=== PATIENT | female | born 1965 | race Caucasian/White ===

== ENCOUNTER → 2017-01-26 | Outpatient (CLI) | payer OTHER, BC ==
[2017-01-26 08:52] LABS: HEMATOCRIT 47.6 % (36.0-47.0); HEMOGLOBIN 15.8 g/dL (12.0-15.5); RED CELL DISTRIBUTION WIDTH 12.9 % (11.5-14.5)
[2017-01-26 09:16] LABS: ALBUMIN 3.6 g/dL (3.4-5.0); CALCIUM 9.4 mg/dL (8.5-10.1); CREATININE 0.9 mg/dL (0.6-1.0); GFR 65.5; TOTAL BILIRUBIN 0.6 mg/dL (0.2-1.0); TOTAL PROTEIN 7.2 g/dL (6.4-8.2)
[2017-01-26 09:19] LABS: CHOLESTEROL/HDL RATIO 4.8
[2017-01-26 09:24] LABS: FREE T4 1.26 ng/dL (0.76-1.46)
== END | disposition home or self-care (01) ==
LOC: LAB 08:30
PROVIDERS: ATTEND Family Medicine
DX: Z13.220 Encounter for screening for lipoid disorders (principal); R53.83 Other fatigue; E03.9 Hypothyroidism, unspecified
CPT/HCPCS: 36415; 80053; 80061; 84439; 84443; 85027

== ENCOUNTER → 2017-02-05 | Outpatient (CLI) | payer OTHER, BC ==
--- NOTE | 2017-02-09 11:55 | RAD ---
DATE: 02/05/2017 EXAM: DIGITAL DIAGNOSTIC BILATERAL, BREAST LEFT HISTORY: Left breast pain for 5 months COMPARISON: None available This study was interpreted with the benefit of Computerized Aided Detection (CAD ). FINDINGS: The breast parenchyma demonstrates heterogeneously dense breast tissue which could obscure small masses, category C. In the region of the BB marker in the left upper outer breast no definite evidence of mass or lesion identified. There is nodular appearance of the right breast tissue identified in the upper breast on the MLO view. Breast biopsy clip marker identified in the right breast. On the targeted ultrasound the left breast at the site of the marker placement no definite evidence of mass or lesion identified. IMPRESSION: Benign findings. Please note that there is some nodular appearance to the right upper breast seen on the MLO view which is not well visualized on the cc view this may be nodular appearing breast tissue. Comparison to prior exam is recommended. At this time prior comparisons are not available. Patient is getting the comparisons later today after office hours. An addendum to this report will be reported after the comparisons are available. BI-RADS CATEGORY: 2 BENIGN FINDING RECOMMENDED FOLLOW-UP: Recommend routine screening mammogram PQRS compliance statement: Patient information was entered into a reminder system with a target due date 02/05/2018 for the next mammogram. Mammography is a sensitive method for finding small breast cancers, but it does not detect them all and is not a substitute for careful clinical examination. A negative mammogram does not negate a clinically suspicious finding and should not result in delay in biopsying a clinically suspicious abnormality. "Our facility is accredited by the [employer] Mammography Program." BETH
== END | disposition home or self-care (01) ==
LOC: MAMMO 09:35
PROVIDERS: ATTEND Family Medicine
DX: N64.4 Mastodynia (principal)
CPT/HCPCS: 76641; G0204; 77066

== ENCOUNTER → 2017-05-11 | Outpatient (CLI) | payer OTHER, BC ==
--- NOTE | 2017-05-11 13:16 | RAD ---
Indication chronic pain. No history of injury. AP and frog leg views of the right hip were obtained. No acute bony finding is seen. Significant degenerative changes are not apparent on plain film
== END | disposition home or self-care (01) ==
LOC: RAD 11:10
PROVIDERS: ATTEND Family Medicine
DX: M25.551 Pain in right hip (principal); G89.29 Other chronic pain
CPT/HCPCS: 73502

== ENCOUNTER → 2017-06-25 | Outpatient (CLI) | payer OTHER, BC ==
--- NOTE | 2017-06-25 09:07 | KCIC ---
Limited right upper quadrant ultrasound dated 06/25/2017 8:00 AM. Comparison: None Clinical Indication: Right upper quadrant pain evaluate gallbladder Findings: Liver is of diffuse increased echogenicity, compatible with fatty infiltration. No apparent hepatic mass. Biliary tree normal in caliber. The common bile duct measures 4 mm.. The gallbladder is normal in size and echogenicity without gallbladder wall thickening or pericholecystic fluid. No gallstones are seen. Both kidneys are normal in echogenicity. The right kidney measures 10.2 cm in length. The left kidney measures 10.8 cm in length. No hydronephrosis. Pancreas aorta and IVC are not well evaluated due to overlying bowel gas. No significant ascites. IMPRESSION: 1. No acute sonographic abnormality. 2. Hepatic steatosis. Electronically signed by: Jt Quinones MD (06/25/2017 9:04 AM) [facility]
== END | disposition home or self-care (01) ==
LOC: KCIC US 07:52
PROVIDERS: ATTEND Family Medicine
DX: K76.0 Fatty (change of) liver, not elsewhere classified (principal)
CPT/HCPCS: 76705

== ENCOUNTER 2017-07-14 10:31 | Inpatient (IN) | payer OTHER, BC ==
[~2017-07-14] VITALS: Ht 170.2 cm; Wt 86.9 kg
--- NOTE | 2017-07-14 11:15 | PHYS DOC ---
Past Medical History Past Medical History: Hypothyroid Past Surgical History: Appendectomy, Other Additional Past Surgical Histo: NECK SX Additional Information: SMOKES 1 PK/DAY Alcohol Use: Occasionally Drug Use: None Adult General Chief Complaint Chief Complaint: NEURO SYMPTOMS/DEFICITS [facility] HPI Patient is a 51 year old female presents to the emergency department with a history of neck pain for the last week. Patient states she had chest discomfort. "like my heart was beating funny." Patient states she has a history of neck fracture in the past. She denies injury or trauma. Patient states she has been taking Naproxen for the pain. She denies any change in strength or gait. Patient denies loss of bowel or bladder. Patient is alert and oriented. Review of Systems Review of Systems Constitutional: Denies fever or chills [] Eyes: Denies change in visual acuity, redness, or eye pain [] HENT: Denies nasal congestion or sore throat [] Respiratory: Denies cough or shortness of breath [] Cardiovascular: No additional information not addressed in HPI [] GI: Denies abdominal pain, nausea, vomiting, bloody stools or diarrhea [] : Denies dysuria or hematuria [] Musculoskeletal: Denies back pain or joint pain. C/o neck pain. Integument: Denies rash or skin lesions [] Neurologic: Denies headache, focal weakness or sensory changes [] Endocrine: Denies polyuria or polydipsia [] Current Medications Current Medications Current Medications Medications (Trade) Dose Ordered Sig/Annelise Start Time Stop Time Status Last Admin Dose Admin Aspirin (Children'S Aspirin) 324 mg 1X ONCE 07/14/17 12:30 07/14/17 12:31 DC 07/14/17 12:26 324 MG Morphine Sulfate 4 mg 1X ONCE 07/14/17 13:00 07/14/17 13:01 UNV Nitroglycerin (Nitrostat) 0.4 mg PRN Q5MIN PRN 07/14/17 12:30 07/14/17 12:28 0.4 MG Allergies Allergies Allergies Coded Allergies Type Severity Reaction Last Updated Verified codeine Adverse Reaction Unknown Nausea and Vomiting 07/14/17 Yes Physical Exam Physical Exam Constitutional: Well developed, well nourished, no acute distress, non-toxic appearance. [] HENT: Normocephalic, atraumatic, bilateral external ears normal, oropharynx moist, no oral exudates, nose normal. Bilateral tympanic membranes appear to be normal. Throat with no erythematous no drainage no exudate. Eyes: PERRLA, EOMI, conjunctiva normal, no discharge. [] Neck: Normal range of motion, no tenderness, supple, no stridor. [] Cardiovascular:Heart rate regular rhythm, no murmur [] Lungs & Thorax: Bilateral breath sounds clear to auscultation [] Abdomen: Bowel sounds hypoactive, soft, no tenderness, no masses, no pulsatile masses. [] Skin: Warm, dry, no erythema, no rash. [] Back: No tenderness Extremities: No tenderness, no cyanosis, no clubbing, ROM intact, no edema. [] Neurologic: Alert and oriented X 3, normal motor function, normal sensory function, no focal deficits noted. [] Psychologic: Affect normal, judgement normal, mood normal. [] Stroke scale was 0. No deficits noted. Current Patient Data Vital Signs Vital Signs Date Time Temp Pulse Resp B/P (MAP) Pulse Ox O2 Delivery O2 Flow Rate FiO2 07/14/17 12:28 85 163/94 07/14/17 10:33 97.8 16 98 Room Air 97.8 Lab Values Laboratory Tests Test 07/14/17 11:10 07/14/17 11:35 White Blood Count 8.4 x10^3/uL (4.0-11.0) Red Blood Count 4.56 x10^6/uL (3.50-5.40) Hemoglobin 14.8 g/dL (12.0-15.5) Hematocrit 43.1 % (36.0-47.0) Mean Corpuscular Volume 95 fL (79-100) Mean Corpuscular Hemoglobin 33 pg (25-35) Mean Corpuscular Hemoglobin Concent 34 g/dL (31-37) Red Cell Distribution Width 12.7 % (11.5-14.5) Platelet Count 237 x10^3/uL (140-400) Neutrophils (%) (Auto) 59 % (31-73) Lymphocytes (%) (Auto) 31 % (24-48) Monocytes (%) (Auto) 7 % (0-9) Eosinophils (%) (Auto) 2 % (0-3) Basophils (%) (Auto) 1 % (0-3) Neutrophils # (Auto) 5.0 x10^3uL (1.8-7.7) Lymphocytes # (Auto) 2.6 x10^3/uL (1.0-4.8) Monocytes # (Auto) 0.6 x10^3/uL (0.0-1.1) Eosinophils # (Auto) 0.1 x10^3/uL (0.0-0.7) Basophils # (Auto) 0.0 x10^3/uL (0.0-0.2) Sodium Level 141 mmol/L (136-145) Potassium Level 4.3 mmol/L (3.5-5.1) Chloride Level 103 mmol/L (98-107) Carbon Dioxide Level 32 mmol/L (21-32) Anion Gap 6 (6-14) Blood Urea Nitrogen 13 mg/dL (7-20) Creatinine 1.0 mg/dL (0.6-1.0) Estimated GFR (Cockcroft-Gault) 58.0 BUN/Creatinine Ratio 13 (6-20) Glucose Level 128 mg/dL (70-99) H Calcium Level 9.1 mg/dL (8.5-10.1) Total Bilirubin 0.3 mg/dL (0.2-1.0) Aspartate Amino Transferase (AST) 18 U/L (15-37) Alanine Aminotransferase (ALT) 31 U/L (14-59) Alkaline Phosphatase 56 U/L (46-116) Troponin I Quantitative 0.197 ng/mL (0.000-0.055) Total Protein 6.7 g/dL (6.4-8.2) Albumin 3.7 g/dL (3.4-5.0) Albumin/Globulin Ratio 1.2 (1.0-1.7) Urine Collection Type Unknown Urine Color Yellow Urine Clarity Clear Urine pH 6.0 Urine Specific [place] 1.015 Urine Protein Negative mg/dL (NEG-TRACE) Urine Glucose (UA) Negative mg/dL (NEG) Urine Ketones (Stick) Negative mg/dL (NEG) Urine Blood Negative (NEG) Urine Nitrite Negative (NEG) Urine Bilirubin Negative (NEG) Urine Urobilinogen Dipstick 0.2 mg/dL (0.2 mg/dL) Urine Leukocyte Esterase Small (NEG) Urine RBC Occ /HPF (0-2) Urine WBC 1-4 /HPF (0-4) Urine Squamous Epithelial Cells Mod /LPF Urine Bacteria Moderate /HPF (0-FEW) Urine Mucus Slight /LPF Laboratory Tests 07/14/17 11:10 Laboratory Tests 07/14/17 11:10 EKG EKG EKG G completed with a heart rate of 88 sinus rhythm noted no ectopy noted, no STEMI per Dr. Tobias[] Radiology/Procedures Radiology/Procedures [] Course & Med Decision Making Course & Med Decision Making Pertinent Labs and Imaging studies reviewed. (See chart for details) Patient's CT scan and x-rays were all negative. Patient's troponin was elevated. CBC and chemistries were normal. Urine was positive for urinary tract infection. Called and spoke with Dr. Mckinney who no longer admits for his patients. Hospitalist was notified patient will be admitted into the hospital she'll play placed on a telemetry unit she is provided with aspirin here in the emergency department. Orders have been placed in the computer. Patient is aware of admission and agrees at this time. [] Dragon Disclaimer Dragon Disclaimer This electronic medical record was generated, in whole or in part, using a voice recognition dictation system. Departure Departure Impression: Primary Impression: Elevated troponin Additional Impressions: UTI (urinary tract infection) Left sided numbness Disposition: ADMITTED INPATIENT Admitting Physician: Kyleigh Meneses Condition: STABLE Referrals: JIGNESH MCKINNEY MD (PCP) Problem Qualifiers Additional Impressions: UTI (urinary tract infection) Urinary tract infection type: site unspecified Hematuria presence: without hematuria Qualified Codes: N39.0 - Urinary tract infection, site not specified IRENA STOVALL APRN Jul 14, 2017 11:15
[2017-07-14 11:19] LABS: BASO % 1 % (0-3); EOS % 2 % (0-3); HEMATOCRIT 43.1 % (36.0-47.0); HEMOGLOBIN 14.8 g/dL (12.0-15.5); LYMPH # 2.6 x10^3/uL (1.0-4.8); LYMPH % 31 % (24-48); MEAN CORPUSCULAR HEMOGLOBIN 33 pg (25-35); MEAN CORPUSCULAR HGB CONC 34 g/dL (31-37); MEAN CORPUSCULAR VOLUME 95 fL (79-100); MONO % 7 % (0-9); NEUT % 59 % (31-73); PLATELET COUNT 237 x10^3/uL (140-400); RED BLOOD COUNT 4.56 x10^6/uL (3.50-5.40); RED CELL DISTRIBUTION WIDTH 12.7 % (11.5-14.5); WHITE BLOOD COUNT 8.4 x10^3/uL (4.0-11.0)
[2017-07-14 11:32] LABS: CALCIUM 9.1 mg/dL (8.5-10.1); POTASSIUM 4.3 mmol/L (3.5-5.1)
[2017-07-14 11:38] LABS: ALBUMIN 3.7 g/dL (3.4-5.0); ALBUMIN/GLOBULIN RATIO 1.2 (1.0-1.7); TOTAL BILIRUBIN 0.3 mg/dL (0.2-1.0); TOTAL PROTEIN 6.7 g/dL (6.4-8.2)
[2017-07-14 11:53] LABS: BILIRUBIN,URINE NEGATIVE (NEG); GLUCOSE,URINE NEGATIVE (NEG); NITRITE,URINE NEGATIVE (NEG); PROTEIN,URINE NEGATIVE (NEG-TRACE); UROBILINOGEN,URINE 0.2 mg/dL (0.2 mg/dL)
--- NOTE | 2017-07-14 11:53 | RAD ---
Chest x-ray Indication: Mid back pain for one week. No known injury. Technique: AP view of the chest Comparison: Previous study from 04/12/2009 Findings: Heart is normal in size. Lungs are clear. No pneumothorax or pleural effusion. Mild bilateral AC joint osteoarthritis. Impression: No acute cardiopulmonary process.
--- NOTE | 2017-07-14 12:02 | RAD ---
Thoracic spine x-rays Indication: Mid back pain for one week. No known injury Technique: AP and lateral views of the thoracic spine Comparison: None Findings: Anterior wedge compression deformity of the lower thoracic vertebral body with approximately less than 50% loss of anterior body height. Congenital fusion of C4-C5 vertebral bodies. Multilevel degenerative disc disease and spine. Heart is normal in size. Lungs are clear. Impression: 1. Compression deformity of the lower thoracic vertebral body as described above, age indeterminate. 2. Multilevel degenerative disc disease.
--- NOTE | 2017-07-14 12:02 | RAD ---
CT of the head without contrast, 07/14/2017: History: Fall, numbness and tingling on left The ventricles are within normal limits in size. There is no shift of the midline structures. There is no evidence of acute intracranial hemorrhage or mass effect. IMPRESSION: No acute intracranial abnormality is detected. CT of the cervical spine without contrast, 07/14/2017: Noncontrast scans were obtained with multiplanar reconstructions produced. There is fusion of the C4 and C5 vertebrae. There is moderate disc space narrowing and marginal spurring at C5-6 and C6-7. There are moderate degenerative changes involving scattered facet joints bilaterally. The posterior disc margins are not clearly defined in the lower cervical region due to artifacts. The combination of findings is causing mild to moderate central spinal stenosis at C5-6 and C6-7 as well as foraminal narrowing bilaterally at those levels. No acute fracture or dislocation is identified. IMPRESSION: 1. Moderate multilevel degenerative change as described above. 2. No acute bony abnormality is detected. PQRS Compliance Statement: One or more of the following individualized dose reduction techniques were utilized for this examination: 1. Automated exposure control 2. Adjustment of the mA and/or kV according to patient size 3. Use of iterative reconstruction technique
[2017-07-14 12:11] LABS: BACTERIA,URINE MODERATE /HPF (0-FEW); RBC,URINE OCC /HPF (0-2); SQUAMOUS EPITHELIAL CELL,UR MOD /LPF
[2017-07-14] MEDS ORDERED: ASPIRIN CHEWABLE 81 MG TABLET. PO ONE (12:30)
[2017-07-14] MEDS ORDERED: NITROGLYCERIN SUBLINGUAL 0.4 MG BOTTLE OF 25. SL PRN ×2 (12:30→13:00)
--- NOTE | 2017-07-14 12:42 | EKG ---
[facility] [address] [place] [address] Test Date: 2017-07-14 Test Time: 10:36:41 Pat Name: JOHNIE BARRIGA Department: Room: Gender: F [employer] Certified Supervisor: : [id number] Requested By: IRENA STOVALL Order Number: [id number] Reading MD: Bobo Padilla Measurements Intervals [place] Rate: 88 P: 63 FL: 170 QRS: 31 QRSD: 72 T: 38 QT: 382 QTc: 466 Interpretive Statements SINUS RHYTHM Electronically Signed On 07-19-2017 14:26:50 CDT by Bobo Padilla
[2017-07-14] MEDS ORDERED: MORPHINE SULFATE 2 MG/ML DISP.SYRIN. IV PRN ×2 (13:00→16:15)
[2017-07-14] MEDS ORDERED: ONDANSETRON PF 4 MG/2 ML VIAL. IV PRN (13:00)
[2017-07-14] MEDS ORDERED: NITROFURANTOIN MONOHYD/M-CRYST 100 MG CAPSULE. PO SCH (13:15)
[2017-07-14] MEDS ORDERED: MORPHINE SULFATE 4 MG/ML DISP.SYRIN. IM ONE (13:15)
--- NOTE | 2017-07-14 14:46 | ACF ---
Admit Criteria Forms Admit Criteria Forms Admit Criteria Forms CARDIOLOGY GRG Clinical Indications for Admission to Inpatient Care ( [place]/check or initial the applicable condition/criteria) Hospital admission is needed for appropriate care of the patient because of ANY ONE of the following: [ ] I. Hemodynamic instability as indicated by ALL of the following (1)(2)(3) (4)(5)(6)(7)(8)(9)(10) [ ]a) Vital sign abnormality not readily corrected by appropriate treatment with 12-24 hours for ANY ONE: [ ]i) Hypotension that persists despite appropriate treatment (eg, volume repletion) [ ]ii) Tachycardiathat persists despite appropriate tx ( e.g., analgesia, fluids, sedation as indicated [ ]iii) Orthostatic vital sign changes that persists despite appropriate treatment (eg, volume repletion) [ ]b) Vital sign abnormailty that is severe indicated by ANY ONE of the following: [ ]i) Inadequate perfusion indicated by ANY ONE of the following: [ ] 1) Lactic acidosis (> 2 mmol/L) [ ] 2) New abnormal capillary refill (> 3 seconds) [ ] 3) Reduced urine output [ ] 4) New altered mental status [ ] 5) Myocardial Ischemia [ ] 6) Other metabolic acidosis (arterial pH <7.35 ) not otherwise explained. [ ]ii) Mean arterial pressure[A] less than 60 mm Hg [ ]iii) Mean arterial pressure[A] less than 70 mm Hg after 30 minutes of appropriate treatment (eg, fluid resuscitation) [ ]iv) Sustained heart rate greater than 120 beats per minute in adult or child 6 years or older[B] [ ]v) IV inotropic or vasopressor medication required to maintain adequate blood pressure or perfusion [ ] II. Severe heart failure as indicated by ANY ONE of the following(17)(18) [ ]a) Respiratory distress [ ]b) Hypotension [ ]c) Debilitating anasarca refractory to therapy (eg, tissue breakdown with infection)[C](19) [ ]d) Cardiac arrhythmias of immediate concern [ ]e) Myocardial ischemia [ ] III. Cardiac arrhythmias or findings of immediate concern indicated by ANY ONE of the following (21)(22): [ ] a) Heart rhythms that are inherently dangerous or unstable indicated by ANY ONE of the following (23)(24)(25): [ ] i) Resuscitated ventricular fibrillation or cardiac arrest [ ] ii) Ventricular escape rhythm [ ] iii) Sustained ventricular tachycardia (30 seconds or more of ventricular rhythm at greater than 100 beats per minute) [ ] iv) Nonsustained ventricular tachycardia and ANY ONE of the following: [ ] 1) Suspected cardiac ischemia as cause or consequence of ventricular tachycardia [ ] 2) Acute myocarditis [ ] b) Unstable cardiac conduction defects indicated by ANY ONE of the following(25)(26)(27) [ ] i) Type II second-degree atrioventricular block [ ]ii) Third-degree atrioventricular block [ ]iii) New-onset left bundle branch block with suspected myocardial ischemia [ ]c) Any heart rhythm and ANY ONE of the following (23)(24)(28)(29) (30) [ ] i) Continuous long-term ECG monitoring needed (e.g., initiation of drug requiring monitoring for more than 24 hours) [ ] ii) Patient has automatic implanted cardioverter defibrillator that is repeatedly firing, malfunctioning, or in need of immediate adjustment of settings beyond the scope of ambulatory or observation care [ ]d) Heart rhythms of concern due to ANY ONE of the following: [ ] i) Hypotension [ ] ii) Respiratory distress [ ] iii) Association with other significant symptoms (e.g., bradycardia with syncope or ongoing dizziness, supraventricular tachycardia with chest pain (28)(29)(31) [ ] IV. Monitoring for cardiac contusion beyond the scope of observation care needed [A](32)(33)(34) [ ] V. Surgical or device complication (e.g., valve replacement complication , ICD disfunction or pacemaker dysfunction) (49)(50)(51)(52)(53)(54) [ ] . Inpatient palliative care needed. [F](51)(52) Also use Inpatient Palliative Care Criteria [ ] VII. Nonbacterial thrombotic (marantic) endocarditis(43)(44)(55)(56)(57) [X ] VIII. Cardiology condition, symptom, or finding for which emergency and observation care has failed or are not considered appropriate. [ ] IX. Acute valvular disease requiring inpatient as indicated by ANY ONE of the following (40)(41) [ ]a) Acute valvular regurgitation (42) [ ]b) Noninfectious valvulitis (43)(44) [ ]c) Obstructive valve thrombosis (45)(46) [ ]d) Paravalvular leak(47)(48) [ ]e) Other significant valvular disorder remaining after emergency or observation level of care (as appropriate) [ ]X. Pericardial disease requiring inpatient treatment as indicated by ANY ONE of the following (35)(36)(37)(38) [ ]a) Suspected tamponade [ ]b) Hemopericardium [ ]c) Other significant pericardial disorder remaining after emergency or observation level of care (as appropriate)(39) [ ] XI. Cardiac ischemia beyond scope of emergency and observation care. [ ] XII. Cyanotic heart disease requiring inpatient care as indicated by 1 or more of the following(58)(59)(60): [ ]a) Acute onset of hypoxemia [ ]b) Exacerbation [ ] XIII. Hypertension requiring inpatient treatment as indicated by ANYONE of the following(11)(12)(13)(14): [ ]a) Severe hypertension (SBP greater than 180 mm Hg or DBP greater than 110 mm Hg, or greater than the 95th percentile for age, gender, and height in pediatric patients) that cannot be controlled (eg, to SBP less than 160 mm Hg and DBP less than 100 mm Hg) by emergency department or observation care treatment(15) [ ]b) Acute end organ damage secondary to hypertension (SBP greater than 140 mm Hg or DBP greater than 90 mm Hg) as indicated by ANYONE of the following: [ ] i) Hypertensive encephalopathy (eg, Altered mental status)(16) [ ] ii) Cerebral infarction [ ] iii) Intracranial hemorrhage [ ] iv) Myocardial ischemia or infarction [ ] v) Heart failure (eg, pulmonary edema) [ ] vi) Aortic dissection [ ] vii) Increased creatinine (new) with reduction of more than 50% in estimated glomerular filtration rate from baseline [ ] viii) Papilledema [ ] ix) Retinal hemorrhage [ ] x) Microangiopathic hemolytic anemia [ ] xi) Seizure [ ] xii) Other significant finding secondary to hypertension [ ] XIV. Complications of transplanted heart indicated by ANY ONE of the following(61): [ ]a) Acute graft rejection requiring inpatient management (eg, intravenous imunosuppression)(62)(63) [ ]b) Acute graft heart failure indicated by ANY ONE of the following(64): [ ] i) Hemodynamic instability [ ] ii) Cardiac arrhythmias of immediate concern [ ] iii) Pulmonary edema that is very severe (eg, mechanical ventilation needed, imminent or likely, need for 100% oxygen to keep oxygen saturation above 90%) [ ] iv) Pulmonary edema that is persistent as indicated by ALL of the following: [ ] 1) New need for oxygen therapy to keep oxygen saturation above 90 % (or increased FiO2 need from baseline) [ ] 2) Has not improved sufficiently with emergency department or observation care IV diuretics or other heart failure treatments[E]. [ ] iv) Altered mental status that is severe or persistent [ ] iv) Increased creatinine (new on laboratory test) with reduction of more than 50% in estimated glomerular filtration rate from baseline [ ] iv) Progressively (ongoing) rising creatinine (known from past laboratory test) with reduction of more than 25% in estimated glomerular filtration rate from baseline [ ] iv) Acute renal failure [ ] iv) Acute peripheral ischemia (eg, examination shows pulseless, cool, mottled, or cyanotic extremity) [ ] iv) Pulmonary artery catheter monitoring needed [ ] iv) Other sign or symptom of heart failure requiring inpatient treatment (ie, too severe or not responsive to outpatient and observation care treatment) [ ]c) Infection requiring inpatient management (eg, Hemodynamic instability, need for intravenous antimicrobial treatment)(66)(67)(68)(69)(70) [ ]d) Cardiac allograft vasculopathy requiring inpatient management (eg evidence of cardiacischemia)(71) [ ]e) Other complication of transplanted heart (eg, stroke, severe pulmonary hypertension, severe valvular dysfunction) requiring inpatient management(72) The original [employer] content created by [employer] has been revised. The portions of the content which have been revised are identified through the use of italic text, and [email or web address] has neither reviewed nor approved the modified material. All other unmodified content is copyright [employer]. Please see references footnoted in the original [employer] edition 2014 JUNIOR IBRAHIM Jul 14, 2017 14:46
--- NOTE | 2017-07-14 15:12 | PDOC2 ---
CARDIAC CONSULT DATE OF CONSULT Date of Consult DATE: 07/14/17 TIME: 14:50 REASON FOR CONSULT Reason for Consult: Elevated troponin REFERRING PHYSICIAN Referring Physician: Jose Manuel SOURCE Source: Chart review, Patient HISTORY OF PRESENT ILLNESS HISTORY OF PRESENT ILLNESS This is a 51 yo male admitted for complains chest discomfort. Last week she was in ED for neck pain. She has been taking aleve for the pain but PRN not daily. US was done and showed no gallbladder disease. She remains to have intermittent nausea. Denies any chest pain, but in the last week she has been positive for left shoulder blade pain, numbness and tingling and discomfort to her left arm. Also discomfort to her left shoulder and numbness/tingling to her left jaw and tongue. Denies any slurred speech, unilateral weakness, facial droop or OCAMPO. Yesterday she also has been having palpitations. Also notable for some SOA with exertion. She is significant for cervical radiculopathy with prior cervical fusion. Upon admission her BP has been moderately elevated but no prior HTN by hx. No HLP but positive for tobaccoism, hypothyrodism. No recent falls or injury. No prior CAD, VTE. significant family hx of CAD. She denies any heartburn. No known COPD but notable for leg cramps and positive for snoring and no prior VIVIAN workup. PAST MEDICAL HISTORY Cardiovascular: HTN, Other (leg varicosities) Pulmonary: No pertinent hx CENTRAL NERVOUS SYSTEM: Other (cervical radiculopathy) GI: Hemorrhoids Heme/Onc: No pertinent hx Hepatobiliary: No pertinent hx, Other (ARIAS) Psych: Depression (controlled no meds) Musculoskeletal: Osteoarthritis, Other (degenerative disc disease; right trochanteric bursitis) Rheumatologic: No pertinent hx Infectious disease: No pertinent hx ENT: No pertinent hx Renal/: No pertinent hx Endocrine: Hypothyroidism, Other (goiter) Dermatology: No pertinent hx Grav: 3 Para: 3 PAST SURGICAL HISTORY Past Surgical History: Appendectomy, Other (cervical fusion; breast biopsy) FAMILY HISTORY Family History: Coronary Artery Disease (mother and brother), Heart Disease ( mother), Hypertension (father) SOCIAL HISTORY Smoke: 1 pack per day ALCOHOL: other (2 beer daily) Drugs: None Lives: with Family CURRENT MEDICATIONS CURRENT MEDICATIONS Current Medications Medications (Trade) Dose Ordered Sig/Annelise Route PRN Reason Start Time Stop Time Status Last Admin Dose Admin Aspirin (Children'S Aspirin) 324 mg 1X ONCE PO 07/14/17 12:30 07/14/17 12:31 DC 07/14/17 12:26 Nitroglycerin (Nitrostat) 0.4 mg PRN Q5MIN PRN SL CHEST PAIN 07/14/17 12:30 07/14/17 12:28 Morphine Sulfate 4 mg 1X ONCE IM 07/14/17 13:15 07/14/17 13:16 DC 07/14/17 13:08 Nitrofurantoin Macrocrystals (Macrobid) 100 mg BID PO 07/14/17 13:15 07/14/17 13:07 ALLERGIES ALLERGIES: Coded Allergies: codeine (Verified Adverse Reaction, Unknown, Nausea and Vomiting, 07/14/17) ROS Review of System 14 point ROS evaluated with pertinent positives noted per HPI PHYSICAL EXAM General: Alert, Oriented X3, Cooperative, No acute distress HEENT: Atraumatic, Mucous membr. moist/pink Lungs: Clear to auscultation, Normal air movement Heart: Regular rate (SR), Normal S1, Normal S2, Other (2/6 systolic murmur to MAYELA border) Abdomen: Soft, No tenderness, Other (no bruit) Neuro: Normal speech, Sensation intact Psych/Mental Status: Mental status NL, Mood NL MUSCULOSKELETAL: Osteoarthritic changes both hands VITALS VITALS Vital Signs Date Time Temp Pulse Resp B/P (MAP) Pulse Ox O2 Delivery O2 Flow Rate FiO2 07/14/17 13:30 84 162/88 (112) 98 Room Air 07/14/17 13:08 16 07/14/17 10:33 97.8 97.8 LABS Lab: Laboratory Tests Test 07/14/17 11:10 07/14/17 11:35 White Blood Count 8.4 x10^3/uL (4.0-11.0) Red Blood Count 4.56 x10^6/uL (3.50-5.40) Hemoglobin 14.8 g/dL (12.0-15.5) Hematocrit 43.1 % (36.0-47.0) Mean Corpuscular Volume 95 fL (79-100) Mean Corpuscular Hemoglobin 33 pg (25-35) Mean Corpuscular Hemoglobin Concent 34 g/dL (31-37) Red Cell Distribution Width 12.7 % (11.5-14.5) Platelet Count 237 x10^3/uL (140-400) Neutrophils (%) (Auto) 59 % (31-73) Lymphocytes (%) (Auto) 31 % (24-48) Monocytes (%) (Auto) 7 % (0-9) Eosinophils (%) (Auto) 2 % (0-3) Basophils (%) (Auto) 1 % (0-3) Neutrophils # (Auto) 5.0 x10^3uL (1.8-7.7) Lymphocytes # (Auto) 2.6 x10^3/uL (1.0-4.8) Monocytes # (Auto) 0.6 x10^3/uL (0.0-1.1) Eosinophils # (Auto) 0.1 x10^3/uL (0.0-0.7) Basophils # (Auto) 0.0 x10^3/uL (0.0-0.2) Sodium Level 141 mmol/L (136-145) Potassium Level 4.3 mmol/L (3.5-5.1) Chloride Level 103 mmol/L (98-107) Carbon Dioxide Level 32 mmol/L (21-32) Anion Gap 6 (6-14) Blood Urea Nitrogen 13 mg/dL (7-20) Creatinine 1.0 mg/dL (0.6-1.0) Estimated GFR (Cockcroft-Gault) 58.0 BUN/Creatinine Ratio 13 (6-20) Glucose Level 128 mg/dL (70-99) Calcium Level 9.1 mg/dL (8.5-10.1) Total Bilirubin 0.3 mg/dL (0.2-1.0) Aspartate Amino Transf (AST/SGOT) 18 U/L (15-37) Alanine Aminotransferase (ALT/SGPT) 31 U/L (14-59) Alkaline Phosphatase 56 U/L (46-116) Troponin I Quantitative 0.197 ng/mL (0.000-0.055) Total Protein 6.7 g/dL (6.4-8.2) Albumin 3.7 g/dL (3.4-5.0) Albumin/Globulin Ratio 1.2 (1.0-1.7) Urine Collection Type Unknown Urine Color Yellow Urine Clarity Clear Urine pH 6.0 Urine Specific [place] 1.015 Urine Protein Negative mg/dL (NEG-TRACE) Urine Glucose (UA) Negative mg/dL (NEG) Urine Ketones (Stick) Negative mg/dL (NEG) Urine Blood Negative (NEG) Urine Nitrite Negative (NEG) Urine Bilirubin Negative (NEG) Urine Urobilinogen Dipstick 0.2 mg/dL (0.2 mg/dL) Urine Leukocyte Esterase Small (NEG) Urine RBC Occ /HPF (0-2) Urine WBC 1-4 /HPF (0-4) Urine Squamous Epithelial Cells Mod /LPF Urine Bacteria Moderate /HPF (0-FEW) Urine Mucus Slight /LPF ASSESSMENT/PLAN ASSESSMENT/PLAN 1. Unstable angina: Troponin 0.197. EKG with subtle ST-T changes to inferolateral leads. 2. HTN: moderately elevated. Newly diagnosed 3. Hypothyroidism 4. Possible UTI 5. DDD with cervical radiculopathy: cervical fusion in the past. 6. Tobaccoism 7. Suspecting VIVIAN 8. ARIAS/metabolic syndrome Recommendations 1. Discussed LHC, risks and benefits and agreeable to proceed 2. TTE, EKG in AM. 3. TSH, A1C, Mg, lipid panel and trend troponin 4. Will need outpt VIVIAN workup. 5. ASA, heparin drip, start statin and will uptitrate pending lipids panel in am. 6. Norvasc x1. Will reeval for BB/ACEi tomorrow. Labetalol IV PRN. Problems: LIBBY CAMARENA DISPATCHER RADIO Jul 14, 2017 15:12
[2017-07-14 16:10] VITALS: BP 167/99
[2017-07-14] MEDS ORDERED: ACETAMINOPHEN 325 MG TABLET. PO PRN (16:15)
[2017-07-14] MEDS ORDERED: hydrALAZINE 20 MG/ML VIAL. IVP PRN (16:15)
--- NOTE | 2017-07-14 16:25 | PDOC1 ---
History and Physical Date of Admission Date of Admission 07/14/17 Identification/Chief Complaint Chief Complaint neck pain, left side numbness Problems: Source Source: Chart review, Patient History of Present Illness History of Present Illness HPI HPI Patient is a 51 year old female presents to the emergency department with a history of neck pain for the last week. Pt had h/o neck sx in 1998, no pain till a few days ago. 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 The neck pain shooting down to left shoulder, also has left hands and left leg numbness and weakness sometimes. She has no chest pain, but had one time palpitation. in ER, was found high troponin at 0.197 smoker, no fever, chills, no sob, has some nausea. Past Medical History Cardiovascular: Other (leg varicosities) Pulmonary: No pertinent hx CENTRAL NERVOUS SYSTEM: Other (cervical radiculopathy) GI: Hemorrhoids Heme/Onc: No pertinent hx Hepatobiliary: No pertinent hx, Other (ARIAS) Psych: Depression (controlled no meds) Rheumatologic: No pertinent hx Infectious disease: No pertinent hx ENT: No pertinent hx Renal/: No pertinent hx Endocrine: Hypothyroidism, Other (goiter) Dermatology: No pertinent hx Grav: 3 Para: 3 Past Surgical History Past Surgical History: Appendectomy, Other (cervical fusion; breast biopsy) Family History Family History: Coronary Artery Disease (mother and brother), Heart Disease ( mother), Hypertension (father) Social History Smoke: 1 pack per day ALCOHOL: other (2 beer daily) Drugs: None Current Problem List Problem List Problems Medical Problems: (1) Elevated troponin Status: Acute (2) Left sided numbness Status: Acute (3) UTI (urinary tract infection) Status: Acute Current Medications Current Medications Current Medications Medications (Trade) Dose Ordered Sig/Annelise Start Time Stop Time Status Last Admin Dose Admin Amlodipine Besylate (Norvasc) 5 mg 1X ONCE 07/14/17 16:30 07/14/17 16:31 Aspirin (Children'S Aspirin) 324 mg 1X ONCE 07/14/17 12:30 07/14/17 12:31 DC 07/14/17 12:26 324 MG Aspirin (Ecotrin) 81 mg [id number] 07/15/17 08:00 Atorvastatin Calcium (Lipitor) 20 mg QHS 07/14/17 21:00 Heparin Sodium (Porcine) (Heparin Sodium) 2,000 unit PRN Q6HRS PRN 07/14/17 15:45 Heparin Sodium/ Dextrose 500 ml @ 0 mls/hr CONT PRN 07/14/17 15:45 Info (Anti-Coagulation Monitoring By Pharmacy) 1 each PRN DAILY PRN 07/14/17 16:00 Morphine Sulfate 2 mg PRN Q2HR PRN 07/14/17 15:30 Nitrofurantoin Macrocrystals (Macrobid) 100 mg BID 07/14/17 13:15 07/14/17 13:07 100 MG Nitroglycerin (Nitrostat) 0.4 mg PRN Q5MIN PRN 07/14/17 13:00 07/15/17 12:59 Ondansetron HCl (Zofran) 4 mg PRN Q8HRS PRN 07/14/17 13:00 07/15/17 12:59 Allergies Allergies Allergies Coded Allergies Type Severity Reaction Last Updated Verified codeine Adverse Reaction Unknown Nausea and Vomiting 07/14/17 Yes ROS Review of System CONSTITUTIONAL: No fever or chills EYES: No recent changes SKIN: No rash or itching CARDIOVASCULAR: No chest pain, syncope, palpitations, or edema RESPIRATORY: No SOB or cough GASTROINTESTINAL: No nausea, vomiting or abdominal pain NEUROLOGICAL: No headaches or weakness ENDOCRINE: No cold or heat intolerance GENITOURINARY: No urgency or frequency of urination MUSCULOSKELETAL: No back pain or joint pain LYMPHATICS: No enlarged lymph nodes PSYCHIATRIC: No anxiety or depression Physical Exam Physical Exam GEN.: No apparent distress. Alert and oriented. HEENT: Head is normocephalic, atraumatic NECK: Supple. neck, upper back tenderness, shoulder tenderness LUNGS: Clear to auscultation. HEART: RRR, S1, S2 present. Peripheral pulses intact ABDOMEN: Soft, nontender. Positive bowel sounds. EXTREMITIES: Without any cyanosis. NEUROLOGIC: Normal speech, normal tone PSYCHIATRIC: Normal affect, normal mood. SKIN: No ulcerations Vitals Vitals Vital Signs Date Time Temp Pulse Resp B/P (MAP) Pulse Ox O2 Delivery O2 Flow Rate FiO2 07/14/17 15:00 84 141/73 (95) Room Air 07/14/17 13:30 98 07/14/17 13:08 16 07/14/17 10:33 97.8 97.8 Labs Labs Laboratory Tests Test 07/14/17 11:10 07/14/17 11:35 White Blood Count 8.4 x10^3/uL (4.0-11.0) Red Blood Count 4.56 x10^6/uL (3.50-5.40) Hemoglobin 14.8 g/dL (12.0-15.5) Hematocrit 43.1 % (36.0-47.0) Mean Corpuscular Volume 95 fL (79-100) Mean Corpuscular Hemoglobin 33 pg (25-35) Mean Corpuscular Hemoglobin Concent 34 g/dL (31-37) Red Cell Distribution Width 12.7 % (11.5-14.5) Platelet Count 237 x10^3/uL (140-400) Neutrophils (%) (Auto) 59 % (31-73) Lymphocytes (%) (Auto) 31 % (24-48) Monocytes (%) (Auto) 7 % (0-9) Eosinophils (%) (Auto) 2 % (0-3) Basophils (%) (Auto) 1 % (0-3) Neutrophils # (Auto) 5.0 x10^3uL (1.8-7.7) Lymphocytes # (Auto) 2.6 x10^3/uL (1.0-4.8) Monocytes # (Auto) 0.6 x10^3/uL (0.0-1.1) Eosinophils # (Auto) 0.1 x10^3/uL (0.0-0.7) Basophils # (Auto) 0.0 x10^3/uL (0.0-0.2) Sodium Level 141 mmol/L (136-145) Potassium Level 4.3 mmol/L (3.5-5.1) Chloride Level 103 mmol/L (98-107) Carbon Dioxide Level 32 mmol/L (21-32) Anion Gap 6 (6-14) Blood Urea Nitrogen 13 mg/dL (7-20) Creatinine 1.0 mg/dL (0.6-1.0) Estimated GFR (Cockcroft-Gault) 58.0 BUN/Creatinine Ratio 13 (6-20) Glucose Level 128 mg/dL (70-99) Calcium Level 9.1 mg/dL (8.5-10.1) Magnesium Level 2.0 mg/dL (1.8-2.4) Total Bilirubin 0.3 mg/dL (0.2-1.0) Aspartate Amino Transf (AST/SGOT) 18 U/L (15-37) Alanine Aminotransferase (ALT/SGPT) 31 U/L (14-59) Alkaline Phosphatase 56 U/L (46-116) Troponin I Quantitative 0.197 ng/mL (0.000-0.055) Total Protein 6.7 g/dL (6.4-8.2) Albumin 3.7 g/dL (3.4-5.0) Albumin/Globulin Ratio 1.2 (1.0-1.7) Thyroid Stimulating Hormone (TSH) 1.399 uIU/mL (0.358-3.74) Urine Collection Type Unknown Urine Color Yellow Urine Clarity Clear Urine pH 6.0 Urine Specific [place] 1.015 Urine Protein Negative mg/dL (NEG-TRACE) Urine Glucose (UA) Negative mg/dL (NEG) Urine Ketones (Stick) Negative mg/dL (NEG) Urine Blood Negative (NEG) Urine Nitrite Negative (NEG) Urine Bilirubin Negative (NEG) Urine Urobilinogen Dipstick 0.2 mg/dL (0.2 mg/dL) Urine Leukocyte Esterase Small (NEG) Urine RBC Occ /HPF (0-2) Urine WBC 1-4 /HPF (0-4) Urine Squamous Epithelial Cells Mod /LPF Urine Bacteria Moderate /HPF (0-FEW) Urine Mucus Slight /LPF Laboratory Tests Test 07/14/17 11:10 07/14/17 11:35 White Blood Count 8.4 x10^3/uL (4.0-11.0) Red Blood Count 4.56 x10^6/uL (3.50-5.40) Hemoglobin 14.8 g/dL (12.0-15.5) Hematocrit 43.1 % (36.0-47.0) Mean Corpuscular Volume 95 fL (79-100) Mean Corpuscular Hemoglobin 33 pg (25-35) Mean Corpuscular Hemoglobin Concent 34 g/dL (31-37) Red Cell Distribution Width 12.7 % (11.5-14.5) Platelet Count 237 x10^3/uL (140-400) Neutrophils (%) (Auto) 59 % (31-73) Lymphocytes (%) (Auto) 31 % (24-48) Monocytes (%) (Auto) 7 % (0-9) Eosinophils (%) (Auto) 2 % (0-3) Basophils (%) (Auto) 1 % (0-3) Neutrophils # (Auto) 5.0 x10^3uL (1.8-7.7) Lymphocytes # (Auto) 2.6 x10^3/uL (1.0-4.8) Monocytes # (Auto) 0.6 x10^3/uL (0.0-1.1) Eosinophils # (Auto) 0.1 x10^3/uL (0.0-0.7) Basophils # (Auto) 0.0 x10^3/uL (0.0-0.2) Sodium Level 141 mmol/L (136-145) Potassium Level 4.3 mmol/L (3.5-5.1) Chloride Level 103 mmol/L (98-107) Carbon Dioxide Level 32 mmol/L (21-32) Anion Gap 6 (6-14) Blood Urea Nitrogen 13 mg/dL (7-20) Creatinine 1.0 mg/dL (0.6-1.0) Estimated GFR (Cockcroft-Gault) 58.0 BUN/Creatinine Ratio 13 (6-20) Glucose Level 128 mg/dL (70-99) Calcium Level 9.1 mg/dL (8.5-10.1) Magnesium Level 2.0 mg/dL (1.8-2.4) Total Bilirubin 0.3 mg/dL (0.2-1.0) Aspartate Amino Transf (AST/SGOT) 18 U/L (15-37) Alanine Aminotransferase (ALT/SGPT) 31 U/L (14-59) Alkaline Phosphatase 56 U/L (46-116) Troponin I Quantitative 0.197 ng/mL (0.000-0.055) Total Protein 6.7 g/dL (6.4-8.2) Albumin 3.7 g/dL (3.4-5.0) Albumin/Globulin Ratio 1.2 (1.0-1.7) Thyroid Stimulating Hormone (TSH) 1.399 uIU/mL (0.358-3.74) Urine Collection Type Unknown Urine Color Yellow Urine Clarity Clear Urine pH 6.0 Urine Specific [place] 1.015 Urine Protein Negative mg/dL (NEG-TRACE) Urine Glucose (UA) Negative mg/dL (NEG) Urine Ketones (Stick) Negative mg/dL (NEG) Urine Blood Negative (NEG) Urine Nitrite Negative (NEG) Urine Bilirubin Negative (NEG) Urine Urobilinogen Dipstick 0.2 mg/dL (0.2 mg/dL) Urine Leukocyte Esterase Small (NEG) Urine RBC Occ /HPF (0-2) Urine WBC 1-4 /HPF (0-4) Urine Squamous Epithelial Cells Mod /LPF Urine Bacteria Moderate /HPF (0-FEW) Urine Mucus Slight /LPF VTE Prophylaxis Ordered VTE Prophylaxis Devices: Yes VTE Pharmacological Prophylaxi: No Assessment/Plan Assessment/Plan neck pain, left side intermittent numbness and weakness, need to rule out nerve problem high troponin wo chest pain, need to rule out RI hypothyroidism HTN, new onset tobaccoism plan; dr. Jose gay consult brain , cervical MRI cycle CE, check tsh, lipid panel asa for now heparin drip as per victor hugo echo need home meds pain control ptot SAGAR GARCIA MD Jul 14, 2017 16:25
[2017-07-14] MEDS ORDERED: LORazepam 0.5 MG TABLET PO ONE (16:30)
[2017-07-14] MEDS ORDERED: amLODIPine BESYLATE 5 MG TABLET PO ONE (16:30)
--- NOTE | 2017-07-14 17:20 | CARD ---
APPROVED REPORT EXAM: Two-dimensional and M-mode echocardiogram with Doppler and color Doppler. Other Information Quality : Average Rhythm : NSR INDICATION Chest Pain Elevated troponin level 2D DIMENSIONS Left Atrium(2D)3.5 (1.6-4.0cm)IVSd1.1 (0.7-1.1cm) Aortic Root(2D)3.1 (2.0-3.7cm)LVDd4.7 (3.9-5.9cm) LVOT Diameter2.1 (1.8-2.4cm)PWd1.1 (0.7-1.1cm) LVDs3.4 (2.5-4.0cm)FS (%) 25.9 % SV51.0 mlLVEF(%)51.0 (>50%) Aortic Valve AoV Peak Nixon.99.3cm/sAoV VTI15.0cm AO Peak GR.3.9mmHgLVOT VTI 14.26cm AO Mean GR.2mmHg Mitral Valve MV E Onyzwkqu17.4cm/sMV E Peak Gr.2mmHg MV DECEL [id number] A Gihljqux77.5cm/s MV FMA18kaF/A Ratio1.3 MV A [id number] (PHT)4.23cm2 TDI Lateral E' P. V8.22cm/sMedial E' P. V9.11cm/s E/Lateral E'7.8E/Medial E'7.1 Tricuspid Valve TR P. Ppiteyfk816yb/sRAP [id number] TR Peak Gr.67ooShZLIB51xdUq LEFT VENTRICLE The left ventricle is normal size. There is normal left ventricular wall thickness. Left ventricle sy stolic function is normal. The Ejection Fraction is 50-55%. There is normal LV segmental wall motion. The left ventricular diastolic function and filling is normal for age. There is no ventricular septa l defect visualized. RIGHT VENTRICLE The right ventricle is normal size. The right ventricular systolic function is normal. ATRIA The left atrium size is normal. The right atrium size is normal. The interatrial septum is intact wit h no evidence for an atrial septal defect or patent foramen ovale as noted on 2-D or Doppler imaging. AORTIC VALVE The aortic valve is normal in structure and function. The aortic valve is trileaflet. Doppler and Col or Flow revealed no significant aortic regurgitation. There is no significant aortic valvular stenosi s. MITRAL VALVE The mitral valve is normal in structure and function. There is no mitral valve stenosis. Doppler and Color Flow revealed trace to mild mitral regurgitation. TRICUSPID VALVE The tricuspid valve is normal in structure and function. Doppler and Color Flow revealed mild tricusp id regurgitation. The PA pressure was estimated at 22 mmHg. There is no tricuspid valve stenosis. PULMONIC VALVE The pulmonic valve is not well visualized. Doppler and Color Flow revealed no pulmonic valvular regur gitation. There is no pulmonic valvular stenosis. GREAT VESSELS The aortic root is normal in size. Pulmonary veins not recorded. The IVC is normal in size and collap ses >50% with inspiration. PERICARDIAL EFFUSION There is no evidence of significant pericardial effusion. Critical Notification Critical Value: No <Conclusion> Left ventricle systolic function is normal. The Ejection Fraction is 50-55%. There is normal LV segmental wall motion.
[2017-07-14 19:35] VITALS: BP 137/66
[2017-07-14] MEDS: MORPHINE SULFATE 4 MG/ML DISP.SYRIN. IV PRN (19:37)
[2017-07-14] MEDS: HEPARIN for IV BOLUS 10,000 UNIT/10 ML VIAL. IV PRN (19:42)
[2017-07-14] MEDS: HEPARIN 25,000UTS/500ML PREMIX 500 ML IV PRN (19:45)
[2017-07-14] MEDS ORDERED: ATORVASTATIN CALCIUM 20 MG TABLET PO SCH (21:00)
[2017-07-14] MEDS: ATORVASTATIN CALCIUM 40 MG TABLET. PO SCH (21:14)
[2017-07-14 23:30] VITALS: BP 125/81
[2017-07-15] VITALS (11 sets, daily range): BP systolic 99–140; BP diastolic 56–99
[2017-07-15] MEDS: HEPARIN for IV BOLUS 10,000 UNIT/10 ML VIAL. IV PRN (02:35)
[2017-07-15 05:45] LABS: BASO % 1 % (0-3); EOS % 3 % (0-3); HEMATOCRIT 46.2 % (36.0-47.0); HEMOGLOBIN 15.2 g/dL (12.0-15.5); LYMPH # 2.6 x10^3/uL (1.0-4.8); LYMPH % 41 % (24-48); MEAN CORPUSCULAR HEMOGLOBIN 32 pg (25-35); MEAN CORPUSCULAR HGB CONC 33 g/dL (31-37); MEAN CORPUSCULAR VOLUME 97 fL (79-100); MONO % 9 % (0-9); NEUT % 46 % (31-73); PLATELET COUNT 217 x10^3/uL (140-400); RED BLOOD COUNT 4.76 x10^6/uL (3.50-5.40); RED CELL DISTRIBUTION WIDTH 13.4 % (11.5-14.5); WHITE BLOOD COUNT 6.4 x10^3/uL (4.0-11.0)
[2017-07-15 06:24] LABS: CALCIUM 9.2 mg/dL (8.5-10.1); CREATININE 0.9 mg/dL (0.6-1.0); GFR 65.5; POTASSIUM 4.1 mmol/L (3.5-5.1)
[2017-07-15 06:37] LABS: CHOLESTEROL/HDL RATIO 4.4
[2017-07-15] MEDS: ASPIRIN ENTERIC COATED 81 MG TABLET.DR. PO SCH (07:43)
[2017-07-15] MEDS: ANTI-COAG MONITOR BY PHARMACY. MC PRN (08:47)
--- NOTE | 2017-07-15 09:01 | EKG ---
[facility] [address] [place] [address] Test Date: 2017-07-15 Test Time: 08:56:39 Pat Name: JOHNIE BARRIGA Department: Room: 261 1 Gender: F Decal Applier: MU : [id number] Requested By: LIBBY CAMARENA Order Number: [id number] Reading MD: Bobo Padilla Measurements Intervals [place] Rate: 78 P: 58 FL: 178 QRS: 34 QRSD: 70 T: 56 QT: 416 QTc: 478 Interpretive Statements SINUS RHYTHM PROLONGED QT Electronically Signed On 07-19-2017 14:50:04 CDT by Bobo Padilla
[2017-07-15] MEDS ORDERED: LIDOCAINE 2% 20 ML VIAL. ONE (09:12)
[2017-07-15] MEDS ORDERED: IOHEXOL 300 MG/ML 100ML VIAL. ONE (09:12)
[2017-07-15] MEDS ORDERED: HEPARIN for ARTERIAL LINE 1,500 ML ONE (09:12)
[2017-07-15] MEDS ORDERED: LEVO125T PO (09:22)
[2017-07-15] MEDS ORDERED: VERAPAMIL 5 MG/2 ML VIAL. ONE (09:36)
[2017-07-15] MEDS ORDERED: HEPARIN for IV BOLUS 10,000 UNIT/10 ML VIAL. ONE (09:36)
[2017-07-15] MEDS ORDERED: fentaNYL PF VIAL 100 MCG/2 ML VIAL ONE (09:37)
[2017-07-15] MEDS ORDERED: MIDAZOLAM HCL/PF 5 MG/5 ML VIAL. ONE (09:37)
[2017-07-15] MEDS ORDERED: NITROGLYCERIN 200 MCG/2 ML SYRINGE FOR CATH/VASC LAB. ONE ×2 (09:39→10:17)
[2017-07-15] MEDS ORDERED: LIDOCAINE 2% 20 ML VIAL. IJ ONE (09:45)
[2017-07-15] MEDS ORDERED: IOHEXOL 300 MG/ML 100ML VIAL. IART ONE (09:45)
[2017-07-15] MEDS ORDERED: VERAPAMIL 5 MG/2 ML VIAL. IART ONE (09:45)
[2017-07-15] MEDS ORDERED: fentaNYL PF VIAL 100 MCG/2 ML VIAL IV ONE (09:45)
[2017-07-15] MEDS ORDERED: HEPARIN for IV BOLUS 10,000 UNIT/10 ML VIAL. IART ONE (09:45)
[2017-07-15] MEDS ORDERED: MIDAZOLAM HCL/PF 5 MG/5 ML VIAL. IV ONE (09:45)
[2017-07-15] MEDS ORDERED: NITROGLYCERIN 200 MCG/2 ML SYRINGE FOR CATH/VASC LAB. IART ONE (09:45)
--- NOTE | 2017-07-15 10:08 | PDOC ---
PROGRESS NOTES Chief Complaint Chief Complaint Cervical DJD no nerve impingement THoracic compression fx < 50% vertebral height Troponin leak hypothyroidism HTN, new onset tobaccoism History of Present Illness History of Present Illness Out having [facility] TRops 0.177 VS ok Chart reviewed SPine images show Thoracic compression fx < 50%, DJD on cervical spine - no nerve impingement PLAN: Await from [facility] physiatry recs PT/OT COntrol pain BOwel regimen Vitals Vitals Vital Signs Date Time Temp Pulse Resp B/P (MAP) Pulse Ox O2 Delivery O2 Flow Rate FiO2 07/15/17 07:35 Room Air 07/15/17 07:00 97.9 66 18 117/72 (87) 96 97.9 Physical Exam General: Alert, Oriented X3, Cooperative, No acute distress Heart: Regular rate (SR), Normal S1, Normal S2, Other (2/6 systolic murmur to MAYELA border) Abdomen: Soft, No tenderness, Other (no bruit) Extremities: No clubbing Skin: No rashes Labs LABS Laboratory Tests Test 07/14/17 11:10 07/14/17 11:35 07/14/17 19:00 07/15/17 01:15 White Blood Count 8.4 x10^3/uL (4.0-11.0) Red Blood Count 4.56 x10^6/uL (3.50-5.40) Hemoglobin 14.8 g/dL (12.0-15.5) Hematocrit 43.1 % (36.0-47.0) Mean Corpuscular Volume 95 fL (79-100) Mean Corpuscular Hemoglobin 33 pg (25-35) Mean Corpuscular Hemoglobin Concent 34 g/dL (31-37) Red Cell Distribution Width 12.7 % (11.5-14.5) Platelet Count 237 x10^3/uL (140-400) Neutrophils (%) (Auto) 59 % (31-73) Lymphocytes (%) (Auto) 31 % (24-48) Monocytes (%) (Auto) 7 % (0-9) Eosinophils (%) (Auto) 2 % (0-3) Basophils (%) (Auto) 1 % (0-3) Neutrophils # (Auto) 5.0 x10^3uL (1.8-7.7) Lymphocytes # (Auto) 2.6 x10^3/uL (1.0-4.8) Monocytes # (Auto) 0.6 x10^3/uL (0.0-1.1) Eosinophils # (Auto) 0.1 x10^3/uL (0.0-0.7) Basophils # (Auto) 0.0 x10^3/uL (0.0-0.2) Sodium Level 141 mmol/L (136-145) Potassium Level 4.3 mmol/L (3.5-5.1) Chloride Level 103 mmol/L (98-107) Carbon Dioxide Level 32 mmol/L (21-32) Anion Gap 6 (6-14) Blood Urea Nitrogen 13 mg/dL (7-20) Creatinine 1.0 mg/dL (0.6-1.0) Estimated GFR (Cockcroft-Gault) 58.0 BUN/Creatinine Ratio 13 (6-20) Glucose Level 128 mg/dL (70-99) Hemoglobin A1c 5.1 % (4.8-5.6) Calcium Level 9.1 mg/dL (8.5-10.1) Magnesium Level 2.0 mg/dL (1.8-2.4) Total Bilirubin 0.3 mg/dL (0.2-1.0) Aspartate Amino Transf (AST/SGOT) 18 U/L (15-37) Alanine Aminotransferase (ALT/SGPT) 31 U/L (14-59) Alkaline Phosphatase 56 U/L (46-116) Troponin I Quantitative 0.197 ng/mL (0.000-0.055) 0.177 ng/mL (0.000-0.055) 0.177 ng/mL (0.000-0.055) Total Protein 6.7 g/dL (6.4-8.2) Albumin 3.7 g/dL (3.4-5.0) Albumin/Globulin Ratio 1.2 (1.0-1.7) Thyroid Stimulating Hormone (TSH) 1.399 uIU/mL (0.358-3.74) Urine Collection Type Unknown Urine Color Yellow Urine Clarity Clear Urine pH 6.0 Urine Specific [place] 1.015 Urine Protein Negative mg/dL (NEG-TRACE) Urine Glucose (UA) Negative mg/dL (NEG) Urine Ketones (Stick) Negative mg/dL (NEG) Urine Blood Negative (NEG) Urine Nitrite Negative (NEG) Urine Bilirubin Negative (NEG) Urine Urobilinogen Dipstick 0.2 mg/dL (0.2 mg/dL) Urine Leukocyte Esterase Small (NEG) Urine RBC Occ /HPF (0-2) Urine WBC 1-4 /HPF (0-4) Urine Squamous Epithelial Cells Mod /LPF Urine Bacteria Moderate /HPF (0-FEW) Urine Mucus Slight /LPF Heparin Anti-Xa Act, Unfractionated 0.18 IU/mL (0.30-0.70) Test 07/15/17 05:30 07/15/17 08:55 White Blood Count 6.4 x10^3/uL (4.0-11.0) Red Blood Count 4.76 x10^6/uL (3.50-5.40) Hemoglobin 15.2 g/dL (12.0-15.5) Hematocrit 46.2 % (36.0-47.0) Mean Corpuscular Volume 97 fL (79-100) Mean Corpuscular Hemoglobin 32 pg (25-35) Mean Corpuscular Hemoglobin Concent 33 g/dL (31-37) Red Cell Distribution Width 13.4 % (11.5-14.5) Platelet Count 217 x10^3/uL (140-400) Neutrophils (%) (Auto) 46 % (31-73) Lymphocytes (%) (Auto) 41 % (24-48) Monocytes (%) (Auto) 9 % (0-9) Eosinophils (%) (Auto) 3 % (0-3) Basophils (%) (Auto) 1 % (0-3) Neutrophils # (Auto) 2.9 x10^3uL (1.8-7.7) Lymphocytes # (Auto) 2.6 x10^3/uL (1.0-4.8) Monocytes # (Auto) 0.6 x10^3/uL (0.0-1.1) Eosinophils # (Auto) 0.2 x10^3/uL (0.0-0.7) Basophils # (Auto) 0.0 x10^3/uL (0.0-0.2) Sodium Level 142 mmol/L (136-145) Potassium Level 4.1 mmol/L (3.5-5.1) Chloride Level 104 mmol/L (98-107) Carbon Dioxide Level 33 mmol/L (21-32) Anion Gap 5 (6-14) Blood Urea Nitrogen 11 mg/dL (7-20) Creatinine 0.9 mg/dL (0.6-1.0) Estimated GFR (Cockcroft-Gault) 65.5 Glucose Level 100 mg/dL (70-99) Calcium Level 9.2 mg/dL (8.5-10.1) Triglycerides Level 131 mg/dL (0-150) Cholesterol Level 277 mg/dL (0-200) LDL Cholesterol, Calculated 188 mg/dL (0-100) VLDL Cholesterol, Calculated 26 mg/dL (0-40) Non-HDL Cholesterol Calculated 214 mg/dL (0-129) HDL Cholesterol 63 mg/dL (40-60) Cholesterol/HDL Ratio 4.4 Vitamin B12 Level 275 pg/mL (247-911) Heparin Anti-Xa Act, Unfractionated 0.49 IU/mL (0.30-0.70) Review of Systems Review of Systems out having cardiac cath Assessment and Plan Assessmemt and Plan Problems Medical Problems: (1) Elevated troponin Status: Acute (2) Left sided numbness Status: Acute (3) UTI (urinary tract infection) Status: Acute Problems: Comment Review of Relevant I have reviewed the following items vin (where applicable) has been applied. Labs Laboratory Tests Test 07/14/17 11:10 07/14/17 11:35 07/14/17 19:00 07/15/17 01:15 White Blood Count 8.4 x10^3/uL (4.0-11.0) Red Blood Count 4.56 x10^6/uL (3.50-5.40) Hemoglobin 14.8 g/dL (12.0-15.5) Hematocrit 43.1 % (36.0-47.0) Mean Corpuscular Volume 95 fL (79-100) Mean Corpuscular Hemoglobin 33 pg (25-35) Mean Corpuscular Hemoglobin Concent 34 g/dL (31-37) Red Cell Distribution Width 12.7 % (11.5-14.5) Platelet Count 237 x10^3/uL (140-400) Neutrophils (%) (Auto) 59 % (31-73) Lymphocytes (%) (Auto) 31 % (24-48) Monocytes (%) (Auto) 7 % (0-9) Eosinophils (%) (Auto) 2 % (0-3) Basophils (%) (Auto) 1 % (0-3) Neutrophils # (Auto) 5.0 x10^3uL (1.8-7.7) Lymphocytes # (Auto) 2.6 x10^3/uL (1.0-4.8) Monocytes # (Auto) 0.6 x10^3/uL (0.0-1.1) Eosinophils # (Auto) 0.1 x10^3/uL (0.0-0.7) Basophils # (Auto) 0.0 x10^3/uL (0.0-0.2) Sodium Level 141 mmol/L (136-145) Potassium Level 4.3 mmol/L (3.5-5.1) Chloride Level 103 mmol/L (98-107) Carbon Dioxide Level 32 mmol/L (21-32) Anion Gap 6 (6-14) Blood Urea Nitrogen 13 mg/dL (7-20) Creatinine 1.0 mg/dL (0.6-1.0) Estimated GFR (Cockcroft-Gault) 58.0 BUN/Creatinine Ratio 13 (6-20) Glucose Level 128 mg/dL (70-99) Hemoglobin A1c 5.1 % (4.8-5.6) Calcium Level 9.1 mg/dL (8.5-10.1) Magnesium Level 2.0 mg/dL (1.8-2.4) Total Bilirubin 0.3 mg/dL (0.2-1.0) Aspartate Amino Transf (AST/SGOT) 18 U/L (15-37) Alanine Aminotransferase (ALT/SGPT) 31 U/L (14-59) Alkaline Phosphatase 56 U/L (46-116) Troponin I Quantitative 0.197 ng/mL (0.000-0.055) 0.177 ng/mL (0.000-0.055) 0.177 ng/mL (0.000-0.055) Total Protein 6.7 g/dL (6.4-8.2) Albumin 3.7 g/dL (3.4-5.0) Albumin/Globulin Ratio 1.2 (1.0-1.7) Thyroid Stimulating Hormone (TSH) 1.399 uIU/mL (0.358-3.74) Urine Collection Type Unknown Urine Color Yellow Urine Clarity Clear Urine pH 6.0 Urine Specific [place] 1.015 Urine Protein Negative mg/dL (NEG-TRACE) Urine Glucose (UA) Negative mg/dL (NEG) Urine Ketones (Stick) Negative mg/dL (NEG) Urine Blood Negative (NEG) Urine Nitrite Negative (NEG) Urine Bilirubin Negative (NEG) Urine Urobilinogen Dipstick 0.2 mg/dL (0.2 mg/dL) Urine Leukocyte Esterase Small (NEG) Urine RBC Occ /HPF (0-2) Urine WBC 1-4 /HPF (0-4) Urine Squamous Epithelial Cells Mod /LPF Urine Bacteria Moderate /HPF (0-FEW) Urine Mucus Slight /LPF Heparin Anti-Xa Act, Unfractionated 0.18 IU/mL (0.30-0.70) Test 07/15/17 05:30 07/15/17 08:55 White Blood Count 6.4 x10^3/uL (4.0-11.0) Red Blood Count 4.76 x10^6/uL (3.50-5.40) Hemoglobin 15.2 g/dL (12.0-15.5) Hematocrit 46.2 % (36.0-47.0) Mean Corpuscular Volume 97 fL (79-100) Mean Corpuscular Hemoglobin 32 pg (25-35) Mean Corpuscular Hemoglobin Concent 33 g/dL (31-37) Red Cell Distribution Width 13.4 % (11.5-14.5) Platelet Count 217 x10^3/uL (140-400) Neutrophils (%) (Auto) 46 % (31-73) Lymphocytes (%) (Auto) 41 % (24-48) Monocytes (%) (Auto) 9 % (0-9) Eosinophils (%) (Auto) 3 % (0-3) Basophils (%) (Auto) 1 % (0-3) Neutrophils # (Auto) 2.9 x10^3uL (1.8-7.7) Lymphocytes # (Auto) 2.6 x10^3/uL (1.0-4.8) Monocytes # (Auto) 0.6 x10^3/uL (0.0-1.1) Eosinophils # (Auto) 0.2 x10^3/uL (0.0-0.7) Basophils # (Auto) 0.0 x10^3/uL (0.0-0.2) Sodium Level 142 mmol/L (136-145) Potassium Level 4.1 mmol/L (3.5-5.1) Chloride Level 104 mmol/L (98-107) Carbon Dioxide Level 33 mmol/L (21-32) Anion Gap 5 (6-14) Blood Urea Nitrogen 11 mg/dL (7-20) Creatinine 0.9 mg/dL (0.6-1.0) Estimated GFR (Cockcroft-Gault) 65.5 Glucose Level 100 mg/dL (70-99) Calcium Level 9.2 mg/dL (8.5-10.1) Triglycerides Level 131 mg/dL (0-150) Cholesterol Level 277 mg/dL (0-200) LDL Cholesterol, Calculated 188 mg/dL (0-100) VLDL Cholesterol, Calculated 26 mg/dL (0-40) Non-HDL Cholesterol Calculated 214 mg/dL (0-129) HDL Cholesterol 63 mg/dL (40-60) Cholesterol/HDL Ratio 4.4 Vitamin B12 Level 275 pg/mL (247-911) Heparin Anti-Xa Act, Unfractionated 0.49 IU/mL (0.30-0.70) Laboratory Tests Test 07/14/17 11:10 07/14/17 11:35 07/14/17 19:00 07/15/17 01:15 White Blood Count 8.4 x10^3/uL (4.0-11.0) Red Blood Count 4.56 x10^6/uL (3.50-5.40) Hemoglobin 14.8 g/dL (12.0-15.5) Hematocrit 43.1 % (36.0-47.0) Mean Corpuscular Volume 95 fL (79-100) Mean Corpuscular Hemoglobin 33 pg (25-35) Mean Corpuscular Hemoglobin Concent 34 g/dL (31-37) Red Cell Distribution Width 12.7 % (11.5-14.5) Platelet Count 237 x10^3/uL (140-400) Neutrophils (%) (Auto) 59 % (31-73) Lymphocytes (%) (Auto) 31 % (24-48) Monocytes (%) (Auto) 7 % (0-9) Eosinophils (%) (Auto) 2 % (0-3) Basophils (%) (Auto) 1 % (0-3) Neutrophils # (Auto) 5.0 x10^3uL (1.8-7.7) Lymphocytes # (Auto) 2.6 x10^3/uL (1.0-4.8) Monocytes # (Auto) 0.6 x10^3/uL (0.0-1.1) Eosinophils # (Auto) 0.1 x10^3/uL (0.0-0.7) Basophils # (Auto) 0.0 x10^3/uL (0.0-0.2) Sodium Level 141 mmol/L (136-145) Potassium Level 4.3 mmol/L (3.5-5.1) Chloride Level 103 mmol/L (98-107) Carbon Dioxide Level 32 mmol/L (21-32) Anion Gap 6 (6-14) Blood Urea Nitrogen 13 mg/dL (7-20) Creatinine 1.0 mg/dL (0.6-1.0) Estimated GFR (Cockcroft-Gault) 58.0 BUN/Creatinine Ratio 13 (6-20) Glucose Level 128 mg/dL (70-99) Hemoglobin A1c 5.1 % (4.8-5.6) Calcium Level 9.1 mg/dL (8.5-10.1) Magnesium Level 2.0 mg/dL (1.8-2.4) Total Bilirubin 0.3 mg/dL (0.2-1.0) Aspartate Amino Transf (AST/SGOT) 18 U/L (15-37) Alanine Aminotransferase (ALT/SGPT) 31 U/L (14-59) Alkaline Phosphatase 56 U/L (46-116) Troponin I Quantitative 0.197 ng/mL (0.000-0.055) 0.177 ng/mL (0.000-0.055) 0.177 ng/mL (0.000-0.055) Total Protein 6.7 g/dL (6.4-8.2) Albumin 3.7 g/dL (3.4-5.0) Albumin/Globulin Ratio 1.2 (1.0-1.7) Thyroid Stimulating Hormone (TSH) 1.399 uIU/mL (0.358-3.74) Urine Collection Type Unknown Urine Color Yellow Urine Clarity Clear Urine pH 6.0 Urine Specific [place] 1.015 Urine Protein Negative mg/dL (NEG-TRACE) Urine Glucose (UA) Negative mg/dL (NEG) Urine Ketones (Stick) Negative mg/dL (NEG) Urine Blood Negative (NEG) Urine Nitrite Negative (NEG) Urine Bilirubin Negative (NEG) Urine Urobilinogen Dipstick 0.2 mg/dL (0.2 mg/dL) Urine Leukocyte Esterase Small (NEG) Urine RBC Occ /HPF (0-2) Urine WBC 1-4 /HPF (0-4) Urine Squamous Epithelial Cells Mod /LPF Urine Bacteria Moderate /HPF (0-FEW) Urine Mucus Slight /LPF Heparin Anti-Xa Act, Unfractionated 0.18 IU/mL (0.30-0.70) Test 07/15/17 05:30 07/15/17 08:55 White Blood Count 6.4 x10^3/uL (4.0-11.0) Red Blood Count 4.76 x10^6/uL (3.50-5.40) Hemoglobin 15.2 g/dL (12.0-15.5) Hematocrit 46.2 % (36.0-47.0) Mean Corpuscular Volume 97 fL (79-100) Mean Corpuscular Hemoglobin 32 pg (25-35) Mean Corpuscular Hemoglobin Concent 33 g/dL (31-37) Red Cell Distribution Width 13.4 % (11.5-14.5) Platelet Count 217 x10^3/uL (140-400) Neutrophils (%) (Auto) 46 % (31-73) Lymphocytes (%) (Auto) 41 % (24-48) Monocytes (%) (Auto) 9 % (0-9) Eosinophils (%) (Auto) 3 % (0-3) Basophils (%) (Auto) 1 % (0-3) Neutrophils # (Auto) 2.9 x10^3uL (1.8-7.7) Lymphocytes # (Auto) 2.6 x10^3/uL (1.0-4.8) Monocytes # (Auto) 0.6 x10^3/uL (0.0-1.1) Eosinophils # (Auto) 0.2 x10^3/uL (0.0-0.7) Basophils # (Auto) 0.0 x10^3/uL (0.0-0.2) Sodium Level 142 mmol/L (136-145) Potassium Level 4.1 mmol/L (3.5-5.1) Chloride Level 104 mmol/L (98-107) Carbon Dioxide Level 33 mmol/L (21-32) Anion Gap 5 (6-14) Blood Urea Nitrogen 11 mg/dL (7-20) Creatinine 0.9 mg/dL (0.6-1.0) Estimated GFR (Cockcroft-Gault) 65.5 Glucose Level 100 mg/dL (70-99) Calcium Level 9.2 mg/dL (8.5-10.1) Triglycerides Level 131 mg/dL (0-150) Cholesterol Level 277 mg/dL (0-200) LDL Cholesterol, Calculated 188 mg/dL (0-100) VLDL Cholesterol, Calculated 26 mg/dL (0-40) Non-HDL Cholesterol Calculated 214 mg/dL (0-129) HDL Cholesterol 63 mg/dL (40-60) Cholesterol/HDL Ratio 4.4 Vitamin B12 Level 275 pg/mL (247-911) Heparin Anti-Xa Act, Unfractionated 0.49 IU/mL (0.30-0.70) Medications Current Medications Aspirin (Children'S Aspirin) 324 mg 1X ONCE PO Last administered on 07/14/17 12:26; Start 07/14/17 at 12:30; Stop 07/14/17 at 12:31; Status DC Nitroglycerin (Nitrostat) 0.4 mg PRN Q5MIN PRN SL CHEST PAIN Last administered on 07/14/17 12:28; Start 07/14/17 at 12:30 Morphine Sulfate 4 mg 1X ONCE IM Last administered on 07/14/17 13:08; Start 07/14/17 at 13:15; Stop 07/14/17 at 13:16; Status DC Ondansetron HCl (Zofran) 4 mg PRN Q8HRS PRN IV NAUSEA/VOMITING; Start 07/14/17 at 13:00; Stop 07/15/17 at 12:59 Morphine Sulfate 2 mg PRN Q2HR PRN IV PAIN; Start 07/14/17 at 13:00; Stop 07/14 at 15:16; Status DC Nitroglycerin (Nitrostat) 0.4 mg PRN Q5MIN PRN SL CHEST PAIN; Start 07/14/17 at 13:00; Stop 07/15/17 at 12:59 Nitrofurantoin Macrocrystals (Macrobid) 100 mg BID PO Last administered on 07/14 13:07; Start 07/14/17 at 13:15; Stop 07/14/17 at 16:14; Status DC Morphine Sulfate 2 mg PRN Q2HR PRN IV PAIN Last administered on 07/14/17 19:37 ; Start 07/14/17 at 15:30 Heparin Sodium/ Dextrose 500 ml @ 0 mls/hr CONT PRN IV SEE I/O RECORD Last administered on 07/14/17 19:45; Start 07/14/17 at 15:45 Heparin Sodium (Porcine) (Heparin Sodium) 2,000 unit PRN Q6HRS PRN IV FOR UFH LEVEL LESS THAN 0.2 Last administered on 07/15/17 02:35; Start 07/14/17 at 15: 45 Info (Anti-Coagulation Monitoring By Pharmacy) 1 each PRN DAILY PRN MC SEE COMMENTS Last administered on 07/15/17 08:47; Start 07/14/17 at 16:00 Amlodipine Besylate (Norvasc) 5 mg 1X ONCE PO Last administered on 07/14/17 16:30; Start 07/14/17 at 16:30; Stop 07/14/17 at 16:31; Status DC Aspirin (Ecotrin) 81 mg DAILYWBKFT PO ; Start 07/15/17 at 08:00 Atorvastatin Calcium (Lipitor) 20 mg QHS PO ; Start 07/14/17 at 21:00; Stop at 21:00; Status DC Acetaminophen (Tylenol) 650 mg PRN Q6HRS PRN PO FEVER; Start 07/14/17 at 16:15 Ondansetron HCl (Zofran) 4 mg PRN Q6HRS PRN IV NAUSEA/VOMITING; Start 07/14/17 at 16:15 Morphine Sulfate 2 mg PRN Q2HR PRN IV MODERATE TO SEVERE PAIN; Start 07/14/17 at 16:15; Stop 07/15/17 at 08:48; Status DC Tramadol HCl (Ultram) 50 mg PRN Q6HRS PRN PO MILD TO MODERATE PAIN; Start 07/14 at 16:15 Hydralazine HCl (Apresoline) 10 mg PRN Q4HRS PRN IVP ELEVATED BP, SEE COMMENTS ; Start 07/14/17 at 16:15 Docusate Sodium (Colace) 100 mg PRN DAILY PRN PO CONSTIPATION; Start 07/14/17 at 16:15 Lorazepam (Ativan) 0.5 mg 1X ONCE PO Last administered on 07/14/17 16:30; Start 07/14/17 at 16:30; Stop 07/14/17 at 16:31; Status DC Atorvastatin Calcium (Lipitor) 40 mg QHS PO Last administered on 07/14/17t 21: 14; Start 07/14/17 at 21:00 Iohexol (Omnipaque 300 Mg/ml) 100 ml STK-MED ONCE .ROUTE ; Start 07/15/17 at 09: 12; Stop 07/15/17 at 09:13; Status DC Heparin Sodium/ Sodium Chloride 1,500 ml @ As Directed STK-MED ONCE .ROUTE ; Start 07/15/17 at 09:12; Stop 07/15/17 at 09:13; Status DC Lidocaine HCl 20 ml STK-MED ONCE .ROUTE ; Start 07/15/17 at 09:12; Stop at 09:13; Status DC Verapamil HCl (Verapamil) 5 mg STK-MED ONCE .ROUTE ; Start 07/15/17 at 09:36; Stop 07/15/17 at 09:37; Status DC Heparin Sodium (Porcine) (Heparin Sodium) 10,000 unit STK-MED ONCE .ROUTE ; Start 07/15/17 at 09:36; Stop 07/15/17 at 09:37; Status DC Fentanyl Citrate (Fentanyl 2ml Vial) 100 mcg STK-MED ONCE .ROUTE ; Start at 09:37; Stop 07/15/17 at 09:38; Status DC Midazolam HCl (Versed) 5 mg STK-MED ONCE .ROUTE ; Start 07/15/17 at 09:37; Stop 07/15/17 at 09:38; Status DC Nitroglycerin (Nitroglycerin) 200 mcg STK-MED ONCE .ROUTE ; Start 07/15/17 at 09 :39; Stop 07/15/17 at 09:40; Status DC Nitroglycerin (Nitroglycerin) 200 mcg 1X ONCE IART ; Start 07/15/17 at 09:45; Stop 07/15/17 at 09:47; Status DC Verapamil HCl (Verapamil) 2.5 mg 1X ONCE IART ; Start 07/15/17 at 09:45; Stop 07/15/17 at 09:47; Status DC Heparin Sodium (Porcine) (Heparin Sodium) 2,500 unit 1X ONCE IART ; Start 07/15 at 09:45; Stop 07/15/17 at 09:47; Status DC Heparin Sodium/ Sodium Chloride 1,000 unit 1X ONCE IART ; Start 07/15/17 at 09: 45; Stop 07/15/17 at 09:47; Status DC Midazolam HCl (Versed) 5 mg 1X ONCE IV ; Start 07/15/17 at 09:45; Stop at 09:47; Status DC Fentanyl Citrate (Fentanyl 2ml Vial) 100 mcg 1X ONCE IV ; Start 07/15/17 at 09: 45; Stop 07/15/17 at 09:47; Status DC Iohexol (Omnipaque 300 Mg/ml) 100 ml 1X ONCE IART ; Start 07/15/17 at 09:45; Stop 07/15/17 at 09:47; Status DC Lidocaine HCl 20 ml 1X ONCE IJ ; Start 07/15/17 at 09:45; Stop 07/15/17 at 09: 47; Status DC Active Scripts Active Reported Synthroid (Levothyroxine Sodium) 125 Mcg Tablet 125 Mcg PO DAILYAC Vitals/I & O Vital Sign - Last 24 Hours 07/14/17 07/14/17 07/14/17 07/14/17 10:33 11:15 12:28 12:30 Temp 97.8 97.8 Pulse 94 82 85 88 Resp 16 15 18 B/P (MAP) 161/83 (109) 148/77 (100) 163/94 163/94 (117) Pulse Ox 98 99 99 O2 Delivery Room Air Room Air Room Air 07/14/17 07/14/17 07/14/17 07/14/17 13:08 13:30 14:30 15:00 Pulse 84 88 84 Resp 16 B/P (MAP) 162/88 (112) 140/79 (99) 141/73 (95) Pulse Ox 97 98 O2 Delivery Room Air Room Air Room Air Room Air 07/14/17 07/14/17 07/14/17 07/14/17 16:10 16:10 16:30 19:30 Temp 97.6 97.6 Pulse 84 86 Resp 18 B/P (MAP) 167/99 (121) 167/99 Pulse Ox 96 O2 Delivery Room Air Room Air Room Air 07/14/17 07/14/17 07/14/17 07/14/17 19:35 19:37 21:13 23:30 Temp 98.5 98.3 98.5 98.3 Pulse 78 73 Resp 18 16 20 B/P (MAP) 137/66 (89) 125/81 (96) Pulse Ox 96 96 O2 Delivery Nasal Cannula Room Air Nasal Cannula Room Air 07/15/17 07/15/17 07/15/17 03:25 07:00 07:35 Temp 98.5 97.9 98.5 97.9 Pulse 74 66 Resp 20 18 B/P (MAP) 118/56 (76) 117/72 (87) Pulse Ox 96 96 O2 Delivery Room Air Room Air Room Air Intake and Output 07/14/17 07/14/17 07/15/17 15:00 23:00 07:00 Intake Total 240 ml 205.85 ml Balance 240 ml 205.85 ml DICK CHEUNG MD Jul 15, 2017 10:08
--- NOTE | 2017-07-15 10:52 | CARD ---
APPROVED REPORT Procedure(s) performed: Sedation Time: 60min LHC, Coronary Angiography, Left ventriculography IVUS of the LM/Ramus HISTORY The patient is a 51 year-old female with a history of : hypertension, dyslipidemia. INDICATION The indication(s) include : non-STEMI . PROCEDURE NARRATIVE The patient was brought electively to the cardiac catheterization lab. A timeout was performed confi rming the patient's name, date of , procedure, and site of procedure. All necessary personnel w ere wearing the appropriate protective equipment and radiation monitor devices. After explaining the risks and benefits of the procedure and alternatives, informed consent was obtained. (See nursing no lamont for medications administered). The right wrist was sterilely prepped and draped in the usual fas hion. The right wrist was infiltrated with 1 mL of 2% lidocaine for subcutaneous anesthesia. A 6 Fr ench Terumo glide sheath was inserted into the right radial artery without difficulty. Right and lef t coronary angiography was performed using a 6Fr TIG 4.0 catheter. HEMODYNAMICS: LVEDP 18 mm Hg No gradient on LV to aortic pullback. LEFT VENTRICULOGRAM: EF 70% Anterobasal: Normal. Anterolateral: Normal Apical: Normal Diaphragmatic: Normal Posterobasal: Normal CORONARY ANGIOGRAPHY: LM is a large caliber vessel with a distal eccentric 70% stenosis extending into the LAD/Ramus LAD is a large caliber vessel with an ostial eccentric 80% stenosis. Ramus is a moderate caliber bifurcating vessel with a proximal 70% stenosis. LCx is a moderate caliber non-dominant vessel with normal angiographic appearance. OM1 is a moderate caliber vessel with normal angiographic appearance. RCA is a large caliber dominant vessel with mild diffuse luminal irregularities of up to 40%. RPDA and RPL are moderate caliber vessels with normal angiographic appearance. INTERVENTIONAL TECHNIQUE: IVUS OF THE LM AND RAMUS Due to the presence of eccentric lesions with difficult visualization by coventional angiography, an IVUS was performed to further assess lesion location and severity. Heparin bolus dosing was used to a chieve and maintain an ACT > 200. Through a 6F EBU 3.5 guide catheter, a 0.014'' Prowater wire was ad vanced to the distal Ramus. Next, a AvePoint IVUS catheter was advanced and images were obtained. The images confirmed significant ostial ramus and distal LM stenosis. Left ventricular end diastolic pres sure was obtained with a pigtail catheter and pullback was performed after left ventriculography. Al l catheter exchanges and advancements were performed over a guidewire. At case completion the right radial sheath was removed and a Terumo radial band was applied with 13 ml of air. The patient tolera grace the procedure well and there were no immediate complications. Conclusion 1. 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 2. Positive IVUS of the distal LM/Ramus. 3. Normal LV function. EF 70%. Recommendations CABG consultation. If patient deemed poor candidate for CABG then could consider complex bifurcation stenting of the LAD /Ramus and left main.
[2017-07-15] MEDS ORDERED: GADOBUTROL 7.5 MMOL/7.5 ML VIAL IV ONE (12:45)
--- NOTE | 2017-07-15 12:55 | RAD ---
MRI Brain without contrast History: Left arm tingling Technique: Multiplanar, multisequential noncontrast MR imaging was performed of the brain. Contrast: None Comparison: None Findings: There is no evidence of an acute infarct or cytotoxic edema. The ventricles, sulci, and cisterns are within normal limits in size and configuration. There is no significant midline shift, mass effect, or focal abnormal extra-axial fluid collection. Other than a tiny focus of T2 and FLAIR hyperintense signal of the posterior left frontal subcortical white matter probably due to small focus of gliosis, there is no significant FLAIR hyperintense signal abnormality of the brain parenchyma. There is focus of hemosiderin deposition of the right parietal lobe near the cortical surfaces. There is preservation of the major intracranial flow-voids at the skull base. Mastoid air cells are mostly aerated, minimal thickening bilaterally.The cerebellar tonsils are normal in location. There is no significant abnormality of the pineal gland or somewhat small pituitary gland. Paranasal sinuses are overall aerated. There is preserved marrow signal of the clivus. There is degenerative change associated with the temporomandibular joints bilaterally greater on the right. Impression: 1. There is focus of hemosiderin deposition/old microhemorrhage of the right parietal lobe. There is a tiny focus of likely nonspecific gliosis of the left frontal subcortical white matter, otherwise no significant intracranial abnormality. 2. 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 Electronically signed by: Indio Casillas MD (07/15/2017 12:51 PM) [facility] [id number]
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
[2017-07-15] MEDS: MORPHINE SULFATE 4 MG/ML DISP.SYRIN. IV PRN ×2 (13:42→21:08)
[2017-07-15] MEDS: NICOTINE 21MG PATCH. TD SCH (18:00)
--- NOTE | 2017-07-15 19:06 | PDOC2 ---
CONSULT Date of Consult Date of Consult DATE: 07/15/17 TIME: 19:02 Reason for Consult Reason for Consult: LM coronary disease Referring Physician Referring Physician: Wally Reyes MD Identification/Chief Complaint Chief Complaint Angina Problems: Source Source: Chart review, Patient History of Present Illness Reason for Visit: Patient is a 51 year old female, who presents to the ER with stable angina. Troponin peaked at 0.2. LV function is normal. LHC today showed distal LM disease extending into the Ramus and proximal LAD. She has no pain now. I was consulted for CABG Past Medical History Cardiovascular: Other (leg varicosities) Pulmonary: No pertinent hx CENTRAL NERVOUS SYSTEM: Other (cervical radiculopathy) GI: Hemorrhoids Heme/Onc: No pertinent hx Hepatobiliary: No pertinent hx, Other (ARIAS) Psych: Depression (controlled no meds) Musculoskeletal: Osteoarthritis, Other (degenerative disc disease; right trochanteric bursitis) Rheumatologic: No pertinent hx Infectious disease: No pertinent hx ENT: No pertinent hx Renal/: No pertinent hx Endocrine: Hypothyroidism, Other (goiter) Dermatology: No pertinent hx Grav: 3 Para: 3 Past Surgical History Past Surgical History: Appendectomy, Other (cervical fusion; breast biopsy) Family History Family History: Coronary Artery Disease (mother and brother), Heart Disease ( mother), Hypertension (father) Social History 1 pack per day ALCOHOL: other (2 beer daily) Drugs: None Lives: with Family Current Problem List Problem List Problems Medical Problems: (1) Elevated troponin Status: Acute (2) Left sided numbness Status: Acute (3) UTI (urinary tract infection) Status: Acute Current Medications Current Medications Current Medications Aspirin (Children'S Aspirin) 324 mg 1X ONCE PO Last administered on 07/14/17 12:26; Start 07/14/17 at 12:30; Stop 07/14/17 at 12:31; Status DC Nitroglycerin (Nitrostat) 0.4 mg PRN Q5MIN PRN SL CHEST PAIN Last administered on 07/14/17 12:28; Start 07/14/17 at 12:30 Morphine Sulfate 4 mg 1X ONCE IM Last administered on 07/14/17 13:08; Start 07/14/17 at 13:15; Stop 07/14/17 at 13:16; Status DC Ondansetron HCl (Zofran) 4 mg PRN Q8HRS PRN IV NAUSEA/VOMITING; Start 07/14/17 at 13:00; Stop 07/15/17 at 12:59; Status DC Morphine Sulfate 2 mg PRN Q2HR PRN IV PAIN; Start 07/14/17 at 13:00; Stop 07/14 at 15:16; Status DC Nitroglycerin (Nitrostat) 0.4 mg PRN Q5MIN PRN SL CHEST PAIN; Start 07/14/17 at 13:00; Stop 07/15/17 at 12:59; Status DC Nitrofurantoin Macrocrystals (Macrobid) 100 mg BID PO Last administered on 07/14 13:07; Start 07/14/17 at 13:15; Stop 07/14/17 at 16:14; Status DC Morphine Sulfate 2 mg PRN Q2HR PRN IV PAIN Last administered on 07/15/17 13:42 ; Start 07/14/17 at 15:30 Heparin Sodium/ Dextrose 500 ml @ 0 mls/hr CONT PRN IV SEE I/O RECORD Last administered on 07/14/17 19:45; Start 07/14/17 at 15:45 Heparin Sodium (Porcine) (Heparin Sodium) 2,000 unit PRN Q6HRS PRN IV FOR UFH LEVEL LESS THAN 0.2 Last administered on 07/15/17 02:35; Start 07/14/17 at 15: 45 Info (Anti-Coagulation Monitoring By Pharmacy) 1 each PRN DAILY PRN MC SEE COMMENTS Last administered on 07/15/17 08:47; Start 07/14/17 at 16:00 Amlodipine Besylate (Norvasc) 5 mg 1X ONCE PO Last administered on 07/14/17 16:30; Start 07/14/17 at 16:30; Stop 07/14/17 at 16:31; Status DC Aspirin (Ecotrin) 81 mg DAILYWBKFT PO ; Start 07/15/17 at 08:00 Atorvastatin Calcium (Lipitor) 20 mg QHS PO ; Start 07/14/17 at 21:00; Stop at 21:00; Status DC Acetaminophen (Tylenol) 650 mg PRN Q6HRS PRN PO FEVER; Start 07/14/17 at 16:15 Ondansetron HCl (Zofran) 4 mg PRN Q6HRS PRN IV NAUSEA/VOMITING; Start 07/14/17 at 16:15 Morphine Sulfate 2 mg PRN Q2HR PRN IV MODERATE TO SEVERE PAIN; Start 07/14/17 at 16:15; Stop 07/15/17 at 08:48; Status DC Tramadol HCl (Ultram) 50 mg PRN Q6HRS PRN PO MILD TO MODERATE PAIN; Start 07/14 at 16:15 Hydralazine HCl (Apresoline) 10 mg PRN Q4HRS PRN IVP ELEVATED BP, SEE COMMENTS ; Start 07/14/17 at 16:15 Docusate Sodium (Colace) 100 mg PRN DAILY PRN PO CONSTIPATION; Start 07/14/17 at 16:15 Lorazepam (Ativan) 0.5 mg 1X ONCE PO Last administered on 07/14/17 16:30; Start 07/14/17 at 16:30; Stop 07/14/17 at 16:31; Status DC Atorvastatin Calcium (Lipitor) 40 mg QHS PO Last administered on 07/14/17 21: 14; Start 07/14/17 at 21:00 Iohexol (Omnipaque 300 Mg/ml) 100 ml STK-MED ONCE .ROUTE ; Start 07/15/17 at 09: 12; Stop 07/15/17 at 09:13; Status DC Heparin Sodium/ Sodium Chloride 1,500 ml @ As Directed STK-MED ONCE .ROUTE ; Start 07/15/17 at 09:12; Stop 07/15/17 at 09:13; Status DC Lidocaine HCl 20 ml STK-MED ONCE .ROUTE ; Start 07/15/17 at 09:12; Stop at 09:13; Status DC Verapamil HCl (Verapamil) 5 mg STK-MED ONCE .ROUTE ; Start 07/15/17 at 09:36; Stop 07/15/17 at 09:37; Status DC Heparin Sodium (Porcine) (Heparin Sodium) 10,000 unit STK-MED ONCE .ROUTE ; Start 07/15/17 at 09:36; Stop 07/15/17 at 09:37; Status DC Fentanyl Citrate (Fentanyl 2ml Vial) 100 mcg STK-MED ONCE .ROUTE ; Start at 09:37; Stop 07/15/17 at 09:38; Status DC Midazolam HCl (Versed) 5 mg STK-MED ONCE .ROUTE ; Start 07/15/17 at 09:37; Stop 07/15/17 at 09:38; Status DC Nitroglycerin (Nitroglycerin) 200 mcg STK-MED ONCE .ROUTE ; Start 07/15/17 at 09 :39; Stop 07/15/17 at 09:40; Status DC Nitroglycerin (Nitroglycerin) 200 mcg 1X ONCE IART Last administered on 10:35; Start 07/15/17 at 09:45; Stop 07/15/17 at 09:47; Status DC Verapamil HCl (Verapamil) 2.5 mg 1X ONCE IART Last administered on 07/15/17 10:36; Start 07/15/17 at 09:45; Stop 07/15/17 at 09:47; Status DC Heparin Sodium (Porcine) (Heparin Sodium) 2,500 unit 1X ONCE IART Last administered on 07/15/17 10:37; Start 07/15/17 at 09:45; Stop 07/15/17 at 09:47 ; Status DC Heparin Sodium/ Sodium Chloride 1,000 unit 1X ONCE IART Last administered on 10:36; Start 07/15/17 at 09:45; Stop 07/15/17 at 09:47; Status DC Midazolam HCl (Versed) 5 mg 1X ONCE IV Last administered on 07/15/17 10:34; Start 07/15/17 at 09:45; Stop 07/15/17 at 09:47; Status DC Fentanyl Citrate (Fentanyl 2ml Vial) 100 mcg 1X ONCE IV Last administered on 10:35; Start 07/15/17 at 09:45; Stop 07/15/17 at 09:47; Status DC Iohexol (Omnipaque 300 Mg/ml) 100 ml 1X ONCE IART Last administered on 10:36; Start 07/15/17 at 09:45; Stop 07/15/17 at 09:47; Status DC Lidocaine HCl 20 ml 1X ONCE IJ Last administered on 07/15/17 10:35; Start at 09:45; Stop 07/15/17 at 09:47; Status DC Nitroglycerin (Nitroglycerin) 200 mcg STK-MED ONCE .ROUTE ; Start 07/15/17 at 10 :17; Stop 07/15/17 at 10:18; Status DC Gadobutrol (Gadavist) 7.5 mmol 1X ONCE IV Last administered on 07/15/17 12:56 ; Start 07/15/17 at 12:45; Stop 07/15/17 at 12:46; Status DC Nicotine (Nicoderm Cq 21mg) 1 patch DAILY TD Last administered on 07/15/17 18: 00; Start 07/15/17 at 18:00 Active Scripts Active Reported Synthroid (Levothyroxine Sodium) 125 Mcg Tablet 125 Mcg PO DAILYAC Allergies Allergies: Coded Allergies: codeine (Verified Adverse Reaction, Unknown, Nausea and Vomiting, 07/14/17) ROS General: No: Chills, Night Sweats, Fatigue, Malaise, Appetite PSYCHOLOGICAL ROS: No: Anxiety, Behavioral Disorder, Concentration difficultie , Decreased libido, Depression, Disorientation, Hallucinations, Hostility, Irritablity, Memory difficulties, Mood Swings, Obsessive thoughts, Physical abuse, Sexual abuse, Sleep disturbances, Suicidal ideation, Other Eyes: No Blurry vision, No Decreased vision, No Double vision, No Dry eyes, No Excessive tearing, No Eye Pain, No Itchy Eyes, No Loss of vision, No Photophobia , No Scotomata, No Uses contacts, No Uses glasses HEENT: No: Heacaches, Visual Changes, Hearing change, Nasal congestion, Nasal discharge, Oral lesions, Sinus pain, Sore Throat, Epistaxis, Sneezing, Snoring, Tinnitus, Vertigo, Vocal changes ALLERGY AND IMMUNOLOGY: No: Hives, Insect Bite Sensitivity, Itchy/Watery Eyes, Nasal Congestion, Post Nasal Drip, Seasonal Allergies Hematological and Lymphatic: No: Bleeding Problems, Blood Clots, Blood Transfusions, Brusing, Night Sweats, Pallor, Swollen Lymph Nodes ENDOCRINE: No: Breast Changes, Galactorrhea, Hair Pattern Changes, Hot Flashes , Malaise/lethargy, Mood Swings, Palpitations, Polydipsia/polyuria, Skin Changes , Temperature Intolerance, Unexpected Weight Changes Breast: No New/Changing Breast Lumps, No Nipple changes, No Nipple discharge Respiratory: No: Cough, Hemoptysis, Orthopnea, Pleuritic Pain, Shortness of breath, SOB with excertion, Sputum Changes, Stridor, Tachypnea, Wheezing Cardiovascular: yes Chest Pain, No Palpitations, No Orthopnea, No Paroxysmal Noc. Dyspnea, No Edema, No Lt Headedness Gastrointestinal: No Nausea, No Vomiting, No Abdominal Pain, No Diarrhea, No Constipation, No Melena, No Hematochezia Genitourinary: No Dysuria, No Frequency, No Incontinence, No Hematuria, No Retention, No Discharge, No Urgency, No Pain, No Flank Pain Musculoskeletal: No Gait Disturbance, No Joint Pain, No Joint Stiffness, No Joint Swelling, No Muscle Pain, No Muscular Weakness, No Pain In:, No Swelling In: Neurological: No Behavorial Changes, No Bowel/Bladder ControlChng, No Confusion , No Dizziness, No Gait Disturbance, No Headaches, No Impaired Coord/balance, No Memory Loss, No Numbness/Tingling, No Seizures, No Speech Problems, No Tremors, No Visual Changes, No Weakness Skin: No Dry Skin, No Eczema, No Hair Changes, No Lumps, No Mole Changes, No Mottling, No Nail Changes, No Pruritus, No Rash, No Skin Lesion Changes, No Acne Physical Exam General: Alert, Oriented X3, No acute distress HEENT: Atraumatic, PERRLA, EOMI Lungs: Clear to auscultation Heart: Regular rate, Normal S1, Normal S2 Abdomen: Normal bowel sounds, Soft, No tenderness Extremities: No edema, Normal pulses Skin: No significant lesion Neuro: Normal gait, Normal speech, Strength at 5/5 X4 ext, Normal tone, Sensation intact, Cranial nerves 3-12 NL Psych/Mental Status: Mental status NL MUSCULOSKELETAL: No deformity Vitals VITALS Vital Signs Date Time Temp Pulse Resp B/P (MAP) Pulse Ox O2 Delivery O2 Flow Rate FiO2 07/15/17 15:00 97.5 80 16 125/75 (92) 94 Room Air 97.5 Labs Labs Laboratory Tests Test 07/14/17 11:10 07/14/17 11:35 07/14/17 19:00 07/15/17 01:15 White Blood Count 8.4 x10^3/uL (4.0-11.0) Red Blood Count 4.56 x10^6/uL (3.50-5.40) Hemoglobin 14.8 g/dL (12.0-15.5) Hematocrit 43.1 % (36.0-47.0) Mean Corpuscular Volume 95 fL (79-100) Mean Corpuscular Hemoglobin 33 pg (25-35) Mean Corpuscular Hemoglobin Concent 34 g/dL (31-37) Red Cell Distribution Width 12.7 % (11.5-14.5) Platelet Count 237 x10^3/uL (140-400) Neutrophils (%) (Auto) 59 % (31-73) Lymphocytes (%) (Auto) 31 % (24-48) Monocytes (%) (Auto) 7 % (0-9) Eosinophils (%) (Auto) 2 % (0-3) Basophils (%) (Auto) 1 % (0-3) Neutrophils # (Auto) 5.0 x10^3uL (1.8-7.7) Lymphocytes # (Auto) 2.6 x10^3/uL (1.0-4.8) Monocytes # (Auto) 0.6 x10^3/uL (0.0-1.1) Eosinophils # (Auto) 0.1 x10^3/uL (0.0-0.7) Basophils # (Auto) 0.0 x10^3/uL (0.0-0.2) Sodium Level 141 mmol/L (136-145) Potassium Level 4.3 mmol/L (3.5-5.1) Chloride Level 103 mmol/L (98-107) Carbon Dioxide Level 32 mmol/L (21-32) Anion Gap 6 (6-14) Blood Urea Nitrogen 13 mg/dL (7-20) Creatinine 1.0 mg/dL (0.6-1.0) Estimated GFR (Cockcroft-Gault) 58.0 BUN/Creatinine Ratio 13 (6-20) Glucose Level 128 mg/dL (70-99) Hemoglobin A1c 5.1 % (4.8-5.6) Calcium Level 9.1 mg/dL (8.5-10.1) Magnesium Level 2.0 mg/dL (1.8-2.4) Total Bilirubin 0.3 mg/dL (0.2-1.0) Aspartate Amino Transf (AST/SGOT) 18 U/L (15-37) Alanine Aminotransferase (ALT/SGPT) 31 U/L (14-59) Alkaline Phosphatase 56 U/L (46-116) Troponin I Quantitative 0.197 ng/mL (0.000-0.055) 0.177 ng/mL (0.000-0.055) 0.177 ng/mL (0.000-0.055) Total Protein 6.7 g/dL (6.4-8.2) Albumin 3.7 g/dL (3.4-5.0) Albumin/Globulin Ratio 1.2 (1.0-1.7) Thyroid Stimulating Hormone (TSH) 1.399 uIU/mL (0.358-3.74) Urine Collection Type Unknown Urine Color Yellow Urine Clarity Clear Urine pH 6.0 Urine Specific [place] 1.015 Urine Protein Negative mg/dL (NEG-TRACE) Urine Glucose (UA) Negative mg/dL (NEG) Urine Ketones (Stick) Negative mg/dL (NEG) Urine Blood Negative (NEG) Urine Nitrite Negative (NEG) Urine Bilirubin Negative (NEG) Urine Urobilinogen Dipstick 0.2 mg/dL (0.2 mg/dL) Urine Leukocyte Esterase Small (NEG) Urine RBC Occ /HPF (0-2) Urine WBC 1-4 /HPF (0-4) Urine Squamous Epithelial Cells Mod /LPF Urine Bacteria Moderate /HPF (0-FEW) Urine Mucus Slight /LPF Heparin Anti-Xa Act, Unfractionated 0.18 IU/mL (0.30-0.70) Test 07/15/17 05:30 07/15/17 08:55 07/15/17 14:50 White Blood Count 6.4 x10^3/uL (4.0-11.0) Red Blood Count 4.76 x10^6/uL (3.50-5.40) Hemoglobin 15.2 g/dL (12.0-15.5) Hematocrit 46.2 % (36.0-47.0) Mean Corpuscular Volume 97 fL (79-100) Mean Corpuscular Hemoglobin 32 pg (25-35) Mean Corpuscular Hemoglobin Concent 33 g/dL (31-37) Red Cell Distribution Width 13.4 % (11.5-14.5) Platelet Count 217 x10^3/uL (140-400) Neutrophils (%) (Auto) 46 % (31-73) Lymphocytes (%) (Auto) 41 % (24-48) Monocytes (%) (Auto) 9 % (0-9) Eosinophils (%) (Auto) 3 % (0-3) Basophils (%) (Auto) 1 % (0-3) Neutrophils # (Auto) 2.9 x10^3uL (1.8-7.7) Lymphocytes # (Auto) 2.6 x10^3/uL (1.0-4.8) Monocytes # (Auto) 0.6 x10^3/uL (0.0-1.1) Eosinophils # (Auto) 0.2 x10^3/uL (0.0-0.7) Basophils # (Auto) 0.0 x10^3/uL (0.0-0.2) Sodium Level 142 mmol/L (136-145) Potassium Level 4.1 mmol/L (3.5-5.1) Chloride Level 104 mmol/L (98-107) Carbon Dioxide Level 33 mmol/L (21-32) Anion Gap 5 (6-14) Blood Urea Nitrogen 11 mg/dL (7-20) Creatinine 0.9 mg/dL (0.6-1.0) Estimated GFR (Cockcroft-Gault) 65.5 Glucose Level 100 mg/dL (70-99) Calcium Level 9.2 mg/dL (8.5-10.1) Triglycerides Level 131 mg/dL (0-150) Cholesterol Level 277 mg/dL (0-200) LDL Cholesterol, Calculated 188 mg/dL (0-100) VLDL Cholesterol, Calculated 26 mg/dL (0-40) Non-HDL Cholesterol Calculated 214 mg/dL (0-129) HDL Cholesterol 63 mg/dL (40-60) Cholesterol/HDL Ratio 4.4 Vitamin B12 Level 275 pg/mL (247-911) Heparin Anti-Xa Act, Unfractionated 0.49 IU/mL (0.30-0.70) 0.35 IU/mL (0.30-0.70) Laboratory Tests Test 07/15/17 01:15 07/15/17 05:30 07/15/17 08:55 07/15/17 14:50 Heparin Anti-Xa Act, Unfractionated 0.18 IU/mL (0.30-0.70) 0.49 IU/mL (0.30-0.70) 0.35 IU/mL (0.30-0.70) Troponin I Quantitative 0.177 ng/mL (0.000-0.055) White Blood Count 6.4 x10^3/uL (4.0-11.0) Red Blood Count 4.76 x10^6/uL (3.50-5.40) Hemoglobin 15.2 g/dL (12.0-15.5) Hematocrit 46.2 % (36.0-47.0) Mean Corpuscular Volume 97 fL (79-100) Mean Corpuscular Hemoglobin 32 pg (25-35) Mean Corpuscular Hemoglobin Concent 33 g/dL (31-37) Red Cell Distribution Width 13.4 % (11.5-14.5) Platelet Count 217 x10^3/uL (140-400) Neutrophils (%) (Auto) 46 % (31-73) Lymphocytes (%) (Auto) 41 % (24-48) Monocytes (%) (Auto) 9 % (0-9) Eosinophils (%) (Auto) 3 % (0-3) Basophils (%) (Auto) 1 % (0-3) Neutrophils # (Auto) 2.9 x10^3uL (1.8-7.7) Lymphocytes # (Auto) 2.6 x10^3/uL (1.0-4.8) Monocytes # (Auto) 0.6 x10^3/uL (0.0-1.1) Eosinophils # (Auto) 0.2 x10^3/uL (0.0-0.7) Basophils # (Auto) 0.0 x10^3/uL (0.0-0.2) Sodium Level 142 mmol/L (136-145) Potassium Level 4.1 mmol/L (3.5-5.1) Chloride Level 104 mmol/L (98-107) Carbon Dioxide Level 33 mmol/L (21-32) Anion Gap 5 (6-14) Blood Urea Nitrogen 11 mg/dL (7-20) Creatinine 0.9 mg/dL (0.6-1.0) Estimated GFR (Cockcroft-Gault) 65.5 Glucose Level 100 mg/dL (70-99) Calcium Level 9.2 mg/dL (8.5-10.1) Triglycerides Level 131 mg/dL (0-150) Cholesterol Level 277 mg/dL (0-200) LDL Cholesterol, Calculated 188 mg/dL (0-100) VLDL Cholesterol, Calculated 26 mg/dL (0-40) Non-HDL Cholesterol Calculated 214 mg/dL (0-129) HDL Cholesterol 63 mg/dL (40-60) Cholesterol/HDL Ratio 4.4 Vitamin B12 Level 275 pg/mL (247-911) Images Images CORONARY ANGIOGRAPHY: LM is a large caliber vessel with a distal eccentric 70% stenosis extending into the LAD/Ramus LAD is a large caliber vessel with an ostial eccentric 80% stenosis. Ramus is a moderate caliber bifurcating vessel with a proximal 70% stenosis. LCx is a moderate caliber non-dominant vessel with normal angiographic appearance. OM1 is a moderate caliber vessel with normal angiographic appearance. RCA is a large caliber dominant vessel with mild diffuse luminal irregularities of up to 40%. RPDA and RPL are moderate caliber vessels with normal angiographic appearance. INTERVENTIONAL TECHNIQUE: IVUS OF THE LM AND RAMUS Due to the presence of eccentric lesions with difficult visualization by coventional angiography, an IVUS was performed to further assess lesion location and severity. Heparin bolus dosing was used to achieve and maintain an ACT > 200. Through a 6F EBU 3.5 guide catheter, a 0.014'' Prowater wire was advanced to the distal Ramus. Next, a [email or web address] IVUS catheter was advanced and images were obtained. The images confirmed significant ostial ramus and distal LM stenosis. Left ventricular end diastolic pressure was obtained with a pigtail catheter and pullback was performed after left ventriculography. All catheter exchanges and advancements were performed over a guidewire. At case completion the right radial sheath was removed and a Terumo radial band was applied with 13 ml of air. The patient tolerated the procedure well and there were no immediate complications. Conclusion 1. 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 2. Positive IVUS of the distal LM/Ramus. 3. Normal LV function. EF 70%. Assessment/Plan Assessment/Plan 51 year old female, with angina, preserved LV function, has distal LM / bifurcating lesion. She is a candidate for CABG x 2 (ORTA to LAD, SVG to Ramus) Plan for CABG on WednesdayJuly 19 Will obtain Carotid duplex Vein mapping Non contrast CT chest 2 units PRBCs Hold ESTELA TENA MD Jul 15, 2017 19:06
[2017-07-15] MEDS: ATORVASTATIN CALCIUM 40 MG TABLET. PO SCH (21:08)
[2017-07-15] MEDS: HEPARIN 25,000UTS/500ML PREMIX 500 ML IV PRN (21:15)
--- NOTE | 2017-07-15 22:31 | CONS ---
DATE OF CONSULTATION: 07/15/2017 I saw her at the request of Dr. Meneses on 07/15/2017. She is in room 261. HISTORY OF PRESENT ILLNESS: This is a 51-year-old female admitted through the Emergency Room with neck and lower back pain. She had previous neck surgery by Dr. Valdes. The patient admits neck stiffness and pain on and off, but worse for the last 1 week or so after she picked up some heavy weights about 2 weeks ago. She also admits chronic lower back pain with some increased pain in the last 2 weeks. She admits neck pain with radiation to her left upper extremity. She denies any weakness or trouble with her bowel or bladder control, though admits occasional constipation. 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 The patient had been independent with her mobility and self-care skills, not using any assistive devices prior to the present hospitalization. The patient with history of hemorrhoids, KNOWN ALLERGIC TO CODEINE, hypothyroidism, goiter, status post appendectomy, breast biopsy, family history of coronary artery disease with her mother and brother, heart disease with her mother, hypertension with her father. She still smokes 1 pack of cigarettes per day, takes 2 beers on a regular basis. The patient since admission was also noted with elevated troponin level. Denies any chest pain, but cardiac catheterization revealed significant stenosis and I spoke to radiological metallurgist, he recommend her to have coronary artery bypass surgery. The patient had radiological studies since admission, which revealed anterior wedge compression deformity of lower thoracic vertebral body with approximately less than 50% loss for total body height, congenital fusion of C4-C5 vertebral bodies, multilevel degenerative disk disease in her spine. CT scan of the brain was within normal limits. CT scan of the cervical spine revealed moderate multilevel degenerative change causing mild to moderate central canal stenosis at C5-C6, C6-C7. Chest x-ray was negative. MRI scan of cervical spine revealed nonenhancing syrinx and myelomalacia of the central and right cord at C5 level, spinal stenosis to 7-8 mm at C6-C7, mild to moderate neural foraminal compromise, greatest bilaterally at C5-C6 and right greater than left at C6-C7, uncovertebral and facet degenerative change contribute to neural foraminal compromise, osseous interbody fusion at C4-C5, mild degenerative disk disease and spondylosis at C5-C6, C6-C7. MRI scan of her brain done today also revealed focus of hemosiderin deposition, old microhemorrhage of the right parietal lobe. There is a tiny focus of likely nonspecific gliosis of the left frontal subcortical white matter and degenerative changes in the temporomandibular joints bilaterally. PHYSICAL EXAMINATION: Today revealed she is alert, in no acute distress. She had painful limited movements of her cervical and lumbar spine with tenderness to palpation over cervical paraspinal muscles extending over to upper trapezius muscles and over lower thoracic and lumbar paraspinal muscles extending over to sacroiliac joint area and straight leg raising test is negative bilaterally. She had 5/5 grade muscle strength in her upper and lower extremities and deep tendon reflexes are 2+ and symmetrical and she had equal perception of touch and pinprick sensation bilaterally. She is independent with bed mobility and transfers and can walk on her tiptoes and on her heels and can even walk on a straight line, 1 foot in front of the other without any loss of balance. ASSESSMENT: A middle-aged female with chronic neck and lower back pain from degenerative disk disease and degenerative joint disease of cervical and lumbar vertebrae, status post previous cervical decompression laminectomy and fusion of C4-C5 with cervical and lumbar sprain from lifting heavy weights in the last couple of weeks with increased neck pain with radiation to her left upper extremity with radiological evidence of cervical spinal stenosis and syrinx and myelomalacia at C5 level. No clinical evidence of cervical spinal stenosis or lumbar spinal stenosis. Also, radiological evidence of lower thoracic vertebral body compression fracture might be old. RECOMMENDATIONS: To obtain MRI scan of her thoracic and lumbar vertebrae and ask Dr. Ross to see her. She probably needs cervical decompression laminectomy, but it can wait until her coronary artery bypass surgery and when medically stable, she may benefit from trial of Medrol Dosepak to help ease her neck and lower back discomfort, to also consider lower thoracic vertebral body, kyphoplasty if the compression fracture is new. Dr. Meneses appreciate asking me to participate in the care of this interesting patient. I will be glad to follow her with you as needed for her rehabilitation. SCOTT MUNOZ MD DR: LUNA/pankaj JOB#: [id number] / [id number]
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
[2017-07-16] MEDS: MORPHINE SULFATE 4 MG/ML DISP.SYRIN. IV PRN ×3 (03:24→20:36)
[2017-07-16 03:30] VITALS: BP 132/84
[2017-07-16] MEDS: ONDANSETRON PF 4 MG/2 ML VIAL. IV PRN ×2 (03:32→17:17)
[2017-07-16 07:22] VITALS: BP 135/85
--- NOTE | 2017-07-16 09:42 | PDOC ---
PROGRESS NOTES Chief Complaint Chief Complaint Cervical DJD no nerve impingement Cervical spine sprain THoracic compression fx < 50% vertebral height Troponin leak hypothyroidism HTN, new onset tobaccoism CAD, distal LM dse extending to proximal ramus and LAD s/p LHC (07/15) History of Present Illness History of Present Illness HAd LHC yesterday showed CAD TCVS consulted for consideration CABG PRocedure by TCVS done yesterday - showed: CAD, distal LM dse extending to proximal ramus and LAD s/p [facility] (07/15) NOw planned for CABG wednesday HAving carotid US now as pre cABG work up Neurosx note reviewed: no surgical needs for cervical pain, likely cervical sprain and will benefit from PT/OT PLAN: No new IM orders Await from tests Ff up test results CABG planned wednesday Vitals Vitals Vital Signs Date Time Temp Pulse Resp B/P (MAP) Pulse Ox O2 Delivery O2 Flow Rate FiO2 07/16/17 07:22 97.6 83 18 135/85 (102) 96 Room Air 97.6 Physical Exam General: Alert, Oriented X3, No acute distress Heart: Regular rate, Normal S1, Normal S2 Abdomen: Normal bowel sounds, Soft, No tenderness Extremities: No edema, Normal pulses Skin: No significant lesion Labs LABS Laboratory Tests Test 07/15/17 14:50 07/16/17 05:00 Heparin Anti-Xa Act, Unfractionated 0.35 IU/mL (0.30-0.70) 0.36 IU/mL (0.30-0.70) Review of Systems Review of Systems out of room Assessment and Plan Assessmemt and Plan Problems Medical Problems: (1) Elevated troponin Status: Acute (2) Left sided numbness Status: Acute (3) UTI (urinary tract infection) Status: Acute Problems: Comment Review of Relevant I have reviewed the following items vin (where applicable) has been applied. Labs Laboratory Tests Test 07/14/17 11:10 07/14/17 11:35 07/14/17 19:00 07/15/17 01:15 White Blood Count 8.4 x10^3/uL (4.0-11.0) Red Blood Count 4.56 x10^6/uL (3.50-5.40) Hemoglobin 14.8 g/dL (12.0-15.5) Hematocrit 43.1 % (36.0-47.0) Mean Corpuscular Volume 95 fL (79-100) Mean Corpuscular Hemoglobin 33 pg (25-35) Mean Corpuscular Hemoglobin Concent 34 g/dL (31-37) Red Cell Distribution Width 12.7 % (11.5-14.5) Platelet Count 237 x10^3/uL (140-400) Neutrophils (%) (Auto) 59 % (31-73) Lymphocytes (%) (Auto) 31 % (24-48) Monocytes (%) (Auto) 7 % (0-9) Eosinophils (%) (Auto) 2 % (0-3) Basophils (%) (Auto) 1 % (0-3) Neutrophils # (Auto) 5.0 x10^3uL (1.8-7.7) Lymphocytes # (Auto) 2.6 x10^3/uL (1.0-4.8) Monocytes # (Auto) 0.6 x10^3/uL (0.0-1.1) Eosinophils # (Auto) 0.1 x10^3/uL (0.0-0.7) Basophils # (Auto) 0.0 x10^3/uL (0.0-0.2) Sodium Level 141 mmol/L (136-145) Potassium Level 4.3 mmol/L (3.5-5.1) Chloride Level 103 mmol/L (98-107) Carbon Dioxide Level 32 mmol/L (21-32) Anion Gap 6 (6-14) Blood Urea Nitrogen 13 mg/dL (7-20) Creatinine 1.0 mg/dL (0.6-1.0) Estimated GFR (Cockcroft-Gault) 58.0 BUN/Creatinine Ratio 13 (6-20) Glucose Level 128 mg/dL (70-99) Hemoglobin A1c 5.1 % (4.8-5.6) Calcium Level 9.1 mg/dL (8.5-10.1) Magnesium Level 2.0 mg/dL (1.8-2.4) Total Bilirubin 0.3 mg/dL (0.2-1.0) Aspartate Amino Transf (AST/SGOT) 18 U/L (15-37) Alanine Aminotransferase (ALT/SGPT) 31 U/L (14-59) Alkaline Phosphatase 56 U/L (46-116) Troponin I Quantitative 0.197 ng/mL (0.000-0.055) 0.177 ng/mL (0.000-0.055) 0.177 ng/mL (0.000-0.055) Total Protein 6.7 g/dL (6.4-8.2) Albumin 3.7 g/dL (3.4-5.0) Albumin/Globulin Ratio 1.2 (1.0-1.7) Thyroid Stimulating Hormone (TSH) 1.399 uIU/mL (0.358-3.74) Urine Collection Type Unknown Urine Color Yellow Urine Clarity Clear Urine pH 6.0 Urine Specific [place] 1.015 Urine Protein Negative mg/dL (NEG-TRACE) Urine Glucose (UA) Negative mg/dL (NEG) Urine Ketones (Stick) Negative mg/dL (NEG) Urine Blood Negative (NEG) Urine Nitrite Negative (NEG) Urine Bilirubin Negative (NEG) Urine Urobilinogen Dipstick 0.2 mg/dL (0.2 mg/dL) Urine Leukocyte Esterase Small (NEG) Urine RBC Occ /HPF (0-2) Urine WBC 1-4 /HPF (0-4) Urine Squamous Epithelial Cells Mod /LPF Urine Bacteria Moderate /HPF (0-FEW) Urine Mucus Slight /LPF Heparin Anti-Xa Act, Unfractionated 0.18 IU/mL (0.30-0.70) Test 07/15/17 05:30 07/15/17 08:55 07/15/17 14:50 07/16/17 05:00 White Blood Count 6.4 x10^3/uL (4.0-11.0) Red Blood Count 4.76 x10^6/uL (3.50-5.40) Hemoglobin 15.2 g/dL (12.0-15.5) Hematocrit 46.2 % (36.0-47.0) Mean Corpuscular Volume 97 fL (79-100) Mean Corpuscular Hemoglobin 32 pg (25-35) Mean Corpuscular Hemoglobin Concent 33 g/dL (31-37) Red Cell Distribution Width 13.4 % (11.5-14.5) Platelet Count 217 x10^3/uL (140-400) Neutrophils (%) (Auto) 46 % (31-73) Lymphocytes (%) (Auto) 41 % (24-48) Monocytes (%) (Auto) 9 % (0-9) Eosinophils (%) (Auto) 3 % (0-3) Basophils (%) (Auto) 1 % (0-3) Neutrophils # (Auto) 2.9 x10^3uL (1.8-7.7) Lymphocytes # (Auto) 2.6 x10^3/uL (1.0-4.8) Monocytes # (Auto) 0.6 x10^3/uL (0.0-1.1) Eosinophils # (Auto) 0.2 x10^3/uL (0.0-0.7) Basophils # (Auto) 0.0 x10^3/uL (0.0-0.2) Sodium Level 142 mmol/L (136-145) Potassium Level 4.1 mmol/L (3.5-5.1) Chloride Level 104 mmol/L (98-107) Carbon Dioxide Level 33 mmol/L (21-32) Anion Gap 5 (6-14) Blood Urea Nitrogen 11 mg/dL (7-20) Creatinine 0.9 mg/dL (0.6-1.0) Estimated GFR (Cockcroft-Gault) 65.5 Glucose Level 100 mg/dL (70-99) Calcium Level 9.2 mg/dL (8.5-10.1) Triglycerides Level 131 mg/dL (0-150) Cholesterol Level 277 mg/dL (0-200) LDL Cholesterol, Calculated 188 mg/dL (0-100) VLDL Cholesterol, Calculated 26 mg/dL (0-40) Non-HDL Cholesterol Calculated 214 mg/dL (0-129) HDL Cholesterol 63 mg/dL (40-60) Cholesterol/HDL Ratio 4.4 Vitamin B12 Level 275 pg/mL (247-911) Heparin Anti-Xa Act, Unfractionated 0.49 IU/mL (0.30-0.70) 0.35 IU/mL (0.30-0.70) 0.36 IU/mL (0.30-0.70) Laboratory Tests Test 07/15/17 14:50 07/16/17 05:00 Heparin Anti-Xa Act, Unfractionated 0.35 IU/mL (0.30-0.70) 0.36 IU/mL (0.30-0.70) Microbiology 07/14/17 Urine Culture - Preliminary, Resulted 07/14/17 Urine Culture Result 1 (RUDOLPH) - Preliminary, Resulted Medications Current Medications Aspirin (Children'S Aspirin) 324 mg 1X ONCE PO Last administered on 07/14/17 12:26; Start 07/14/17 at 12:30; Stop 07/14/17 at 12:31; Status DC Nitroglycerin (Nitrostat) 0.4 mg PRN Q5MIN PRN SL CHEST PAIN Last administered on 07/14/17 12:28; Start 07/14/17 at 12:30 Morphine Sulfate 4 mg 1X ONCE IM Last administered on 07/14/17 13:08; Start 07/14/17 at 13:15; Stop 07/14/17 at 13:16; Status DC Ondansetron HCl (Zofran) 4 mg PRN Q8HRS PRN IV NAUSEA/VOMITING; Start 07/14/17 at 13:00; Stop 07/15/17 at 12:59; Status DC Morphine Sulfate 2 mg PRN Q2HR PRN IV PAIN; Start 07/14/17 at 13:00; Stop 07/14 at 15:16; Status DC Nitroglycerin (Nitrostat) 0.4 mg PRN Q5MIN PRN SL CHEST PAIN; Start 07/14/17 at 13:00; Stop 07/15/17 at 12:59; Status DC Nitrofurantoin Macrocrystals (Macrobid) 100 mg BID PO Last administered on 07/14 13:07; Start 07/14/17 at 13:15; Stop 07/14/17 at 16:14; Status DC Morphine Sulfate 2 mg PRN Q2HR PRN IV PAIN Last administered on 07/16/17 03:24 ; Start 07/14/17 at 15:30 Heparin Sodium/ Dextrose 500 ml @ 0 mls/hr CONT PRN IV SEE I/O RECORD Last administered on 07/15/17 21:15; Start 07/14/17 at 15:45 Heparin Sodium (Porcine) (Heparin Sodium) 2,000 unit PRN Q6HRS PRN IV FOR UFH LEVEL LESS THAN 0.2 Last administered on 07/15/17 02:35; Start 07/14/17 at 15: 45 Info (Anti-Coagulation Monitoring By Pharmacy) 1 each PRN DAILY PRN MC SEE COMMENTS Last administered on 07/15/17 08:47; Start 07/14/17 at 16:00 Amlodipine Besylate (Norvasc) 5 mg 1X ONCE PO Last administered on 07/14/17 16:30; Start 07/14/17 at 16:30; Stop 07/14/17 at 16:31; Status DC Aspirin (Ecotrin) 81 mg DAILYWBKFT PO ; Start 07/15/17 at 08:00 Atorvastatin Calcium (Lipitor) 20 mg QHS PO ; Start 07/14/17 at 21:00; Stop at 21:00; Status DC Acetaminophen (Tylenol) 650 mg PRN Q6HRS PRN PO FEVER; Start 07/14/17 at 16:15 Ondansetron HCl (Zofran) 4 mg PRN Q6HRS PRN IV NAUSEA/VOMITING Last administered on 07/16/17 03:32; Start 07/14/17 at 16:15 Morphine Sulfate 2 mg PRN Q2HR PRN IV MODERATE TO SEVERE PAIN; Start 07/14/17 at 16:15; Stop 07/15/17 at 08:48; Status DC Tramadol HCl (Ultram) 50 mg PRN Q6HRS PRN PO MILD TO MODERATE PAIN; Start 07/14 at 16:15 Hydralazine HCl (Apresoline) 10 mg PRN Q4HRS PRN IVP ELEVATED BP, SEE COMMENTS ; Start 07/14/17 at 16:15 Docusate Sodium (Colace) 100 mg PRN DAILY PRN PO CONSTIPATION; Start 07/14/17 at 16:15 Lorazepam (Ativan) 0.5 mg 1X ONCE PO Last administered on 07/14/17 16:30; Start 07/14/17 at 16:30; Stop 07/14/17 at 16:31; Status DC Atorvastatin Calcium (Lipitor) 40 mg QHS PO Last administered on 07/15/17 21: 08; Start 07/14/17 at 21:00 Iohexol (Omnipaque 300 Mg/ml) 100 ml STK-MED ONCE .ROUTE ; Start 07/15/17 at 09: 12; Stop 07/15/17 at 09:13; Status DC Heparin Sodium/ Sodium Chloride 1,500 ml @ As Directed STK-MED ONCE .ROUTE ; Start 07/15/17 at 09:12; Stop 07/15/17 at 09:13; Status DC Lidocaine HCl 20 ml STK-MED ONCE .ROUTE ; Start 07/15/17 at 09:12; Stop at 09:13; Status DC Verapamil HCl (Verapamil) 5 mg STK-MED ONCE .ROUTE ; Start 07/15/17 at 09:36; Stop 07/15/17 at 09:37; Status DC Heparin Sodium (Porcine) (Heparin Sodium) 10,000 unit STK-MED ONCE .ROUTE ; Start 07/15/17 at 09:36; Stop 07/15/17 at 09:37; Status DC Fentanyl Citrate (Fentanyl 2ml Vial) 100 mcg STK-MED ONCE .ROUTE ; Start at 09:37; Stop 07/15/17 at 09:38; Status DC Midazolam HCl (Versed) 5 mg STK-MED ONCE .ROUTE ; Start 07/15/17 at 09:37; Stop 07/15/17 at 09:38; Status DC Nitroglycerin (Nitroglycerin) 200 mcg STK-MED ONCE .ROUTE ; Start 07/15/17 at 09 :39; Stop 07/15/17 at 09:40; Status DC Nitroglycerin (Nitroglycerin) 200 mcg 1X ONCE IART Last administered on 10:35; Start 07/15/17 at 09:45; Stop 07/15/17 at 09:47; Status DC Verapamil HCl (Verapamil) 2.5 mg 1X ONCE IART Last administered on 07/15/17 10:36; Start 07/15/17 at 09:45; Stop 07/15/17 at 09:47; Status DC Heparin Sodium (Porcine) (Heparin Sodium) 2,500 unit 1X ONCE IART Last administered on 07/15/17 10:37; Start 07/15/17 at 09:45; Stop 07/15/17 at 09:47 ; Status DC Heparin Sodium/ Sodium Chloride 1,000 unit 1X ONCE IART Last administered on 10:36; Start 07/15/17 at 09:45; Stop 07/15/17 at 09:47; Status DC Midazolam HCl (Versed) 5 mg 1X ONCE IV Last administered on 07/15/17 10:34; Start 07/15/17 at 09:45; Stop 07/15/17 at 09:47; Status DC Fentanyl Citrate (Fentanyl 2ml Vial) 100 mcg 1X ONCE IV Last administered on 10:35; Start 07/15/17 at 09:45; Stop 07/15/17 at 09:47; Status DC Iohexol (Omnipaque 300 Mg/ml) 100 ml 1X ONCE IART Last administered on 10:36; Start 07/15/17 at 09:45; Stop 07/15/17 at 09:47; Status DC Lidocaine HCl 20 ml 1X ONCE IJ Last administered on 07/15/17 10:35; Start at 09:45; Stop 07/15/17 at 09:47; Status DC Nitroglycerin (Nitroglycerin) 200 mcg [employer] ONCE .ROUTE ; Start 07/15/17 at 10 :17; Stop 07/15/17 at 10:18; Status DC Gadobutrol (Gadavist) 7.5 mmol 1X ONCE IV Last administered on 07/15/17 12:56 ; Start 07/15/17 at 12:45; Stop 07/15/17 at 12:46; Status DC Nicotine (Nicoderm Cq 21mg) 1 patch DAILY TD Last administered on 07/15/17 18: 00; Start 07/15/17 at 18:00 Active Scripts Active Reported Synthroid (Levothyroxine Sodium) 125 Mcg Tablet 125 Mcg PO DAILYAC Vitals/I & O Vital Sign - Last 24 Hours 07/15/17 07/15/17 07/15/17 07/15/17 10:27 10:35 10:36 10:45 Pulse 82 78 77 Resp 14 14 18 B/P (MAP) 135/82 (99) Pulse Ox 97 94 O2 Delivery Room Air Room Air Room Air 07/15/17 07/15/17 07/15/17 07/15/17 11:00 11:15 11:30 13:15 Temp 97.9 97.9 Pulse 76 77 78 78 Resp 16 18 18 18 B/P (MAP) 135/82 (99) 139/93 (108) 131/86 (101) 140/99 (113) Pulse Ox 94 97 98 O2 Delivery Room Air Room Air Room Air Room Air 07/15/17 07/15/17 07/15/17 07/15/17 13:42 15:00 19:25 19:40 Temp 97.5 98.1 97.5 98.1 Pulse 80 80 Resp 16 20 B/P (MAP) 125/75 (92) 120/69 (86) Pulse Ox 94 95 O2 Delivery Room Air Room Air Room Air Room Air 07/15/17 07/15/17 07/15/17 07/16/17 21:08 21:38 23:30 03:24 Temp 98.0 98.0 Pulse 76 Resp 20 18 20 B/P (MAP) 99/62 (74) Pulse Ox 95 97 97 O2 Delivery Room Air Room Air Room Air 07/16/17 07/16/17 07/16/17 03:30 03:54 07:22 Temp 97.9 97.6 97.9 97.6 Pulse 78 83 Resp 16 20 18 B/P (MAP) 132/84 (100) 135/85 (102) Pulse Ox 97 96 O2 Delivery Room Air Room Air Intake and Output 07/15/17 07/15/17 07/16/17 15:00 23:00 07:00 Intake Total 690 ml 100 ml Balance 690 ml 100 ml DICK CHEUNG MD Jul 16, 2017 09:42
--- NOTE | 2017-07-16 10:10 | PDOC ---
CARDIO Progress Notes Date and Time Date of Service 07/16/2017 Time of Evaluation 1000 Subjective Subjective: No Chest Pain, No shortness of breath, No Palpitations, No Dizziness Vitals Vitals Vital Signs Date Time Temp Pulse Resp B/P (MAP) Pulse Ox O2 Delivery O2 Flow Rate FiO2 07/16/17 07:22 97.6 83 18 135/85 (102) 96 Room Air 97.6 Weight Weight [ ] Input and Output Intake and Output Intake and Output 07/16/17 06:59 Intake Total 790 ml Balance 790 ml Intake Oral 790 ml # Voids 4 Laboratory Labs Laboratory Tests Test 07/15/17 14:50 07/16/17 05:00 Heparin Anti-Xa Act, Unfractionated 0.35 IU/mL (0.30-0.70) 0.36 IU/mL (0.30-0.70) Microbiology Micro Microbiology 07/14/17 Urine Culture - Preliminary, Resulted 07/14/17 Urine Culture Result 1 (RUDOLPH) - Preliminary, Resulted Physical Exam HEENT: Neck Supple W Full Motion Chest: Symmetric LUNGS: Clear to Auscultation Heart: S1S2, RRR (SR) Abdomen: Soft N/T Extremities: No Edema, No Calf Tenderness Neurology: alert, oriented, follow commands Other Exams right wrist arteriotomy site intact, no erythema, swelling, neurovascular status RUE intact Assessment Assessment 1. CAD with 2VD: distal LM/Ramus via LHC. Came in with UA. Peaked troponin 0.177 2. HTN: well controlled 3. Hypothyroidism: TSH on goal 4. ARIAS/metabolic syndrome 5. HLP Recommendations 1. TTE with normal EF, wall motion, no significant valvular disease. few brief episodes of SVT. Start on low dose toprol 2. CTS planning for CABG on Wednesday 3. ASA, statin 4. Heparin drip LIBBY CAMARENA APRN Jul 16, 2017 10:10
[2017-07-16] MEDS: NICOTINE 21MG PATCH. TD SCH (10:46)
[2017-07-16] MEDS: ASPIRIN ENTERIC COATED 81 MG TABLET.DR. PO SCH (10:46)
--- NOTE | 2017-07-16 10:52 | RAD ---
MRI Thoracic Spine without contrast History: Back pain, bilateral leg radiculopathy Technique: Multiplanar, multi sequential noncontrast MR imaging was performed of the thoracic spine. Contrast: None Comparison: None Findings: There is old anterior compression deformity of T9. Thoracic vertebral body AP alignment is adequate. There is accentuation of thoracic kyphosis about T9. There is minimal edema of the anterior, inferior endplate of T11, minimally superiorly of L1, and also very minimally inferiorly of the anterior endplate of T6 probably reactive/degenerative in etiology. Thoracic cord caliber is within normal limits without focal signal abnormality. There is a small hemangioma of the right T8 vertebral body. There is more advanced degenerative disc disease T8-9, to lesser degree at T9-10 and T10-11. There is no significant thoracic spinal stenosis at any level. There is minimal posterior narrowing of the right T9-10 foramen by facet, also [id number] narrowing posteriorly on the right at T4-5. Impression: 1. There is old anterior compression deformity of T9. There is degenerative disc disease greatest about this level, also accentuation of thoracic kyphosis centered about this level. 2. There is no significant thoracic spinal stenosis or thoracic cord signal abnormality. Electronically signed by: Indio Casillas MD (07/16/2017 10:49 AM) [id number]
[2017-07-16 11:05] VITALS: BP 110/60
--- NOTE | 2017-07-16 11:24 | PDOC ---
PROGRESS NOTES Subjective Subjective She feels better. Objective Objective Vital Signs Date Time Temp Pulse Resp B/P (MAP) Pulse Ox O2 Delivery O2 Flow Rate FiO2 07/16/17 11:05 98.0 81 18 110/60 (77) 98 Room Air 98.0 Intake and Output 07/16/17 06:59 Intake Total 790 ml Balance 790 ml Intake Oral 790 ml # Voids 4 Physical Exam Physical Exam She is alert and comfortable and is sitting in bed and mri scan of thoracic spine revealed old T9 vertebral body compression fracture with some kyphosis at that level and mri scan of lumbar spine revealed DDD of L4-L5 and L5 -Si with some bulging and protrusion of disc without any spinal canal stenosis.I appreciate 's note. Assessment Assessment Problems Medical Problems: (1) Elevated troponin Status: Acute (2) Left sided numbness Status: Acute (3) UTI (urinary tract infection) Status: Acute Plan Plan of Care To try her with lumbar corset for use while up. Comment Review of Relevant I have reviewed the following items vin (where applicable) has been applied. Labs Laboratory Tests Test 07/14/17 11:35 07/14/17 19:00 07/15/17 01:15 07/15/17 05:30 Urine Collection Type Unknown Urine Color Yellow Urine Clarity Clear Urine pH 6.0 Urine Specific [place] 1.015 Urine Protein Negative mg/dL (NEG-TRACE) Urine Glucose (UA) Negative mg/dL (NEG) Urine Ketones (Stick) Negative mg/dL (NEG) Urine Blood Negative (NEG) Urine Nitrite Negative (NEG) Urine Bilirubin Negative (NEG) Urine Urobilinogen Dipstick 0.2 mg/dL (0.2 mg/dL) Urine Leukocyte Esterase Small (NEG) Urine RBC Occ /HPF (0-2) Urine WBC 1-4 /HPF (0-4) Urine Squamous Epithelial Cells Mod /LPF Urine Bacteria Moderate /HPF (0-FEW) Urine Mucus Slight /LPF Troponin I Quantitative 0.177 ng/mL (0.000-0.055) 0.177 ng/mL (0.000-0.055) Heparin Anti-Xa Act, Unfractionated 0.18 IU/mL (0.30-0.70) White Blood Count 6.4 x10^3/uL (4.0-11.0) Red Blood Count 4.76 x10^6/uL (3.50-5.40) Hemoglobin 15.2 g/dL (12.0-15.5) Hematocrit 46.2 % (36.0-47.0) Mean Corpuscular Volume 97 fL (79-100) Mean Corpuscular Hemoglobin 32 pg (25-35) Mean Corpuscular Hemoglobin Concent 33 g/dL (31-37) Red Cell Distribution Width 13.4 % (11.5-14.5) Platelet Count 217 x10^3/uL (140-400) Neutrophils (%) (Auto) 46 % (31-73) Lymphocytes (%) (Auto) 41 % (24-48) Monocytes (%) (Auto) 9 % (0-9) Eosinophils (%) (Auto) 3 % (0-3) Basophils (%) (Auto) 1 % (0-3) Neutrophils # (Auto) 2.9 x10^3uL (1.8-7.7) Lymphocytes # (Auto) 2.6 x10^3/uL (1.0-4.8) Monocytes # (Auto) 0.6 x10^3/uL (0.0-1.1) Eosinophils # (Auto) 0.2 x10^3/uL (0.0-0.7) Basophils # (Auto) 0.0 x10^3/uL (0.0-0.2) Sodium Level 142 mmol/L (136-145) Potassium Level 4.1 mmol/L (3.5-5.1) Chloride Level 104 mmol/L (98-107) Carbon Dioxide Level 33 mmol/L (21-32) Anion Gap 5 (6-14) Blood Urea Nitrogen 11 mg/dL (7-20) Creatinine 0.9 mg/dL (0.6-1.0) Estimated GFR (Cockcroft-Gault) 65.5 Glucose Level 100 mg/dL (70-99) Calcium Level 9.2 mg/dL (8.5-10.1) Triglycerides Level 131 mg/dL (0-150) Cholesterol Level 277 mg/dL (0-200) LDL Cholesterol, Calculated 188 mg/dL (0-100) VLDL Cholesterol, Calculated 26 mg/dL (0-40) Non-HDL Cholesterol Calculated 214 mg/dL (0-129) HDL Cholesterol 63 mg/dL (40-60) Cholesterol/HDL Ratio 4.4 Vitamin B12 Level 275 pg/mL (247-911) Test 07/15/17 08:55 07/15/17 14:50 07/16/17 05:00 Heparin Anti-Xa Act, Unfractionated 0.49 IU/mL (0.30-0.70) 0.35 IU/mL (0.30-0.70) 0.36 IU/mL (0.30-0.70) Laboratory Tests Test 07/15/17 14:50 07/16/17 05:00 Heparin Anti-Xa Act, Unfractionated 0.35 IU/mL (0.30-0.70) 0.36 IU/mL (0.30-0.70) Microbiology 07/14/17 Urine Culture - Preliminary, Resulted 07/14/17 Urine Culture Result 1 (RUDOLPH) - Preliminary, Resulted Medications Current Medications Aspirin (Children'S Aspirin) 324 mg 1X ONCE PO Last administered on 07/14/17 12:26; Start 07/14/17 at 12:30; Stop 07/14/17 at 12:31; Status DC Nitroglycerin (Nitrostat) 0.4 mg PRN Q5MIN PRN SL CHEST PAIN Last administered on 07/14/17 12:28; Start 07/14/17 at 12:30 Morphine Sulfate 4 mg 1X ONCE IM Last administered on 07/14/17 13:08; Start 07/14/17 at 13:15; Stop 07/14/17 at 13:16; Status DC Ondansetron HCl (Zofran) 4 mg PRN Q8HRS PRN IV NAUSEA/VOMITING; Start 07/14/17 at 13:00; Stop 07/15/17 at 12:59; Status DC Morphine Sulfate 2 mg PRN Q2HR PRN IV PAIN; Start 07/14/17 at 13:00; Stop 07/14 at 15:16; Status DC Nitroglycerin (Nitrostat) 0.4 mg PRN Q5MIN PRN SL CHEST PAIN; Start 07/14/17 at 13:00; Stop 07/15/17 at 12:59; Status DC Nitrofurantoin Macrocrystals (Macrobid) 100 mg BID PO Last administered on 07/14 13:07; Start 07/14/17 at 13:15; Stop 07/14/17 at 16:14; Status DC Morphine Sulfate 2 mg PRN Q2HR PRN IV PAIN Last administered on 07/16/17 10:47 ; Start 07/14/17 at 15:30 Heparin Sodium/ Dextrose 500 ml @ 0 mls/hr CONT PRN IV SEE I/O RECORD Last administered on 07/15/17 21:15; Start 07/14/17 at 15:45 Heparin Sodium (Porcine) (Heparin Sodium) 2,000 unit PRN Q6HRS PRN IV FOR UFH LEVEL LESS THAN 0.2 Last administered on 07/15/17 02:35; Start 07/14/17 at 15: 45 Info (Anti-Coagulation Monitoring By Pharmacy) 1 each PRN DAILY PRN MC SEE COMMENTS Last administered on 07/15/17 08:47; Start 07/14/17 at 16:00 Amlodipine Besylate (Norvasc) 5 mg 1X ONCE PO Last administered on 07/14/17 16:30; Start 07/14/17 at 16:30; Stop 07/14/17 at 16:31; Status DC Aspirin (Ecotrin) 81 mg DAILYWBKFT PO Last administered on 07/16/17 10:46; Start 07/15/17 at 08:00 Atorvastatin Calcium (Lipitor) 20 mg QHS PO ; Start 07/14/17 at 21:00; Stop at 21:00; Status DC Acetaminophen (Tylenol) 650 mg PRN Q6HRS PRN PO FEVER; Start 07/14/17 at 16:15 Ondansetron HCl (Zofran) 4 mg PRN Q6HRS PRN IV NAUSEA/VOMITING Last administered on 07/16/17 03:32; Start 07/14/17 at 16:15 Morphine Sulfate 2 mg PRN Q2HR PRN IV MODERATE TO SEVERE PAIN; Start 07/14/17 at 16:15; Stop 07/15/17 at 08:48; Status DC Tramadol HCl (Ultram) 50 mg PRN Q6HRS PRN PO MILD TO MODERATE PAIN; Start 07/14 at 16:15 Hydralazine HCl (Apresoline) 10 mg PRN Q4HRS PRN IVP ELEVATED BP, SEE COMMENTS ; Start 07/14/17 at 16:15 Docusate Sodium (Colace) 100 mg PRN DAILY PRN PO CONSTIPATION; Start 07/14/17 at 16:15 Lorazepam (Ativan) 0.5 mg 1X ONCE PO Last administered on 07/14/17 16:30; Start 07/14/17 at 16:30; Stop 07/14/17 at 16:31; Status DC Atorvastatin Calcium (Lipitor) 40 mg QHS PO Last administered on 07/15/17 21: 08; Start 07/14/17 at 21:00 Iohexol (Omnipaque 300 Mg/ml) 100 ml STK-MED ONCE .ROUTE ; Start 07/15/17 at 09: 12; Stop 07/15/17 at 09:13; Status DC Heparin Sodium/ Sodium Chloride 1,500 ml @ As Directed STK-MED ONCE .ROUTE ; Start 07/15/17 at 09:12; Stop 07/15/17 at 09:13; Status DC Lidocaine HCl 20 ml STK-MED ONCE .ROUTE ; Start 07/15/17 at 09:12; Stop at 09:13; Status DC Verapamil HCl (Verapamil) 5 mg STK-MED ONCE .ROUTE ; Start 07/15/17 at 09:36; Stop 07/15/17 at 09:37; Status DC Heparin Sodium (Porcine) (Heparin Sodium) 10,000 unit STK-MED ONCE .ROUTE ; Start 07/15/17 at 09:36; Stop 07/15/17 at 09:37; Status DC Fentanyl Citrate (Fentanyl 2ml Vial) 100 mcg STK-MED ONCE .ROUTE ; Start at 09:37; Stop 07/15/17 at 09:38; Status DC Midazolam HCl (Versed) 5 mg STK-MED ONCE .ROUTE ; Start 07/15/17 at 09:37; Stop 07/15/17 at 09:38; Status DC Nitroglycerin (Nitroglycerin) 200 mcg STK-MED ONCE .ROUTE ; Start 07/15/17 at 09 :39; Stop 07/15/17 at 09:40; Status DC Nitroglycerin (Nitroglycerin) 200 mcg 1X ONCE IART Last administered on 10:35; Start 07/15/17 at 09:45; Stop 07/15/17 at 09:47; Status DC Verapamil HCl (Verapamil) 2.5 mg 1X ONCE IART Last administered on 07/15/17 10:36; Start 07/15/17 at 09:45; Stop 07/15/17 at 09:47; Status DC Heparin Sodium (Porcine) (Heparin Sodium) 2,500 unit 1X ONCE IART Last administered on 07/15/17 10:37; Start 07/15/17 at 09:45; Stop 07/15/17 at 09:47 ; Status DC Heparin Sodium/ Sodium Chloride 1,000 unit 1X ONCE IART Last administered on 10:36; Start 07/15/17 at 09:45; Stop 07/15/17 at 09:47; Status DC Midazolam HCl (Versed) 5 mg 1X ONCE IV Last administered on 07/15/17 10:34; Start 07/15/17 at 09:45; Stop 07/15/17 at 09:47; Status DC Fentanyl Citrate (Fentanyl 2ml Vial) 100 mcg 1X ONCE IV Last administered on 10:35; Start 07/15/17 at 09:45; Stop 07/15/17 at 09:47; Status DC Iohexol (Omnipaque 300 Mg/ml) 100 ml 1X ONCE IART Last administered on 10:36; Start 07/15/17 at 09:45; Stop 07/15/17 at 09:47; Status DC Lidocaine HCl 20 ml 1X ONCE IJ Last administered on 07/15/17 10:35; Start at 09:45; Stop 07/15/17 at 09:47; Status DC Nitroglycerin (Nitroglycerin) 200 mcg STK-MED ONCE .ROUTE ; Start 07/15/17 at 10 :17; Stop 07/15/17 at 10:18; Status DC Gadobutrol (Gadavist) 7.5 mmol 1X ONCE IV Last administered on 07/15/17 12:56 ; Start 07/15/17 at 12:45; Stop 07/15/17 at 12:46; Status DC Nicotine (Nicoderm Cq 21mg) 1 patch DAILY TD Last administered on 07/16/17 10: 46; Start 07/15/17 at 18:00 Metoprolol Succinate (Toprol Xl) 12.5 mg DAILY PO ; Start 07/16/17 at 11:00 Active Scripts Active Reported Synthroid (Levothyroxine Sodium) 125 Mcg Tablet 125 Mcg PO DAILYAC Vitals/I & O Vital Sign - Last 24 Hours 07/15/17 07/15/17 07/15/17 07/15/17 11:30 13:15 13:42 15:00 Temp 97.5 97.5 Pulse 78 78 80 Resp 18 18 16 B/P (MAP) 131/86 (101) 140/99 (113) 125/75 (92) Pulse Ox 98 94 O2 Delivery Room Air Room Air Room Air Room Air 07/15/17 07/15/17 07/15/17 07/15/17 19:25 19:40 21:08 21:38 Temp 98.1 98.1 Pulse 80 Resp 20 20 B/P (MAP) 120/69 (86) Pulse Ox 95 95 97 O2 Delivery Room Air Room Air Room Air Room Air 07/15/17 07/16/17 07/16/17 07/16/17 23:30 03:24 03:30 03:54 Temp 98.0 97.9 98.0 97.9 Pulse 76 78 Resp 18 20 16 20 B/P (MAP) 99/62 (74) 132/84 (100) Pulse Ox 97 97 O2 Delivery Room Air Room Air 07/16/17 07/16/17 07/16/17 07:22 10:47 11:05 Temp 97.6 98.0 97.6 98.0 Pulse 83 81 Resp 18 18 B/P (MAP) 135/85 (102) 110/60 (77) Pulse Ox 96 98 O2 Delivery Room Air Room Air Room Air Intake and Output 07/15/17 07/15/17 07/16/17 14:59 22:59 06:59 Intake Total 690 ml 100 ml Balance 690 ml 100 ml SCOTT MUNOZ MD Jul 16, 2017 11:24
[2017-07-16] MEDS: traMADol 50 MG TABLET PO PRN ×2 (11:25→17:16)
[2017-07-16] MEDS: METOPROLOL SUCC 24HR ER 25 MG TAB.ER.24H. PO SCH (11:25)
--- NOTE | 2017-07-16 11:34 | RAD ---
MRI Lumbar Spine without contrast History: Back pain with bilateral leg radiculopathy Technique: Multiplanar, multi sequential noncontrast MR imaging was performed of the lumbar spine. Contrast: None Comparison: None Findings: Lumbar vertebral body stature is overall maintained, small inferior Schmorl's nodes of L3 and L2 posteriorly, mild associated edema greatest at L2. AP alignment is adequate. Conus terminates at L1-2. There is moderate to severe degenerative disc disease at L5-S1, minimally at L4-5 and mild disc desiccation L3-4 and L2-3. L1-L2: Spinal canal and neural foramina are adequate. L2-L3: Neural foramina and spinal canal are adequate. There is negligible disc osteophyte complex. L3-L4: There is [id number] facet degenerative change and mild buckling of the ligamentum flavum . There is minimal disc osteophyte complex. There is very mild narrowing of the far lateral recesses greater on the left. There is minimal inferior neural foramina compromise greater on the right. L4-L5: There is moderate facet degenerative change and mild buckling of the ligamentum flavum. There is minimal disc osteophyte complex greater in the far left lateral recess, also posterior left posterior annular tear. There is mild narrowing of the far left lateral recess. There is moderate narrowing of the left neural foramen by facet hypertrophic change and disc osteophyte complex. There is very mild inferior narrowing of the right neural foramen. L5-S1: There is mild facet hypertrophic change. There is some deformity of the right lamina which may be on a post traumatic or developmental basis. There is very shallow protrusion in the far left lateral recess, no significant impingement of the descending left S1 nerve root. Neural foramina are overall adequate. Disc osteophyte complex is near the extraforaminal left L5 nerve root without significant displacement. Impression: 1. There is degenerative disc disease greatest at L5-S1, minimally at more superior levels. Mild endplate edema greatest about inferior L2 Schmorl's node is likely reactive/degenerative in etiology. There is mild spondylosis. 2. There is minimal narrowing of the lateral recesses as stated. 3. There is moderate narrowing of the left L4-5 neural foramen, other minimal narrowing as stated. Electronically signed by: Indio Casillas MD (07/16/2017 11:31 AM) [id number]
--- NOTE | 2017-07-16 11:41 | RAD ---
Carotid ultrasound, 07/16/2017: History: Preop CABG Duplex evaluation of the carotid arteries in the neck was performed including a scale, color flow and spectral Doppler analysis. There is mild smooth intimal thickening in the common carotid arteries and at the carotid bifurcations. The Doppler data obtained from the bifurcations reveals no significant velocity acceleration to suggest a hemodynamically significant carotid stenosis. The peak systolic velocity in the right internal carotid artery is 69 cm per sec with an end-diastolic velocity of 31 cm/s. The peak systolic velocity in the left internal carotid artery is 110 cm per sec with an end-diastolic velocity of 50 cm/s. Antegrade flow is present in both vertebral arteries in the neck. IMPRESSION: No duplex evidence of a significant carotid stenosis in the neck. Note: Stenosis calculations for CTA, MRA and conventional angiography are based upon determination of the distal ICA diameter in accordance with the NASCET methodology. Stenosis calculations for Doppler studies are derived from validated velocity criteria which are known to correlate with NASCET methodology of determining stenosis.
--- NOTE | 2017-07-16 11:49 | RAD ---
CT of the chest without contrast, 07/16/2017: History: Coronary artery disease, preop evaluation Noncontrast scans were obtained as requested. The thoracic aorta is unremarkable. There are mild scattered coronary artery calcifications. The heart is of normal size. Small mediastinal lymph nodes are seen without evidence of pathologic enlargement. Several small scattered foci of increased density within the trachea most likely represents mucoid debris. There are several minimal linear parenchymal scars in the lungs. No pulmonary mass or significant consolidation is seen. There is minimal atelectasis or scarring in the posterior costophrenic angle on the left. There is no evidence of significant pleural fluid. There are moderate scattered degenerative changes in the spine. There is mild anterior wedging of approximately the T9 vertebral body, likely old. IMPRESSION: 1. Mild scattered coronary artery calcifications. 2. Mild parenchymal scarring. 3. Small amount of mucoid debris in the trachea. 4. Mild T9 vertebral compression. PQRS Compliance Statement: One or more of the following individualized dose reduction techniques were utilized for this examination: 1. Automated exposure control 2. Adjustment of the mA and/or kV according to patient size 3. Use of iterative reconstruction technique
[2017-07-16] MEDS: ANTI-COAG MONITOR BY PHARMACY. MC PRN (14:08)
[2017-07-16 14:49] VITALS: BP 127/72
[2017-07-16 16:07] LABS: PROTHROMBIN TIME PATIENT 12.3 SEC (11.7-14.0)
[2017-07-16 19:50] VITALS: BP 104/71
[2017-07-16] MEDS: ATORVASTATIN CALCIUM 40 MG TABLET. PO SCH (20:36)
[2017-07-16] MEDS: HEPARIN 25,000UTS/500ML PREMIX 500 ML IV PRN (20:41)
[2017-07-16 23:02] VITALS: BP 98/53
[2017-07-17 03:50] VITALS: BP 86/50
[2017-07-17 07:58] VITALS: BP 122/76
[2017-07-17] MEDS: METOPROLOL SUCC 24HR ER 25 MG TAB.ER.24H. PO SCH (08:07)
[2017-07-17] MEDS: NICOTINE 21MG PATCH. TD SCH (09:00)
--- NOTE | 2017-07-17 10:26 | PDOC ---
PROGRESS NOTES Subjective Subjective She feels good and she admits that she did not take any pain medicine last evening. Objective Objective Vital Signs Date Time Temp Pulse Resp B/P (MAP) Pulse Ox O2 Delivery O2 Flow Rate FiO2 07/17/17 08:07 77 106/69 07/17/17 08:00 Room Air 07/17/17 07:58 98.4 16 95 98.4 Intake and Output 07/17/17 07:00 Intake Total 1120 ml Balance 1120 ml Intake Oral 800 ml IV Total 320 ml # Voids 3 Physical Exam Physical Exam She is alert and remains independent with her mobility and self care. Assessment Assessment Problems Medical Problems: (1) Elevated troponin Status: Acute (2) Left sided numbness Status: Acute (3) UTI (urinary tract infection) Status: Acute Plan Plan of Care To continue present activities. Comment Review of Relevant I have reviewed the following items vin (where applicable) has been applied. Labs Laboratory Tests Test 07/15/17 14:50 07/16/17 05:00 07/16/17 15:45 07/17/17 07:39 Heparin Anti-Xa Act, Unfractionated 0.35 IU/mL (0.30-0.70) 0.36 IU/mL (0.30-0.70) Prothrombin Time 12.3 SEC (11.7-14.0) Prothromb Time International Ratio 1.0 (0.8-1.1) Activated Partial Thromboplast Time 57 SEC (24-38) Glucose (Fingerstick) 102 mg/dL (70-99) Laboratory Tests Test 07/16/17 15:45 07/17/17 07:39 Prothrombin Time 12.3 SEC (11.7-14.0) Prothromb Time International Ratio 1.0 (0.8-1.1) Activated Partial Thromboplast Time 57 SEC (24-38) Glucose (Fingerstick) 102 mg/dL (70-99) Microbiology 07/14/17 Urine Culture - Final, Complete 07/14/17 Urine Culture Result 1 (RUDOLPH) - Final, Complete Medications Current Medications Aspirin (Children'S Aspirin) 324 mg 1X ONCE PO Last administered on 07/14/17t 12:26; Start 07/14/17 at 12:30; Stop 07/14/17 at 12:31; Status DC Nitroglycerin (Nitrostat) 0.4 mg PRN Q5MIN PRN SL CHEST PAIN Last administered on 07/14/17 12:28; Start 07/14/17 at 12:30 Morphine Sulfate 4 mg 1X ONCE IM Last administered on 07/14/17 13:08; Start 07/14/17 at 13:15; Stop 07/14/17 at 13:16; Status DC Ondansetron HCl (Zofran) 4 mg PRN Q8HRS PRN IV NAUSEA/VOMITING; Start 07/14/17 at 13:00; Stop 07/15/17 at 12:59; Status DC Morphine Sulfate 2 mg PRN Q2HR PRN IV PAIN; Start 07/14/17 at 13:00; Stop 07/14 at 15:16; Status DC Nitroglycerin (Nitrostat) 0.4 mg PRN Q5MIN PRN SL CHEST PAIN; Start 07/14/17 at 13:00; Stop 07/15/17 at 12:59; Status DC Nitrofurantoin Macrocrystals (Macrobid) 100 mg BID PO Last administered on 07/14 13:07; Start 07/14/17 at 13:15; Stop 07/14/17 at 16:14; Status DC Morphine Sulfate 2 mg PRN Q2HR PRN IV PAIN Last administered on 07/16/17 20:36 ; Start 07/14/17 at 15:30 Heparin Sodium/ Dextrose 500 ml @ 0 mls/hr CONT PRN IV SEE I/O RECORD Last administered on 07/16/17 20:41; Start 07/14/17 at 15:45 Heparin Sodium (Porcine) (Heparin Sodium) 2,000 unit PRN Q6HRS PRN IV FOR UFH LEVEL LESS THAN 0.2 Last administered on 07/15/17 02:35; Start 07/14/17 at 15: 45 Info (Anti-Coagulation Monitoring By Pharmacy) 1 each PRN DAILY PRN MC SEE COMMENTS Last administered on 07/16/17 14:08; Start 07/14/17 at 16:00 Amlodipine Besylate (Norvasc) 5 mg 1X ONCE PO Last administered on 07/14/17 16:30; Start 07/14/17 at 16:30; Stop 07/14/17 at 16:31; Status DC Aspirin (Ecotrin) 81 mg DAILYWBKFT PO Last administered on 07/16/17 10:46; Start 07/15/17 at 08:00; Stop 07/16/17 at 15:15; Status DC Atorvastatin Calcium (Lipitor) 20 mg QHS PO ; Start 07/14/17 at 21:00; Stop at 21:00; Status DC Acetaminophen (Tylenol) 650 mg PRN Q6HRS PRN PO FEVER; Start 07/14/17 at 16:15 Ondansetron HCl (Zofran) 4 mg PRN Q6HRS PRN IV NAUSEA/VOMITING Last administered on 07/16/17 17:17; Start 07/14/17 at 16:15 Morphine Sulfate 2 mg PRN Q2HR PRN IV MODERATE TO SEVERE PAIN; Start 07/14/17 at 16:15; Stop 07/15/17 at 08:48; Status DC Tramadol HCl (Ultram) 50 mg PRN Q6HRS PRN PO MILD TO MODERATE PAIN Last administered on 07/16/17 17:16; Start 07/14/17 at 16:15 Hydralazine HCl (Apresoline) 10 mg PRN Q4HRS PRN IVP ELEVATED BP, SEE COMMENTS ; Start 07/14/17 at 16:15 Docusate Sodium (Colace) 100 mg PRN DAILY PRN PO CONSTIPATION; Start 07/14/17 at 16:15 Lorazepam (Ativan) 0.5 mg 1X ONCE PO Last administered on 07/14/17 16:30; Start 07/14/17 at 16:30; Stop 07/14/17 at 16:31; Status DC Atorvastatin Calcium (Lipitor) 40 mg QHS PO Last administered on 07/16/17 20: 36; Start 07/14/17 at 21:00 Iohexol (Omnipaque 300 Mg/ml) 100 ml STK-MED ONCE .ROUTE ; Start 07/15/17 at 09: 12; Stop 07/15/17 at 09:13; Status DC Heparin Sodium/ Sodium Chloride 1,500 ml @ As Directed STK-MED ONCE .ROUTE ; Start 07/15/17 at 09:12; Stop 07/15/17 at 09:13; Status DC Lidocaine HCl 20 ml STK-MED ONCE .ROUTE ; Start 07/15/17 at 09:12; Stop at 09:13; Status DC Verapamil HCl (Verapamil) 5 mg STK-MED ONCE .ROUTE ; Start 07/15/17 at 09:36; Stop 07/15/17 at 09:37; Status DC Heparin Sodium (Porcine) (Heparin Sodium) 10,000 unit STK-MED ONCE .ROUTE ; Start 07/15/17 at 09:36; Stop 07/15/17 at 09:37; Status DC Fentanyl Citrate (Fentanyl 2ml Vial) 100 mcg STK-MED ONCE .ROUTE ; Start at 09:37; Stop 07/15/17 at 09:38; Status DC Midazolam HCl (Versed) 5 mg STK-MED ONCE .ROUTE ; Start 07/15/17 at 09:37; Stop 07/15/17 at 09:38; Status DC Nitroglycerin (Nitroglycerin) 200 mcg STK-MED ONCE .ROUTE ; Start 07/15/17 at 09 :39; Stop 07/15/17 at 09:40; Status DC Nitroglycerin (Nitroglycerin) 200 mcg 1X ONCE IART Last administered on 10:35; Start 07/15/17 at 09:45; Stop 07/15/17 at 09:47; Status DC Verapamil HCl (Verapamil) 2.5 mg 1X ONCE IART Last administered on 07/15/17 10:36; Start 07/15/17 at 09:45; Stop 07/15/17 at 09:47; Status DC Heparin Sodium (Porcine) (Heparin Sodium) 2,500 unit 1X ONCE IART Last administered on 07/15/17 10:37; Start 07/15/17 at 09:45; Stop 07/15/17 at 09:47 ; Status DC Heparin Sodium/ Sodium Chloride 1,000 unit 1X ONCE IART Last administered on 10:36; Start 07/15/17 at 09:45; Stop 07/15/17 at 09:47; Status DC Midazolam HCl (Versed) 5 mg 1X ONCE IV Last administered on 07/15/17 10:34; Start 07/15/17 at 09:45; Stop 07/15/17 at 09:47; Status DC Fentanyl Citrate (Fentanyl 2ml Vial) 100 mcg 1X ONCE IV Last administered on 8 /24/17at 10:35; Start 07/15/17 at 09:45; Stop 07/15/17 at 09:47; Status DC Iohexol (Omnipaque 300 Mg/ml) 100 ml 1X ONCE IART Last administered on 10:36; Start 07/15/17 at 09:45; Stop 07/15/17 at 09:47; Status DC Lidocaine HCl 20 ml 1X ONCE IJ Last administered on 07/15/17 10:35; Start at 09:45; Stop 07/15/17 at 09:47; Status DC Nitroglycerin (Nitroglycerin) 200 mcg STK-MED ONCE .ROUTE ; Start 07/15/17 at 10 :17; Stop 07/15/17 at 10:18; Status DC Gadobutrol (Gadavist) 7.5 mmol 1X ONCE IV Last administered on 07/15/17 12:56 ; Start 07/15/17 at 12:45; Stop 07/15/17 at 12:46; Status DC Nicotine (Nicoderm Cq 21mg) 1 patch DAILY TD Last administered on 07/16/17 10: 46; Start 07/15/17 at 18:00 Metoprolol Succinate (Toprol Xl) 12.5 mg DAILY PO Last administered on 08:07; Start 07/16/17 at 11:00 Ondansetron HCl (Zofran) 4 mg PRN Q6HRS PRN IV NAUSEA/VOMITING; Start 07/19/17 at 07:00; Stop 07/20/17 at 06:59 Fentanyl Citrate (Fentanyl 2ml Vial) 25 mcg PRN Q5MIN PRN IV MILD PAIN; Start 07/19/17 at 07:00; Stop 07/20/17 at 06:59 Fentanyl Citrate (Fentanyl 2ml Vial) 50 mcg PRN Q5MIN PRN IV MODERATE PAIN; Start 07/19/17 at 07:00; Stop 07/20/17 at 06:59 Ringer's Solution 1,000 ml @ 30 mls/hr Q24H IV ; Start 07/19/17 at 07:00; Stop 07/19/17 at 18:59 Lidocaine HCl 2 ml PRN 1X PRN ID PRIOR TO IV START; Start 07/19/17 at 07:00; Stop 07/20/17 at 06:59 Prochlorperazine Edisylate (Compazine) 5 mg PACU PRN PRN IV NAUSEA, MRX1; Start 07/19/17 at 07:00; Stop 07/20/17 at 06:59 Active Scripts Active Reported Synthroid (Levothyroxine Sodium) 125 Mcg Tablet 125 Mcg PO DAILYAC Vitals/I & O Vital Sign - Last 24 Hours 07/16/17 07/16/17 07/16/17 07/16/17 10:47 11:05 11:25 11:25 Temp 98.0 98.0 Pulse 81 Resp 18 B/P (MAP) 110/60 (77) Pulse Ox 98 98 98 O2 Delivery Room Air Room Air Room Air 07/16/17 07/16/17 07/16/17 07/16/17 11:25 14:49 17:16 18:51 Temp 97.6 97.6 Pulse 84 81 Resp 18 B/P (MAP) 110/60 127/72 (90) Pulse Ox 97 97 97 O2 Delivery Room Air Room Air Room Air 07/16/17 07/16/17 07/16/17 07/16/17 19:50 19:51 20:36 21:06 Temp 98.0 98.0 Pulse 77 Resp 18 18 20 B/P (MAP) 104/71 (82) Pulse Ox 93 O2 Delivery Room Air Room Air Room Air Room Air 07/16/17 07/17/17 07/17/17 07/17/17 23:02 03:50 07:58 08:00 Temp 97.7 98.6 98.4 97.7 98.6 98.4 Pulse 75 75 80 Resp 16 16 16 B/P (MAP) 98/53 (68) 86/50 (62) 122/76 (91) Pulse Ox 95 94 95 O2 Delivery Room Air Room Air Room Air Room Air 07/17/17 08:07 Pulse 77 B/P (MAP) 106/69 Intake and Output 07/16/17 07/16/17 07/17/17 15:00 23:00 07:00 Intake Total 600 ml 520 ml Balance 600 ml 520 ml SCOTT MUNOZ MD Jul 17, 2017 10:26
--- NOTE | 2017-07-17 10:38 | PDOC ---
PROGRESS NOTES Chief Complaint Chief Complaint Cervical DJD no nerve impingement Cervical spine sprain THoracic compression fx < 50% vertebral height Troponin leak hypothyroidism HTN, new onset tobaccoism CAD, distal LM dse extending to proximal ramus and LAD s/p LHC (07/15) History of Present Illness History of Present Illness US carotids neg for dse CT chest shows plaques and coronary calcifications we already know CAD, distal LM dse extending to proximal ramus and LAD s/p LHC (07/15) planned for CABG wednesday HAd some arrhythmi alst night per patient, short, nor eal sxs Neck doesnt seem to be bothering her much Dw Physiatry (DJD on cervical images) Neurosx note reviewed: no surgical needs for cervical pain, likely cervical sprain and will benefit from PT/OT PLAN: No new IM orders VEin mapping planned today CABG planned wednesday Vitals Vitals Vital Signs Date Time Temp Pulse Resp B/P (MAP) Pulse Ox O2 Delivery O2 Flow Rate FiO2 07/17/17 08:07 77 106/69 07/17/17 08:00 Room Air 07/17/17 07:58 98.4 16 95 98.4 Physical Exam General: Alert, Oriented X3, No acute distress Heart: Regular rate, Normal S1, Normal S2 Abdomen: Normal bowel sounds, Soft, No tenderness Extremities: No edema, Normal pulses Skin: No significant lesion Labs LABS Laboratory Tests Test 07/16/17 15:45 07/17/17 07:39 Prothrombin Time 12.3 SEC (11.7-14.0) Prothromb Time International Ratio 1.0 (0.8-1.1) Activated Partial Thromboplast Time 57 SEC (24-38) Glucose (Fingerstick) 102 mg/dL (70-99) Review of Systems Review of Systems some neck pain, arrhythmias overnight Assessment and Plan Assessmemt and Plan Problems Medical Problems: (1) Elevated troponin Status: Acute (2) Left sided numbness Status: Acute (3) UTI (urinary tract infection) Status: Acute Problems: Comment Review of Relevant I have reviewed the following items vin (where applicable) has been applied. Labs Laboratory Tests Test 07/15/17 14:50 07/16/17 05:00 07/16/17 15:45 07/17/17 07:39 Heparin Anti-Xa Act, Unfractionated 0.35 IU/mL (0.30-0.70) 0.36 IU/mL (0.30-0.70) Prothrombin Time 12.3 SEC (11.7-14.0) Prothromb Time International Ratio 1.0 (0.8-1.1) Activated Partial Thromboplast Time 57 SEC (24-38) Glucose (Fingerstick) 102 mg/dL (70-99) Laboratory Tests Test 07/16/17 15:45 07/17/17 07:39 Prothrombin Time 12.3 SEC (11.7-14.0) Prothromb Time International Ratio 1.0 (0.8-1.1) Activated Partial Thromboplast Time 57 SEC (24-38) Glucose (Fingerstick) 102 mg/dL (70-99) Microbiology 07/14/17 Urine Culture - Final, Complete 07/14/17 Urine Culture Result 1 (RUDOLPH) - Final, Complete Medications Current Medications Aspirin (Children'S Aspirin) 324 mg 1X ONCE PO Last administered on 07/14/17 12:26; Start 07/14/17 at 12:30; Stop 07/14/17 at 12:31; Status DC Nitroglycerin (Nitrostat) 0.4 mg PRN Q5MIN PRN SL CHEST PAIN Last administered on 07/14/17 12:28; Start 07/14/17 at 12:30 Morphine Sulfate 4 mg 1X ONCE IM Last administered on 07/14/17 13:08; Start 07/14/17 at 13:15; Stop 07/14/17 at 13:16; Status DC Ondansetron HCl (Zofran) 4 mg PRN Q8HRS PRN IV NAUSEA/VOMITING; Start 07/14/17 at 13:00; Stop 07/15/17 at 12:59; Status DC Morphine Sulfate 2 mg PRN Q2HR PRN IV PAIN; Start 07/14/17 at 13:00; Stop 07/14 at 15:16; Status DC Nitroglycerin (Nitrostat) 0.4 mg PRN Q5MIN PRN SL CHEST PAIN; Start 07/14/17 at 13:00; Stop 07/15/17 at 12:59; Status DC Nitrofurantoin Macrocrystals (Macrobid) 100 mg BID PO Last administered on 07/14 13:07; Start 07/14/17 at 13:15; Stop 07/14/17 at 16:14; Status DC Morphine Sulfate 2 mg PRN Q2HR PRN IV PAIN Last administered on 07/16/17 20:36 ; Start 07/14/17 at 15:30 Heparin Sodium/ Dextrose 500 ml @ 0 mls/hr CONT PRN IV SEE I/O RECORD Last administered on 07/16/17 20:41; Start 07/14/17 at 15:45 Heparin Sodium (Porcine) (Heparin Sodium) 2,000 unit PRN Q6HRS PRN IV FOR UFH LEVEL LESS THAN 0.2 Last administered on 07/15/17 02:35; Start 07/14/17 at 15: 45 Info (Anti-Coagulation Monitoring By Pharmacy) 1 each PRN DAILY PRN MC SEE COMMENTS Last administered on 07/16/17 14:08; Start 07/14/17 at 16:00 Amlodipine Besylate (Norvasc) 5 mg 1X ONCE PO Last administered on 07/14/17 16:30; Start 07/14/17 at 16:30; Stop 07/14/17 at 16:31; Status DC Aspirin (Ecotrin) 81 mg DAILYWBKFT PO Last administered on 07/16/17 10:46; Start 07/15/17 at 08:00; Stop 07/16/17 at 15:15; Status DC Atorvastatin Calcium (Lipitor) 20 mg QHS PO ; Start 07/14/17 at 21:00; Stop at 21:00; Status DC Acetaminophen (Tylenol) 650 mg PRN Q6HRS PRN PO FEVER; Start 07/14/17 at 16:15 Ondansetron HCl (Zofran) 4 mg PRN Q6HRS PRN IV NAUSEA/VOMITING Last administered on 07/16/17 17:17; Start 07/14/17 at 16:15 Morphine Sulfate 2 mg PRN Q2HR PRN IV MODERATE TO SEVERE PAIN; Start 07/14/17 at 16:15; Stop 07/15/17 at 08:48; Status DC Tramadol HCl (Ultram) 50 mg PRN Q6HRS PRN PO MILD TO MODERATE PAIN Last administered on 07/16/17 17:16; Start 07/14/17 at 16:15 Hydralazine HCl (Apresoline) 10 mg PRN Q4HRS PRN IVP ELEVATED BP, SEE COMMENTS ; Start 07/14/17 at 16:15 Docusate Sodium (Colace) 100 mg PRN DAILY PRN PO CONSTIPATION; Start 07/14/17 at 16:15 Lorazepam (Ativan) 0.5 mg 1X ONCE PO Last administered on 07/14/17 16:30; Start 07/14/17 at 16:30; Stop 07/14/17 at 16:31; Status DC Atorvastatin Calcium (Lipitor) 40 mg QHS PO Last administered on 07/16/17 20: 36; Start 07/14/17 at 21:00 Iohexol (Omnipaque 300 Mg/ml) 100 ml STK-MED ONCE .ROUTE ; Start 07/15/17 at 09: 12; Stop 07/15/17 at 09:13; Status DC Heparin Sodium/ Sodium Chloride 1,500 ml @ As Directed STK-MED ONCE .ROUTE ; Start 07/15/17 at 09:12; Stop 07/15/17 at 09:13; Status DC Lidocaine HCl 20 ml STK-MED ONCE .ROUTE ; Start 07/15/17 at 09:12; Stop at 09:13; Status DC Verapamil HCl (Verapamil) 5 mg STK-MED ONCE .ROUTE ; Start 07/15/17 at 09:36; Stop 07/15/17 at 09:37; Status DC Heparin Sodium (Porcine) (Heparin Sodium) 10,000 unit STK-MED ONCE .ROUTE ; Start 07/15/17 at 09:36; Stop 07/15/17 at 09:37; Status DC Fentanyl Citrate (Fentanyl 2ml Vial) 100 mcg STK-MED ONCE .ROUTE ; Start at 09:37; Stop 07/15/17 at 09:38; Status DC Midazolam HCl (Versed) 5 mg STK-MED ONCE .ROUTE ; Start 07/15/17 at 09:37; Stop 07/15/17 at 09:38; Status DC Nitroglycerin (Nitroglycerin) 200 mcg STK-MED ONCE .ROUTE ; Start 07/15/17 at 09 :39; Stop 07/15/17 at 09:40; Status DC Nitroglycerin (Nitroglycerin) 200 mcg 1X ONCE IART Last administered on 10:35; Start 07/15/17 at 09:45; Stop 07/15/17 at 09:47; Status DC Verapamil HCl (Verapamil) 2.5 mg 1X ONCE IART Last administered on 07/15/17 10:36; Start 07/15/17 at 09:45; Stop 07/15/17 at 09:47; Status DC Heparin Sodium (Porcine) (Heparin Sodium) 2,500 unit 1X ONCE IART Last administered on 07/15/17 10:37; Start 07/15/17 at 09:45; Stop 07/15/17 at 09:47 ; Status DC Heparin Sodium/ Sodium Chloride 1,000 unit 1X ONCE IART Last administered on 10:36; Start 07/15/17 at 09:45; Stop 07/15/17 at 09:47; Status DC Midazolam HCl (Versed) 5 mg 1X ONCE IV Last administered on 07/15/17 10:34; Start 07/15/17 at 09:45; Stop 07/15/17 at 09:47; Status DC Fentanyl Citrate (Fentanyl 2ml Vial) 100 mcg 1X ONCE IV Last administered on 10:35; Start 07/15/17 at 09:45; Stop 07/15/17 at 09:47; Status DC Iohexol (Omnipaque 300 Mg/ml) 100 ml 1X ONCE IART Last administered on 10:36; Start 07/15/17 at 09:45; Stop 07/15/17 at 09:47; Status DC Lidocaine HCl 20 ml 1X ONCE IJ Last administered on 07/15/17 10:35; Start at 09:45; Stop 07/15/17 at 09:47; Status DC Nitroglycerin (Nitroglycerin) 200 mcg STK-MED ONCE .ROUTE ; Start 07/15/17 at 10 :17; Stop 07/15/17 at 10:18; Status DC Gadobutrol (Gadavist) 7.5 mmol 1X ONCE IV Last administered on 07/15/17 12:56 ; Start 07/15/17 at 12:45; Stop 07/15/17 at 12:46; Status DC Nicotine (Nicoderm Cq 21mg) 1 patch DAILY TD Last administered on 07/16/17 10: 46; Start 07/15/17 at 18:00 Metoprolol Succinate (Toprol Xl) 12.5 mg DAILY PO Last administered on t 08:07; Start 07/16/17 at 11:00 Ondansetron HCl (Zofran) 4 mg PRN Q6HRS PRN IV NAUSEA/VOMITING; Start 07/19/17 at 07:00; Stop 07/20/17 at 06:59 Fentanyl Citrate (Fentanyl 2ml Vial) 25 mcg PRN Q5MIN PRN IV MILD PAIN; Start 07/19/17 at 07:00; Stop 07/20/17 at 06:59 Fentanyl Citrate (Fentanyl 2ml Vial) 50 mcg PRN Q5MIN PRN IV MODERATE PAIN; Start 07/19/17 at 07:00; Stop 07/20/17 at 06:59 Ringer's Solution 1,000 ml @ 30 mls/hr Q24H IV ; Start 07/19/17 at 07:00; Stop 07/19/17 at 18:59 Lidocaine HCl 2 ml PRN 1X PRN ID PRIOR TO IV START; Start 07/19/17 at 07:00; Stop 07/20/17 at 06:59 Prochlorperazine Edisylate (Compazine) 5 mg PACU PRN PRN IV NAUSEA, MRX1; Start 07/19/17 at 07:00; Stop 07/20/17 at 06:59 Active Scripts Active Reported Synthroid (Levothyroxine Sodium) 125 Mcg Tablet 125 Mcg PO DAILYAC Vitals/I & O Vital Sign - Last 24 Hours 07/16/17 07/16/17 07/16/17 07/16/17 10:47 11:05 11:25 11:25 Temp 98.0 98.0 Pulse 81 Resp 18 B/P (MAP) 110/60 (77) Pulse Ox 98 98 98 O2 Delivery Room Air Room Air Room Air 07/16/17 07/16/17 07/16/17 07/16/17 11:25 14:49 17:16 18:51 Temp 97.6 97.6 Pulse 84 81 Resp 18 B/P (MAP) 110/60 127/72 (90) Pulse Ox 97 97 97 O2 Delivery Room Air Room Air Room Air 07/16/17 07/16/17 07/16/17 07/16/17 19:50 19:51 20:36 21:06 Temp 98.0 98.0 Pulse 77 Resp 18 18 20 B/P (MAP) 104/71 (82) Pulse Ox 93 O2 Delivery Room Air Room Air Room Air Room Air 07/16/17 07/17/17 07/17/17 07/17/17 23:02 03:50 07:58 08:00 Temp 97.7 98.6 98.4 97.7 98.6 98.4 Pulse 75 75 80 Resp 16 16 16 B/P (MAP) 98/53 (68) 86/50 (62) 122/76 (91) Pulse Ox 95 94 95 O2 Delivery Room Air Room Air Room Air Room Air 07/17/17 08:07 Pulse 77 B/P (MAP) 106/69 Intake and Output 07/16/17 07/16/17 07/17/17 15:00 23:00 07:00 Intake Total 600 ml 520 ml Balance 600 ml 520 ml DICK CHEUNG MD Jul 17, 2017 10:38
[2017-07-17 11:52] VITALS: BP 133/72
--- NOTE | 2017-07-17 12:06 | PDOC ---
PROGRESS NOTES Subjective Subjective The patient looks and feels well. Objective Objective Vital Signs Date Time Temp Pulse Resp B/P (MAP) Pulse Ox O2 Delivery O2 Flow Rate FiO2 07/17/17 11:52 98.4 78 16 133/72 (92) 95 Room Air 98.4 Intake and Output 07/17/17 07:00 Intake Total 1120 ml Balance 1120 ml Intake Oral 800 ml IV Total 320 ml # Voids 3 Physical Exam Abdomen: Normal bowel sounds Heart: Regular rate General: No acute distress Lungs: Clear to auscultation Assessment Assessment Problems Medical Problems: (1) Elevated troponin Status: Acute (2) Left sided numbness Status: Acute (3) UTI (urinary tract infection) Status: Acute Assessment 1. CAD with 2VD: Left main disease. Stable. CABG wednesday. 2. HTN: well controlled 3. Hypothyroidism: TSH on goal 4. ARIAS/metabolic syndrome 5. HLP Comment Review of Relevant I have reviewed the following items vin (where applicable) has been applied. Labs Laboratory Tests Test 07/15/17 14:50 07/16/17 05:00 07/16/17 15:45 07/17/17 07:39 Heparin Anti-Xa Act, Unfractionated 0.35 IU/mL (0.30-0.70) 0.36 IU/mL (0.30-0.70) Prothrombin Time 12.3 SEC (11.7-14.0) Prothromb Time International Ratio 1.0 (0.8-1.1) Activated Partial Thromboplast Time 57 SEC (24-38) Glucose (Fingerstick) 102 mg/dL (70-99) Test 07/17/17 10:53 Heparin Anti-Xa Act, Unfractionated 0.28 IU/mL (0.30-0.70) Laboratory Tests Test 07/16/17 15:45 07/17/17 07:39 07/17/17 10:53 Prothrombin Time 12.3 SEC (11.7-14.0) Prothromb Time International Ratio 1.0 (0.8-1.1) Activated Partial Thromboplast Time 57 SEC (24-38) Glucose (Fingerstick) 102 mg/dL (70-99) Heparin Anti-Xa Act, Unfractionated 0.28 IU/mL (0.30-0.70) Microbiology 07/14/17 Urine Culture - Final, Complete 07/14/17 Urine Culture Result 1 (RUDOLPH) - Final, Complete Medications Current Medications Aspirin (Children'S Aspirin) 324 mg 1X ONCE PO Last administered on 07/14/17 12:26; Start 07/14/17 at 12:30; Stop 07/14/17 at 12:31; Status DC Nitroglycerin (Nitrostat) 0.4 mg PRN Q5MIN PRN SL CHEST PAIN Last administered on 07/14/17 12:28; Start 07/14/17 at 12:30 Morphine Sulfate 4 mg 1X ONCE IM Last administered on 07/14/17 13:08; Start 07/14/17 at 13:15; Stop 07/14/17 at 13:16; Status DC Ondansetron HCl (Zofran) 4 mg PRN Q8HRS PRN IV NAUSEA/VOMITING; Start 07/14/17 at 13:00; Stop 07/15/17 at 12:59; Status DC Morphine Sulfate 2 mg PRN Q2HR PRN IV PAIN; Start 07/14/17 at 13:00; Stop 07/14 at 15:16; Status DC Nitroglycerin (Nitrostat) 0.4 mg PRN Q5MIN PRN SL CHEST PAIN; Start 07/14/17 at 13:00; Stop 07/15/17 at 12:59; Status DC Nitrofurantoin Macrocrystals (Macrobid) 100 mg BID PO Last administered on 07/14 13:07; Start 07/14/17 at 13:15; Stop 07/14/17 at 16:14; Status DC Morphine Sulfate 2 mg PRN Q2HR PRN IV PAIN Last administered on 07/16/17 20:36 ; Start 07/14/17 at 15:30 Heparin Sodium/ Dextrose 500 ml @ 0 mls/hr CONT PRN IV SEE I/O RECORD Last administered on 07/16/17 20:41; Start 07/14/17 at 15:45 Heparin Sodium (Porcine) (Heparin Sodium) 2,000 unit PRN Q6HRS PRN IV FOR UFH LEVEL LESS THAN 0.2 Last administered on 07/15/17 02:35; Start 07/14/17 at 15: 45 Info (Anti-Coagulation Monitoring By Pharmacy) 1 each PRN DAILY PRN MC SEE COMMENTS Last administered on 07/16/17 14:08; Start 07/14/17 at 16:00 Amlodipine Besylate (Norvasc) 5 mg 1X ONCE PO Last administered on 07/14/17 16:30; Start 07/14/17 at 16:30; Stop 07/14/17 at 16:31; Status DC Aspirin (Ecotrin) 81 mg DAILYWBKFT PO Last administered on 07/16/17 10:46; Start 07/15/17 at 08:00; Stop 07/16/17 at 15:15; Status DC Atorvastatin Calcium (Lipitor) 20 mg QHS PO ; Start 07/14/17 at 21:00; Stop at 21:00; Status DC Acetaminophen (Tylenol) 650 mg PRN Q6HRS PRN PO FEVER; Start 07/14/17 at 16:15 Ondansetron HCl (Zofran) 4 mg PRN Q6HRS PRN IV NAUSEA/VOMITING Last administered on 07/16/17 17:17; Start 07/14/17 at 16:15 Morphine Sulfate 2 mg PRN Q2HR PRN IV MODERATE TO SEVERE PAIN; Start 07/14/17 at 16:15; Stop 07/15/17 at 08:48; Status DC Tramadol HCl (Ultram) 50 mg PRN Q6HRS PRN PO MILD TO MODERATE PAIN Last administered on 07/16/17 17:16; Start 07/14/17 at 16:15 Hydralazine HCl (Apresoline) 10 mg PRN Q4HRS PRN IVP ELEVATED BP, SEE COMMENTS ; Start 07/14/17 at 16:15 Docusate Sodium (Colace) 100 mg PRN DAILY PRN PO CONSTIPATION; Start 07/14/17 at 16:15 Lorazepam (Ativan) 0.5 mg 1X ONCE PO Last administered on 07/14/17 16:30; Start 07/14/17 at 16:30; Stop 07/14/17 at 16:31; Status DC Atorvastatin Calcium (Lipitor) 40 mg QHS PO Last administered on 07/16/17 20: 36; Start 07/14/17 at 21:00 Iohexol (Omnipaque 300 Mg/ml) 100 ml STK-MED ONCE .ROUTE ; Start 07/15/17 at 09: 12; Stop 07/15/17 at 09:13; Status DC Heparin Sodium/ Sodium Chloride 1,500 ml @ As Directed STK-MED ONCE .ROUTE ; Start 07/15/17 at 09:12; Stop 07/15/17 at 09:13; Status DC Lidocaine HCl 20 ml STK-MED ONCE .ROUTE ; Start 07/15/17 at 09:12; Stop at 09:13; Status DC Verapamil HCl (Verapamil) 5 mg STK-MED ONCE .ROUTE ; Start 07/15/17 at 09:36; Stop 07/15/17 at 09:37; Status DC Heparin Sodium (Porcine) (Heparin Sodium) 10,000 unit STK-MED ONCE .ROUTE ; Start 07/15/17 at 09:36; Stop 07/15/17 at 09:37; Status DC Fentanyl Citrate (Fentanyl 2ml Vial) 100 mcg STK-MED ONCE .ROUTE ; Start at 09:37; Stop 07/15/17 at 09:38; Status DC Midazolam HCl (Versed) 5 mg STK-MED ONCE .ROUTE ; Start 07/15/17 at 09:37; Stop 07/15/17 at 09:38; Status DC Nitroglycerin (Nitroglycerin) 200 mcg STK-MED ONCE .ROUTE ; Start 07/15/17 at 09 :39; Stop 07/15/17 at 09:40; Status DC Nitroglycerin (Nitroglycerin) 200 mcg 1X ONCE IART Last administered on 10:35; Start 07/15/17 at 09:45; Stop 07/15/17 at 09:47; Status DC Verapamil HCl (Verapamil) 2.5 mg 1X ONCE IART Last administered on 07/15/17 10:36; Start 07/15/17 at 09:45; Stop 07/15/17 at 09:47; Status DC Heparin Sodium (Porcine) (Heparin Sodium) 2,500 unit 1X ONCE IART Last administered on 07/15/17 10:37; Start 07/15/17 at 09:45; Stop 07/15/17 at 09:47 ; Status DC Heparin Sodium/ Sodium Chloride 1,000 unit 1X ONCE IART Last administered on 10:36; Start 07/15/17 at 09:45; Stop 07/15/17 at 09:47; Status DC Midazolam HCl (Versed) 5 mg 1X ONCE IV Last administered on 07/15/17 10:34; Start 07/15/17 at 09:45; Stop 07/15/17 at 09:47; Status DC Fentanyl Citrate (Fentanyl 2ml Vial) 100 mcg 1X ONCE IV Last administered on 10:35; Start 07/15/17 at 09:45; Stop 07/15/17 at 09:47; Status DC Iohexol (Omnipaque 300 Mg/ml) 100 ml 1X ONCE IART Last administered on 10:36; Start 07/15/17 at 09:45; Stop 07/15/17 at 09:47; Status DC Lidocaine HCl 20 ml 1X ONCE IJ Last administered on 07/15/17 10:35; Start at 09:45; Stop 07/15/17 at 09:47; Status DC Nitroglycerin (Nitroglycerin) 200 mcg [employer] ONCE .ROUTE ; Start 07/15/17 at 10 :17; Stop 07/15/17 at 10:18; Status DC Gadobutrol (Gadavist) 7.5 mmol 1X ONCE IV Last administered on 07/15/17 12:56 ; Start 07/15/17 at 12:45; Stop 07/15/17 at 12:46; Status DC Nicotine (Nicoderm Cq 21mg) 1 patch DAILY TD Last administered on 07/17/17 09: 00; Start 07/15/17 at 18:00 Metoprolol Succinate (Toprol Xl) 12.5 mg DAILY PO Last administered on 08:07; Start 07/16/17 at 11:00 Ondansetron HCl (Zofran) 4 mg PRN Q6HRS PRN IV NAUSEA/VOMITING; Start 07/19/17 at 07:00; Stop 07/20/17 at 06:59 Fentanyl Citrate (Fentanyl 2ml Vial) 25 mcg PRN Q5MIN PRN IV MILD PAIN; Start 07/19/17 at 07:00; Stop 07/20/17 at 06:59 Fentanyl Citrate (Fentanyl 2ml Vial) 50 mcg PRN Q5MIN PRN IV MODERATE PAIN; Start 07/19/17 at 07:00; Stop 07/20/17 at 06:59 Ringer's Solution 1,000 ml @ 30 mls/hr Q24H IV ; Start 07/19/17 at 07:00; Stop 07/19/17 at 18:59 Lidocaine HCl 2 ml PRN 1X PRN ID PRIOR TO IV START; Start 07/19/17 at 07:00; Stop 07/20/17 at 06:59 Prochlorperazine Edisylate (Compazine) 5 mg PACU PRN PRN IV NAUSEA, MRX1; Start 07/19/17 at 07:00; Stop 07/20/17 at 06:59 Active Scripts Active Reported Synthroid (Levothyroxine Sodium) 125 Mcg Tablet 125 Mcg PO DAILYAC Vitals/I & O Vital Sign - Last 24 Hours 07/16/17 07/16/17 07/16/17 07/16/17 14:49 17:16 18:51 19:50 Temp 97.6 98.0 97.6 98.0 Pulse 81 77 Resp 18 18 B/P (MAP) 127/72 (90) 104/71 (82) Pulse Ox 97 97 97 93 O2 Delivery Room Air Room Air Room Air Room Air 07/16/17 07/16/17 07/16/17 07/16/17 19:51 20:36 21:06 23:02 Temp 97.7 97.7 Pulse 75 Resp 18 20 16 B/P (MAP) 98/53 (68) Pulse Ox 95 O2 Delivery Room Air Room Air Room Air Room Air 07/17/17 07/17/17 07/17/17 07/17/17 03:50 07:58 08:00 08:07 Temp 98.6 98.4 98.6 98.4 Pulse 75 80 77 Resp 16 16 B/P (MAP) 86/50 (62) 122/76 (91) 106/69 Pulse Ox 94 95 O2 Delivery Room Air Room Air Room Air 07/17/17 11:52 Temp 98.4 98.4 Pulse 78 Resp 16 B/P (MAP) 133/72 (92) Pulse Ox 95 O2 Delivery Room Air Intake and Output 07/16/17 07/16/17 07/17/17 15:00 23:00 07:00 Intake Total 600 ml 520 ml Balance 600 ml 520 ml TEMO TREVIÑO MD Jul 17, 2017 12:06
[2017-07-17] MEDS: ANTI-COAG MONITOR BY PHARMACY. MC PRN (12:34)
--- NOTE | 2017-07-17 14:12 | RAD ---
VEIN MAPPING LOWER EXT BILAT History:pre op CABG Comparison: None Findings:Multiple sonographic images of the greater and lesser saphenous veins are submitted. The right greater saphenous vein measured 0.5 cm proximally tapering to 0.19 cm proximal calf region, not seen more distally. Left greater saphenous vein measures 0.36 cm proximally tapering to 0.22 cm proximal calf region, otherwise not seen more distally. Lesser saphenous veins could not be visualized on either side. Impression: 1.Veins are small in caliber, lesser saphenous veins not seen on either side, greater saphenous veins difficult to visualize beyond the knee.
[2017-07-17 15:48] VITALS: BP 111/57
[2017-07-17 19:35] VITALS: BP 115/76
[2017-07-17] MEDS: traMADol 50 MG TABLET PO PRN (19:47)
[2017-07-17] MEDS: MORPHINE SULFATE 4 MG/ML DISP.SYRIN. IV PRN (19:50)
[2017-07-17] MEDS: ATORVASTATIN CALCIUM 40 MG TABLET. PO SCH (19:50)
[2017-07-17] MEDS: HEPARIN 25,000UTS/500ML PREMIX 500 ML IV PRN (19:59)
[2017-07-17] MEDS: ALPRAZolam 0.5 MG TABLET PO PRN (21:38)
[2017-07-17 23:35] VITALS: BP 109/66
[2017-07-18 03:05] VITALS: BP 115/70
[2017-07-18 07:45] VITALS: BP 110/68
[2017-07-18] MEDS: NICOTINE 21MG PATCH. TD SCH (07:47)
[2017-07-18] MEDS: METOPROLOL SUCC 24HR ER 25 MG TAB.ER.24H. PO SCH (07:48)
[2017-07-18] MEDS: ANTI-COAG MONITOR BY PHARMACY. MC PRN (08:55)
[2017-07-18 11:10] VITALS: BP 112/71
--- NOTE | 2017-07-18 12:16 | PDOC ---
PROGRESS NOTES Chief Complaint Chief Complaint Cervical DJD no nerve impingement Cervical spine sprain THoracic compression fx < 50% vertebral height Troponin leak hypothyroidism HTN, new onset tobaccoism CAD, distal LM dse extending to proximal ramus and LAD s/p LHC (07/15) Anxiety NOS History of Present Illness History of Present Illness HAd some anxiety Wednesday night thinking about her CABG on wednesday Was very pleased with night RN Vianey as he counselled her XAnax ordred prn too helped PLAN; Keep Xanax prn Ok to give tonight if gets anxious NPO post mN CABG wednesday Vitals Vitals Vital Signs Date Time Temp Pulse Resp B/P (MAP) Pulse Ox O2 Delivery O2 Flow Rate FiO2 07/18/17 11:10 97.2 75 18 112/71 (85) 95 Room Air 97.2 Physical Exam General: Alert, Oriented X3, Cooperative, No acute distress Heart: Regular rate, Normal S1, Normal S2 Lungs: Clear Abdomen: Normal bowel sounds Extremities: No clubbing, No edema, Normal pulses Skin: No rashes, No breakdown, No significant lesion Labs LABS Laboratory Tests Test 07/17/17 16:45 07/17/17 23:00 07/18/17 06:56 Heparin Anti-Xa Act, Unfractionated 0.47 IU/mL (0.30-0.70) 0.54 IU/mL (0.30-0.70) 0.82 IU/mL (0.30-0.70) Review of Systems Review of Systems anxiety at times, all else is neg Assessment and Plan Assessmemt and Plan Problems Medical Problems: (1) Elevated troponin Status: Acute (2) Left sided numbness Status: Acute (3) UTI (urinary tract infection) Status: Acute Problems: Comment Review of Relevant I have reviewed the following items vin (where applicable) has been applied. Labs Laboratory Tests Test 07/16/17 15:45 07/16/17 19:20 07/17/17 07:39 07/17/17 10:53 Prothrombin Time 12.3 SEC (11.7-14.0) Prothromb Time International Ratio 1.0 (0.8-1.1) Activated Partial Thromboplast Time 57 SEC (24-38) Nasal Screen MRSA (PCR) Negative (Negative) Glucose (Fingerstick) 102 mg/dL (70-99) Heparin Anti-Xa Act, Unfractionated 0.28 IU/mL (0.30-0.70) Test 07/17/17 16:45 07/17/17 23:00 07/18/17 06:56 Heparin Anti-Xa Act, Unfractionated 0.47 IU/mL (0.30-0.70) 0.54 IU/mL (0.30-0.70) 0.82 IU/mL (0.30-0.70) Laboratory Tests Test 07/17/17 16:45 07/17/17 23:00 07/18/17 06:56 Heparin Anti-Xa Act, Unfractionated 0.47 IU/mL (0.30-0.70) 0.54 IU/mL (0.30-0.70) 0.82 IU/mL (0.30-0.70) Microbiology 07/14/17 Urine Culture - Final, Complete 07/14/17 Urine Culture Result 1 (RUDOLPH) - Final, Complete Medications Current Medications Aspirin (Children'S Aspirin) 324 mg 1X ONCE PO Last administered on 07/14/17 12:26; Start 07/14/17 at 12:30; Stop 07/14/17 at 12:31; Status DC Nitroglycerin (Nitrostat) 0.4 mg PRN Q5MIN PRN SL CHEST PAIN Last administered on 07/14/17 12:28; Start 07/14/17 at 12:30 Morphine Sulfate 4 mg 1X ONCE IM Last administered on 07/14/17 13:08; Start 07/14/17 at 13:15; Stop 07/14/17 at 13:16; Status DC Ondansetron HCl (Zofran) 4 mg PRN Q8HRS PRN IV NAUSEA/VOMITING; Start 07/14/17 at 13:00; Stop 07/15/17 at 12:59; Status DC Morphine Sulfate 2 mg PRN Q2HR PRN IV PAIN; Start 07/14/17 at 13:00; Stop 07/14 at 15:16; Status DC Nitroglycerin (Nitrostat) 0.4 mg PRN Q5MIN PRN SL CHEST PAIN; Start 07/14/17 at 13:00; Stop 07/15/17 at 12:59; Status DC Nitrofurantoin Macrocrystals (Macrobid) 100 mg BID PO Last administered on 07/14 13:07; Start 07/14/17 at 13:15; Stop 07/14/17 at 16:14; Status DC Morphine Sulfate 2 mg PRN Q2HR PRN IV PAIN Last administered on 07/17/17 19:50 ; Start 07/14/17 at 15:30 Heparin Sodium/ Dextrose 500 ml @ 0 mls/hr CONT PRN IV SEE I/O RECORD Last administered on 07/17/17 19:59; Start 07/14/17 at 15:45 Heparin Sodium (Porcine) (Heparin Sodium) 2,000 unit PRN Q6HRS PRN IV FOR UFH LEVEL LESS THAN 0.2 Last administered on 07/15/17 02:35; Start 07/14/17 at 15: 45 Info (Anti-Coagulation Monitoring By Pharmacy) 1 each PRN DAILY PRN MC SEE COMMENTS Last administered on 07/18/17 08:55; Start 07/14/17 at 16:00 Amlodipine Besylate (Norvasc) 5 mg 1X ONCE PO Last administered on 07/14/17 16:30; Start 07/14/17 at 16:30; Stop 07/14/17 at 16:31; Status DC Aspirin (Ecotrin) 81 mg DAILYWBKFT PO Last administered on 07/16/17 10:46; Start 07/15/17 at 08:00; Stop 07/16/17 at 15:15; Status DC Atorvastatin Calcium (Lipitor) 20 mg QHS PO ; Start 07/14/17 at 21:00; Stop at 21:00; Status DC Acetaminophen (Tylenol) 650 mg PRN Q6HRS PRN PO FEVER; Start 07/14/17 at 16:15 Ondansetron HCl (Zofran) 4 mg PRN Q6HRS PRN IV NAUSEA/VOMITING Last administered on 07/16/17 17:17; Start 07/14/17 at 16:15 Morphine Sulfate 2 mg PRN Q2HR PRN IV MODERATE TO SEVERE PAIN; Start 07/14/17 at 16:15; Stop 07/15/17 at 08:48; Status DC Tramadol HCl (Ultram) 50 mg PRN Q6HRS PRN PO MILD TO MODERATE PAIN Last administered on 07/17/17 19:47; Start 07/14/17 at 16:15 Hydralazine HCl (Apresoline) 10 mg PRN Q4HRS PRN IVP ELEVATED BP, SEE COMMENTS ; Start 07/14/17 at 16:15 Docusate Sodium (Colace) 100 mg PRN DAILY PRN PO CONSTIPATION; Start 07/14/17 at 16:15 Lorazepam (Ativan) 0.5 mg 1X ONCE PO Last administered on 07/14/17 16:30; Start 07/14/17 at 16:30; Stop 07/14/17 at 16:31; Status DC Atorvastatin Calcium (Lipitor) 40 mg QHS PO Last administered on 07/17/17t 19: 50; Start 07/14/17 at 21:00 Iohexol (Omnipaque 300 Mg/ml) 100 ml STK-MED ONCE .ROUTE ; Start 07/15/17 at 09: 12; Stop 07/15/17 at 09:13; Status DC Heparin Sodium/ Sodium Chloride 1,500 ml @ As Directed STK-MED ONCE .ROUTE ; Start 07/15/17 at 09:12; Stop 07/15/17 at 09:13; Status DC Lidocaine HCl 20 ml STK-MED ONCE .ROUTE ; Start 07/15/17 at 09:12; Stop at 09:13; Status DC Verapamil HCl (Verapamil) 5 mg STK-MED ONCE .ROUTE ; Start 07/15/17 at 09:36; Stop 07/15/17 at 09:37; Status DC Heparin Sodium (Porcine) (Heparin Sodium) 10,000 unit STK-MED ONCE .ROUTE ; Start 07/15/17 at 09:36; Stop 07/15/17 at 09:37; Status DC Fentanyl Citrate (Fentanyl 2ml Vial) 100 mcg STK-MED ONCE .ROUTE ; Start at 09:37; Stop 07/15/17 at 09:38; Status DC Midazolam HCl (Versed) 5 mg STK-MED ONCE .ROUTE ; Start 07/15/17 at 09:37; Stop 07/15/17 at 09:38; Status DC Nitroglycerin (Nitroglycerin) 200 mcg STK-MED ONCE .ROUTE ; Start 07/15/17 at 09 :39; Stop 07/15/17 at 09:40; Status DC Nitroglycerin (Nitroglycerin) 200 mcg 1X ONCE IART Last administered on 10:35; Start 07/15/17 at 09:45; Stop 07/15/17 at 09:47; Status DC Verapamil HCl (Verapamil) 2.5 mg 1X ONCE IART Last administered on 07/15/17 10:36; Start 07/15/17 at 09:45; Stop 07/15/17 at 09:47; Status DC Heparin Sodium (Porcine) (Heparin Sodium) 2,500 unit 1X ONCE IART Last administered on 07/15/17 10:37; Start 07/15/17 at 09:45; Stop 07/15/17 at 09:47 ; Status DC Heparin Sodium/ Sodium Chloride 1,000 unit 1X ONCE IART Last administered on 10:36; Start 07/15/17 at 09:45; Stop 07/15/17 at 09:47; Status DC Midazolam HCl (Versed) 5 mg 1X ONCE IV Last administered on 07/15/17 10:34; Start 07/15/17 at 09:45; Stop 07/15/17 at 09:47; Status DC Fentanyl Citrate (Fentanyl 2ml Vial) 100 mcg 1X ONCE IV Last administered on 10:35; Start 07/15/17 at 09:45; Stop 07/15/17 at 09:47; Status DC Iohexol (Omnipaque 300 Mg/ml) 100 ml 1X ONCE IART Last administered on 10:36; Start 07/15/17 at 09:45; Stop 07/15/17 at 09:47; Status DC Lidocaine HCl 20 ml 1X ONCE IJ Last administered on 07/15/17 10:35; Start at 09:45; Stop 07/15/17 at 09:47; Status DC Nitroglycerin (Nitroglycerin) 200 mcg STK-MED ONCE .ROUTE ; Start 07/15/17 at 10 :17; Stop 07/15/17 at 10:18; Status DC Gadobutrol (Gadavist) 7.5 mmol 1X ONCE IV Last administered on 07/15/17 12:56 ; Start 07/15/17 at 12:45; Stop 07/15/17 at 12:46; Status DC Nicotine (Nicoderm Cq 21mg) 1 patch DAILY TD Last administered on 07/18/17 07: 47; Start 07/15/17 at 18:00 Metoprolol Succinate (Toprol Xl) 12.5 mg DAILY PO Last administered on 07:48; Start 07/16/17 at 11:00 Ondansetron HCl (Zofran) 4 mg PRN Q6HRS PRN IV NAUSEA/VOMITING; Start 07/19/17 at 07:00; Stop 07/20/17 at 06:59 Fentanyl Citrate (Fentanyl 2ml Vial) 25 mcg PRN Q5MIN PRN IV MILD PAIN; Start 07/19/17 at 07:00; Stop 07/20/17 at 06:59 Fentanyl Citrate (Fentanyl 2ml Vial) 50 mcg PRN Q5MIN PRN IV MODERATE PAIN; Start 07/19/17 at 07:00; Stop 07/20/17 at 06:59 Ringer's Solution 1,000 ml @ 30 mls/hr Q24H IV ; Start 07/19/17 at 07:00; Stop 07/19/17 at 18:59 Lidocaine HCl 2 ml PRN 1X PRN ID PRIOR TO IV START; Start 07/19/17 at 07:00; Stop 07/20/17 at 06:59 Prochlorperazine Edisylate (Compazine) 5 mg PACU PRN PRN IV NAUSEA, MRX1; Start 07/19/17 at 07:00; Stop 07/20/17 at 06:59 Alprazolam (Xanax) 0.5 mg PRN Q6HRS PRN PO ANXIETY / AGITATION Last administered on 07/17/17 21:38; Start 07/17/17 at 21:30 Potassium Chloride 70 meq/ Sodium Bicarbonate 12.5 meq/Lidocaine HCl 24 ml/ Parenteral Electrolytes 571.5 ml @ 571.5 mls/ hr 1X PERIOP ONCE IRR ; Start at 06:00; Stop 07/19/17 at 06:59 Potassium Chloride 15 meq/ Sodium Bicarbonate 12.5 meq/Parenteral Electrolytes 520 ml @ 520 mls/hr 1X PERIOP ONCE IRR ; Start 07/19/17 at 06:00; Stop at 06:59 Heparin Sodium (Porcine) 93135 unit/Ringer's Solution 1,020 ml @ 1,020 mls/hr 1X PERIOP ONCE IRR ; Start 07/19/17 at 06:00; Stop 07/19/17 at 06:59 Cefazolin Sodium 1 gm/Sodium Chloride 500 ml @ 500 mls/hr 1X PERIOP ONCE IRR ; Start 07/19/17 at 06:00; Stop 07/19/17 at 06:59 Active Scripts Active Reported Synthroid (Levothyroxine Sodium) 125 Mcg Tablet 125 Mcg PO DAILYAC Vitals/I & O Vital Sign - Last 24 Hours 07/17/17 07/17/17 07/17/17 07/17/17 15:48 19:35 19:47 19:50 Temp 98.5 97.9 98.5 97.9 Pulse 77 84 Resp 16 18 B/P (MAP) 111/57 (75) 115/76 (89) Pulse Ox 95 95 O2 Delivery Room Air Room Air Room Air Room Air 07/17/17 07/17/17 07/17/17 07/17/17 20:00 20:20 20:47 23:35 Temp 98.2 98.2 Pulse 70 Resp 17 B/P (MAP) 109/66 (80) Pulse Ox 94 O2 Delivery Room Air Room Air Room Air Room Air 07/18/17 07/18/17 07/18/17 07/18/17 03:05 07:45 07:48 08:00 Temp 97.9 97.9 97.9 97.9 Pulse 62 72 62 Resp 15 18 B/P (MAP) 115/70 (85) 110/68 (82) 115/70 Pulse Ox 96 92 O2 Delivery Room Air Room Air Room Air 07/18/17 11:10 Temp 97.2 97.2 Pulse 75 Resp 18 B/P (MAP) 112/71 (85) Pulse Ox 95 O2 Delivery Room Air Intake and Output 07/17/17 07/17/17 07/18/17 15:00 23:00 07:00 Intake Total 1060 ml 560 ml Output Total 0 ml Balance 1060 ml 560 ml DICK CHEUNG MD Jul 18, 2017 12:16
--- NOTE | 2017-07-18 14:41 | PDOC ---
PROGRESS NOTES Subjective Subjective The patient is feeling well. Objective Objective Vital Signs Date Time Temp Pulse Resp B/P (MAP) Pulse Ox O2 Delivery O2 Flow Rate FiO2 07/18/17 11:10 97.2 75 18 112/71 (85) 95 Room Air 97.2 Intake and Output 07/18/17 07:00 Intake Total 1620 ml Output Total 0 ml Balance 1620 ml Intake Oral 900 ml IV Total 360 ml Blood Product IV Normal Saline Flush 360 ml Output Urine Total 0 ml # Voids 6 Physical Exam Abdomen: Normal bowel sounds Heart: Regular rate General: No acute distress Lungs: Clear to auscultation Assessment Assessment Problems Medical Problems: (1) Elevated troponin Status: Acute (2) Left sided numbness Status: Acute (3) UTI (urinary tract infection) Status: Acute Assessment 1. CAD with 2VD: Left main disease. Stable. CABG tomorrow. Discussed with the patient. 2. HTN: well controlled 3. Hypothyroidism: TSH on goal 4. ARIAS/metabolic syndrome 5. HLP. Continue medications. Comment Review of Relevant I have reviewed the following items vin (where applicable) has been applied. Labs Laboratory Tests Test 07/16/17 15:45 07/16/17 19:20 07/17/17 07:39 07/17/17 10:53 Prothrombin Time 12.3 SEC (11.7-14.0) Prothromb Time International Ratio 1.0 (0.8-1.1) Activated Partial Thromboplast Time 57 SEC (24-38) Nasal Screen MRSA (PCR) Negative (Negative) Glucose (Fingerstick) 102 mg/dL (70-99) Heparin Anti-Xa Act, Unfractionated 0.28 IU/mL (0.30-0.70) Test 07/17/17 16:45 07/17/17 23:00 07/18/17 06:56 07/18/17 13:00 Heparin Anti-Xa Act, Unfractionated 0.47 IU/mL (0.30-0.70) 0.54 IU/mL (0.30-0.70) 0.82 IU/mL (0.30-0.70) 0.38 IU/mL (0.30-0.70) Laboratory Tests Test 07/17/17 16:45 07/17/17 23:00 07/18/17 06:56 07/18/17 13:00 Heparin Anti-Xa Act, Unfractionated 0.47 IU/mL (0.30-0.70) 0.54 IU/mL (0.30-0.70) 0.82 IU/mL (0.30-0.70) 0.38 IU/mL (0.30-0.70) Microbiology 07/14/17 Urine Culture - Final, Complete 07/14/17 Urine Culture Result 1 (RUDOLPH) - Final, Complete Medications Current Medications Aspirin (Children'S Aspirin) 324 mg 1X ONCE PO Last administered on 07/14/17 12:26; Start 07/14/17 at 12:30; Stop 07/14/17 at 12:31; Status DC Nitroglycerin (Nitrostat) 0.4 mg PRN Q5MIN PRN SL CHEST PAIN Last administered on 07/14/17 12:28; Start 07/14/17 at 12:30 Morphine Sulfate 4 mg 1X ONCE IM Last administered on 07/14/17 13:08; Start 07/14/17 at 13:15; Stop 07/14/17 at 13:16; Status DC Ondansetron HCl (Zofran) 4 mg PRN Q8HRS PRN IV NAUSEA/VOMITING; Start 07/14/17 at 13:00; Stop 07/15/17 at 12:59; Status DC Morphine Sulfate 2 mg PRN Q2HR PRN IV PAIN; Start 07/14/17 at 13:00; Stop 07/14 at 15:16; Status DC Nitroglycerin (Nitrostat) 0.4 mg PRN Q5MIN PRN SL CHEST PAIN; Start 07/14/17 at 13:00; Stop 07/15/17 at 12:59; Status DC Nitrofurantoin Macrocrystals (Macrobid) 100 mg BID PO Last administered on 07/14 13:07; Start 07/14/17 at 13:15; Stop 07/14/17 at 16:14; Status DC Morphine Sulfate 2 mg PRN Q2HR PRN IV PAIN Last administered on 07/17/17 19:50 ; Start 07/14/17 at 15:30 Heparin Sodium/ Dextrose 500 ml @ 0 mls/hr CONT PRN IV SEE I/O RECORD Last administered on 07/17/17 19:59; Start 07/14/17 at 15:45 Heparin Sodium (Porcine) (Heparin Sodium) 2,000 unit PRN Q6HRS PRN IV FOR UFH LEVEL LESS THAN 0.2 Last administered on 07/15/17 02:35; Start 07/14/17 at 15: 45 Info (Anti-Coagulation Monitoring By Pharmacy) 1 each PRN DAILY PRN MC SEE COMMENTS Last administered on 07/18/17 08:55; Start 07/14/17 at 16:00 Amlodipine Besylate (Norvasc) 5 mg 1X ONCE PO Last administered on 07/14/17 16:30; Start 07/14/17 at 16:30; Stop 07/14/17 at 16:31; Status DC Aspirin (Ecotrin) 81 mg DAILYWBKFT PO Last administered on 07/16/17 10:46; Start 07/15/17 at 08:00; Stop 07/16/17 at 15:15; Status DC Atorvastatin Calcium (Lipitor) 20 mg QHS PO ; Start 07/14/17 at 21:00; Stop at 21:00; Status DC Acetaminophen (Tylenol) 650 mg PRN Q6HRS PRN PO FEVER; Start 07/14/17 at 16:15 Ondansetron HCl (Zofran) 4 mg PRN Q6HRS PRN IV NAUSEA/VOMITING Last administered on 07/16/17 17:17; Start 07/14/17 at 16:15 Morphine Sulfate 2 mg PRN Q2HR PRN IV MODERATE TO SEVERE PAIN; Start 07/14/17 at 16:15; Stop 07/15/17 at 08:48; Status DC Tramadol HCl (Ultram) 50 mg PRN Q6HRS PRN PO MILD TO MODERATE PAIN Last administered on 07/17/17 19:47; Start 07/14/17 at 16:15 Hydralazine HCl (Apresoline) 10 mg PRN Q4HRS PRN IVP ELEVATED BP, SEE COMMENTS ; Start 07/14/17 at 16:15 Docusate Sodium (Colace) 100 mg PRN DAILY PRN PO CONSTIPATION; Start 07/14/17 at 16:15 Lorazepam (Ativan) 0.5 mg 1X ONCE PO Last administered on 07/14/17 16:30; Start 07/14/17 at 16:30; Stop 07/14/17 at 16:31; Status DC Atorvastatin Calcium (Lipitor) 40 mg QHS PO Last administered on 07/17/17 19: 50; Start 07/14/17 at 21:00 Iohexol (Omnipaque 300 Mg/ml) 100 ml STK-MED ONCE .ROUTE ; Start 07/15/17 at 09: 12; Stop 07/15/17 at 09:13; Status DC Heparin Sodium/ Sodium Chloride 1,500 ml @ As Directed STK-MED ONCE .ROUTE ; Start 07/15/17 at 09:12; Stop 07/15/17 at 09:13; Status DC Lidocaine HCl 20 ml STK-MED ONCE .ROUTE ; Start 07/15/17 at 09:12; Stop at 09:13; Status DC Verapamil HCl (Verapamil) 5 mg STK-MED ONCE .ROUTE ; Start 07/15/17 at 09:36; Stop 07/15/17 at 09:37; Status DC Heparin Sodium (Porcine) (Heparin Sodium) 10,000 unit STK-MED ONCE .ROUTE ; Start 07/15/17 at 09:36; Stop 07/15/17 at 09:37; Status DC Fentanyl Citrate (Fentanyl 2ml Vial) 100 mcg STK-MED ONCE .ROUTE ; Start at 09:37; Stop 07/15/17 at 09:38; Status DC Midazolam HCl (Versed) 5 mg STK-MED ONCE .ROUTE ; Start 07/15/17 at 09:37; Stop 07/15/17 at 09:38; Status DC Nitroglycerin (Nitroglycerin) 200 mcg STK-MED ONCE .ROUTE ; Start 07/15/17 at 09 :39; Stop 07/15/17 at 09:40; Status DC Nitroglycerin (Nitroglycerin) 200 mcg 1X ONCE IART Last administered on 10:35; Start 07/15/17 at 09:45; Stop 07/15/17 at 09:47; Status DC Verapamil HCl (Verapamil) 2.5 mg 1X ONCE IART Last administered on 07/15/17 10:36; Start 07/15/17 at 09:45; Stop 07/15/17 at 09:47; Status DC Heparin Sodium (Porcine) (Heparin Sodium) 2,500 unit 1X ONCE IART Last administered on 07/15/17 10:37; Start 07/15/17 at 09:45; Stop 07/15/17 at 09:47 ; Status DC Heparin Sodium/ Sodium Chloride 1,000 unit 1X ONCE IART Last administered on 10:36; Start 07/15/17 at 09:45; Stop 07/15/17 at 09:47; Status DC Midazolam HCl (Versed) 5 mg 1X ONCE IV Last administered on 07/15/17 10:34; Start 07/15/17 at 09:45; Stop 07/15/17 at 09:47; Status DC Fentanyl Citrate (Fentanyl 2ml Vial) 100 mcg 1X ONCE IV Last administered on 10:35; Start 07/15/17 at 09:45; Stop 07/15/17 at 09:47; Status DC Iohexol (Omnipaque 300 Mg/ml) 100 ml 1X ONCE IART Last administered on 10:36; Start 07/15/17 at 09:45; Stop 07/15/17 at 09:47; Status DC Lidocaine HCl 20 ml 1X ONCE IJ Last administered on 07/15/17 10:35; Start at 09:45; Stop 07/15/17 at 09:47; Status DC Nitroglycerin (Nitroglycerin) 200 mcg STK-MED ONCE .ROUTE ; Start 07/15/17 at 10 :17; Stop 07/15/17 at 10:18; Status DC Gadobutrol (Gadavist) 7.5 mmol 1X ONCE IV Last administered on 07/15/17 12:56 ; Start 07/15/17 at 12:45; Stop 07/15/17 at 12:46; Status DC Nicotine (Nicoderm Cq 21mg) 1 patch DAILY TD Last administered on 07/18/17 07: 47; Start 07/15/17 at 18:00 Metoprolol Succinate (Toprol Xl) 12.5 mg DAILY PO Last administered on 07:48; Start 07/16/17 at 11:00 Ondansetron HCl (Zofran) 4 mg PRN Q6HRS PRN IV NAUSEA/VOMITING; Start 07/19/17 at 07:00; Stop 07/20/17 at 06:59 Fentanyl Citrate (Fentanyl 2ml Vial) 25 mcg PRN Q5MIN PRN IV MILD PAIN; Start 07/19/17 at 07:00; Stop 07/20/17 at 06:59 Fentanyl Citrate (Fentanyl 2ml Vial) 50 mcg PRN Q5MIN PRN IV MODERATE PAIN; Start 07/19/17 at 07:00; Stop 07/20/17 at 06:59 Ringer's Solution 1,000 ml @ 30 mls/hr Q24H IV ; Start 07/19/17 at 07:00; Stop 07/19/17 at 18:59 Lidocaine HCl 2 ml PRN 1X PRN ID PRIOR TO IV START; Start 07/19/17 at 07:00; Stop 07/20/17 at 06:59 Prochlorperazine Edisylate (Compazine) 5 mg PACU PRN PRN IV NAUSEA, MRX1; Start 07/19/17 at 07:00; Stop 07/20/17 at 06:59 Alprazolam (Xanax) 0.5 mg PRN Q6HRS PRN PO ANXIETY / AGITATION Last administered on 07/17/17t 21:38; Start 07/17/17 at 21:30 Potassium Chloride 70 meq/ Sodium Bicarbonate 12.5 meq/Lidocaine HCl 24 ml/ Parenteral Electrolytes 571.5 ml @ 571.5 mls/ hr 1X PERIOP ONCE IRR ; Start at 06:00; Stop 07/19/17 at 06:59 Potassium Chloride 15 meq/ Sodium Bicarbonate 12.5 meq/Parenteral Electrolytes 520 ml @ 520 mls/hr 1X PERIOP ONCE IRR ; Start 07/19/17 at 06:00; Stop at 06:59 Heparin Sodium (Porcine) 09355 unit/Ringer's Solution 1,020 ml @ 1,020 mls/hr 1X PERIOP ONCE IRR ; Start 07/19/17 at 06:00; Stop 07/19/17 at 06:59 Cefazolin Sodium 1 gm/Sodium Chloride 500 ml @ 500 mls/hr 1X PERIOP ONCE IRR ; Start 07/19/17 at 06:00; Stop 07/19/17 at 06:59 Active Scripts Active Reported Synthroid (Levothyroxine Sodium) 125 Mcg Tablet 125 Mcg PO DAILYAC Vitals/I & O Vital Sign - Last 24 Hours 807/17/17 07/17/17 07/17/17 15:48 19:35 19:47 19:50 Temp 98.5 97.9 98.5 97.9 Pulse 77 84 Resp 16 18 B/P (MAP) 111/57 (75) 115/76 (89) Pulse Ox 95 95 O2 Delivery Room Air Room Air Room Air Room Air 07/17/17 07/17/17 07/17/17 07/17/17 20:00 20:20 20:47 23:35 Temp 98.2 98.2 Pulse 70 Resp 17 B/P (MAP) 109/66 (80) Pulse Ox 94 O2 Delivery Room Air Room Air Room Air Room Air 07/18/17 07/18/17 07/18/17 07/18/17 03:05 07:45 07:48 08:00 Temp 97.9 97.9 97.9 97.9 Pulse 62 72 62 Resp 15 18 B/P (MAP) 115/70 (85) 110/68 (82) 115/70 Pulse Ox 96 92 O2 Delivery Room Air Room Air Room Air 07/18/17 11:10 Temp 97.2 97.2 Pulse 75 Resp 18 B/P (MAP) 112/71 (85) Pulse Ox 95 O2 Delivery Room Air Intake and Output 07/17/17 07/17/17 07/18/17 15:00 23:00 07:00 Intake Total 1060 ml 560 ml Output Total 0 ml Balance 1060 ml 560 ml TEMO TREVIÑO MD Jul 18, 2017 14:41
[2017-07-18] MEDS: HEPARIN 25,000UTS/500ML PREMIX 500 ML IV PRN (15:14)
[2017-07-18 15:15] VITALS: BP 112/74
[2017-07-18 19:35] VITALS: BP 122/79
[2017-07-18] MEDS: ATORVASTATIN CALCIUM 40 MG TABLET. PO SCH (22:09)
[2017-07-18] MEDS: ALPRAZolam 0.5 MG TABLET PO PRN (22:13)
[2017-07-18 23:30] VITALS: BP 101/63
[2017-07-19] VITALS (19 sets, daily range): BP systolic 83–144; BP diastolic 49–93
[2017-07-19] MEDS ORDERED: POTASSIUM CHLORIDE 15 MEQ, SODIUM BICARBONATE VIAL 12.5 MEQ in IV ELECTROLYTE-S (PH 7.4... IRR ONE (06:00)
[2017-07-19] MEDS ORDERED: HEPARIN 20,000 UNIT in IV RINGERS,LACTATED 1000ML 1,000 ML IRR ONE (06:00)
[2017-07-19] MEDS ORDERED: POTASSIUM CHLORIDE 70 MEQ, SODIUM BICARBONATE VIAL 12.5 MEQ, LIDOCAINE 2% 24 ML in IV E... IRR ONE (06:00)
[2017-07-19] MEDS ORDERED: PROCHLORPERAZINE 10 MG/2 ML VIAL. IV PRN (07:00)
[2017-07-19] MEDS ORDERED: LIDOCAINE 1% 1 ML SYRINGE. ID PRN (07:00)
[2017-07-19] MEDS ORDERED: IV RINGERS,LACTATED 1000ML 1,000 ML IV SCH (07:00)
[2017-07-19] MEDS ORDERED: ONDANSETRON PF 4 MG/2 ML VIAL. IV PRN (07:00)
[2017-07-19] MEDS ORDERED: fentaNYL PF VIAL 100 MCG/2 ML VIAL IV PRN ×2 (07:00)
[2017-07-19] MEDS ORDERED: MIDAZOLAM HCL/PF 5 MG/5 ML VIAL. ONE (07:04)
[2017-07-19] MEDS ORDERED: PHENYLEPHRINE 10 MG/ML VIAL. ONE (07:06)
[2017-07-19] MEDS ORDERED: NITROGLYCERIN PREMIX 250 ML IV ONE (07:06)
[2017-07-19] MEDS ORDERED: ETOMIDATE 20 MG/10 ML VIAL. IV ONE (07:06)
[2017-07-19] MEDS ORDERED: EPINEPHrine 1 MG/ML VIAL ONE (07:06)
[2017-07-19] MEDS ORDERED: AMINOCAPROIC ACID 5,000 MG/20 ML VIAL. IV ONE (07:06)
[2017-07-19] MEDS ORDERED: LIDOCAINE 2% PF Vial for OR 5 ML VIAL. ONE ×3 (07:06→12:56)
[2017-07-19] MEDS ORDERED: fentaNYL PF VIAL 250 MCG/5 ML VIAL ONE (07:06)
[2017-07-19] MEDS ORDERED: ROCURONIUM 100 MG/10 ML VIAL. ONE ×3 (07:07→12:49)
[2017-07-19] MEDS ORDERED: HEPARIN 30,000 UNIT/30 ML VIAL. ONE ×2 (07:07→12:56)
[2017-07-19] MEDS ORDERED: SUFentanil 100 MCG/2 ML AMPUL. ONE ×2 (07:07→08:54)
[2017-07-19] MEDS ORDERED: ONDANSETRON PF 4 MG/2 ML VIAL. ONE (07:07)
[2017-07-19] MEDS ORDERED: DEXAMETHASONE SOD PHOS 20 MG/5 ML VIAL. ONE (07:07)
[2017-07-19] MEDS ORDERED: ePHEDrine PF IN SALINE 50 MG/5 ML DISP.SYRIN IV ONE (07:07)
[2017-07-19] MEDS ORDERED: SURGICEL HEMOSTAT 4X8 EACH. ONE (07:09)
[2017-07-19] MEDS ORDERED: VANCOMYCIN 10GM VIAL for OR. ONE (07:09)
[2017-07-19] MEDS ORDERED: PAPAVERINE 60 MG/2 ML VIAL FOR OR ONLY. ONE (07:09)
[2017-07-19] MEDS ORDERED: ASPIRIN 300 MG SUPP.RECT ONE (07:10)
[2017-07-19] MEDS ORDERED: 0.9 % SODIUM CHLORIDE 50 ML VIAL. IJ ONE (07:15)
[2017-07-19] MEDS ORDERED: ISOFLURANE > 120 MINUTES. IH ONE (07:26)
[2017-07-19] MEDS: METOPROLOL SUCC 24HR ER 25 MG TAB.ER.24H. PO SCH (09:00)
[2017-07-19] MEDS: NICOTINE 21MG PATCH. TD SCH (09:00)
[2017-07-19] MEDS ORDERED: MIDAZOLAM HCL/PF 2 MG/2 ML VIAL. ONE (11:55)
[2017-07-19] MEDS ORDERED: PROTAMINE 250 MG/25 ML VIAL IV ONE (11:57)
[2017-07-19] MEDS ORDERED: AMIODARONE 900 MG in IV DEXTROSE 5% 500 ML IV ONE (12:30)
[2017-07-19] MEDS ORDERED: CALCIUM CHLORIDE 1,000 MG/10 ML DISP.SYRIN IV ONE (12:56)
[2017-07-19] MEDS ORDERED: MANNITOL 25% 12.5 G/50 ML VIAL FOR OR. ONE (12:56)
[2017-07-19] MEDS ORDERED: ALBUMIN HUMAN 25% 100 ML IV ONE (12:56)
[2017-07-19] MEDS ORDERED: MAGNESIUM SULFATE 5 GM/10 ML VIAL. ONE (12:56)
--- NOTE | 2017-07-19 13:41 | PDOC ---
BRIEF OPERATIVE NOTE Date: Jul 19, 2017 Pre-Op Diagnosis Unstable angina Left main stem coronary artery disease Hypertension Post-Op Diagnosis Unstable angina Left main stem coronary artery disease Hypertension Procedure Performed CABG x 2 (ORTA to LAD, SVG to Ramus) Lysis of pericardial adhesions Left endoscopic saphenous vein harvest Surgeon Estela Urrutia MD [employer] ELIZABETH Sahu Anesthesiologist Dr Duque Anesthesia Type: General Blood Loss Cellsaver IV Fluid Crystalloid: 1200 mls Cellsaver:500 mls Urine Output 700 mls Specimens Obtained None Findings Dense intrapericardial adhesions Difficult to find targets, owing to epicardial inflammation 1,5mm Ramus and LAD targets Good quality and size vein Complications None OPerative Note Additional remarks CPB time: 109 min x-clamp time: 54 min ESTELA URRUTIA MD Jul 19, 2017 13:41
--- NOTE | 2017-07-19 13:51 | PDOC4 ---
Operative Note Operative Note Date Jul 19, 2017 Preoperative diagnosis Unstable angina Left main stem coronary artery disease Hypertension Postoperative diagnosis Unstable angina Left main stem coronary artery disease Hypertension Pericarditis Procedure CABG x 2 (ORTA to LAD, SVG to Ramus) Lysis of pericardial adhesions Left endoscopic saphenous vein harvest Surgeon Estela Urrutia MD Director Fundraising ELIZABETH Sahu Anesthesiologist Dr Duque Anesthesia type General Blood loss Cellsaver IV fluids Crystalloid: 1200 mls Cellsaver:500 mls Urine output 700 mls Specimens obtained None Findings Dense intrapericardial adhesions Difficult to find targets, owing to epicardial inflammation 1,5mm Ramus and LAD targets Good quality and size saphenous vein conduit Complications None Additional remarks CPB time: 109 min x-clamp time: 54 min Indications Patient is a 51 year old female, who presents to the ER with unstable angina. Troponin peaked at 0.2. LV function was normal. LHC showed distal LM disease extending into the Ramus and proximal LAD. A CABG was indicated. The risks, benefits and limitations were explained to the patient who agreed to proceed. Informed consent was obtained. Operation After appropriate identification, the patient was brought to the operating room and placed supine on the operating table. Anesthesia was induced and the airway was secured with an endotracheal tube. A right IJ Cordis and [place]-Tip catheter were placed. I also placed a right femoral arterial line, since we had some issues at the beginning with the left radial arterial line. Antibiotics were delivered and the patient was preped in the usual standard surgical sterile fashion. A timeout was then performed. A median sternotomy was performed and the internal mammary artery was harvested, which was relatively small in size but had excellent flow. Simultaneously the left greater saphenous vein was harvested endoscopically, which was of excellent quality and caliber. The pericardium was incised. The pericardial cavity was obliterated with dense pericardial adhesions. I spent the next 30 minutes carefully dividing the pericardial adhesions starting from the anterior surface of the heart, then freeing up the inferior surface and partially freeing up the right atrium in order to cannulate. The patient was heparinized. Cardiopulmonary bypass was established through the ascending aorta and the right atrium. The patient was cooled to 34. After cardiopulmonary bypass was commenced, I continued the pericardial dissection fast freeing up the rest of the right side and the posterior surface of the heart. Myocardial protection was achieved with antegrade blood cardioplegia. The cross-clamp was applied and diastolic arrest was achieved. Intermittent dosages of cardioplegia were given. It was very difficult to find targets, owing to epicardial inflammation Grafts: Saphenous vein graft to ramus coronary artery, end to side anastomosis with 7- 0 Prolene. 1,5 mm vessel. Left internal mammary artery to mid left anterior descending, end to side anastomosis with 7-0 Prolene. 1,5 mm vessel The cross-clamp was removed. The heart was allowed to rewarm and reperfuse. A sidebitting clamp was then applied. One proximal anastomosis was performed using a 6-0 Prolene running suture. The graft was de-aired. The patient was initially in VTach, and was unable to shock her back to SR. I gave amiodarone and allowed the heart to further re-perfuse. The patient eventually returned to normal sinus rhythm and was from cardiopulmonary bypass without pharmacologic support. Heparin was reversed with protamine. Atrial and ventricular pacing wires were placed. An angled 32 Maltese chest tube was placed in the left pleural space, a 32Fr angled in the posterior pericardium and a 32 straight in the anterior pericardium. Hemostasis was achieved and confirmed. The sternotomy was closed with seven #7 steel wires. The incision was closed with a layer of 0 Vicryl followed by 2-0 Vicryl and then 4-0 Monocryl for the epidermis. Sterile dressings were applied. The total cardiopulmonary bypass time was 109 minutes and the cross-clamp time was 54 minutes. The instrument, sponge and needle counts were correct. The patient was then transferred to the ICU in critical condition. ESTELA URRUTIA MD Jul 19, 2017 13:51
[2017-07-19] MEDS ORDERED: CLEVIDIPINE BUTYRATE 100 ML IV PRN (14:00)
[2017-07-19] MEDS ORDERED: PROPOFOL 100 ML IV PRN (14:00)
[2017-07-19] MEDS ORDERED: DEXTROSE 50% 25 GM / 50ML DISP.SYRIN. IV PRN (14:00)
[2017-07-19] MEDS ORDERED: PHENYLEPHRINE INJ 20 MG in IV NORMAL SALINE 250ML 250 ML IV PRN (14:00)
[2017-07-19] MEDS ORDERED: ACETAMINOPHEN 650 MG SUPP.RECT. PR PRN (14:00)
[2017-07-19] MEDS ORDERED: ELECTROLYTE (ICU) PROTOCOL. MC PRN (14:00)
[2017-07-19] MEDS ORDERED: ACETAMINOPHEN 325 MG TABLET. PO PRN (14:00)
[2017-07-19] MEDS ORDERED: ALBUTEROL SULFATE 2.5 MG/3 ML NEBU. NEB PRN (14:00)
[2017-07-19] MEDS ORDERED: AMIODARONE 900 MG in IV DEXTROSE 5% 500 ML IV PRN (14:00)
[2017-07-19] MEDS ORDERED: 0.9 % SODIUM CHLORIDE 10 ML DISP.SYRIN. IV PRN (14:00)
[2017-07-19] MEDS ORDERED: INSULIN REGULAR VIAL 150 UNIT in 0.9 % SODIUM CHLORIDE 150ML 150 ML IV PRN (14:00)
[2017-07-19] MEDS ORDERED: MAGNESIUM SULFATE 1GM 100 ML IV PRN (14:00)
[2017-07-19] MEDS ORDERED: MEPERIDINE PF 25 MG/ML VIAL. IV PRN (14:00)
[2017-07-19 14:07] LABS: ART BE ISTAT -1 mmol/L (0-3); ART GLUC ISTAT 138 mg/dL (70-99); ART HCO3 ISTAT 24 mmol/L (21-28); ART HCT ISTAT 32 % (36-40); ART HGB ISTAT 10.9 g/dL (12-15); ART ION CA ISTAT 1.52 mmol/L (1.13-1.32); ART K ISTAT 4.8 mmol/L (3.5-5.0); ART NA ISTAT 134 mmol/L (135-145); ART PCO2 ISTAT 41 mmHg (35-45); ART PH ISTAT 7.38 (7.35-7.45); ART PO2 ISTAT 228 mmHg (75-100); ART SAT O2 SAT 100 % (95-99); ART TCO2 ISTAT 25 mmol/L (21-32); TOSPEC ART
[2017-07-19 14:07] LABS: FIO2 ISTAT 100; TOSPEC VEN; VEN BASE EXCESS ISTAT 1 mmol/L (0-3); VEN GLUC ISTAT 118 mg/dL (70-99); VEN HCO3 ISTAT 27 mmol/L (24-28); VEN HCT ISTAT 41 % (36-40); VEN HGB ISTAT 13.9 g/dL (12-15); VEN ION CA ISTAT 1.26 mmol/L (1.13-1.32); VEN K ISTAT 4.5 mmol/L (3.5-5.0); VEN NA ISTAT 137 mmol/L (135-145); VEN O2 ISTAT 36 mmHg (20-40); VEN PCO2 ISTAT 49 mmHg (41-51); VEN PH ISTAT 7.35 (7.32-7.42); VEN SO2 ISTAT 65 %; VEN TCO2 ISTAT 28 mmol/L (21-32)
[2017-07-19 14:07] LABS: ART BE ISTAT 1 mmol/L (0-3); ART GLUC ISTAT 123 mg/dL (70-99); ART HCO3 ISTAT 25 mmol/L (21-28); ART HCT ISTAT 34 % (36-40); ART HGB ISTAT 11.6 g/dL (12-15); ART ION CA ISTAT 1.03 mmol/L (1.13-1.32); ART K ISTAT 5.2 mmol/L (3.5-5.0); ART NA ISTAT 135 mmol/L (135-145); ART PCO2 ISTAT 36 mmHg (35-45); ART PH ISTAT 7.45 (7.35-7.45); ART PO2 ISTAT 294 mmHg (75-100); ART SAT O2 SAT 100 % (95-99); ART TCO2 ISTAT 26 mmol/L (21-32); TOSPEC ART
[2017-07-19 14:07] LABS: ART BE ISTAT -2 mmol/L (0-3); ART GLUC ISTAT 133 mg/dL (70-99); ART HCO3 ISTAT 23 mmol/L (21-28); ART HCT ISTAT 31 % (36-40); ART HGB ISTAT 10.5 g/dL (12-15); ART K ISTAT 5.3 mmol/L (3.5-5.0); ART NA ISTAT 133 mmol/L (135-145); ART PCO2 ISTAT 42 mmHg (35-45); ART PH ISTAT 7.35 (7.35-7.45); ART PO2 ISTAT 184 mmHg (75-100); ART SAT O2 SAT 100 % (95-99); ART TCO2 ISTAT 25 mmol/L (21-32); TOSPEC ART
[2017-07-19 14:07] LABS: ART BE ISTAT -2 mmol/L (0-3); ART GLUC ISTAT 183 mg/dL (70-99); ART HCO3 ISTAT 24 mmol/L (21-28); ART HCT ISTAT 29 % (36-40); ART HGB ISTAT 9.9 g/dL (12-15); ART ION CA ISTAT 1.68 mmol/L (1.13-1.32); ART K ISTAT 4.5 mmol/L (3.5-5.0); ART NA ISTAT 137 mmol/L (135-145); ART PCO2 ISTAT 47 mmHg (35-45); ART PH ISTAT 7.31 (7.35-7.45); ART PO2 ISTAT 339 mmHg (75-100); ART SAT O2 SAT 100 % (95-99); ART TCO2 ISTAT 25 mmol/L (21-32); TOSPEC ART
[2017-07-19 14:07] LABS: ART BE ISTAT 2 mmol/L (0-3); ART GLUC ISTAT 99 mg/dL (70-99); ART HCO3 ISTAT 27 mmol/L (21-28); ART HCT ISTAT 39 % (36-40); ART HGB ISTAT 13.3 g/dL (12-15); ART ION CA ISTAT 1.17 mmol/L (1.13-1.32); ART K ISTAT 4.3 mmol/L (3.5-5.0); ART NA ISTAT 136 mmol/L (135-145); ART PCO2 ISTAT 44 mmHg (35-45); ART PH ISTAT 7.39 (7.35-7.45); ART PO2 ISTAT 452 mmHg (75-100); ART SAT O2 SAT 100 % (95-99); ART TCO2 ISTAT 28 mmol/L (21-32); TOSPEC ART
[2017-07-19 14:07] LABS: ART BE ISTAT 0 mmol/L (0-3); ART GLUC ISTAT 120 mg/dL (70-99); ART HCO3 ISTAT 24 mmol/L (21-28); ART HCT ISTAT 33 % (36-40); ART HGB ISTAT 11.2 g/dL (12-15); ART ION CA ISTAT 1.08 mmol/L (1.13-1.32); ART K ISTAT 5.3 mmol/L (3.5-5.0); ART NA ISTAT 137 mmol/L (135-145); ART PCO2 ISTAT 38 mmHg (35-45); ART PH ISTAT 7.42 (7.35-7.45); ART PO2 ISTAT 247 mmHg (75-100); ART SAT O2 SAT 100 % (95-99); ART TCO2 ISTAT 25 mmol/L (21-32); TOSPEC ART
[2017-07-19 14:08] LABS: ART BE ISTAT -3 mmol/L (0-3); ART GLUC ISTAT 150 mg/dL (70-99); ART HCO3 ISTAT 23 mmol/L (21-28); ART HCT ISTAT 36 % (36-40); ART HGB ISTAT 12.2 g/dL (12-15); ART K ISTAT 4.2 mmol/L (3.5-5.0); ART NA ISTAT 137 mmol/L (135-145); ART PCO2 ISTAT 45 mmHg (35-45); ART PH ISTAT 7.32 (7.35-7.45); ART PO2 ISTAT 393 mmHg (75-100); ART SAT O2 SAT 100 % (95-99); ART TCO2 ISTAT 24 mmol/L (21-32); TOSPEC ART
--- NOTE | 2017-07-19 14:45 | PDOC ---
PROGRESS NOTES Chief Complaint Chief Complaint CAD, distal LM disease extending to proximal ramus and LAD s/p [facility] (07/15) Cervical DJD no nerve impingement Cervical spine sprain THoracic compression fx < 50% vertebral height Troponin leak hypothyroidism HTN, new onset tobaccoism Anxiety d/o NOS History of Present Illness History of Present Illness to ICU s/p CABG for ongoing care transition care Vitals Vitals Vital Signs Date Time Temp Pulse Resp B/P (MAP) Pulse Ox O2 Delivery O2 Flow Rate FiO2 07/19/17 14:15 100 Ventilator 07/19/17 07:10 98.1 78 15 125/76 98.1 Physical Exam General: mild distress, moderate distress Heart: Regular rate Lungs: Clear Abdomen: Normal bowel sounds Extremities: No clubbing, No edema, Normal pulses Skin: No rashes, No breakdown, No significant lesion Labs LABS Laboratory Tests Test 07/18/17 19:00 07/19/17 07:01 07/19/17 08:30 07/19/17 09:02 Heparin Anti-Xa Act, Unfractionated 0.30 IU/mL (0.30-0.70) Glucose (Fingerstick) 103 mg/dL (70-99) Bedside Hematocrit 41 % (36-40) 39 % (36-40) Bedside Venous pH 7.35 (7.32-7.42) Bedside Venous pCO2 49 mmHg (41-51) Bedside Venous pO2 36 mmHg (20-40) Bedside Venous HCO3 27 mmol/L (24-28) Bedside Venous Blood Total CO2 28 mmol/L (21-32) Bedside Venous Blood O2 Saturation 65 % Bedside Venous Blood Base Excess 1 mmol/L (0-3) POC Venous Hemoglobin (Calc) 13.9 g/dL (12-15) Bedside FiO2 100 100.0 Bedside Sodium 137 mmol/L (135-145) 136 mmol/L (135-145) Bedside Potassium 4.5 mmol/L (3.5-5.0) 4.3 mmol/L (3.5-5.0) Glucose Level 118 mg/dL (70-99) 99 mg/dL (70-99) Bedside Ionized Calcium (Shaneka) 1.26 mmol/L (1.13-1.32) 1.17 mmol/L (1.13-1.32) Bedside Hemoglobin (Calculated) 13.3 g/dL (12-15) Bedside Arterial pH 7.39 (7.35-7.45) Bedside Arterial pCO2 44 mmHg (35-45) Bedside Arterial pO2 452 mmHg (75-100) Bedside Arterial HCO3 27 mmol/L (21-28) Bedside Arterial Total CO2 28 mmol/L (21-32) Arterial Bld O2 Saturation (Measur) 100 % (95-99) Bedside Arterial Blood Base Excess 2 mmol/L (0-3) Test 07/19/17 10:57 07/19/17 11:24 07/19/17 11:58 07/19/17 12:21 Bedside Hemoglobin (Calculated) 11.6 g/dL (12-15) 11.2 g/dL (12-15) 10.5 g/dL (12-15) 10.9 g/dL (12-15) Bedside Hematocrit 34 % (36-40) 33 % (36-40) 31 % (36-40) 32 % (36-40) Bedside Arterial pH 7.45 (7.35-7.45) 7.42 (7.35-7.45) 7.35 (7.35-7.45) 7.38 (7.35-7.45) Bedside Arterial pCO2 36 mmHg (35-45) 38 mmHg (35-45) 42 mmHg (35-45) 41 mmHg (35-45) Bedside Arterial pO2 294 mmHg (75-100) 247 mmHg (75-100) 184 mmHg (75-100) 228 mmHg (75-100) Bedside Arterial HCO3 25 mmol/L (21-28) 24 mmol/L (21-28) 23 mmol/L (21-28) 24 mmol/L (21-28) Bedside Arterial Total CO2 26 mmol/L (21-32) 25 mmol/L (21-32) 25 mmol/L (21-32) 25 mmol/L (21-32) Arterial Bld O2 Saturation (Measur) 100 % (95-99) 100 % (95-99) 100 % (95-99) 100 % (95-99) Bedside Arterial Blood Base Excess 1 mmol/L (0-3) 0 mmol/L (0-3) -2 mmol/L (0-3) -1 mmol/L (0-3) Bedside FiO2 70.0 65.0 70.0 75.0 Bedside Sodium 135 mmol/L (135-145) 137 mmol/L (135-145) 133 mmol/L (135-145) 134 mmol/L (135-145) Bedside Potassium 5.2 mmol/L (3.5-5.0) 5.3 mmol/L (3.5-5.0) 5.3 mmol/L (3.5-5.0) 4.8 mmol/L (3.5-5.0) Glucose Level 123 mg/dL (70-99) 120 mg/dL (70-99) 133 mg/dL (70-99) 138 mg/dL (70-99) Bedside Ionized Calcium (Shaneka) 1.03 mmol/L (1.13-1.32) 1.08 mmol/L (1.13-1.32) 1.10 mmol/L (1.13-1.32) 1.52 mmol/L (1.13-1.32) Test 07/19/17 12:56 07/19/17 13:40 Bedside Hemoglobin (Calculated) 9.9 g/dL (12-15) 12.2 g/dL (12-15) Bedside Hematocrit 29 % (36-40) 36 % (36-40) Bedside Arterial pH 7.31 (7.35-7.45) 7.32 (7.35-7.45) Bedside Arterial pCO2 47 mmHg (35-45) 45 mmHg (35-45) Bedside Arterial pO2 339 mmHg (75-100) 393 mmHg (75-100) Bedside Arterial HCO3 24 mmol/L (21-28) 23 mmol/L (21-28) Bedside Arterial Total CO2 25 mmol/L (21-32) 24 mmol/L (21-32) Arterial Bld O2 Saturation (Measur) 100 % (95-99) 100 % (95-99) Bedside Arterial Blood Base Excess -2 mmol/L (0-3) -3 mmol/L (0-3) Bedside FiO2 100.0 100.0 Bedside Sodium 137 mmol/L (135-145) 137 mmol/L (135-145) Bedside Potassium 4.5 mmol/L (3.5-5.0) 4.2 mmol/L (3.5-5.0) Glucose Level 183 mg/dL (70-99) 150 mg/dL (70-99) Bedside Ionized Calcium (Shaneka) 1.68 mmol/L (1.13-1.32) 1.50 mmol/L (1.13-1.32) Assessment and Plan Assessmemt and Plan Problems Medical Problems: (1) Elevated troponin Status: Acute (2) Left sided numbness Status: Acute (3) UTI (urinary tract infection) Status: Acute Problems: Comment Review of Relevant I have reviewed the following items vin (where applicable) has been applied. Labs Laboratory Tests Test 07/17/17 16:45 07/17/17 23:00 07/18/17 06:56 07/18/17 13:00 Heparin Anti-Xa Act, Unfractionated 0.47 IU/mL (0.30-0.70) 0.54 IU/mL (0.30-0.70) 0.82 IU/mL (0.30-0.70) 0.38 IU/mL (0.30-0.70) Test 07/18/17 19:00 07/19/17 07:01 07/19/17 08:30 07/19/17 09:02 Heparin Anti-Xa Act, Unfractionated 0.30 IU/mL (0.30-0.70) Glucose (Fingerstick) 103 mg/dL (70-99) Bedside Hematocrit 41 % (36-40) 39 % (36-40) Bedside Venous pH 7.35 (7.32-7.42) Bedside Venous pCO2 49 mmHg (41-51) Bedside Venous pO2 36 mmHg (20-40) Bedside Venous HCO3 27 mmol/L (24-28) Bedside Venous Blood Total CO2 28 mmol/L (21-32) Bedside Venous Blood O2 Saturation 65 % Bedside Venous Blood Base Excess 1 mmol/L (0-3) POC Venous Hemoglobin (Calc) 13.9 g/dL (12-15) Bedside FiO2 100 100.0 Bedside Sodium 137 mmol/L (135-145) 136 mmol/L (135-145) Bedside Potassium 4.5 mmol/L (3.5-5.0) 4.3 mmol/L (3.5-5.0) Glucose Level 118 mg/dL (70-99) 99 mg/dL (70-99) Bedside Ionized Calcium (Shaneka) 1.26 mmol/L (1.13-1.32) 1.17 mmol/L (1.13-1.32) Bedside Hemoglobin (Calculated) 13.3 g/dL (12-15) Bedside Arterial pH 7.39 (7.35-7.45) Bedside Arterial pCO2 44 mmHg (35-45) Bedside Arterial pO2 452 mmHg (75-100) Bedside Arterial HCO3 27 mmol/L (21-28) Bedside Arterial Total CO2 28 mmol/L (21-32) Arterial Bld O2 Saturation (Measur) 100 % (95-99) Bedside Arterial Blood Base Excess 2 mmol/L (0-3) Test 07/19/17 10:57 07/19/17 11:24 07/19/17 11:58 07/19/17 12:21 Bedside Hemoglobin (Calculated) 11.6 g/dL (12-15) 11.2 g/dL (12-15) 10.5 g/dL (12-15) 10.9 g/dL (12-15) Bedside Hematocrit 34 % (36-40) 33 % (36-40) 31 % (36-40) 32 % (36-40) Bedside Arterial pH 7.45 (7.35-7.45) 7.42 (7.35-7.45) 7.35 (7.35-7.45) 7.38 (7.35-7.45) Bedside Arterial pCO2 36 mmHg (35-45) 38 mmHg (35-45) 42 mmHg (35-45) 41 mmHg (35-45) Bedside Arterial pO2 294 mmHg (75-100) 247 mmHg (75-100) 184 mmHg (75-100) 228 mmHg (75-100) Bedside Arterial HCO3 25 mmol/L (21-28) 24 mmol/L (21-28) 23 mmol/L (21-28) 24 mmol/L (21-28) Bedside Arterial Total CO2 26 mmol/L (21-32) 25 mmol/L (21-32) 25 mmol/L (21-32) 25 mmol/L (21-32) Arterial Bld O2 Saturation (Measur) 100 % (95-99) 100 % (95-99) 100 % (95-99) 100 % (95-99) Bedside Arterial Blood Base Excess 1 mmol/L (0-3) 0 mmol/L (0-3) -2 mmol/L (0-3) -1 mmol/L (0-3) Bedside FiO2 70.0 65.0 70.0 75.0 Bedside Sodium 135 mmol/L (135-145) 137 mmol/L (135-145) 133 mmol/L (135-145) 134 mmol/L (135-145) Bedside Potassium 5.2 mmol/L (3.5-5.0) 5.3 mmol/L (3.5-5.0) 5.3 mmol/L (3.5-5.0) 4.8 mmol/L (3.5-5.0) Glucose Level 123 mg/dL (70-99) 120 mg/dL (70-99) 133 mg/dL (70-99) 138 mg/dL (70-99) Bedside Ionized Calcium (Shaneka) 1.03 mmol/L (1.13-1.32) 1.08 mmol/L (1.13-1.32) 1.10 mmol/L (1.13-1.32) 1.52 mmol/L (1.13-1.32) Test 07/19/17 12:56 07/19/17 13:40 Bedside Hemoglobin (Calculated) 9.9 g/dL (12-15) 12.2 g/dL (12-15) Bedside Hematocrit 29 % (36-40) 36 % (36-40) Bedside Arterial pH 7.31 (7.35-7.45) 7.32 (7.35-7.45) Bedside Arterial pCO2 47 mmHg (35-45) 45 mmHg (35-45) Bedside Arterial pO2 339 mmHg (75-100) 393 mmHg (75-100) Bedside Arterial HCO3 24 mmol/L (21-28) 23 mmol/L (21-28) Bedside Arterial Total CO2 25 mmol/L (21-32) 24 mmol/L (21-32) Arterial Bld O2 Saturation (Measur) 100 % (95-99) 100 % (95-99) Bedside Arterial Blood Base Excess -2 mmol/L (0-3) -3 mmol/L (0-3) Bedside FiO2 100.0 100.0 Bedside Sodium 137 mmol/L (135-145) 137 mmol/L (135-145) Bedside Potassium 4.5 mmol/L (3.5-5.0) 4.2 mmol/L (3.5-5.0) Glucose Level 183 mg/dL (70-99) 150 mg/dL (70-99) Bedside Ionized Calcium (Shaneka) 1.68 mmol/L (1.13-1.32) 1.50 mmol/L (1.13-1.32) Laboratory Tests Test 07/18/17 19:00 07/19/17 07:01 07/19/17 08:30 07/19/17 09:02 Heparin Anti-Xa Act, Unfractionated 0.30 IU/mL (0.30-0.70) Glucose (Fingerstick) 103 mg/dL (70-99) Bedside Hematocrit 41 % (36-40) 39 % (36-40) Bedside Venous pH 7.35 (7.32-7.42) Bedside Venous pCO2 49 mmHg (41-51) Bedside Venous pO2 36 mmHg (20-40) Bedside Venous HCO3 27 mmol/L (24-28) Bedside Venous Blood Total CO2 28 mmol/L (21-32) Bedside Venous Blood O2 Saturation 65 % Bedside Venous Blood Base Excess 1 mmol/L (0-3) POC Venous Hemoglobin (Calc) 13.9 g/dL (12-15) Bedside FiO2 100 100.0 Bedside Sodium 137 mmol/L (135-145) 136 mmol/L (135-145) Bedside Potassium 4.5 mmol/L (3.5-5.0) 4.3 mmol/L (3.5-5.0) Glucose Level 118 mg/dL (70-99) 99 mg/dL (70-99) Bedside Ionized Calcium (Shaneka) 1.26 mmol/L (1.13-1.32) 1.17 mmol/L (1.13-1.32) Bedside Hemoglobin (Calculated) 13.3 g/dL (12-15) Bedside Arterial pH 7.39 (7.35-7.45) Bedside Arterial pCO2 44 mmHg (35-45) Bedside Arterial pO2 452 mmHg (75-100) Bedside Arterial HCO3 27 mmol/L (21-28) Bedside Arterial Total CO2 28 mmol/L (21-32) Arterial Bld O2 Saturation (Measur) 100 % (95-99) Bedside Arterial Blood Base Excess 2 mmol/L (0-3) Test 07/19/17 10:57 07/19/17 11:24 07/19/17 11:58 07/19/17 12:21 Bedside Hemoglobin (Calculated) 11.6 g/dL (12-15) 11.2 g/dL (12-15) 10.5 g/dL (12-15) 10.9 g/dL (12-15) Bedside Hematocrit 34 % (36-40) 33 % (36-40) 31 % (36-40) 32 % (36-40) Bedside Arterial pH 7.45 (7.35-7.45) 7.42 (7.35-7.45) 7.35 (7.35-7.45) 7.38 (7.35-7.45) Bedside Arterial pCO2 36 mmHg (35-45) 38 mmHg (35-45) 42 mmHg (35-45) 41 mmHg (35-45) Bedside Arterial pO2 294 mmHg (75-100) 247 mmHg (75-100) 184 mmHg (75-100) 228 mmHg (75-100) Bedside Arterial HCO3 25 mmol/L (21-28) 24 mmol/L (21-28) 23 mmol/L (21-28) 24 mmol/L (21-28) Bedside Arterial Total CO2 26 mmol/L (21-32) 25 mmol/L (21-32) 25 mmol/L (21-32) 25 mmol/L (21-32) Arterial Bld O2 Saturation (Measur) 100 % (95-99) 100 % (95-99) 100 % (95-99) 100 % (95-99) Bedside Arterial Blood Base Excess 1 mmol/L (0-3) 0 mmol/L (0-3) -2 mmol/L (0-3) -1 mmol/L (0-3) Bedside FiO2 70.0 65.0 70.0 75.0 Bedside Sodium 135 mmol/L (135-145) 137 mmol/L (135-145) 133 mmol/L (135-145) 134 mmol/L (135-145) Bedside Potassium 5.2 mmol/L (3.5-5.0) 5.3 mmol/L (3.5-5.0) 5.3 mmol/L (3.5-5.0) 4.8 mmol/L (3.5-5.0) Glucose Level 123 mg/dL (70-99) 120 mg/dL (70-99) 133 mg/dL (70-99) 138 mg/dL (70-99) Bedside Ionized Calcium (Shaneka) 1.03 mmol/L (1.13-1.32) 1.08 mmol/L (1.13-1.32) 1.10 mmol/L (1.13-1.32) 1.52 mmol/L (1.13-1.32) Test 07/19/17 12:56 07/19/17 13:40 Bedside Hemoglobin (Calculated) 9.9 g/dL (12-15) 12.2 g/dL (12-15) Bedside Hematocrit 29 % (36-40) 36 % (36-40) Bedside Arterial pH 7.31 (7.35-7.45) 7.32 (7.35-7.45) Bedside Arterial pCO2 47 mmHg (35-45) 45 mmHg (35-45) Bedside Arterial pO2 339 mmHg (75-100) 393 mmHg (75-100) Bedside Arterial HCO3 24 mmol/L (21-28) 23 mmol/L (21-28) Bedside Arterial Total CO2 25 mmol/L (21-32) 24 mmol/L (21-32) Arterial Bld O2 Saturation (Measur) 100 % (95-99) 100 % (95-99) Bedside Arterial Blood Base Excess -2 mmol/L (0-3) -3 mmol/L (0-3) Bedside FiO2 100.0 100.0 Bedside Sodium 137 mmol/L (135-145) 137 mmol/L (135-145) Bedside Potassium 4.5 mmol/L (3.5-5.0) 4.2 mmol/L (3.5-5.0) Glucose Level 183 mg/dL (70-99) 150 mg/dL (70-99) Bedside Ionized Calcium (Shaneka) 1.68 mmol/L (1.13-1.32) 1.50 mmol/L (1.13-1.32) Microbiology 07/14/17 Urine Culture - Final, Complete 07/14/17 Urine Culture Result 1 (RUDOLPH) - Final, Complete Medications Current Medications Aspirin (Children'S Aspirin) 324 mg 1X ONCE PO Last administered on 07/14/17 12:26; Start 07/14/17 at 12:30; Stop 07/14/17 at 12:31; Status DC Nitroglycerin (Nitrostat) 0.4 mg PRN Q5MIN PRN SL CHEST PAIN Last administered on 07/14/17 12:28; Start 07/14/17 at 12:30 Morphine Sulfate 4 mg 1X ONCE IM Last administered on 07/14/17 13:08; Start 07/14/17 at 13:15; Stop 07/14/17 at 13:16; Status DC Ondansetron HCl (Zofran) 4 mg PRN Q8HRS PRN IV NAUSEA/VOMITING; Start 07/14/17 at 13:00; Stop 07/15/17 at 12:59; Status DC Morphine Sulfate 2 mg PRN Q2HR PRN IV PAIN; Start 07/14/17 at 13:00; Stop 07/14 at 15:16; Status DC Nitroglycerin (Nitrostat) 0.4 mg PRN Q5MIN PRN SL CHEST PAIN; Start 07/14/17 at 13:00; Stop 07/15/17 at 12:59; Status DC Nitrofurantoin Macrocrystals (Macrobid) 100 mg BID PO Last administered on 07/14 13:07; Start 07/14/17 at 13:15; Stop 07/14/17 at 16:14; Status DC Morphine Sulfate 2 mg PRN Q2HR PRN IV PAIN Last administered on 07/17/17 19:50 ; Start 07/14/17 at 15:30 Heparin Sodium/ Dextrose 500 ml @ 0 mls/hr CONT PRN IV SEE I/O RECORD Last administered on 07/18/17 15:14; Start 07/14/17 at 15:45 Heparin Sodium (Porcine) (Heparin Sodium) 2,000 unit PRN Q6HRS PRN IV FOR UFH LEVEL LESS THAN 0.2 Last administered on 07/15/17 02:35; Start 07/14/17 at 15: 45 Info (Anti-Coagulation Monitoring By Pharmacy) 1 each PRN DAILY PRN MC SEE COMMENTS Last administered on 07/18/17 08:55; Start 07/14/17 at 16:00; Stop at 11:18; Status DC Amlodipine Besylate (Norvasc) 5 mg 1X ONCE PO Last administered on 07/14/17 16:30; Start 07/14/17 at 16:30; Stop 07/14/17 at 16:31; Status DC Aspirin (Ecotrin) 81 mg DAILYWBKFT PO Last administered on 07/16/17 10:46; Start 07/15/17 at 08:00; Stop 07/16/17 at 15:15; Status DC Atorvastatin Calcium (Lipitor) 20 mg QHS PO ; Start 07/14/17 at 21:00; Stop at 21:00; Status DC Acetaminophen (Tylenol) 650 mg PRN Q6HRS PRN PO FEVER; Start 07/14/17 at 16:15 Ondansetron HCl (Zofran) 4 mg PRN Q6HRS PRN IV NAUSEA/VOMITING Last administered on 07/16/17 17:17; Start 07/14/17 at 16:15 Morphine Sulfate 2 mg PRN Q2HR PRN IV MODERATE TO SEVERE PAIN; Start 07/14/17 at 16:15; Stop 07/15/17 at 08:48; Status DC Tramadol HCl (Ultram) 50 mg PRN Q6HRS PRN PO MILD TO MODERATE PAIN Last administered on 07/17/17 19:47; Start 07/14/17 at 16:15 Hydralazine HCl (Apresoline) 10 mg PRN Q4HRS PRN IVP ELEVATED BP, SEE COMMENTS ; Start 07/14/17 at 16:15 Docusate Sodium (Colace) 100 mg PRN DAILY PRN PO CONSTIPATION; Start 07/14/17 at 16:15 Lorazepam (Ativan) 0.5 mg 1X ONCE PO Last administered on 07/14/17 16:30; Start 07/14/17 at 16:30; Stop 07/14/17 at 16:31; Status DC Atorvastatin Calcium (Lipitor) 40 mg QHS PO Last administered on 07/18/17 22: 09; Start 07/14/17 at 21:00 Iohexol (Omnipaque 300 Mg/ml) 100 ml STK-MED ONCE .ROUTE ; Start 07/15/17 at 09: 12; Stop 07/15/17 at 09:13; Status DC Heparin Sodium/ Sodium Chloride 1,500 ml @ As Directed STK-MED ONCE .ROUTE ; Start 07/15/17 at 09:12; Stop 07/15/17 at 09:13; Status DC Lidocaine HCl 20 ml STK-MED ONCE .ROUTE ; Start 07/15/17 at 09:12; Stop at 09:13; Status DC Verapamil HCl (Verapamil) 5 mg STK-MED ONCE .ROUTE ; Start 07/15/17 at 09:36; Stop 07/15/17 at 09:37; Status DC Heparin Sodium (Porcine) (Heparin Sodium) 10,000 unit STK-MED ONCE .ROUTE ; Start 07/15/17 at 09:36; Stop 07/15/17 at 09:37; Status DC Fentanyl Citrate (Fentanyl 2ml Vial) 100 mcg STK-MED ONCE .ROUTE ; Start at 09:37; Stop 07/15/17 at 09:38; Status DC Midazolam HCl (Versed) 5 mg STK-MED ONCE .ROUTE ; Start 07/15/17 at 09:37; Stop 07/15/17 at 09:38; Status DC Nitroglycerin (Nitroglycerin) 200 mcg STK-MED ONCE .ROUTE ; Start 07/15/17 at 09 :39; Stop 07/15/17 at 09:40; Status DC Nitroglycerin (Nitroglycerin) 200 mcg 1X ONCE IART Last administered on 10:35; Start 07/15/17 at 09:45; Stop 07/15/17 at 09:47; Status DC Verapamil HCl (Verapamil) 2.5 mg 1X ONCE IART Last administered on 07/15/17 10:36; Start 07/15/17 at 09:45; Stop 07/15/17 at 09:47; Status DC Heparin Sodium (Porcine) (Heparin Sodium) 2,500 unit 1X ONCE IART Last administered on 07/15/17 10:37; Start 07/15/17 at 09:45; Stop 07/15/17 at 09:47 ; Status DC Heparin Sodium/ Sodium Chloride 1,000 unit 1X ONCE IART Last administered on 10:36; Start 07/15/17 at 09:45; Stop 07/15/17 at 09:47; Status DC Midazolam HCl (Versed) 5 mg 1X ONCE IV Last administered on 07/15/17 10:34; Start 07/15/17 at 09:45; Stop 07/15/17 at 09:47; Status DC Fentanyl Citrate (Fentanyl 2ml Vial) 100 mcg 1X ONCE IV Last administered on 10:35; Start 07/15/17 at 09:45; Stop 07/15/17 at 09:47; Status DC Iohexol (Omnipaque 300 Mg/ml) 100 ml 1X ONCE IART Last administered on 10:36; Start 07/15/17 at 09:45; Stop 07/15/17 at 09:47; Status DC Lidocaine HCl 20 ml 1X ONCE IJ Last administered on 07/15/17 10:35; Start at 09:45; Stop 07/15/17 at 09:47; Status DC Nitroglycerin (Nitroglycerin) 200 mcg STK-MED ONCE .ROUTE ; Start 07/15/17 at 10 :17; Stop 07/15/17 at 10:18; Status DC Gadobutrol (Gadavist) 7.5 mmol 1X ONCE IV Last administered on 07/15/17 12:56 ; Start 07/15/17 at 12:45; Stop 07/15/17 at 12:46; Status DC Nicotine (Nicoderm Cq 21mg) 1 patch DAILY TD Last administered on 07/18/17 07: 47; Start 07/15/17 at 18:00 Metoprolol Succinate (Toprol Xl) 12.5 mg DAILY PO Last administered on 07:48; Start 07/16/17 at 11:00 Ondansetron HCl (Zofran) 4 mg PRN Q6HRS PRN IV NAUSEA/VOMITING; Start 07/19/17 at 07:00; Stop 07/20/17 at 06:59 Fentanyl Citrate (Fentanyl 2ml Vial) 25 mcg PRN Q5MIN PRN IV MILD PAIN; Start 07/19/17 at 07:00; Stop 07/20/17 at 06:59 Fentanyl Citrate (Fentanyl 2ml Vial) 50 mcg PRN Q5MIN PRN IV MODERATE PAIN; Start 07/19/17 at 07:00; Stop 07/20/17 at 06:59 Ringer's Solution 1,000 ml @ 30 mls/hr Q24H IV Last administered on 07/19/17 07:00; Start 07/19/17 at 07:00; Stop 07/19/17 at 18:59 Lidocaine HCl 2 ml PRN 1X PRN ID PRIOR TO IV START; Start 07/19/17 at 07:00; Stop 07/20/17 at 06:59 Prochlorperazine Edisylate (Compazine) 5 mg PACU PRN PRN IV NAUSEA, MRX1; Start 07/19/17 at 07:00; Stop 07/20/17 at 06:59 Alprazolam (Xanax) 0.5 mg PRN Q6HRS PRN PO ANXIETY / AGITATION Last administered on 07/18/17 22:13; Start 07/17/17 at 21:30 Potassium Chloride 70 meq/ Sodium Bicarbonate 12.5 meq/Lidocaine HCl 24 ml/ Parenteral Electrolytes 571.5 ml @ 571.5 mls/ hr 1X PERIOP ONCE IRR Last administered on 07/19/17 06:00; Start 07/19/17 at 06:00; Stop 07/19/17 at 06:59 ; Status DC Potassium Chloride 15 meq/ Sodium Bicarbonate 12.5 meq/Parenteral Electrolytes 520 ml @ 520 mls/hr 1X PERIOP ONCE IRR Last administered on 07/19/17 06:00; Start 07/19/17 at 06:00; Stop 07/19/17 at 06:59; Status DC Heparin Sodium (Porcine) 37352 unit/Ringer's Solution 1,020 ml @ 1,020 mls/hr 1X PERIOP ONCE IRR Last administered on 07/19/17 08:36; Start 07/19/17 at 06: 00; Stop 07/19/17 at 06:59; Status DC Cefazolin Sodium 1 gm/Sodium Chloride 500 ml @ 500 mls/hr 1X PERIOP ONCE IRR Last administered on 07/19/17 08:36; Start 07/19/17 at 06:00; Stop 07/19/17 at 06:59; Status DC Midazolam HCl (Versed) 5 mg STK-MED ONCE .ROUTE ; Start 07/19/17 at 07:04; Stop 07/19/17 at 07:05; Status DC Etomidate (Amidate) 20 mg STK-MED ONCE IV ; Start 07/19/17 at 07:06; Stop at 07:07; Status DC Phenylephrine HCl (Hua-Synephrine Inj) 10 mg STK-MED ONCE .ROUTE ; Start at 07:06; Stop 07/19/17 at 07:07; Status DC Lidocaine HCl (Lidocaine Pf 2% Vial) 5 ml STK-MED ONCE .ROUTE ; Start 07/19/17 at 07:06; Stop 07/19/17 at 07:07; Status DC Aminocaproic Acid (Amicar) 5,000 mg STK-MED ONCE IV ; Start 07/19/17 at 07:06; Stop 07/19/17 at 07:07; Status DC Nitroglycerin/ Dextrose 250 ml @ As Directed STK-MED ONCE IV ; Start 07/19/17 at 07:06; Stop 07/19/17 at 07:07; Status DC Fentanyl Citrate (Fentanyl 5ml Vial) 250 mcg STK-MED ONCE .ROUTE ; Start at 07:06; Stop 07/19/17 at 07:07; Status DC Epinephrine HCl (Adrenalin) 1 mg STK-MED ONCE .ROUTE ; Start 07/19/17 at 07:06; Stop 07/19/17 at 07:07; Status DC Rocuronium [place] (Zemuron) 100 mg STK-MED ONCE .ROUTE ; Start 07/19/17 at 07: 07; Stop 07/19/17 at 07:08; Status DC Heparin Sodium (Porcine) 30,000 unit STK-MED ONCE .ROUTE ; Start 07/19/17 at 07: 07; Stop 07/19/17 at 07:08; Status DC Ephedrine Sulfate 50 mg STK-MED ONCE IV ; Start 07/19/17 at 07:07; Stop at 07:08; Status DC Sufentanil Citrate (Sufenta) 100 mcg STK-MED ONCE .ROUTE ; Start 07/19/17 at 07: 07; Stop 07/19/17 at 07:08; Status DC Dexamethasone Sodium Phosphate (Decadron) 20 mg STK-MED ONCE .ROUTE ; Start at 07:07; Stop 07/19/17 at 07:08; Status DC Ondansetron HCl (Zofran) 4 mg STK-MED ONCE .ROUTE ; Start 07/19/17 at 07:07; Stop 07/19/17 at 07:08; Status DC Cellulose 1 each STK-MED ONCE .ROUTE Last administered on 07/19/17t 12:16; Start 07/19/17 at 07:09; Stop 07/19/17 at 07:10; Status DC Vancomycin HCl (Vanco) 10 gm STK-MED ONCE .ROUTE ; Start 07/19/17 at 07:09; Stop 07/19/17 at 07:10; Status DC Papaverine HCl 60 mg STK-MED ONCE .ROUTE Last administered on 07/19/17 08:36; Start 07/19/17 at 07:09; Stop 07/19/17 at 07:10; Status DC Aspirin (Aspirin) 300 mg STK-MED ONCE .ROUTE Last administered on 07/19/17 08: 36; Start 07/19/17 at 07:10; Stop 07/19/17 at 07:11; Status DC Sodium Chloride (Sodium Chloride) 50 ml STK-MED ONCE IJ Last administered on 08:36; Start 07/19/17 at 07:15; Stop 07/19/17 at 07:16; Status DC Isoflurane (Isoflurane) 90 ml STK-MED ONCE IH ; Start 07/19/17 at 07:26; Stop at 07:27; Status DC Cefazolin Sodium/ Dextrose 50 ml @ As Directed STK-MED ONCE IV ; Start 07/19/17 at 07:31; Stop 07/19/17 at 07:32; Status DC Cefazolin Sodium/ Dextrose 50 ml @ 100 mls/hr 1X ONCE IV Last administered on 07/19/17 08:23; Start 07/19/17 at 08:00; Stop 07/19/17 at 08:29; Status DC Sufentanil Citrate (Sufenta) 100 mcg STK-MED ONCE .ROUTE ; Start 07/19/17 at 08: 54; Stop 07/19/17 at 08:55; Status DC Rocuronium [place] (Zemuron) 100 mg STK-MED ONCE .ROUTE ; Start 07/19/17 at 10: 06; Stop 07/19/17 at 10:07; Status DC Midazolam HCl (Versed) 2 mg STK-MED ONCE .ROUTE ; Start 07/19/17 at 11:55; Stop 07/19/17 at 11:56; Status DC Protamine Sulfate 250 mg STK-MED ONCE IV ; Start 07/19/17 at 11:57; Stop at 11:58; Status DC Cefazolin Sodium/ Dextrose 50 ml @ 100 mls/hr 1X ONCE IV Last administered on 07/19/17 12:45; Start 07/19/17 at 12:15; Stop 07/19/17 at 12:44; Status DC Lidocaine HCl (Lidocaine Pf 2% Vial) 5 ml STK-MED ONCE .ROUTE ; Start 07/19/17 at 12:21; Stop 07/19/17 at 12:22; Status DC Amiodarone HCl 900 mg/Dextrose 518 ml @ 33 mls/hr 1X ONCE IV Last administered on 07/19/17t 12:32; Start 07/19/17 at 12:30; Stop 07/20/17 at 04:11 Rocuronium [place] (Zemuron) 100 mg STK-MED ONCE .ROUTE ; Start 07/19/17 at 12: 49; Stop 07/19/17 at 12:50; Status DC Lidocaine HCl (Lidocaine Pf 2% Vial) 5 ml STK-MED ONCE .ROUTE ; Start 07/19/17 at 12:56; Stop 07/19/17 at 12:57; Status DC Mannitol (Mannitol) 12.5 g STK-MED ONCE .ROUTE ; Start 07/19/17 at 12:56; Stop 07/19/17 at 12:57; Status DC Calcium Chloride 1,000 mg STK-MED ONCE IV ; Start 07/19/17 at 12:56; Stop at 12:57; Status DC Albumin Human 100 ml @ As Directed STK-MED ONCE IV ; Start 07/19/17 at 12:56; Stop 07/19/17 at 12:57; Status DC Heparin Sodium (Porcine) 30,000 unit STK-MED ONCE .ROUTE ; Start 07/19/17 at 12: 56; Stop 07/19/17 at 12:57; Status DC Magnesium Sulfate 5 gm STK-MED ONCE .ROUTE ; Start 07/19/17 at 12:56; Stop 07/19 at 12:57; Status DC Sodium Chloride (Normal Saline Flush) 3 ml PRN Q12HR PRN IV AFTER MEDS AND BLOOD DRAWS; Start 07/19/17 at 14:00 Ringer's Solution 1,000 ml @ 30 mls/hr Q24H IV ; Start 07/19/17 at 13:50 Albumin Human 250 ml @ 60 mls/hr PRN Q4HRS PRN IV SEE I/O RECORD; Start at 14:00 Insulin Human Regular 150 unit/ Sodium Chloride 151.5 ml @ 0 mls/hr CONT PRN PRN IV SEE I/O RECORD; Start 07/19/17 at 14:00 Dextrose (Dextrose 50%-Water Syringe) 25 gm PRN Q15MIN PRN IV LOW BLOOD SUGAR; Start 07/19/17 at 14:00 Phenylephrine HCl 20 mg/Sodium Chloride 252 ml @ 0 mls/hr CONT PRN PRN IV HYPOTENSION; Start 07/19/17 at 14:00 Amiodarone HCl 900 mg/Dextrose 518 ml @ 33.33 mls/ hr CONT PRN IV SEE I/O RECORD; Start 07/19/17 at 14:00 Info 1 ea CONT PRN PRN MC SEE COMMENTS; Start 07/19/17 at 14:00 Magnesium Sulfate/ Dextrose 100 ml @ 100 mls/hr PRN DAILY PRN IV FOR MAG < 2.2 ; Start 07/19/17 at 14:00 Famotidine (Pepcid) 20 mg BID IVP ; Start 07/19/17 at 21:00 Ondansetron HCl (Zofran) 4 mg PRN Q4HRS PRN IV NAUSEA/VOMITING; Start 07/19/17 at 14:00 Morphine Sulfate 2 mg PRN Q1HR PRN IV PAIN; Start 07/19/17 at 14:00 Acetaminophen (Tylenol) 650 mg PRN Q4HRS PRN PO MILD PAIN / TEMP; Start at 14:00 Acetaminophen (Acetaminophen Supp) 650 mg PRN Q4HRS PRN [place] MILD PAIN / TEMP; Start 07/19/17 at 14:00 Meperidine HCl (Demerol) 12.5 mg PRN Q15MIN PRN IV SHIVERING; Start 07/19/17 at 14:00; Stop 07/20/17 at 13:50 Propofol 100 ml @ 0 mls/hr CONT PRN PRN IV POSTOP SEDATION UNTIL EXTUBATE; Start 07/19/17 at 14:00 Senna/Docusate Sodium (Senna Plus) 1 tab BID PO ; Start 07/19/17 at 21:00 Aspirin (Ecotrin) 325 mg DAILYWBKFT PO ; Start 07/20/17 at 08:00 Albuterol Sulfate (Ventolin Neb Soln) 2.5 mg PRN Q4HRS PRN NEB SHORTNESS OF BREATH; Start 07/19/17 at 14:00 Metoprolol Tartrate (Lopressor) 25 mg BID PO ; Start 07/20/17 at 09:00 Clevidipine 100 ml @ 0 mls/hr CONT PRN IV PER PROTOCOL; Start 07/19/17 at 14:00 Oxycodone/ Acetaminophen (Percocet 5/325) 1 tab PRN Q4HRS PRN PO MILD PAIN; Start 07/19/17 at 14:00 Oxycodone/ Acetaminophen (Percocet 5/325) 2 tab PRN Q4HRS PRN PO MODERATE PAIN , SEVERE PAIN; Start 07/19/17 at 14:00 Cefazolin Sodium/ Dextrose 50 ml @ 100 mls/hr Q8H IV ; Start 07/19/17 at 21:00 ; Stop 07/21/17 at 05:29 Active Scripts Active Reported Synthroid (Levothyroxine Sodium) 125 Mcg Tablet 125 Mcg PO DAILYAC Vitals/I & O Vital Sign - Last 24 Hours 07/18/17 07/18/17 07/18/17 07/18/17 15:15 19:35 19:35 23:30 Temp 98.6 98.0 98.2 98.6 98.0 98.2 Pulse 82 88 85 Resp 18 18 17 B/P (MAP) 112/74 (87) 122/79 (93) 101/63 (76) Pulse Ox 96 97 95 O2 Delivery Room Air Room Air Room Air Room Air 07/19/17 07/19/17 07/19/17 03:30 07:10 14:15 Temp 97.9 98.1 97.9 98.1 Pulse 85 78 Resp 18 15 B/P (MAP) 109/62 (78) 125/76 Pulse Ox 95 94 100 O2 Delivery Room Air Room Air Ventilator Intake and Output 07/18/17 07/18/17 07/19/17 15:00 23:00 07:00 Intake Total 300 ml 800 ml Balance 300 ml 800 ml BRINA SHAH MD Jul 19, 2017 14:45
[2017-07-19] MEDS: IV RINGERS,LACTATED 1000ML 1,000 ML IV SCH (14:47)
--- NOTE | 2017-07-19 14:47 | RAD ---
Exam performed: Single view chest. History: Post open heart surgery. Date of service: 07/19/17. Comparison: 07/11/17. Single AP upright portable view chest findings: Interval median sternotomy and CABG. There is a [place]-Tip catheter terminating in the main pulmonary trunk. Feeding tube is coiled in the left upper abdomen. There is a mediastinal drain and a left chest tube. The lungs are well expanded and clear. No pleural effusion or pneumothorax. Impression: Interval median sternotomy with support lines and tubes as outlined above.
[2017-07-19] MEDS: ALBUMIN HUMAN 5% 250 ML IV PRN ×4 (14:49→16:35)
[2017-07-19] MEDS: MORPHINE SULFATE 2 MG/ML DISP.SYRIN. IV PRN ×4 (15:13→20:54)
[2017-07-19 15:28] LABS: HEMATOCRIT 42.1 % (36.0-47.0); HEMOGLOBIN 13.8 g/dL (12.0-15.5); RED BLOOD COUNT 4.29 x10^6/uL (3.50-5.40); WHITE BLOOD COUNT 22.3 x10^3/uL (4.0-11.0)
[2017-07-19 15:37] LABS: BASE EXCESS COOX -9 mmol/L (-3-3); CARBON MONOXIDE 0.4 % (0.0-1.9); HCO3 COOX 18 mmol/L (21-28); METHEMOGLOBIN 0.4 % (0.0-1.9); PCO2 COOX 41 mmHg (35-46); PH COOX 7.26 (7.35-7.45); PO2 COOX 203 mmHg (75-108); SAT O2 COOX 99 % (92-99); TOTAL HEMOGLOBIN 14.1 g/dL
[2017-07-19 15:38] LABS: INR 1.2 (0.8-1.1); PROTHROMBIN TIME PATIENT 14.4 SEC (11.7-14.0)
[2017-07-19 15:39] LABS: CALCIUM 10.2 mg/dL (8.5-10.1); CREATININE 1.1 mg/dL (0.6-1.0); MAGNESIUM 2.6 mg/dL (1.8-2.4)
[2017-07-19 15:40] LABS: POTASSIUM 4.7 mmol/L (3.5-5.1)
[2017-07-19 15:41] LABS: FIO2 COOX 80
[2017-07-19] MEDS ORDERED: SODIUM BICARB ADULT 8.4% 50 MEQ/50 ML DISP.SYRIN. IV ONE ×2 (15:45→17:15)
--- NOTE | 2017-07-19 16:04 | EKG ---
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
[2017-07-19 16:47] LABS: HCO3 ABG 23 mmol/L (21-28); PCO2 ABG 45 mmHg (35-46); PH ABG 7.33 (7.35-7.45); PO2 ABG 80 mmHg (75-108); SAT O2 ABG 94 % (92-99)
[2017-07-19 16:49] LABS: FIO2 ABG 40
[2017-07-19 18:18] LABS: HCO3 ABG 23 mmol/L (21-28); PCO2 ABG 42 mmHg (35-46); PH ABG 7.35 (7.35-7.45); PO2 ABG 84 mmHg (75-108); SAT O2 ABG 95 % (92-99)
[2017-07-19 18:22] LABS: FIO2 ABG 40
[2017-07-19 19:51] LABS: HEMATOCRIT 32.3 % (36.0-47.0); HEMOGLOBIN 10.8 g/dL (12.0-15.5); RED BLOOD COUNT 3.3 x10^6/uL (3.50-5.40); RED CELL DISTRIBUTION WIDTH 12.9 % (11.5-14.5); WHITE BLOOD COUNT 16.1 x10^3/uL (4.0-11.0)
[2017-07-19 19:56] LABS: HCO3 ABG 27 mmol/L (21-28); PCO2 ABG 47 mmHg (35-46); PH ABG 7.38 (7.35-7.45); PO2 ABG 83 mmHg (75-108); SAT O2 ABG 96 % (92-99)
[2017-07-19 20:11] LABS: FIO2 ABG 40
[2017-07-19 20:20] LABS: MAGNESIUM 2.3 mg/dL (1.8-2.4); POTASSIUM 4.1 mmol/L (3.5-5.1)
[2017-07-19] MEDS: ONDANSETRON PF 4 MG/2 ML VIAL. IV PRN (20:30)
[2017-07-19] MEDS: oxyCODONE/APAP 5/325 1 TAB TABLET PO PRN (20:30)
[2017-07-19] MEDS: SENNOSIDES/DOCUSATE 8.6/50MG TABLET. PO SCH (20:30)
[2017-07-19] MEDS: ATORVASTATIN CALCIUM 40 MG TABLET. PO SCH (20:30)
[2017-07-19] MEDS: FAMOTIDINE 20 MG/2 ML VIAL IVP SCH (20:31)
[2017-07-19] MEDS ORDERED: POTASSIUM CHLORIDE 20MEQ 50 ML IV ONE (21:00)
[2017-07-20] VITALS (13 sets, daily range): BP systolic 90–138; BP diastolic 53–74
[2017-07-20] MEDS: oxyCODONE/APAP 5/325 1 TAB TABLET PO PRN ×5 (00:43→21:19)
--- NOTE | 2017-07-20 03:56 | EKG ---
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
[2017-07-20 04:28] LABS: BASO % 0 % (0-3); EOS % 0 % (0-3); HEMATOCRIT 32.9 % (36.0-47.0); HEMOGLOBIN 11.1 g/dL (12.0-15.5); LYMPH % 7 % (24-48); MEAN CORPUSCULAR HEMOGLOBIN 33 pg (25-35); MEAN CORPUSCULAR HGB CONC 34 g/dL (31-37); MEAN CORPUSCULAR VOLUME 97 fL (79-100); MONO % 14 % (0-9); NEUT % 79 % (31-73); PLATELET COUNT 128 x10^3/uL (140-400); RED BLOOD COUNT 3.38 x10^6/uL (3.50-5.40); RED CELL DISTRIBUTION WIDTH 13.3 % (11.5-14.5); WHITE BLOOD COUNT 14.2 x10^3/uL (4.0-11.0)
[2017-07-20 04:51] LABS: ALBUMIN 3.7 g/dL (3.4-5.0); CALCIUM 9.4 mg/dL (8.5-10.1); CREATININE 0.9 mg/dL (0.6-1.0); GFR 65.5; POTASSIUM 4.5 mmol/L (3.5-5.1)
[2017-07-20] MEDS ORDERED: METOPROLOL TART IMMED RELEASE 25 MG TABLET. PO SCH (09:00)
[2017-07-20] MEDS: METOPROLOL SUCC 24HR ER 25 MG TAB.ER.24H. PO SCH (09:00)
[2017-07-20] MEDS: NICOTINE 21MG PATCH. TD SCH (09:00)
[2017-07-20] MEDS: AMIODARONE HCL 200 MG TABLET. PO SCH ×2 (09:10→21:18)
[2017-07-20] MEDS: DOCUSATE SODIUM 100 MG CAPSULE. PO PRN (09:11)
[2017-07-20] MEDS: SENNOSIDES/DOCUSATE 8.6/50MG TABLET. PO SCH ×2 (09:11→21:18)
[2017-07-20] MEDS: ASPIRIN ENTERIC COATED 325 MG TABLET.DR. PO SCH (09:11)
[2017-07-20] MEDS: FAMOTIDINE 20 MG/2 ML VIAL IVP SCH ×2 (09:11→21:22)
--- NOTE | 2017-07-20 10:00 | RAD ---
Portable chest compared to similar exam dated 07/11/2017 for postop. Findings: The [place]-Tip catheter, mediastinal drain, and left chest tube are unchanged. The enteric tube is been removed. Lungs are clear save for patchy subsegmental atelectasis. Heart size within normal limits. Impression: 1. Removal of the enteric tube. 2. Other lines and tubes are stable. 3. No new cardiopulmonary abnormality.
[2017-07-20 10:45] LABS: PLT ESTIMATE ADEQUATE (ADEQUATE)
--- NOTE | 2017-07-20 12:02 | PDOC ---
CARDIO Progress Notes Date and Time Date of Service 07/20/2017 Time of Evaluation 1150 Subjective Subjective: No Chest Pain, No shortness of breath, No Palpitations, Other ( incision pain controlled) Vitals Vitals Vital Signs Date Time Temp Pulse Resp B/P (MAP) Pulse Ox O2 Delivery O2 Flow Rate FiO2 07/20/17 10:30 97 Nasal Cannula 2.0 07/20/17 09:10 91 96/62 07/20/17 04:24 15 07/20/17 04:00 99.1 99.1 Weight Weight [ ] Input and Output Intake and Output Intake and Output 07/21/17 07:00 Intake Total 390 ml Output Total 385 ml Balance 5 ml Intake Oral 390 ml Output Urine Total 275 ml Chest Tube Drainage Total 110 ml Laboratory Labs Laboratory Tests Test 07/19/17 11:58 07/19/17 12:02 07/19/17 12:21 07/19/17 12:56 Bedside Hemoglobin (Calculated) 10.5 g/dL (12-15) 10.9 g/dL (12-15) 9.9 g/dL (12-15) Bedside Hematocrit 31 % (36-40) 32 % (36-40) 29 % (36-40) Bedside Arterial pH 7.35 (7.35-7.45) 7.38 (7.35-7.45) 7.31 (7.35-7.45) Bedside Arterial pCO2 42 mmHg (35-45) 41 mmHg (35-45) 47 mmHg (35-45) Bedside Arterial pO2 184 mmHg (75-100) 228 mmHg (75-100) 339 mmHg (75-100) Bedside Arterial HCO3 23 mmol/L (21-28) 24 mmol/L (21-28) 24 mmol/L (21-28) Bedside Arterial Total CO2 25 mmol/L (21-32) 25 mmol/L (21-32) 25 mmol/L (21-32) Arterial Bld O2 Saturation (Measur) 100 % (95-99) 100 % (95-99) 100 % (95-99) Bedside Arterial Blood Base Excess -2 mmol/L (0-3) -1 mmol/L (0-3) -2 mmol/L (0-3) Bedside FiO2 70.0 75.0 100.0 Bedside Sodium 133 mmol/L (135-145) 134 mmol/L (135-145) 137 mmol/L (135-145) Bedside Potassium 5.3 mmol/L (3.5-5.0) 4.8 mmol/L (3.5-5.0) 4.5 mmol/L (3.5-5.0) Glucose Level 133 mg/dL (70-99) 138 mg/dL (70-99) 183 mg/dL (70-99) Bedside Ionized Calcium (Shaneka) 1.10 mmol/L (1.13-1.32) 1.52 mmol/L (1.13-1.32) 1.68 mmol/L (1.13-1.32) Activated Clotting Time 472 SEC (90-125) Test 07/19/17 12:59 07/19/17 13:40 07/19/17 14:44 07/19/17 15:10 Activated Clotting Time 123 SEC (90-125) Bedside Hemoglobin (Calculated) 12.2 g/dL (12-15) Bedside Hematocrit 36 % (36-40) Bedside Arterial pH 7.32 (7.35-7.45) Bedside Arterial pCO2 45 mmHg (35-45) Bedside Arterial pO2 393 mmHg (75-100) Bedside Arterial HCO3 23 mmol/L (21-28) Bedside Arterial Total CO2 24 mmol/L (21-32) Arterial Bld O2 Saturation (Measur) 100 % (95-99) Bedside Arterial Blood Base Excess -3 mmol/L (0-3) Bedside FiO2 100.0 Bedside Sodium 137 mmol/L (135-145) Bedside Potassium 4.2 mmol/L (3.5-5.0) Glucose Level 150 mg/dL (70-99) 200 mg/dL (70-99) Bedside Ionized Calcium (Shaneka) 1.50 mmol/L (1.13-1.32) Glucose (Fingerstick) 159 mg/dL (70-99) White Blood Count 22.3 x10^3/uL (4.0-11.0) Red Blood Count 4.29 x10^6/uL (3.50-5.40) Hemoglobin 13.8 g/dL (12.0-15.5) Hematocrit 42.1 % (36.0-47.0) Mean Corpuscular Volume 98 fL (79-100) Mean Corpuscular Hemoglobin 32 pg (25-35) Mean Corpuscular Hemoglobin Concent 33 g/dL (31-37) Red Cell Distribution Width 13.0 % (11.5-14.5) Platelet Count 147 x10^3/uL (140-400) Prothrombin Time 14.4 SEC (11.7-14.0) Prothromb Time International Ratio 1.2 (0.8-1.1) Activated Partial Thromboplast Time 21 SEC (24-38) O2 Saturation 99 % (92-99) Arterial Blood pH 7.26 (7.35-7.45) Arterial Blood pCO2 at Patient Temp 41 mmHg (35-46) Arterial Blood pO2 at Patient Temp 203 mmHg (75-108) Arterial Blood HCO3 18 mmol/L (21-28) Arterial Blood Base Excess -9 mmol/L (-3-3) Oxyhemoglobin 98.0 % Methemoglobin 0.4 % (0.0-1.9) Carbon Monoxide, Quantitative 0.4 % (0.0-1.9) FiO2 80 Sodium Level 138 mmol/L (136-145) Potassium Level 4.7 mmol/L (3.5-5.1) Chloride Level 104 mmol/L (98-107) Carbon Dioxide Level 24 mmol/L (21-32) Anion Gap 10 (6-14) Blood Urea Nitrogen 16 mg/dL (7-20) Creatinine 1.1 mg/dL (0.6-1.0) Estimated GFR (Cockcroft-Gault) 52.0 Calcium Level 10.2 mg/dL (8.5-10.1) Magnesium Level 2.6 mg/dL (1.8-2.4) Test 07/19/17 15:54 07/19/17 16:40 07/19/17 17:05 07/19/17 18:10 Glucose (Fingerstick) 186 mg/dL (70-99) 165 mg/dL (70-99) O2 Saturation 94 % (92-99) 95 % (92-99) Arterial Blood pH 7.33 (7.35-7.45) 7.35 (7.35-7.45) Arterial Blood pCO2 at Patient Temp 45 mmHg (35-46) 42 mmHg (35-46) Arterial Blood pO2 at Patient Temp 80 mmHg (75-108) 84 mmHg (75-108) Arterial Blood HCO3 23 mmol/L (21-28) 23 mmol/L (21-28) Arterial Blood Base Excess -3 mmol/L (-3-3) -3 mmol/L (-3-3) FiO2 40 40 Test 07/19/17 18:12 07/19/17 19:05 07/19/17 19:07 07/19/17 19:53 Glucose (Fingerstick) 148 mg/dL (70-99) 142 mg/dL (70-99) White Blood Count 16.1 x10^3/uL (4.0-11.0) Red Blood Count 3.30 x10^6/uL (3.50-5.40) Hemoglobin 10.8 g/dL (12.0-15.5) Hematocrit 32.3 % (36.0-47.0) Mean Corpuscular Volume 98 fL (79-100) Mean Corpuscular Hemoglobin 33 pg (25-35) Mean Corpuscular Hemoglobin Concent 34 g/dL (31-37) Red Cell Distribution Width 12.9 % (11.5-14.5) Platelet Count 120 x10^3/uL (140-400) Potassium Level 4.1 mmol/L (3.5-5.1) Magnesium Level 2.3 mg/dL (1.8-2.4) O2 Saturation 96 % (92-99) Arterial Blood pH 7.38 (7.35-7.45) Arterial Blood pCO2 at Patient Temp 47 mmHg (35-46) Arterial Blood pO2 at Patient Temp 83 mmHg (75-108) Arterial Blood HCO3 27 mmol/L (21-28) Arterial Blood Base Excess 2 mmol/L (-3-3) FiO2 40 Test 07/19/17 20:13 07/19/17 21:14 07/19/17 22:15 07/19/17 23:20 Glucose (Fingerstick) 123 mg/dL (70-99) 133 mg/dL (70-99) 116 mg/dL (70-99) 32 mg/dL (70-99) Test 07/19/17 23:21 07/20/17 00:25 07/20/17 01:29 07/20/17 04:20 Glucose (Fingerstick) 134 mg/dL (70-99) 128 mg/dL (70-99) 119 mg/dL (70-99) 125 mg/dL (70-99) White Blood Count 14.2 x10^3/uL (4.0-11.0) Red Blood Count 3.38 x10^6/uL (3.50-5.40) Hemoglobin 11.1 g/dL (12.0-15.5) Hematocrit 32.9 % (36.0-47.0) Mean Corpuscular Volume 97 fL (79-100) Mean Corpuscular Hemoglobin 33 pg (25-35) Mean Corpuscular Hemoglobin Concent 34 g/dL (31-37) Red Cell Distribution Width 13.3 % (11.5-14.5) Platelet Count 128 x10^3/uL (140-400) Neutrophils (%) (Auto) 79 % (31-73) Lymphocytes (%) (Auto) 7 % (24-48) Monocytes (%) (Auto) 14 % (0-9) Eosinophils (%) (Auto) 0 % (0-3) Basophils (%) (Auto) 0 % (0-3) Neutrophils # (Auto) 11.2 x10^3uL (1.8-7.7) Lymphocytes # (Auto) 1.0 x10^3/uL (1.0-4.8) Monocytes # (Auto) 2.0 x10^3/uL (0.0-1.1) Eosinophils # (Auto) 0.0 x10^3/uL (0.0-0.7) Basophils # (Auto) 0.0 x10^3/uL (0.0-0.2) Segmented Neutrophils % 70 % (35-66) Band Neutrophils % 12 % (0-9) Lymphocytes % 8 % (24-48) Monocytes % 10 % (0-10) Platelet Estimate Adequate (ADEQUATE) Sodium Level 139 mmol/L (136-145) Potassium Level 4.5 mmol/L (3.5-5.1) Chloride Level 102 mmol/L (98-107) Carbon Dioxide Level 29 mmol/L (21-32) Anion Gap 8 (6-14) Blood Urea Nitrogen 16 mg/dL (7-20) Creatinine 0.9 mg/dL (0.6-1.0) Estimated GFR (Cockcroft-Gault) 65.5 Glucose Level 135 mg/dL (70-99) Calcium Level 9.4 mg/dL (8.5-10.1) Phosphorus Level 5.0 mg/dL (2.6-4.7) Magnesium Level 2.0 mg/dL (1.8-2.4) Albumin 3.7 g/dL (3.4-5.0) Test 07/20/17 08:29 Glucose (Fingerstick) 109 mg/dL (70-99) Microbiology Micro Microbiology 07/14/17 Urine Culture - Final, Complete 07/14/17 Urine Culture Result 1 (RUDOLPH) - Final, Complete Physical Exam HEENT: Neck Supple W Full Motion Chest: Symmetric LUNGS: Other (basilar crackles, chest tubes in place with serosanguinous drain. ) Heart: S1S2, RRR (SR with no significnat ectopies overnight) Abdomen: Soft N/T Extremities: No Edema, No Calf Tenderness Neurology: alert, oriented, follow commands Assessment Assessment 1. CAD: distal LM/Ramus via LHC, presented with UA. EF 50-55% 2. S/P POD#1 CABG x 2 (ORTA to LAD, SVG to Ramus) with lysis of pericardial adhesions. Doing well 3. HTN: SBP 90s. 4. Hypothyroidism: TSH on goal 5. ARIAS/metabolic syndrome 6. HLP Recommendations 1. Continue with post CABG protocol 2. Secondary prevention. Amiodarone in place. Metoprolol per BP trend at decreased dose. 3. ASA, statin 4. Supportive care. LIBBY CAMARENA APRN Jul 20, 2017 12:02
--- NOTE | 2017-07-20 12:04 | PDOC ---
PROGRESS NOTES Chief Complaint Chief Complaint CAD ASSESSMENT AND PLAN: 1. CAD: distal LM disease extending to proximal ramus and LAD s/p LHC (07/15) ; s/p CABG x 2 (ORTA to LAD, SVG to Ramus) on 07/19. remains on amiodarone 2. HTN: new dx at admit. had been well controlled on lopressor 25 bid, lowish today. cont to monitor 3. HLD: on statin 4. ARIAS 5. Hypothyroidism: on hormone repletion with therapeutic TSH 6. Tobaccoism: on nicotine patch 7. DM: borderline elevated BG with normal HgbA1c. diet only, meds not indicated 8. 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 no nerve impingement 9. Compression fx lower T spine: Dr Garcia consulted: MRI and NS consult recommended, but can wait until cardiac issues resolved 10. Anxiety d/o NOS 11. Prophylaxis: (on heparin gtt) History of Present Illness History of Present Illness very nauseous post lunch, vomiting chicken soup. Vitals Vitals Vital Signs Date Time Temp Pulse Resp B/P (MAP) Pulse Ox O2 Delivery O2 Flow Rate FiO2 07/20/17 10:30 97 Nasal Cannula 2.0 07/20/17 09:10 91 96/62 07/20/17 04:24 15 07/20/17 04:00 99.1 99.1 Physical Exam General: mild distress, moderate distress Heart: Regular rate Lungs: Clear Abdomen: Normal bowel sounds Extremities: No clubbing, No edema, Normal pulses Skin: No rashes, No breakdown, No significant lesion Labs LABS Laboratory Tests Test 07/19/17 11:58 07/19/17 12:02 07/19/17 12:21 07/19/17 12:56 Bedside Hemoglobin (Calculated) 10.5 g/dL (12-15) 10.9 g/dL (12-15) 9.9 g/dL (12-15) Bedside Hematocrit 31 % (36-40) 32 % (36-40) 29 % (36-40) Bedside Arterial pH 7.35 (7.35-7.45) 7.38 (7.35-7.45) 7.31 (7.35-7.45) Bedside Arterial pCO2 42 mmHg (35-45) 41 mmHg (35-45) 47 mmHg (35-45) Bedside Arterial pO2 184 mmHg (75-100) 228 mmHg (75-100) 339 mmHg (75-100) Bedside Arterial HCO3 23 mmol/L (21-28) 24 mmol/L (21-28) 24 mmol/L (21-28) Bedside Arterial Total CO2 25 mmol/L (21-32) 25 mmol/L (21-32) 25 mmol/L (21-32) Arterial Bld O2 Saturation (Measur) 100 % (95-99) 100 % (95-99) 100 % (95-99) Bedside Arterial Blood Base Excess -2 mmol/L (0-3) -1 mmol/L (0-3) -2 mmol/L (0-3) Bedside FiO2 70.0 75.0 100.0 Bedside Sodium 133 mmol/L (135-145) 134 mmol/L (135-145) 137 mmol/L (135-145) Bedside Potassium 5.3 mmol/L (3.5-5.0) 4.8 mmol/L (3.5-5.0) 4.5 mmol/L (3.5-5.0) Glucose Level 133 mg/dL (70-99) 138 mg/dL (70-99) 183 mg/dL (70-99) Bedside Ionized Calcium (Shaneka) 1.10 mmol/L (1.13-1.32) 1.52 mmol/L (1.13-1.32) 1.68 mmol/L (1.13-1.32) Activated Clotting Time 472 SEC (90-125) Test 07/19/17 12:59 07/19/17 13:40 07/19/17 14:44 07/19/17 15:10 Activated Clotting Time 123 SEC (90-125) Bedside Hemoglobin (Calculated) 12.2 g/dL (12-15) Bedside Hematocrit 36 % (36-40) Bedside Arterial pH 7.32 (7.35-7.45) Bedside Arterial pCO2 45 mmHg (35-45) Bedside Arterial pO2 393 mmHg (75-100) Bedside Arterial HCO3 23 mmol/L (21-28) Bedside Arterial Total CO2 24 mmol/L (21-32) Arterial Bld O2 Saturation (Measur) 100 % (95-99) Bedside Arterial Blood Base Excess -3 mmol/L (0-3) Bedside FiO2 100.0 Bedside Sodium 137 mmol/L (135-145) Bedside Potassium 4.2 mmol/L (3.5-5.0) Glucose Level 150 mg/dL (70-99) 200 mg/dL (70-99) Bedside Ionized Calcium (Shaneka) 1.50 mmol/L (1.13-1.32) Glucose (Fingerstick) 159 mg/dL (70-99) White Blood Count 22.3 x10^3/uL (4.0-11.0) Red Blood Count 4.29 x10^6/uL (3.50-5.40) Hemoglobin 13.8 g/dL (12.0-15.5) Hematocrit 42.1 % (36.0-47.0) Mean Corpuscular Volume 98 fL (79-100) Mean Corpuscular Hemoglobin 32 pg (25-35) Mean Corpuscular Hemoglobin Concent 33 g/dL (31-37) Red Cell Distribution Width 13.0 % (11.5-14.5) Platelet Count 147 x10^3/uL (140-400) Prothrombin Time 14.4 SEC (11.7-14.0) Prothromb Time International Ratio 1.2 (0.8-1.1) Activated Partial Thromboplast Time 21 SEC (24-38) O2 Saturation 99 % (92-99) Arterial Blood pH 7.26 (7.35-7.45) Arterial Blood pCO2 at Patient Temp 41 mmHg (35-46) Arterial Blood pO2 at Patient Temp 203 mmHg (75-108) Arterial Blood HCO3 18 mmol/L (21-28) Arterial Blood Base Excess -9 mmol/L (-3-3) Oxyhemoglobin 98.0 % Methemoglobin 0.4 % (0.0-1.9) Carbon Monoxide, Quantitative 0.4 % (0.0-1.9) FiO2 80 Sodium Level 138 mmol/L (136-145) Potassium Level 4.7 mmol/L (3.5-5.1) Chloride Level 104 mmol/L (98-107) Carbon Dioxide Level 24 mmol/L (21-32) Anion Gap 10 (6-14) Blood Urea Nitrogen 16 mg/dL (7-20) Creatinine 1.1 mg/dL (0.6-1.0) Estimated GFR (Cockcroft-Gault) 52.0 Calcium Level 10.2 mg/dL (8.5-10.1) Magnesium Level 2.6 mg/dL (1.8-2.4) Test 07/19/17 15:54 07/19/17 16:40 07/19/17 17:05 07/19/17 18:10 Glucose (Fingerstick) 186 mg/dL (70-99) 165 mg/dL (70-99) O2 Saturation 94 % (92-99) 95 % (92-99) Arterial Blood pH 7.33 (7.35-7.45) 7.35 (7.35-7.45) Arterial Blood pCO2 at Patient Temp 45 mmHg (35-46) 42 mmHg (35-46) Arterial Blood pO2 at Patient Temp 80 mmHg (75-108) 84 mmHg (75-108) Arterial Blood HCO3 23 mmol/L (21-28) 23 mmol/L (21-28) Arterial Blood Base Excess -3 mmol/L (-3-3) -3 mmol/L (-3-3) FiO2 40 40 Test 07/19/17 18:12 07/19/17 19:05 07/19/17 19:07 07/19/17 19:53 Glucose (Fingerstick) 148 mg/dL (70-99) 142 mg/dL (70-99) White Blood Count 16.1 x10^3/uL (4.0-11.0) Red Blood Count 3.30 x10^6/uL (3.50-5.40) Hemoglobin 10.8 g/dL (12.0-15.5) Hematocrit 32.3 % (36.0-47.0) Mean Corpuscular Volume 98 fL (79-100) Mean Corpuscular Hemoglobin 33 pg (25-35) Mean Corpuscular Hemoglobin Concent 34 g/dL (31-37) Red Cell Distribution Width 12.9 % (11.5-14.5) Platelet Count 120 x10^3/uL (140-400) Potassium Level 4.1 mmol/L (3.5-5.1) Magnesium Level 2.3 mg/dL (1.8-2.4) O2 Saturation 96 % (92-99) Arterial Blood pH 7.38 (7.35-7.45) Arterial Blood pCO2 at Patient Temp 47 mmHg (35-46) Arterial Blood pO2 at Patient Temp 83 mmHg (75-108) Arterial Blood HCO3 27 mmol/L (21-28) Arterial Blood Base Excess 2 mmol/L (-3-3) FiO2 40 Test 07/19/17 20:13 07/19/17 21:14 07/19/17 22:15 07/19/17 23:20 Glucose (Fingerstick) 123 mg/dL (70-99) 133 mg/dL (70-99) 116 mg/dL (70-99) 32 mg/dL (70-99) Test 07/19/17 23:21 07/20/17 00:25 07/20/17 01:29 07/20/17 04:20 Glucose (Fingerstick) 134 mg/dL (70-99) 128 mg/dL (70-99) 119 mg/dL (70-99) 125 mg/dL (70-99) White Blood Count 14.2 x10^3/uL (4.0-11.0) Red Blood Count 3.38 x10^6/uL (3.50-5.40) Hemoglobin 11.1 g/dL (12.0-15.5) Hematocrit 32.9 % (36.0-47.0) Mean Corpuscular Volume 97 fL (79-100) Mean Corpuscular Hemoglobin 33 pg (25-35) Mean Corpuscular Hemoglobin Concent 34 g/dL (31-37) Red Cell Distribution Width 13.3 % (11.5-14.5) Platelet Count 128 x10^3/uL (140-400) Neutrophils (%) (Auto) 79 % (31-73) Lymphocytes (%) (Auto) 7 % (24-48) Monocytes (%) (Auto) 14 % (0-9) Eosinophils (%) (Auto) 0 % (0-3) Basophils (%) (Auto) 0 % (0-3) Neutrophils # (Auto) 11.2 x10^3uL (1.8-7.7) Lymphocytes # (Auto) 1.0 x10^3/uL (1.0-4.8) Monocytes # (Auto) 2.0 x10^3/uL (0.0-1.1) Eosinophils # (Auto) 0.0 x10^3/uL (0.0-0.7) Basophils # (Auto) 0.0 x10^3/uL (0.0-0.2) Segmented Neutrophils % 70 % (35-66) Band Neutrophils % 12 % (0-9) Lymphocytes % 8 % (24-48) Monocytes % 10 % (0-10) Platelet Estimate Adequate (ADEQUATE) Sodium Level 139 mmol/L (136-145) Potassium Level 4.5 mmol/L (3.5-5.1) Chloride Level 102 mmol/L (98-107) Carbon Dioxide Level 29 mmol/L (21-32) Anion Gap 8 (6-14) Blood Urea Nitrogen 16 mg/dL (7-20) Creatinine 0.9 mg/dL (0.6-1.0) Estimated GFR (Cockcroft-Gault) 65.5 Glucose Level 135 mg/dL (70-99) Calcium Level 9.4 mg/dL (8.5-10.1) Phosphorus Level 5.0 mg/dL (2.6-4.7) Magnesium Level 2.0 mg/dL (1.8-2.4) Albumin 3.7 g/dL (3.4-5.0) Test 07/20/17 08:29 Glucose (Fingerstick) 109 mg/dL (70-99) LYNETTE SWANSON MD Jul 20, 2017 12:04
[2017-07-20] MEDS: ONDANSETRON PF 4 MG/2 ML VIAL. IV PRN (12:51)
[2017-07-20] MEDS: IV RINGERS,LACTATED 1000ML 1,000 ML IV SCH (12:57)
[2017-07-20] MEDS: MORPHINE SULFATE 2 MG/ML DISP.SYRIN. IV PRN ×2 (14:08→18:20)
--- NOTE | 2017-07-20 14:13 | PDOC ---
Progress Note Subjective Subjective Fast track extubation yesterday. Doing very well this morning. Pain well controlled, had some nausea, better with Zofran. Normotensive and in SR. Hb 11, 1 Creat 0,9 excellent UO, minimal mediastinal and pleural drainage. ROS ROS Some nausea No SOB No vomiting No pain No rash Vital Sign Vital Signs Vital Signs Date Time Temp Pulse Resp B/P (MAP) Pulse Ox O2 Delivery O2 Flow Rate FiO2 07/20/17 12:00 Nasal Cannula 1.0 07/20/17 10:30 97 07/20/17 09:10 91 96/62 07/20/17 04:24 15 07/20/17 04:00 99.1 99.1 Physical Exam PHYSICAL EXAM GENERAL: NAD, Alert HEENT: PERRL, OC/OP NECK: Supple, no JVD, no LN LUNGS: Clear HEART: S1S2, no gallop, no murmur ABD: Soft, NT, no organomegaly, no rebound EXT: No edema, no cyanosis CNA GNA: Alert, oriented x 3, no focal neurologic deficit SKIN: No rash IV: ok Labs Lab Laboratory Tests Test 07/19/17 14:44 07/19/17 15:10 07/19/17 15:54 07/19/17 16:40 Glucose (Fingerstick) 159 mg/dL (70-99) 186 mg/dL (70-99) White Blood Count 22.3 x10^3/uL (4.0-11.0) Red Blood Count 4.29 x10^6/uL (3.50-5.40) Hemoglobin 13.8 g/dL (12.0-15.5) Hematocrit 42.1 % (36.0-47.0) Mean Corpuscular Volume 98 fL (79-100) Mean Corpuscular Hemoglobin 32 pg (25-35) Mean Corpuscular Hemoglobin Concent 33 g/dL (31-37) Red Cell Distribution Width 13.0 % (11.5-14.5) Platelet Count 147 x10^3/uL (140-400) Prothrombin Time 14.4 SEC (11.7-14.0) Prothromb Time International Ratio 1.2 (0.8-1.1) Activated Partial Thromboplast Time 21 SEC (24-38) O2 Saturation 99 % (92-99) 94 % (92-99) Arterial Blood pH 7.26 (7.35-7.45) 7.33 (7.35-7.45) Arterial Blood pCO2 at Patient Temp 41 mmHg (35-46) 45 mmHg (35-46) Arterial Blood pO2 at Patient Temp 203 mmHg (75-108) 80 mmHg (75-108) Arterial Blood HCO3 18 mmol/L (21-28) 23 mmol/L (21-28) Arterial Blood Base Excess -9 mmol/L (-3-3) -3 mmol/L (-3-3) Oxyhemoglobin 98.0 % Methemoglobin 0.4 % (0.0-1.9) Carbon Monoxide, Quantitative 0.4 % (0.0-1.9) FiO2 80 40 Sodium Level 138 mmol/L (136-145) Potassium Level 4.7 mmol/L (3.5-5.1) Chloride Level 104 mmol/L (98-107) Carbon Dioxide Level 24 mmol/L (21-32) Anion Gap 10 (6-14) Blood Urea Nitrogen 16 mg/dL (7-20) Creatinine 1.1 mg/dL (0.6-1.0) Estimated GFR (Cockcroft-Gault) 52.0 Glucose Level 200 mg/dL (70-99) Calcium Level 10.2 mg/dL (8.5-10.1) Magnesium Level 2.6 mg/dL (1.8-2.4) Test 07/19/17 17:05 07/19/17 18:10 07/19/17 18:12 07/19/17 19:05 Glucose (Fingerstick) 165 mg/dL (70-99) 148 mg/dL (70-99) O2 Saturation 95 % (92-99) Arterial Blood pH 7.35 (7.35-7.45) Arterial Blood pCO2 at Patient Temp 42 mmHg (35-46) Arterial Blood pO2 at Patient Temp 84 mmHg (75-108) Arterial Blood HCO3 23 mmol/L (21-28) Arterial Blood Base Excess -3 mmol/L (-3-3) FiO2 40 White Blood Count 16.1 x10^3/uL (4.0-11.0) Red Blood Count 3.30 x10^6/uL (3.50-5.40) Hemoglobin 10.8 g/dL (12.0-15.5) Hematocrit 32.3 % (36.0-47.0) Mean Corpuscular Volume 98 fL (79-100) Mean Corpuscular Hemoglobin 33 pg (25-35) Mean Corpuscular Hemoglobin Concent 34 g/dL (31-37) Red Cell Distribution Width 12.9 % (11.5-14.5) Platelet Count 120 x10^3/uL (140-400) Potassium Level 4.1 mmol/L (3.5-5.1) Magnesium Level 2.3 mg/dL (1.8-2.4) Test 07/19/17 19:07 07/19/17 19:53 07/19/17 20:13 07/19/17 21:14 Glucose (Fingerstick) 142 mg/dL (70-99) 123 mg/dL (70-99) 133 mg/dL (70-99) O2 Saturation 96 % (92-99) Arterial Blood pH 7.38 (7.35-7.45) Arterial Blood pCO2 at Patient Temp 47 mmHg (35-46) Arterial Blood pO2 at Patient Temp 83 mmHg (75-108) Arterial Blood HCO3 27 mmol/L (21-28) Arterial Blood Base Excess 2 mmol/L (-3-3) FiO2 40 Test 07/19/17 22:15 07/19/17 23:20 07/19/17 23:21 07/20/17 00:25 Glucose (Fingerstick) 116 mg/dL (70-99) 32 mg/dL (70-99) 134 mg/dL (70-99) 128 mg/dL (70-99) Test 07/20/17 01:29 07/20/17 04:20 07/20/17 08:29 07/20/17 12:21 Glucose (Fingerstick) 119 mg/dL (70-99) 125 mg/dL (70-99) 109 mg/dL (70-99) 107 mg/dL (70-99) White Blood Count 14.2 x10^3/uL (4.0-11.0) Red Blood Count 3.38 x10^6/uL (3.50-5.40) Hemoglobin 11.1 g/dL (12.0-15.5) Hematocrit 32.9 % (36.0-47.0) Mean Corpuscular Volume 97 fL (79-100) Mean Corpuscular Hemoglobin 33 pg (25-35) Mean Corpuscular Hemoglobin Concent 34 g/dL (31-37) Red Cell Distribution Width 13.3 % (11.5-14.5) Platelet Count 128 x10^3/uL (140-400) Neutrophils (%) (Auto) 79 % (31-73) Lymphocytes (%) (Auto) 7 % (24-48) Monocytes (%) (Auto) 14 % (0-9) Eosinophils (%) (Auto) 0 % (0-3) Basophils (%) (Auto) 0 % (0-3) Neutrophils # (Auto) 11.2 x10^3uL (1.8-7.7) Lymphocytes # (Auto) 1.0 x10^3/uL (1.0-4.8) Monocytes # (Auto) 2.0 x10^3/uL (0.0-1.1) Eosinophils # (Auto) 0.0 x10^3/uL (0.0-0.7) Basophils # (Auto) 0.0 x10^3/uL (0.0-0.2) Segmented Neutrophils % 70 % (35-66) Band Neutrophils % 12 % (0-9) Lymphocytes % 8 % (24-48) Monocytes % 10 % (0-10) Platelet Estimate Adequate (ADEQUATE) Sodium Level 139 mmol/L (136-145) Potassium Level 4.5 mmol/L (3.5-5.1) Chloride Level 102 mmol/L (98-107) Carbon Dioxide Level 29 mmol/L (21-32) Anion Gap 8 (6-14) Blood Urea Nitrogen 16 mg/dL (7-20) Creatinine 0.9 mg/dL (0.6-1.0) Estimated GFR (Cockcroft-Gault) 65.5 Glucose Level 135 mg/dL (70-99) Calcium Level 9.4 mg/dL (8.5-10.1) Phosphorus Level 5.0 mg/dL (2.6-4.7) Magnesium Level 2.0 mg/dL (1.8-2.4) Albumin 3.7 g/dL (3.4-5.0) Objective Assessment POD#1, s/p CABG x 2 (ORTA to LAD, SVG to Ramus) Fast track extubation yesterday. Doing very well this morning. Pain well controlled, had some nausea, better with Zofran. Normotensive and in SR. Hb 11, 1 Creat 0,9 excellent UO, minimal mediastinal and pleural drainage. Plan Plan of Care D/c swan-oz D/c a-line D/c mediastinal drains Amiodarone po for AFib prophylaxis ASA, statin, b jaqueline Ambulation ESTELA URRUTIA MD Jul 20, 2017 14:13
[2017-07-20] MEDS ORDERED: ZOLPIDEM 5 MG TABLET. PO PRN (20:00)
[2017-07-20] MEDS: METOPROLOL TART IMMED RELEASE 25 MG TABLET. PO SCH (21:00)
[2017-07-20] MEDS: ATORVASTATIN CALCIUM 40 MG TABLET. PO SCH (21:17)
[2017-07-21] VITALS (10 sets, daily range): BP systolic 85–114; BP diastolic 52–67
[2017-07-21] MEDS: oxyCODONE/APAP 5/325 1 TAB TABLET PO PRN ×5 (02:03→17:54)
[2017-07-21] MEDS: ONDANSETRON PF 4 MG/2 ML VIAL. IV PRN ×2 (02:08→14:48)
[2017-07-21 06:49] LABS: CALCIUM 8.8 mg/dL (8.5-10.1); CREATININE 0.8 mg/dL (0.6-1.0); MAGNESIUM 1.9 mg/dL (1.8-2.4); POTASSIUM 4.1 mmol/L (3.5-5.1)
[2017-07-21] MEDS: ASPIRIN ENTERIC COATED 325 MG TABLET.DR. PO SCH (08:07)
[2017-07-21] MEDS: NICOTINE 21MG PATCH. TD SCH (08:07)
[2017-07-21] MEDS: FAMOTIDINE 20 MG/2 ML VIAL IVP SCH (08:07)
[2017-07-21] MEDS: SENNOSIDES/DOCUSATE 8.6/50MG TABLET. PO SCH ×2 (08:08→20:16)
[2017-07-21] MEDS: AMIODARONE HCL 200 MG TABLET. PO SCH ×2 (08:08→20:17)
[2017-07-21] MEDS: METOPROLOL TART IMMED RELEASE 25 MG TABLET. PO SCH ×2 (08:09→20:19)
--- NOTE | 2017-07-21 09:35 | PDOC ---
PROGRESS NOTES Chief Complaint Chief Complaint CAD ASSESSMENT AND PLAN: 1. CAD: distal LM disease extending to proximal ramus and LAD s/p LHC (07/15) ; s/p CABG x 2 (ORTA to LAD, SVG to Ramus) on 07/19. remains on amiodarone, switch to PO today. 2ary prevention meds. Pleural drain, cordis management as per CV 2. HTN: new dx at admit. had been well controlled on lopressor 25 bid, lowish today. cont to monitor 3. HLD: on statin 4. ARIAS 5. Hypothyroidism: on hormone repletion with therapeutic TSH 6. Tobaccoism: on nicotine patch 7. DM: borderline elevated BG with normal HgbA1c. diet only, meds not indicated 8. 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 no nerve impingement 9. Compression fx lower T spine: Dr Garcia consulted: MRI and NS consult recommended, but can wait until cardiac issues resolved 10. Anxiety d/o NOS 11. Prophylaxis: History of Present Illness History of Present Illness feels better today. pain reasonably controlled on PO meds. no N/V Vitals Vitals Vital Signs Date Time Temp Pulse Resp B/P (MAP) Pulse Ox O2 Delivery O2 Flow Rate FiO2 07/21/17 08:09 103 97/55 07/21/17 08:07 98 Nasal Cannula 1.0 07/21/17 06:00 12 07/21/17 04:00 98.9 98.9 Physical Exam Physical Exam GENERAL: NAD, Alert HEENT: PERRL, OC/OP NECK: Supple, no JVD, no LN LUNGS: Clear HEART: S1S2, no gallop, no murmur ABD: Soft, NT, no organomegaly, no rebound EXT: No edema, no cyanosis MILKER MACHINE: Alert, oriented x 3, no focal neurologic deficit SKIN: No rash IV: ok General: Alert, Oriented X3, Cooperative, No acute distress Heart: Regular rate Lungs: Clear Abdomen: Normal bowel sounds, No tenderness Extremities: No clubbing, No edema Skin: No rashes Labs LABS Laboratory Tests Test 07/20/17 12:21 07/21/17 05:30 Glucose (Fingerstick) 107 mg/dL (70-99) Sodium Level 134 mmol/L (136-145) Potassium Level 4.1 mmol/L (3.5-5.1) Chloride Level 96 mmol/L (98-107) Carbon Dioxide Level 32 mmol/L (21-32) Anion Gap 6 (6-14) Blood Urea Nitrogen 11 mg/dL (7-20) Creatinine 0.8 mg/dL (0.6-1.0) Estimated GFR (Cockcroft-Gault) 75.0 Glucose Level 116 mg/dL (70-99) Calcium Level 8.8 mg/dL (8.5-10.1) Magnesium Level 1.9 mg/dL (1.8-2.4) LYNETTE SWANSON MD Jul 21, 2017 09:35
[2017-07-21] MEDS: FAMOTIDINE 20 MG TABLET. PO SCH (12:00)
--- NOTE | 2017-07-21 12:35 | PDOC ---
CARDIO Progress Notes Date and Time Date of Service 07/21/2017 Time of Evaluation 1200 Subjective Subjective: No Chest Pain, No shortness of breath, No Palpitations, Other ( feels tired, incisional pain controlled) Vitals Vitals Vital Signs Date Time Temp Pulse Resp B/P (MAP) Pulse Ox O2 Delivery O2 Flow Rate FiO2 07/21/17 08:09 103 97/55 07/21/17 08:07 98 Nasal Cannula 1.0 07/21/17 06:00 12 07/21/17 04:00 98.9 98.9 Weight Weight [ ] Laboratory Labs Laboratory Tests Test 07/21/17 05:30 Sodium Level 134 mmol/L (136-145) Potassium Level 4.1 mmol/L (3.5-5.1) Chloride Level 96 mmol/L (98-107) Carbon Dioxide Level 32 mmol/L (21-32) Anion Gap 6 (6-14) Blood Urea Nitrogen 11 mg/dL (7-20) Creatinine 0.8 mg/dL (0.6-1.0) Estimated GFR (Cockcroft-Gault) 75.0 Glucose Level 116 mg/dL (70-99) Calcium Level 8.8 mg/dL (8.5-10.1) Magnesium Level 1.9 mg/dL (1.8-2.4) Microbiology Micro Microbiology 07/14/17 Urine Culture - Final, Complete 07/14/17 Urine Culture Result 1 (RUDOLPH) - Final, Complete Physical Exam HEENT: Neck Supple W Full Motion Chest: Symmetric LUNGS: Other (diminished bases) Heart: S1S2, RRR (SR with no significnat ectopies overnight) Abdomen: Soft N/T Extremities: No Calf Tenderness Neurology: alert, oriented, follow commands Assessment Assessment 1. CAD: distal LM/Ramus via LHC, presented with UA. EF 50-55% 2. S/P POD#2 CABG x 2 (ORTA to LAD, SVG to Ramus) with lysis of pericardial adhesions. Doing well 3. HTN: SBP 90s. 4. HLP Recommendations 1. Continue with post CABG protocol. Transfer to [facility] 2. Present regimen noted, will continue. 3. Supportive care. LIBBY CAMARENA APRN Jul 21, 2017 12:35
--- NOTE | 2017-07-21 12:54 | PDOC ---
Progress Note Subjective Subjective Doing very well. No pain. Normotensive and in SR. On RA, sats 92%. Minimal pleural drainage. Ambulating. CXR looks good. ROS ROS No nausea No vomiting No SOB No pain No rash Vital Sign Vital Signs Vital Signs Date Time Temp Pulse Resp B/P (MAP) Pulse Ox O2 Delivery O2 Flow Rate FiO2 07/21/17 08:09 103 97/55 07/21/17 08:07 98 Nasal Cannula 1.0 07/21/17 06:00 12 07/21/17 04:00 98.9 98.9 Physical Exam PHYSICAL EXAM GENERAL: NAD, Alert HEENT: PERRL, OC/OP NECK: Supple, no JVD, no LN LUNGS: Clear HEART: S1S2, no gallop, no murmur ABD: Soft, NT, no organomegaly, no rebound EXT: No edema, no cyanosis MANAGER OF FINANCIAL REPORTING: Alert, oriented x 3, no focal neurologic deficit SKIN: No rash IV: ok Labs Lab Laboratory Tests Test 07/21/17 05:30 Sodium Level 134 mmol/L (136-145) Potassium Level 4.1 mmol/L (3.5-5.1) Chloride Level 96 mmol/L (98-107) Carbon Dioxide Level 32 mmol/L (21-32) Anion Gap 6 (6-14) Blood Urea Nitrogen 11 mg/dL (7-20) Creatinine 0.8 mg/dL (0.6-1.0) Estimated GFR (Cockcroft-Gault) 75.0 Glucose Level 116 mg/dL (70-99) Calcium Level 8.8 mg/dL (8.5-10.1) Magnesium Level 1.9 mg/dL (1.8-2.4) Objective Assessment POD#2, s/p CABG x 2 (ORTA to LAD, SVG to Ramus) Doing very well. No pain. Normotensive and in SR. On RA, sats 92%. Minimal pleural drainage. Ambulating. CXR looks good. Plan Plan of Care D/c pleural drain D/c cordis D/c marinelli Amiodarone po for AFib prophylaxis ASA, statin, b jaqueline Ambulation and I/S Transfer to [facility] ESTELA URRUTIA MD Jul 21, 2017 12:54
--- NOTE | 2017-07-21 13:34 | RAD ---
Exam performed: One view chest. History: 2 days post CABG. Date of service: 07/21/17. Comparison: 07/20/17. Single AP semiupright portable view chest findings: There has been interval removal of Hazen-Tip catheter with IJ sheath remaining. The mediastinal drain has been removed however the left chest tube remains in place. Median sternotomy. Heart size and mediastinal silhouette is within limits of normal. The pulmonary vascularity is unremarkable. There is no pleural effusion or pneumothorax. Impression: Interval removal of Hazen-Tip catheter and mediastinal drain. Otherwise satisfactory postoperative appearance of median sternotomy.
[2017-07-21] MEDS: IV RINGERS,LACTATED 1000ML 1,000 ML IV SCH (13:50)
[2017-07-21] MEDS: ATORVASTATIN CALCIUM 40 MG TABLET. PO SCH (20:19)
[2017-07-21] MEDS: ALPRAZolam 0.5 MG TABLET PO PRN (20:22)
[2017-07-22 04:09] VITALS: BP 103/63
[2017-07-22 04:36] LABS: BASO % 0 % (0-3); EOS % 1 % (0-3); HEMATOCRIT 29.7 % (36.0-47.0); HEMOGLOBIN 10.6 g/dL (12.0-15.5); LYMPH # 1.8 x10^3/uL (1.0-4.8); LYMPH % 19 % (24-48); MEAN CORPUSCULAR HEMOGLOBIN 34 pg (25-35); MEAN CORPUSCULAR HGB CONC 36 g/dL (31-37); MEAN CORPUSCULAR VOLUME 95 fL (79-100); MONO % 12 % (0-9); NEUT % 68 % (31-73); PLATELET COUNT 137 x10^3/uL (140-400); RED BLOOD COUNT 3.12 x10^6/uL (3.50-5.40); WHITE BLOOD COUNT 9.5 x10^3/uL (4.0-11.0)
[2017-07-22 05:51] LABS: CREATININE 0.8 mg/dL (0.6-1.0); MAGNESIUM 2.1 mg/dL (1.8-2.4); POTASSIUM 3.7 mmol/L (3.5-5.1)
--- NOTE | 2017-07-22 08:14 | RAD ---
Exam performed: One view chest. Indication: 3 days POST OP CABG Date of Service: 07/22/2017 9:00 AM Comparison: 07/21/17. Single AP upright portable view chest findings: Interval removal of the right IJ sheath and left-sided chest tube. Cardiomediastinal silhouette is within limits of normal. There is minimal blunting of both costophrenic angles likely postoperative. Haziness in the left lung base may be related to mild atelectasis and accentuated due to rotation. The bony structures are normal. Impression: Interval removal of right IJ sheath and left chest tube. Otherwise satisfactory postoperative changes.
--- NOTE | 2017-07-22 08:25 | PDOC ---
Progress Note Subjective Subjective Doing very well. No pain. Normotensive and in SR. On RA sats 90%, occasionally needs 2 lit NC.Ambulating. CXR looks good. 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 ASSISTANT DATA ENTRY: Alert, oriented x 3, no focal neurologic deficit SKIN: No rash IV: ok Labs Lab Laboratory Tests Test 07/22/17 04:08 White Blood Count 9.5 x10^3/uL (4.0-11.0) Red Blood Count 3.12 x10^6/uL (3.50-5.40) Hemoglobin 10.6 g/dL (12.0-15.5) Hematocrit 29.7 % (36.0-47.0) Mean Corpuscular Volume 95 fL (79-100) Mean Corpuscular Hemoglobin 34 pg (25-35) Mean Corpuscular Hemoglobin Concent 36 g/dL (31-37) Red Cell Distribution Width 13.0 % (11.5-14.5) Platelet Count 137 x10^3/uL (140-400) Neutrophils (%) (Auto) 68 % (31-73) Lymphocytes (%) (Auto) 19 % (24-48) Monocytes (%) (Auto) 12 % (0-9) Eosinophils (%) (Auto) 1 % (0-3) Basophils (%) (Auto) 0 % (0-3) Neutrophils # (Auto) 6.4 x10^3uL (1.8-7.7) Lymphocytes # (Auto) 1.8 x10^3/uL (1.0-4.8) Monocytes # (Auto) 1.2 x10^3/uL (0.0-1.1) Eosinophils # (Auto) 0.1 x10^3/uL (0.0-0.7) Basophils # (Auto) 0.0 x10^3/uL (0.0-0.2) Sodium Level 138 mmol/L (136-145) Potassium Level 3.7 mmol/L (3.5-5.1) Chloride Level 99 mmol/L (98-107) Carbon Dioxide Level 34 mmol/L (21-32) Anion Gap 5 (6-14) Blood Urea Nitrogen 11 mg/dL (7-20) Creatinine 0.8 mg/dL (0.6-1.0) Estimated GFR (Cockcroft-Gault) 75.0 Glucose Level 98 mg/dL (70-99) Calcium Level 9.0 mg/dL (8.5-10.1) Magnesium Level 2.1 mg/dL (1.8-2.4) Objective Assessment POD#3, s/p CABG x 2 (ORTA to LAD, SVG to Ramus) Doing very well. No pain. Normotensive and in SR. On RA sats 90%, occasionally needs 2 lit NC.Ambulating. CXR looks good. Appears to be above her dry weight Plan Plan of Care D/c pacing wires ASA, statin, b jaqueline Amiodarone for AFib prophylaxis, will stop before discharge Ambulation and I/S Lasix 20mg iv x1 D/c home on Wednesday ESTELA URRUTIA MD Jul 22, 2017 08:24
[2017-07-22 08:35] VITALS: BP 101/56
[2017-07-22] MEDS ORDERED: FUROSEMIDE 20 MG/2 ML VIAL. IVP SCH (09:00)
[2017-07-22] MEDS: NICOTINE 21MG PATCH. TD SCH (09:00)
[2017-07-22] MEDS: SENNOSIDES/DOCUSATE 8.6/50MG TABLET. PO SCH ×2 (09:17→20:34)
[2017-07-22] MEDS: ASPIRIN ENTERIC COATED 325 MG TABLET.DR. PO SCH (09:18)
[2017-07-22] MEDS: METOPROLOL TART IMMED RELEASE 25 MG TABLET. PO SCH ×2 (09:18→20:35)
[2017-07-22] MEDS: FAMOTIDINE 20 MG TABLET. PO SCH (09:19)
[2017-07-22] MEDS: oxyCODONE/APAP 5/325 1 TAB TABLET PO PRN ×2 (09:19→18:46)
[2017-07-22] MEDS: AMIODARONE HCL 200 MG TABLET. PO SCH ×2 (09:20→20:34)
[2017-07-22] MEDS: ONDANSETRON PF 4 MG/2 ML VIAL. IV PRN ×2 (09:23→18:49)
[2017-07-22 10:57] VITALS: BP 107/58
[2017-07-22] MEDS ORDERED: FUROSEMIDE 20 MG/2 ML VIAL. IVP ONE (12:00)
[2017-07-22] MEDS ORDERED: BISACODYL 10 MG SUPP.RECT. PR PRN (12:30)
--- NOTE | 2017-07-22 12:31 | PDOC ---
CARDIO Progress Notes Date and Time Date of Service 07/22/2017 Time of Evaluation 1100 Subjective Subjective: No Chest Pain, No shortness of breath, No Palpitations, Other ( incisional pain controlled) Vitals Vitals Vital Signs Date Time Temp Pulse Resp B/P (MAP) Pulse Ox O2 Delivery O2 Flow Rate FiO2 07/22/17 10:57 98.0 90 18 107/58 (74) 99 Room Air 98.0 07/22/17 10:38 2.0 Weight Weight [ ] Input and Output Intake and Output Intake and Output 07/23/17 07:00 Intake Total 0 ml Balance 0 ml Intake Oral 0 ml Laboratory Labs Laboratory Tests Test 07/22/17 04:08 White Blood Count 9.5 x10^3/uL (4.0-11.0) Red Blood Count 3.12 x10^6/uL (3.50-5.40) Hemoglobin 10.6 g/dL (12.0-15.5) Hematocrit 29.7 % (36.0-47.0) Mean Corpuscular Volume 95 fL (79-100) Mean Corpuscular Hemoglobin 34 pg (25-35) Mean Corpuscular Hemoglobin Concent 36 g/dL (31-37) Red Cell Distribution Width 13.0 % (11.5-14.5) Platelet Count 137 x10^3/uL (140-400) Neutrophils (%) (Auto) 68 % (31-73) Lymphocytes (%) (Auto) 19 % (24-48) Monocytes (%) (Auto) 12 % (0-9) Eosinophils (%) (Auto) 1 % (0-3) Basophils (%) (Auto) 0 % (0-3) Neutrophils # (Auto) 6.4 x10^3uL (1.8-7.7) Lymphocytes # (Auto) 1.8 x10^3/uL (1.0-4.8) Monocytes # (Auto) 1.2 x10^3/uL (0.0-1.1) Eosinophils # (Auto) 0.1 x10^3/uL (0.0-0.7) Basophils # (Auto) 0.0 x10^3/uL (0.0-0.2) Sodium Level 138 mmol/L (136-145) Potassium Level 3.7 mmol/L (3.5-5.1) Chloride Level 99 mmol/L (98-107) Carbon Dioxide Level 34 mmol/L (21-32) Anion Gap 5 (6-14) Blood Urea Nitrogen 11 mg/dL (7-20) Creatinine 0.8 mg/dL (0.6-1.0) Estimated GFR (Cockcroft-Gault) 75.0 Glucose Level 98 mg/dL (70-99) Calcium Level 9.0 mg/dL (8.5-10.1) Magnesium Level 2.1 mg/dL (1.8-2.4) Microbiology Micro Microbiology 07/14/17 Urine Culture - Final, Complete 07/14/17 Urine Culture Result 1 (RUDOLPH) - Final, Complete Physical Exam HEENT: Neck Supple W Full Motion Chest: Symmetric LUNGS: Other (diminished bases) Heart: S1S2, RRR (SR) Abdomen: Soft N/T Extremities: No Calf Tenderness, Other (trace LE edema) Neurology: alert, oriented, follow commands Assessment Assessment 1. CAD: distal LM/Ramus via LHC, presented with UA. EF 50-55% 2. S/P POD#3 CABG x 2 (ORTA to LAD, SVG to Ramus) with lysis of pericardial adhesions. 3. HTN: controlled 4. HLP 5. Atelectasis Recommendations 1. Continue with post CABG protocol. 2. Continue secondary prevention 3. Push IS. Supportive care. 4. Follow up in office in 4-5 weeks. LIBBY CAMARENA APRN Jul 22, 2017 12:31
[2017-07-22] MEDS: METOCLOPRAMIDE HCL 10 MG/2 ML VIAL. IV PRN (14:07)
[2017-07-22 15:35] VITALS: BP 104/59
--- NOTE | 2017-07-22 16:33 | PDOC ---
PROGRESS NOTES Subjective Subjective SHE ADMITS CHEST WALL DISCOMFORT AND CONSTIPATION. Objective Objective Vital Signs Date Time Temp Pulse Resp B/P (MAP) Pulse Ox O2 Delivery O2 Flow Rate FiO2 07/22/17 15:35 98.3 92 20 104/59 (74) 93 Nasal Cannula 2.0 98.3 Intake and Output 07/23/17 07:00 Intake Total 650 ml Output Total 900 ml Balance -250 ml Intake Oral 650 ml Output Urine Total 900 ml Physical Exam Physical Exam She is supine in bed and does not seem to be in any acute distress.She is independent walking with roller walker. Assessment Assessment Problems Medical Problems: (1) Elevated troponin Status: Acute (2) Left sided numbness Status: Acute (3) UTI (urinary tract infection) Status: Acute Plan Plan of Care To arrange for roller walker for home use. Comment Review of Relevant I have reviewed the following items ivn (where applicable) has been applied. Labs Laboratory Tests Test 07/21/17 05:30 07/22/17 04:08 Sodium Level 134 mmol/L (136-145) 138 mmol/L (136-145) Potassium Level 4.1 mmol/L (3.5-5.1) 3.7 mmol/L (3.5-5.1) Chloride Level 96 mmol/L (98-107) 99 mmol/L (98-107) Carbon Dioxide Level 32 mmol/L (21-32) 34 mmol/L (21-32) Anion Gap 6 (6-14) 5 (6-14) Blood Urea Nitrogen 11 mg/dL (7-20) 11 mg/dL (7-20) Creatinine 0.8 mg/dL (0.6-1.0) 0.8 mg/dL (0.6-1.0) Estimated GFR (Cockcroft-Gault) 75.0 75.0 Glucose Level 116 mg/dL (70-99) 98 mg/dL (70-99) Calcium Level 8.8 mg/dL (8.5-10.1) 9.0 mg/dL (8.5-10.1) Magnesium Level 1.9 mg/dL (1.8-2.4) 2.1 mg/dL (1.8-2.4) White Blood Count 9.5 x10^3/uL (4.0-11.0) Red Blood Count 3.12 x10^6/uL (3.50-5.40) Hemoglobin 10.6 g/dL (12.0-15.5) Hematocrit 29.7 % (36.0-47.0) Mean Corpuscular Volume 95 fL (79-100) Mean Corpuscular Hemoglobin 34 pg (25-35) Mean Corpuscular Hemoglobin Concent 36 g/dL (31-37) Red Cell Distribution Width 13.0 % (11.5-14.5) Platelet Count 137 x10^3/uL (140-400) Neutrophils (%) (Auto) 68 % (31-73) Lymphocytes (%) (Auto) 19 % (24-48) Monocytes (%) (Auto) 12 % (0-9) Eosinophils (%) (Auto) 1 % (0-3) Basophils (%) (Auto) 0 % (0-3) Neutrophils # (Auto) 6.4 x10^3uL (1.8-7.7) Lymphocytes # (Auto) 1.8 x10^3/uL (1.0-4.8) Monocytes # (Auto) 1.2 x10^3/uL (0.0-1.1) Eosinophils # (Auto) 0.1 x10^3/uL (0.0-0.7) Basophils # (Auto) 0.0 x10^3/uL (0.0-0.2) Laboratory Tests Test 07/22/17 04:08 White Blood Count 9.5 x10^3/uL (4.0-11.0) Red Blood Count 3.12 x10^6/uL (3.50-5.40) Hemoglobin 10.6 g/dL (12.0-15.5) Hematocrit 29.7 % (36.0-47.0) Mean Corpuscular Volume 95 fL (79-100) Mean Corpuscular Hemoglobin 34 pg (25-35) Mean Corpuscular Hemoglobin Concent 36 g/dL (31-37) Red Cell Distribution Width 13.0 % (11.5-14.5) Platelet Count 137 x10^3/uL (140-400) Neutrophils (%) (Auto) 68 % (31-73) Lymphocytes (%) (Auto) 19 % (24-48) Monocytes (%) (Auto) 12 % (0-9) Eosinophils (%) (Auto) 1 % (0-3) Basophils (%) (Auto) 0 % (0-3) Neutrophils # (Auto) 6.4 x10^3uL (1.8-7.7) Lymphocytes # (Auto) 1.8 x10^3/uL (1.0-4.8) Monocytes # (Auto) 1.2 x10^3/uL (0.0-1.1) Eosinophils # (Auto) 0.1 x10^3/uL (0.0-0.7) Basophils # (Auto) 0.0 x10^3/uL (0.0-0.2) Sodium Level 138 mmol/L (136-145) Potassium Level 3.7 mmol/L (3.5-5.1) Chloride Level 99 mmol/L (98-107) Carbon Dioxide Level 34 mmol/L (21-32) Anion Gap 5 (6-14) Blood Urea Nitrogen 11 mg/dL (7-20) Creatinine 0.8 mg/dL (0.6-1.0) Estimated GFR (Cockcroft-Gault) 75.0 Glucose Level 98 mg/dL (70-99) Calcium Level 9.0 mg/dL (8.5-10.1) Magnesium Level 2.1 mg/dL (1.8-2.4) Microbiology 07/14/17 Urine Culture - Final, Complete 07/14/17 Urine Culture Result 1 (RUDOLPH) - Final, Complete Medications Current Medications Aspirin (Children'S Aspirin) 324 mg 1X ONCE PO Last administered on 07/14/17 12:26; Start 07/14/17 at 12:30; Stop 07/14/17 at 12:31; Status DC Nitroglycerin (Nitrostat) 0.4 mg PRN Q5MIN PRN SL CHEST PAIN Last administered on 07/14/17 12:28; Start 07/14/17 at 12:30 Morphine Sulfate 4 mg 1X ONCE IM Last administered on 07/14/17 13:08; Start 07/14/17 at 13:15; Stop 07/14/17 at 13:16; Status DC Ondansetron HCl (Zofran) 4 mg PRN Q8HRS PRN IV NAUSEA/VOMITING; Start 07/14/17 at 13:00; Stop 07/15/17 at 12:59; Status DC Morphine Sulfate 2 mg PRN Q2HR PRN IV PAIN; Start 07/14/17 at 13:00; Stop 07/14 at 15:16; Status DC Nitroglycerin (Nitrostat) 0.4 mg PRN Q5MIN PRN SL CHEST PAIN; Start 07/14/17 at 13:00; Stop 07/15/17 at 12:59; Status DC Nitrofurantoin Macrocrystals (Macrobid) 100 mg BID PO Last administered on 07/14 13:07; Start 07/14/17 at 13:15; Stop 07/14/17 at 16:14; Status DC Morphine Sulfate 2 mg PRN Q2HR PRN IV PAIN Last administered on 07/17/17 19:50 ; Start 07/14/17 at 15:30; Stop 07/20/17 at 15:19; Status DC Heparin Sodium/ Dextrose 500 ml @ 0 mls/hr CONT PRN IV SEE I/O RECORD Last administered on 07/18/17 15:14; Start 07/14/17 at 15:45; Stop 07/20/17 at 13:09 ; Status DC Heparin Sodium (Porcine) (Heparin Sodium) 2,000 unit PRN Q6HRS PRN IV FOR UFH LEVEL LESS THAN 0.2 Last administered on 07/15/17 02:35; Start 07/14/17 at 15: 45; Stop 07/20/17 at 13:09; Status DC Info (Anti-Coagulation Monitoring By Pharmacy) 1 each PRN DAILY PRN MC SEE COMMENTS Last administered on 07/18/17 08:55; Start 07/14/17 at 16:00; Stop at 11:18; Status DC Amlodipine Besylate (Norvasc) 5 mg 1X ONCE PO Last administered on 07/14/17 16:30; Start 07/14/17 at 16:30; Stop 07/14/17 at 16:31; Status DC Aspirin (Ecotrin) 81 mg DAILYWBKFT PO Last administered on 07/16/17 10:46; Start 07/15/17 at 08:00; Stop 07/16/17 at 15:15; Status DC Atorvastatin Calcium (Lipitor) 20 mg QHS PO ; Start 07/14/17 at 21:00; Stop at 21:00; Status DC Acetaminophen (Tylenol) 650 mg PRN Q6HRS PRN PO FEVER; Start 07/14/17 at 16:15 ; Stop 07/20/17 at 15:18; Status DC Ondansetron HCl (Zofran) 4 mg PRN Q6HRS PRN IV NAUSEA/VOMITING Last administered on 07/20/17 12:51; Start 07/14/17 at 16:15; Stop 07/20/17 at 15:17 ; Status DC Morphine Sulfate 2 mg PRN Q2HR PRN IV MODERATE TO SEVERE PAIN; Start 07/14/17 at 16:15; Stop 07/15/17 at 08:48; Status DC Tramadol HCl (Ultram) 50 mg PRN Q6HRS PRN PO MILD TO MODERATE PAIN Last administered on 07/17/17 19:47; Start 07/14/17 at 16:15; Stop 07/20/17 at 19:51 ; Status DC Hydralazine HCl (Apresoline) 10 mg PRN Q4HRS PRN IVP ELEVATED BP, SEE COMMENTS ; Start 07/14/17 at 16:15 Docusate Sodium (Colace) 100 mg PRN DAILY PRN PO CONSTIPATION Last administered on 07/20/17 09:11; Start 07/14/17 at 16:15 Lorazepam (Ativan) 0.5 mg 1X ONCE PO Last administered on 07/14/17 16:30; Start 07/14/17 at 16:30; Stop 07/14/17 at 16:31; Status DC Atorvastatin Calcium (Lipitor) 40 mg QHS PO Last administered on 07/21/17 20: 19; Start 07/14/17 at 21:00 Iohexol (Omnipaque 300 Mg/ml) 100 ml STK-MED ONCE .ROUTE ; Start 07/15/17 at 09: 12; Stop 07/15/17 at 09:13; Status DC Heparin Sodium/ Sodium Chloride 1,500 ml @ As Directed STK-MED ONCE .ROUTE ; Start 07/15/17 at 09:12; Stop 07/15/17 at 09:13; Status DC Lidocaine HCl 20 ml STK-MED ONCE .ROUTE ; Start 07/15/17 at 09:12; Stop at 09:13; Status DC Verapamil HCl (Verapamil) 5 mg STK-MED ONCE .ROUTE ; Start 07/15/17 at 09:36; Stop 07/15/17 at 09:37; Status DC Heparin Sodium (Porcine) (Heparin Sodium) 10,000 unit STK-MED ONCE .ROUTE ; Start 07/15/17 at 09:36; Stop 07/15/17 at 09:37; Status DC Fentanyl Citrate (Fentanyl 2ml Vial) 100 mcg STK-MED ONCE .ROUTE ; Start at 09:37; Stop 07/15/17 at 09:38; Status DC Midazolam HCl (Versed) 5 mg STK-MED ONCE .ROUTE ; Start 07/15/17 at 09:37; Stop 07/15/17 at 09:38; Status DC Nitroglycerin (Nitroglycerin) 200 mcg STK-MED ONCE .ROUTE ; Start 07/15/17 at 09 :39; Stop 07/15/17 at 09:40; Status DC Nitroglycerin (Nitroglycerin) 200 mcg 1X ONCE IART Last administered on 10:35; Start 07/15/17 at 09:45; Stop 07/15/17 at 09:47; Status DC Verapamil HCl (Verapamil) 2.5 mg 1X ONCE IART Last administered on 07/15/17 10:36; Start 07/15/17 at 09:45; Stop 07/15/17 at 09:47; Status DC Heparin Sodium (Porcine) (Heparin Sodium) 2,500 unit 1X ONCE IART Last administered on 07/15/17 10:37; Start 07/15/17 at 09:45; Stop 07/15/17 at 09:47 ; Status DC Heparin Sodium/ Sodium Chloride 1,000 unit 1X ONCE IART Last administered on 10:36; Start 07/15/17 at 09:45; Stop 07/15/17 at 09:47; Status DC Midazolam HCl (Versed) 5 mg 1X ONCE IV Last administered on 07/15/17 10:34; Start 07/15/17 at 09:45; Stop 07/15/17 at 09:47; Status DC Fentanyl Citrate (Fentanyl 2ml Vial) 100 mcg 1X ONCE IV Last administered on 10:35; Start 07/15/17 at 09:45; Stop 07/15/17 at 09:47; Status DC Iohexol (Omnipaque 300 Mg/ml) 100 ml 1X ONCE IART Last administered on 10:36; Start 07/15/17 at 09:45; Stop 07/15/17 at 09:47; Status DC Lidocaine HCl 20 ml 1X ONCE IJ Last administered on 07/15/17 10:35; Start at 09:45; Stop 07/15/17 at 09:47; Status DC Nitroglycerin (Nitroglycerin) 200 mcg [employer]uxe[employer]-Edust[employer].me ONCE .ROUTE ; Start 07/15/17 at 10 :17; Stop 07/15/17 at 10:18; Status DC Gadobutrol (Gadavist) 7.5 mmol 1X ONCE IV Last administered on 07/15/17 12:56 ; Start 07/15/17 at 12:45; Stop 07/15/17 at 12:46; Status DC Nicotine (Nicoderm Cq 21mg) 1 patch DAILY TD Last administered on 07/21/17 08: 07; Start 07/15/17 at 18:00 Metoprolol Succinate (Toprol Xl) 12.5 mg DAILY PO Last administered on 07:48; Start 07/16/17 at 11:00; Stop 07/20/17 at 11:58; Status DC Ondansetron HCl (Zofran) 4 mg PRN Q6HRS PRN IV NAUSEA/VOMITING; Start 07/19/17 at 07:00; Stop 07/20/17 at 07:17; Status DC Fentanyl Citrate (Fentanyl 2ml Vial) 25 mcg PRN Q5MIN PRN IV MILD PAIN; Start 07/19/17 at 07:00; Stop 07/20/17 at 07:17; Status DC Fentanyl Citrate (Fentanyl 2ml Vial) 50 mcg PRN Q5MIN PRN IV MODERATE PAIN; Start 07/19/17 at 07:00; Stop 07/20/17 at 07:17; Status DC Ringer's Solution 1,000 ml @ 30 mls/hr Q24H IV Last administered on 07/19/17 07:00; Start 07/19/17 at 07:00; Stop 07/19/17 at 18:59; Status DC Lidocaine HCl 2 ml PRN 1X PRN ID PRIOR TO IV START; Start 07/19/17 at 07:00; Stop 07/20/17 at 07:17; Status DC Prochlorperazine Edisylate (Compazine) 5 mg PACU PRN PRN IV NAUSEA, MRX1; Start 07/19/17 at 07:00; Stop 07/20/17 at 07:17; Status DC Alprazolam (Xanax) 0.5 mg PRN Q6HRS PRN PO ANXIETY / AGITATION Last administered on 07/21/17 20:22; Start 07/17/17 at 21:30 Potassium Chloride 70 meq/ Sodium Bicarbonate 12.5 meq/Lidocaine HCl 24 ml/ Parenteral Electrolytes 571.5 ml @ 571.5 mls/ hr 1X PERIOP ONCE IRR Last administered on 07/19/17 06:00; Start 07/19/17 at 06:00; Stop 07/19/17 at 06:59 ; Status DC Potassium Chloride 15 meq/ Sodium Bicarbonate 12.5 meq/Parenteral Electrolytes 520 ml @ 520 mls/hr 1X PERIOP ONCE IRR Last administered on 07/19/17 06:00; Start 07/19/17 at 06:00; Stop 07/19/17 at 06:59; Status DC Heparin Sodium (Porcine) 54866 unit/Ringer's Solution 1,020 ml @ 1,020 mls/hr 1X PERIOP ONCE IRR Last administered on 07/19/17 08:36; Start 07/19/17 at 06: 00; Stop 07/19/17 at 06:59; Status DC Cefazolin Sodium 1 gm/Sodium Chloride 500 ml @ 500 mls/hr 1X PERIOP ONCE IRR Last administered on 07/19/17 08:36; Start 07/19/17 at 06:00; Stop 07/19/17 at 06:59; Status DC Midazolam HCl (Versed) 5 mg STK-MED ONCE .ROUTE ; Start 07/19/17 at 07:04; Stop 07/19/17 at 07:05; Status DC Etomidate (Amidate) 20 mg STK-MED ONCE IV ; Start 07/19/17 at 07:06; Stop at 07:07; Status DC Phenylephrine HCl (Hua-Synephrine Inj) 10 mg STK-MED ONCE .ROUTE ; Start at 07:06; Stop 07/19/17 at 07:07; Status DC Lidocaine HCl (Lidocaine Pf 2% Vial) 5 ml STK-MED ONCE .ROUTE ; Start 07/19/17 at 07:06; Stop 07/19/17 at 07:07; Status DC Aminocaproic Acid (Amicar) 5,000 mg STK-MED ONCE IV ; Start 07/19/17 at 07:06; Stop 07/19/17 at 07:07; Status DC Nitroglycerin/ Dextrose 250 ml @ As Directed STK-MED ONCE IV ; Start 07/19/17 at 07:06; Stop 07/19/17 at 07:07; Status DC Fentanyl Citrate (Fentanyl 5ml Vial) 250 mcg STK-MED ONCE .ROUTE ; Start at 07:06; Stop 07/19/17 at 07:07; Status DC Epinephrine HCl (Adrenalin) 1 mg STK-MED ONCE .ROUTE ; Start 07/19/17 at 07:06; Stop 07/19/17 at 07:07; Status DC Rocuronium [place] (Zemuron) 100 mg STK-MED ONCE .ROUTE ; Start 07/19/17 at 07: 07; Stop 07/19/17 at 07:08; Status DC Heparin Sodium (Porcine) 30,000 unit STK-MED ONCE .ROUTE ; Start 07/19/17 at 07: 07; Stop 07/19/17 at 07:08; Status DC Ephedrine Sulfate 50 mg STK-MED ONCE IV ; Start 07/19/17 at 07:07; Stop at 07:08; Status DC Sufentanil Citrate (Sufenta) 100 mcg STK-MED ONCE .ROUTE ; Start 07/19/17 at 07: 07; Stop 07/19/17 at 07:08; Status DC Dexamethasone Sodium Phosphate (Decadron) 20 mg STK-MED ONCE .ROUTE ; Start at 07:07; Stop 07/19/17 at 07:08; Status DC Ondansetron HCl (Zofran) 4 mg STK-MED ONCE .ROUTE ; Start 07/19/17 at 07:07; Stop 07/19/17 at 07:08; Status DC Cellulose 1 each STK-MED ONCE .ROUTE Last administered on 07/19/17t 12:16; Start 07/19/17 at 07:09; Stop 07/19/17 at 07:10; Status DC Vancomycin HCl (Vanco) 10 gm STK-MED ONCE .ROUTE ; Start 07/19/17 at 07:09; Stop 07/19/17 at 07:10; Status DC Papaverine HCl 60 mg STK-MED ONCE .ROUTE Last administered on 07/19/17 08:36; Start 07/19/17 at 07:09; Stop 07/19/17 at 07:10; Status DC Aspirin (Aspirin) 300 mg STK-MED ONCE .ROUTE Last administered on 07/19/17 08: 36; Start 07/19/17 at 07:10; Stop 07/19/17 at 07:11; Status DC Sodium Chloride (Sodium Chloride) 50 ml STK-MED ONCE IJ Last administered on 08:36; Start 07/19/17 at 07:15; Stop 07/19/17 at 07:16; Status DC Isoflurane (Isoflurane) 90 ml STK-MED ONCE IH ; Start 07/19/17 at 07:26; Stop at 07:27; Status DC Cefazolin Sodium/ Dextrose 50 ml @ As Directed STK-MED ONCE IV ; Start 07/19/17 at 07:31; Stop 07/19/17 at 07:32; Status DC Cefazolin Sodium/ Dextrose 50 ml @ 100 mls/hr 1X ONCE IV Last administered on 07/19/17 08:23; Start 07/19/17 at 08:00; Stop 07/19/17 at 08:29; Status DC Sufentanil Citrate (Sufenta) 100 mcg STK-MED ONCE .ROUTE ; Start 07/19/17 at 08: 54; Stop 07/19/17 at 08:55; Status DC Rocuronium [place] (Zemuron) 100 mg STK-MED ONCE .ROUTE ; Start 07/19/17 at 10: 06; Stop 07/19/17 at 10:07; Status DC Midazolam HCl (Versed) 2 mg STK-MED ONCE .ROUTE ; Start 07/19/17 at 11:55; Stop 07/19/17 at 11:56; Status DC Protamine Sulfate 250 mg STK-MED ONCE IV ; Start 07/19/17 at 11:57; Stop at 11:58; Status DC Cefazolin Sodium/ Dextrose 50 ml @ 100 mls/hr 1X ONCE IV Last administered on 07/19/17t 12:45; Start 07/19/17 at 12:15; Stop 07/19/17 at 12:44; Status DC Lidocaine HCl (Lidocaine Pf 2% Vial) 5 ml STK-MED ONCE .ROUTE ; Start 07/19/17 at 12:21; Stop 07/19/17 at 12:22; Status DC Amiodarone HCl 900 mg/Dextrose 518 ml @ 33 mls/hr 1X ONCE IV Last administered on 07/19/17t 12:32; Start 07/19/17 at 12:30; Stop 07/20/17 at 04:11 ; Status DC Rocuronium [place] (Zemuron) 100 mg STK-MED ONCE .ROUTE ; Start 07/19/17 at 12: 49; Stop 07/19/17 at 12:50; Status DC Lidocaine HCl (Lidocaine Pf 2% Vial) 5 ml STK-MED ONCE .ROUTE ; Start 07/19/17 at 12:56; Stop 07/19/17 at 12:57; Status DC Mannitol (Mannitol) 12.5 g STK-MED ONCE .ROUTE ; Start 07/19/17 at 12:56; Stop 07/19/17 at 12:57; Status DC Calcium Chloride 1,000 mg STK-MED ONCE IV ; Start 07/19/17 at 12:56; Stop at 12:57; Status DC Albumin Human 100 ml @ As Directed STK-MED ONCE IV ; Start 07/19/17 at 12:56; Stop 07/19/17 at 12:57; Status DC Heparin Sodium (Porcine) 30,000 unit STK-MED ONCE .ROUTE ; Start 07/19/17 at 12: 56; Stop 07/19/17 at 12:57; Status DC Magnesium Sulfate 5 gm STK-MED ONCE .ROUTE ; Start 07/19/17 at 12:56; Stop 07/19 at 12:57; Status DC Sodium Chloride (Normal Saline Flush) 3 ml PRN Q12HR PRN IV AFTER MEDS AND BLOOD DRAWS; Start 07/19/17 at 14:00 Ringer's Solution 1,000 ml @ 30 mls/hr Q24H IV Last administered on 07/20/17 12:57; Start 07/19/17 at 13:50; Stop 07/22/17 at 12:24; Status DC Albumin Human 250 ml @ 60 mls/hr PRN Q4HRS PRN IV SEE I/O RECORD Last administered on 07/19/17 16:35; Start 07/19/17 at 14:00; Stop 07/20/17 at 19:51 ; Status DC Insulin Human Regular 150 unit/ Sodium Chloride 151.5 ml @ 0 mls/hr CONT PRN PRN IV SEE I/O RECORD Last administered on 07/19/17 15:14; Start 07/19/17 at 14 :00; Stop 07/20/17 at 19:51; Status DC Dextrose (Dextrose 50%-Water Syringe) 25 gm PRN Q15MIN PRN IV LOW BLOOD SUGAR; Start 07/19/17 at 14:00 Phenylephrine HCl 20 mg/Sodium Chloride 252 ml @ 0 mls/hr CONT PRN PRN IV HYPOTENSION; Start 07/19/17 at 14:00; Stop 07/20/17 at 19:51; Status DC Amiodarone HCl 900 mg/Dextrose 518 ml @ 33.33 mls/ hr CONT PRN IV SEE I/O RECORD; Start 07/19/17 at 14:00; Stop 07/20/17 at 08:10; Status DC Info 1 ea CONT PRN PRN MC SEE COMMENTS; Start 07/19/17 at 14:00; Stop 07/22/17 at 12:24; Status DC Magnesium Sulfate/ Dextrose 100 ml @ 100 mls/hr PRN DAILY PRN IV FOR MAG < 2.2 ; Start 07/19/17 at 14:00; Stop 07/22/17 at 12:24; Status DC Famotidine (Pepcid) 20 mg BID IVP Last administered on 07/21/17 08:07; Start 07/19/17 at 21:00; Stop 07/21/17 at 11:45; Status DC Ondansetron HCl (Zofran) 4 mg PRN Q4HRS PRN IV NAUSEA/VOMITING Last administered on 07/22/17 09:23; Start 07/19/17 at 14:00 Morphine Sulfate 2 mg PRN Q1HR PRN IV PAIN Last administered on 07/20/17 18:20 ; Start 07/19/17 at 14:00; Stop 07/20/17 at 19:51; Status DC Acetaminophen (Tylenol) 650 mg PRN Q4HRS PRN PO MILD PAIN / TEMP; Start at 14:00 Acetaminophen (Acetaminophen Supp) 650 mg PRN Q4HRS PRN [place] MILD PAIN / TEMP; Start 07/19/17 at 14:00; Stop 07/20/17 at 19:51; Status DC Meperidine HCl (Demerol) 12.5 mg PRN Q15MIN PRN IV SHIVERING; Start 07/19/17 at 14:00; Stop 07/20/17 at 13:50; Status DC Propofol 100 ml @ 0 mls/hr CONT PRN PRN IV POSTOP SEDATION UNTIL EXTUBATE; Start 07/19/17 at 14:00; Stop 07/20/17 at 13:11; Status DC Senna/Docusate Sodium (Senna Plus) 1 tab BID PO Last administered on 07/22/17 09:17; Start 07/19/17 at 21:00 Aspirin (Ecotrin) 325 mg DAILYWBKFT PO Last administered on 07/22/17 09:18; Start 07/20/17 at 08:00 Albuterol Sulfate (Ventolin Neb Soln) 2.5 mg PRN Q4HRS PRN NEB SHORTNESS OF BREATH; Start 07/19/17 at 14:00 Metoprolol Tartrate (Lopressor) 25 mg BID PO ; Start 07/20/17 at 09:00; Stop at 11:58; Status DC Clevidipine 100 ml @ 0 mls/hr CONT PRN IV PER PROTOCOL Last administered on 14:46; Start 07/19/17 at 14:00; Stop 07/20/17 at 19:51; Status DC Oxycodone/ Acetaminophen (Percocet 5/325) 1 tab PRN Q4HRS PRN PO MILD PAIN Last administered on 07/21/17 04:52; Start 07/19/17 at 14:00 Oxycodone/ Acetaminophen (Percocet 5/325) 2 tab PRN Q4HRS PRN PO MODERATE PAIN , SEVERE PAIN Last administered on 07/22/17 09:19; Start 07/19/17 at 14:00 Cefazolin Sodium/ Dextrose 50 ml @ 100 mls/hr Q8H IV Last administered on 07/21 04:52; Start 07/19/17 at 21:00; Stop 07/21/17 at 05:29; Status DC Sodium Bicarbonate 100 meq 1X ONCE IV Last administered on 07/19/17 15:49; Start 07/19/17 at 15:45; Stop 07/19/17 at 15:46; Status DC Sodium Bicarbonate 50 meq 1X ONCE IV Last administered on 07/19/17 17:15; Start 07/19/17 at 17:15; Stop 07/19/17 at 17:16; Status DC Potassium Chloride 50 ml @ 50 mls/hr 1X ONCE IV Last administered on 20:58; Start 07/19/17 at 21:00; Stop 07/19/17 at 21:59; Status DC Amiodarone HCl (Cordarone) 400 mg BID PO Last administered on 07/22/17 09:20; Start 07/20/17 at 09:00 Metoprolol Tartrate (Lopressor) 12.5 mg BID PO Last administered on 07/22/17 09:18; Start 07/20/17 at 21:00 Zolpidem Tartrate (Ambien) 5 mg PRN QHS PRN PO INSOMNIA Last administered on 21:20; Start 07/20/17 at 20:00 Famotidine (Pepcid) 20 mg DAILY PO Last administered on 07/22/17 09:19; Start 07/21/17 at 12:00 Furosemide (Lasix) 20 mg DAILY IVP ; Start 07/22/17 at 09:00; Status Cancel Furosemide (Lasix) 20 mg 1X ONCE IVP Last administered on 07/22/17 14:06; Start 07/22/17 at 12:00; Stop 07/22/17 at 12:01; Status DC Bisacodyl (Dulcolax Supp) 10 mg PRN DAILY PRN [place] CONSTIPATION; Start 07/22/17 at 12:30 Metoclopramide HCl (Reglan) 10 mg PRN Q8HRS PRN IV NAUSEA/VOMITING Last administered on 07/22/17 14:07; Start 07/22/17 at 12:30 Polyethylene Glycol (miraLAX PACKET) 17 gm QHS PO ; Start 07/22/17 at 21:00 Active Scripts Active Reported Synthroid (Levothyroxine Sodium) 125 Mcg Tablet 125 Mcg PO DAILYAC Vitals/I & O Vital Sign - Last 24 Hours 07/21/17 07/21/17 07/21/17 07/21/17 17:54 19:25 20:17 20:19 Pulse 103 103 B/P (MAP) 94/56 94/56 Pulse Ox 93 O2 Delivery Room Air Room Air O2 Flow Rate 1.0 07/21/17 07/21/17 07/21/17 07/22/17 20:28 20:29 23:50 04:09 Temp 98.0 98.0 98.0 98.0 Pulse 95 94 94 Resp 18 20 20 18 B/P (MAP) 114/62 (79) 93/67 (76) 103/63 (76) Pulse Ox 87 93 97 95 O2 Delivery Room Air Nasal Cannula Nasal Cannula Nasal Cannula O2 Flow Rate 2.0 2.0 2.0 07/22/17 07/22/17 07/22/17 07/22/17 08:00 08:35 09:18 09:19 Temp 97.9 97.9 Pulse 96 96 Resp 18 B/P (MAP) 101/56 (71) 101/56 Pulse Ox 96 96 O2 Delivery Room Air Room Air Room Air O2 Flow Rate 2.0 07/22/17 07/22/17 07/22/17 07/22/17 09:20 10:38 10:57 15:35 Temp 98.0 98.3 98.0 98.3 Pulse 96 90 92 Resp 18 20 B/P (MAP) 106/56 107/58 (74) 104/59 (74) Pulse Ox 96 99 93 O2 Delivery Room Air Room Air Nasal Cannula O2 Flow Rate 2.0 2.0 Intake and Output 07/22/17 07/22/17 07/23/17 15:00 23:00 07:00 Intake Total 0 ml 650 ml Output Total 900 ml Balance 0 ml -250 ml SCOTT MUNOZ MD Jul 22, 2017 16:32
--- NOTE | 2017-07-22 17:53 | PDOC ---
PROGRESS NOTES Chief Complaint Chief Complaint CAD ASSESSMENT AND PLAN: 1. CAD: distal LM disease extending to proximal ramus and LAD s/p LHC (07/15) ; s/p CABG x 2 (ORTA to LAD, SVG to Ramus) on 07/19. on amiodarone PO . 2ary prevention meds. drain, cordis removed yesterday 2. HTN: new dx at admit. had been well controlled on lopressor 25 bid, lowish today. cont to monitor 3. HLD: on statin 4. ARIAS 5. Hypothyroidism: on hormone repletion with therapeutic TSH 6. Tobaccoism: on nicotine patch 7. DM: borderline elevated BG with normal HgbA1c. diet only, meds not indicated 8. 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 no nerve impingement 9. Compression fx lower T spine: Dr Garcia consulted: MRI and NS consult recommended, but can wait until cardiac issues resolved 10. Anxiety d/o NOS 11. Prophylaxis: no chemical anticoag as per Dr Bearden. History of Present Illness History of Present Illness in good spirits. took shower. 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, no focal neurologic deficit SKIN: No rash IV: ok General: Alert, Oriented X3, Cooperative, No acute distress Heart: Regular rate Lungs: Clear Abdomen: Normal bowel sounds, No tenderness Extremities: No clubbing, No edema Skin: No rashes Labs LABS Laboratory Tests Test 07/22/17 04:08 White Blood Count 9.5 x10^3/uL (4.0-11.0) Red Blood Count 3.12 x10^6/uL (3.50-5.40) Hemoglobin 10.6 g/dL (12.0-15.5) Hematocrit 29.7 % (36.0-47.0) Mean Corpuscular Volume 95 fL (79-100) Mean Corpuscular Hemoglobin 34 pg (25-35) Mean Corpuscular Hemoglobin Concent 36 g/dL (31-37) Red Cell Distribution Width 13.0 % (11.5-14.5) Platelet Count 137 x10^3/uL (140-400) Neutrophils (%) (Auto) 68 % (31-73) Lymphocytes (%) (Auto) 19 % (24-48) Monocytes (%) (Auto) 12 % (0-9) Eosinophils (%) (Auto) 1 % (0-3) Basophils (%) (Auto) 0 % (0-3) Neutrophils # (Auto) 6.4 x10^3uL (1.8-7.7) Lymphocytes # (Auto) 1.8 x10^3/uL (1.0-4.8) Monocytes # (Auto) 1.2 x10^3/uL (0.0-1.1) Eosinophils # (Auto) 0.1 x10^3/uL (0.0-0.7) Basophils # (Auto) 0.0 x10^3/uL (0.0-0.2) Sodium Level 138 mmol/L (136-145) Potassium Level 3.7 mmol/L (3.5-5.1) Chloride Level 99 mmol/L (98-107) Carbon Dioxide Level 34 mmol/L (21-32) Anion Gap 5 (6-14) Blood Urea Nitrogen 11 mg/dL (7-20) Creatinine 0.8 mg/dL (0.6-1.0) Estimated GFR (Cockcroft-Gault) 75.0 Glucose Level 98 mg/dL (70-99) Calcium Level 9.0 mg/dL (8.5-10.1) Magnesium Level 2.1 mg/dL (1.8-2.4) LYNETTE SWANSON MD Jul 22, 2017 17:53
[2017-07-22 19:38] VITALS: BP 107/61
[2017-07-22] MEDS: DOCUSATE SODIUM 100 MG CAPSULE. PO PRN (20:34)
[2017-07-22] MEDS: ALPRAZolam 0.5 MG TABLET PO PRN (20:35)
[2017-07-22] MEDS: ATORVASTATIN CALCIUM 40 MG TABLET. PO SCH (20:40)
[2017-07-22] MEDS ORDERED: POLYETHYLENE GLYCOL 3350 17 GM PACKET. PO SCH (21:00)
[2017-07-22 23:00] VITALS: BP 102/63
[2017-07-23 03:50] VITALS: BP 94/57
[2017-07-23 06:16] LABS: BASO % 1 % (0-3); EOS % 3 % (0-3); HEMATOCRIT 28.6 % (36.0-47.0); HEMOGLOBIN 9.7 g/dL (12.0-15.5); LYMPH # 1.6 x10^3/uL (1.0-4.8); LYMPH % 19 % (24-48); MEAN CORPUSCULAR HEMOGLOBIN 33 pg (25-35); MEAN CORPUSCULAR HGB CONC 34 g/dL (31-37); MEAN CORPUSCULAR VOLUME 97 fL (79-100); MONO % 12 % (0-9); NEUT % 65 % (31-73); PLATELET COUNT 192 x10^3/uL (140-400); RED BLOOD COUNT 2.96 x10^6/uL (3.50-5.40); RED CELL DISTRIBUTION WIDTH 12.7 % (11.5-14.5); WHITE BLOOD COUNT 8.3 x10^3/uL (4.0-11.0)
[2017-07-23 06:36] LABS: ALBUMIN 2.7 g/dL (3.4-5.0); ALBUMIN/GLOBULIN RATIO 0.8 (1.0-1.7); CALCIUM 8.8 mg/dL (8.5-10.1); CREATININE 0.8 mg/dL (0.6-1.0); POTASSIUM 3.7 mmol/L (3.5-5.1); TOTAL BILIRUBIN 0.6 mg/dL (0.2-1.0); TOTAL PROTEIN 6.1 g/dL (6.4-8.2)
[2017-07-23 07:36] VITALS: BP 109/58
[2017-07-23] MEDS: ASPIRIN ENTERIC COATED 325 MG TABLET.DR. PO SCH (08:34)
[2017-07-23] MEDS: DOCUSATE SODIUM 100 MG CAPSULE. PO PRN (08:35)
[2017-07-23] MEDS: METOCLOPRAMIDE HCL 10 MG/2 ML VIAL. IV PRN (08:35)
[2017-07-23] MEDS: ONDANSETRON PF 4 MG/2 ML VIAL. IV PRN ×2 (08:35→17:26)
[2017-07-23] MEDS: AMIODARONE HCL 200 MG TABLET. PO SCH (08:35)
[2017-07-23] MEDS: oxyCODONE/APAP 5/325 1 TAB TABLET PO PRN ×2 (08:36→17:26)
[2017-07-23] MEDS: FAMOTIDINE 20 MG TABLET. PO SCH (08:37)
[2017-07-23] MEDS: METOPROLOL TART IMMED RELEASE 25 MG TABLET. PO SCH (08:37)
[2017-07-23] MEDS: NICOTINE 21MG PATCH. TD SCH (08:38)
[2017-07-23] MEDS: SENNOSIDES/DOCUSATE 8.6/50MG TABLET. PO SCH (09:00)
[2017-07-23] MEDS ORDERED: BISACODYL 5 MG TABLET.DR. PO SCH (09:00)
--- NOTE | 2017-07-23 09:24 | PDOC ---
PROGRESS NOTES Subjective Subjective No complaints. Objective Objective Vital Signs Date Time Temp Pulse Resp B/P (MAP) Pulse Ox O2 Delivery O2 Flow Rate FiO2 07/23/17 08:37 95 109/58 07/23/17 08:36 20 96 Room Air 07/23/17 07:36 97.9 97.9 07/23/17 03:50 2.0 Intake and Output 07/24/17 07:00 Output Total 500 ml Balance -500 ml Output Urine Total 500 ml Physical Exam Physical Exam She is alert and comfortable,supine in bed. She is walking with roller walker. Assessment Assessment Problems Medical Problems: (1) Elevated troponin Status: Acute (2) Left sided numbness Status: Acute (3) UTI (urinary tract infection) Status: Acute Plan Plan of Alf when medically ready. Comment Review of Relevant I have reviewed the following items vin (where applicable) has been applied. Labs Laboratory Tests Test 07/22/17 04:08 07/23/17 05:40 White Blood Count 9.5 x10^3/uL (4.0-11.0) 8.3 x10^3/uL (4.0-11.0) Red Blood Count 3.12 x10^6/uL (3.50-5.40) 2.96 x10^6/uL (3.50-5.40) Hemoglobin 10.6 g/dL (12.0-15.5) 9.7 g/dL (12.0-15.5) Hematocrit 29.7 % (36.0-47.0) 28.6 % (36.0-47.0) Mean Corpuscular Volume 95 fL (79-100) 97 fL (79-100) Mean Corpuscular Hemoglobin 34 pg (25-35) 33 pg (25-35) Mean Corpuscular Hemoglobin Concent 36 g/dL (31-37) 34 g/dL (31-37) Red Cell Distribution Width 13.0 % (11.5-14.5) 12.7 % (11.5-14.5) Platelet Count 137 x10^3/uL (140-400) 192 x10^3/uL (140-400) Neutrophils (%) (Auto) 68 % (31-73) 65 % (31-73) Lymphocytes (%) (Auto) 19 % (24-48) 19 % (24-48) Monocytes (%) (Auto) 12 % (0-9) 12 % (0-9) Eosinophils (%) (Auto) 1 % (0-3) 3 % (0-3) Basophils (%) (Auto) 0 % (0-3) 1 % (0-3) Neutrophils # (Auto) 6.4 x10^3uL (1.8-7.7) 5.4 x10^3uL (1.8-7.7) Lymphocytes # (Auto) 1.8 x10^3/uL (1.0-4.8) 1.6 x10^3/uL (1.0-4.8) Monocytes # (Auto) 1.2 x10^3/uL (0.0-1.1) 1.0 x10^3/uL (0.0-1.1) Eosinophils # (Auto) 0.1 x10^3/uL (0.0-0.7) 0.3 x10^3/uL (0.0-0.7) Basophils # (Auto) 0.0 x10^3/uL (0.0-0.2) 0.0 x10^3/uL (0.0-0.2) Sodium Level 138 mmol/L (136-145) 139 mmol/L (136-145) Potassium Level 3.7 mmol/L (3.5-5.1) 3.7 mmol/L (3.5-5.1) Chloride Level 99 mmol/L (98-107) 99 mmol/L (98-107) Carbon Dioxide Level 34 mmol/L (21-32) 36 mmol/L (21-32) Anion Gap 5 (6-14) 4 (6-14) Blood Urea Nitrogen 11 mg/dL (7-20) 10 mg/dL (7-20) Creatinine 0.8 mg/dL (0.6-1.0) 0.8 mg/dL (0.6-1.0) Estimated GFR (Cockcroft-Gault) 75.0 75.0 Glucose Level 98 mg/dL (70-99) 98 mg/dL (70-99) Calcium Level 9.0 mg/dL (8.5-10.1) 8.8 mg/dL (8.5-10.1) Magnesium Level 2.1 mg/dL (1.8-2.4) BUN/Creatinine Ratio 13 (6-20) Total Bilirubin 0.6 mg/dL (0.2-1.0) Aspartate Amino Transf (AST/SGOT) 22 U/L (15-37) Alanine Aminotransferase (ALT/SGPT) 40 U/L (14-59) Alkaline Phosphatase 43 U/L (46-116) Total Protein 6.1 g/dL (6.4-8.2) Albumin 2.7 g/dL (3.4-5.0) Albumin/Globulin Ratio 0.8 (1.0-1.7) Laboratory Tests Test 07/23/17 05:40 White Blood Count 8.3 x10^3/uL (4.0-11.0) Red Blood Count 2.96 x10^6/uL (3.50-5.40) Hemoglobin 9.7 g/dL (12.0-15.5) Hematocrit 28.6 % (36.0-47.0) Mean Corpuscular Volume 97 fL (79-100) Mean Corpuscular Hemoglobin 33 pg (25-35) Mean Corpuscular Hemoglobin Concent 34 g/dL (31-37) Red Cell Distribution Width 12.7 % (11.5-14.5) Platelet Count 192 x10^3/uL (140-400) Neutrophils (%) (Auto) 65 % (31-73) Lymphocytes (%) (Auto) 19 % (24-48) Monocytes (%) (Auto) 12 % (0-9) Eosinophils (%) (Auto) 3 % (0-3) Basophils (%) (Auto) 1 % (0-3) Neutrophils # (Auto) 5.4 x10^3uL (1.8-7.7) Lymphocytes # (Auto) 1.6 x10^3/uL (1.0-4.8) Monocytes # (Auto) 1.0 x10^3/uL (0.0-1.1) Eosinophils # (Auto) 0.3 x10^3/uL (0.0-0.7) Basophils # (Auto) 0.0 x10^3/uL (0.0-0.2) Sodium Level 139 mmol/L (136-145) Potassium Level 3.7 mmol/L (3.5-5.1) Chloride Level 99 mmol/L (98-107) Carbon Dioxide Level 36 mmol/L (21-32) Anion Gap 4 (6-14) Blood Urea Nitrogen 10 mg/dL (7-20) Creatinine 0.8 mg/dL (0.6-1.0) Estimated GFR (Cockcroft-Gault) 75.0 BUN/Creatinine Ratio 13 (6-20) Glucose Level 98 mg/dL (70-99) Calcium Level 8.8 mg/dL (8.5-10.1) Total Bilirubin 0.6 mg/dL (0.2-1.0) Aspartate Amino Transf (AST/SGOT) 22 U/L (15-37) Alanine Aminotransferase (ALT/SGPT) 40 U/L (14-59) Alkaline Phosphatase 43 U/L (46-116) Total Protein 6.1 g/dL (6.4-8.2) Albumin 2.7 g/dL (3.4-5.0) Albumin/Globulin Ratio 0.8 (1.0-1.7) Microbiology 07/14/17 Urine Culture - Final, Complete 07/14/17 Urine Culture Result 1 (RUDOLPH) - Final, Complete Medications Current Medications Aspirin (Children'S Aspirin) 324 mg 1X ONCE PO Last administered on 07/14/17 12:26; Start 07/14/17 at 12:30; Stop 07/14/17 at 12:31; Status DC Nitroglycerin (Nitrostat) 0.4 mg PRN Q5MIN PRN SL CHEST PAIN Last administered on 07/14/17 12:28; Start 07/14/17 at 12:30 Morphine Sulfate 4 mg 1X ONCE IM Last administered on 07/14/17 13:08; Start 07/14/17 at 13:15; Stop 07/14/17 at 13:16; Status DC Ondansetron HCl (Zofran) 4 mg PRN Q8HRS PRN IV NAUSEA/VOMITING; Start 07/14/17 at 13:00; Stop 07/15/17 at 12:59; Status DC Morphine Sulfate 2 mg PRN Q2HR PRN IV PAIN; Start 07/14/17 at 13:00; Stop 07/14 at 15:16; Status DC Nitroglycerin (Nitrostat) 0.4 mg PRN Q5MIN PRN SL CHEST PAIN; Start 07/14/17 at 13:00; Stop 07/15/17 at 12:59; Status DC Nitrofurantoin Macrocrystals (Macrobid) 100 mg BID PO Last administered on 07/14 13:07; Start 07/14/17 at 13:15; Stop 07/14/17 at 16:14; Status DC Morphine Sulfate 2 mg PRN Q2HR PRN IV PAIN Last administered on 07/17/17 19:50 ; Start 07/14/17 at 15:30; Stop 07/20/17 at 15:19; Status DC Heparin Sodium/ Dextrose 500 ml @ 0 mls/hr CONT PRN IV SEE I/O RECORD Last administered on 07/18/17 15:14; Start 07/14/17 at 15:45; Stop 07/20/17 at 13:09 ; Status DC Heparin Sodium (Porcine) (Heparin Sodium) 2,000 unit PRN Q6HRS PRN IV FOR UFH LEVEL LESS THAN 0.2 Last administered on 07/15/17 02:35; Start 07/14/17 at 15: 45; Stop 07/20/17 at 13:09; Status DC Info (Anti-Coagulation Monitoring By Pharmacy) 1 each PRN DAILY PRN MC SEE COMMENTS Last administered on 07/18/17 08:55; Start 07/14/17 at 16:00; Stop at 11:18; Status DC Amlodipine Besylate (Norvasc) 5 mg 1X ONCE PO Last administered on 07/14/17 16:30; Start 07/14/17 at 16:30; Stop 07/14/17 at 16:31; Status DC Aspirin (Ecotrin) 81 mg DAILYWBKFT PO Last administered on 07/16/17 10:46; Start 07/15/17 at 08:00; Stop 07/16/17 at 15:15; Status DC Atorvastatin Calcium (Lipitor) 20 mg QHS PO ; Start 07/14/17 at 21:00; Stop at 21:00; Status DC Acetaminophen (Tylenol) 650 mg PRN Q6HRS PRN PO FEVER; Start 07/14/17 at 16:15 ; Stop 07/20/17 at 15:18; Status DC Ondansetron HCl (Zofran) 4 mg PRN Q6HRS PRN IV NAUSEA/VOMITING Last administered on 07/20/17 12:51; Start 07/14/17 at 16:15; Stop 07/20/17 at 15:17 ; Status DC Morphine Sulfate 2 mg PRN Q2HR PRN IV MODERATE TO SEVERE PAIN; Start 07/14/17 at 16:15; Stop 07/15/17 at 08:48; Status DC Tramadol HCl (Ultram) 50 mg PRN Q6HRS PRN PO MILD TO MODERATE PAIN Last administered on 07/17/17 19:47; Start 07/14/17 at 16:15; Stop 07/20/17 at 19:51 ; Status DC Hydralazine HCl (Apresoline) 10 mg PRN Q4HRS PRN IVP ELEVATED BP, SEE COMMENTS ; Start 07/14/17 at 16:15 Docusate Sodium (Colace) 100 mg PRN DAILY PRN PO CONSTIPATION Last administered on 07/23/17 08:35; Start 07/14/17 at 16:15 Lorazepam (Ativan) 0.5 mg 1X ONCE PO Last administered on 07/14/17 16:30; Start 07/14/17 at 16:30; Stop 07/14/17 at 16:31; Status DC Atorvastatin Calcium (Lipitor) 40 mg QHS PO Last administered on 07/22/17 20: 40; Start 07/14/17 at 21:00 Iohexol (Omnipaque 300 Mg/ml) 100 ml STK-MED ONCE .ROUTE ; Start 07/15/17 at 09: 12; Stop 07/15/17 at 09:13; Status DC Heparin Sodium/ Sodium Chloride 1,500 ml @ As Directed STK-MED ONCE .ROUTE ; Start 07/15/17 at 09:12; Stop 07/15/17 at 09:13; Status DC Lidocaine HCl 20 ml STK-MED ONCE .ROUTE ; Start 07/15/17 at 09:12; Stop at 09:13; Status DC Verapamil HCl (Verapamil) 5 mg STK-MED ONCE .ROUTE ; Start 07/15/17 at 09:36; Stop 07/15/17 at 09:37; Status DC Heparin Sodium (Porcine) (Heparin Sodium) 10,000 unit STK-MED ONCE .ROUTE ; Start 07/15/17 at 09:36; Stop 07/15/17 at 09:37; Status DC Fentanyl Citrate (Fentanyl 2ml Vial) 100 mcg STK-MED ONCE .ROUTE ; Start at 09:37; Stop 07/15/17 at 09:38; Status DC Midazolam HCl (Versed) 5 mg STK-MED ONCE .ROUTE ; Start 07/15/17 at 09:37; Stop 07/15/17 at 09:38; Status DC Nitroglycerin (Nitroglycerin) 200 mcg STK-MED ONCE .ROUTE ; Start 07/15/17 at 09 :39; Stop 07/15/17 at 09:40; Status DC Nitroglycerin (Nitroglycerin) 200 mcg 1X ONCE IART Last administered on 10:35; Start 07/15/17 at 09:45; Stop 07/15/17 at 09:47; Status DC Verapamil HCl (Verapamil) 2.5 mg 1X ONCE IART Last administered on 07/15/17 10:36; Start 07/15/17 at 09:45; Stop 07/15/17 at 09:47; Status DC Heparin Sodium (Porcine) (Heparin Sodium) 2,500 unit 1X ONCE IART Last administered on 07/15/17 10:37; Start 07/15/17 at 09:45; Stop 07/15/17 at 09:47 ; Status DC Heparin Sodium/ Sodium Chloride 1,000 unit 1X ONCE IART Last administered on 10:36; Start 07/15/17 at 09:45; Stop 07/15/17 at 09:47; Status DC Midazolam HCl (Versed) 5 mg 1X ONCE IV Last administered on 07/15/17 10:34; Start 07/15/17 at 09:45; Stop 07/15/17 at 09:47; Status DC Fentanyl Citrate (Fentanyl 2ml Vial) 100 mcg 1X ONCE IV Last administered on 10:35; Start 07/15/17 at 09:45; Stop 07/15/17 at 09:47; Status DC Iohexol (Omnipaque 300 Mg/ml) 100 ml 1X ONCE IART Last administered on 10:36; Start 07/15/17 at 09:45; Stop 07/15/17 at 09:47; Status DC Lidocaine HCl 20 ml 1X ONCE IJ Last administered on 07/15/17 10:35; Start at 09:45; Stop 07/15/17 at 09:47; Status DC Nitroglycerin (Nitroglycerin) 200 mcg STK-MED ONCE .ROUTE ; Start 07/15/17 at 10 :17; Stop 07/15/17 at 10:18; Status DC Gadobutrol (Gadavist) 7.5 mmol 1X ONCE IV Last administered on 07/15/17 12:56 ; Start 07/15/17 at 12:45; Stop 07/15/17 at 12:46; Status DC Nicotine (Nicoderm Cq 21mg) 1 patch DAILY TD Last administered on 07/21/17 08: 07; Start 07/15/17 at 18:00 Metoprolol Succinate (Toprol Xl) 12.5 mg DAILY PO Last administered on 07:48; Start 07/16/17 at 11:00; Stop 07/20/17 at 11:58; Status DC Ondansetron HCl (Zofran) 4 mg PRN Q6HRS PRN IV NAUSEA/VOMITING; Start 07/19/17 at 07:00; Stop 07/20/17 at 07:17; Status DC Fentanyl Citrate (Fentanyl 2ml Vial) 25 mcg PRN Q5MIN PRN IV MILD PAIN; Start 07/19/17 at 07:00; Stop 07/20/17 at 07:17; Status DC Fentanyl Citrate (Fentanyl 2ml Vial) 50 mcg PRN Q5MIN PRN IV MODERATE PAIN; Start 07/19/17 at 07:00; Stop 07/20/17 at 07:17; Status DC Ringer's Solution 1,000 ml @ 30 mls/hr Q24H IV Last administered on 07/19/17 07:00; Start 07/19/17 at 07:00; Stop 07/19/17 at 18:59; Status DC Lidocaine HCl 2 ml PRN 1X PRN ID PRIOR TO IV START; Start 07/19/17 at 07:00; Stop 07/20/17 at 07:17; Status DC Prochlorperazine Edisylate (Compazine) 5 mg PACU PRN PRN IV NAUSEA, MRX1; Start 07/19/17 at 07:00; Stop 07/20/17 at 07:17; Status DC Alprazolam (Xanax) 0.5 mg PRN Q6HRS PRN PO ANXIETY / AGITATION Last administered on 07/22/17 20:35; Start 07/17/17 at 21:30 Potassium Chloride 70 meq/ Sodium Bicarbonate 12.5 meq/Lidocaine HCl 24 ml/ Parenteral Electrolytes 571.5 ml @ 571.5 mls/ hr 1X PERIOP ONCE IRR Last administered on 07/19/17 06:00; Start 07/19/17 at 06:00; Stop 07/19/17 at 06:59 ; Status DC Potassium Chloride 15 meq/ Sodium Bicarbonate 12.5 meq/Parenteral Electrolytes 520 ml @ 520 mls/hr 1X PERIOP ONCE IRR Last administered on 07/19/17 06:00; Start 07/19/17 at 06:00; Stop 07/19/17 at 06:59; Status DC Heparin Sodium (Porcine) 47522 unit/Ringer's Solution 1,020 ml @ 1,020 mls/hr 1X PERIOP ONCE IRR Last administered on 07/19/17 08:36; Start 07/19/17 at 06: 00; Stop 07/19/17 at 06:59; Status DC Cefazolin Sodium 1 gm/Sodium Chloride 500 ml @ 500 mls/hr 1X PERIOP ONCE IRR Last administered on 07/19/17 08:36; Start 07/19/17 at 06:00; Stop 07/19/17 at 06:59; Status DC Midazolam HCl (Versed) 5 mg STK-MED ONCE .ROUTE ; Start 07/19/17 at 07:04; Stop 07/19/17 at 07:05; Status DC Etomidate (Amidate) 20 mg STK-MED ONCE IV ; Start 07/19/17 at 07:06; Stop at 07:07; Status DC Phenylephrine HCl (Hua-Synephrine Inj) 10 mg STK-MED ONCE .ROUTE ; Start at 07:06; Stop 07/19/17 at 07:07; Status DC Lidocaine HCl (Lidocaine Pf 2% Vial) 5 ml STK-MED ONCE .ROUTE ; Start 07/19/17 at 07:06; Stop 07/19/17 at 07:07; Status DC Aminocaproic Acid (Amicar) 5,000 mg STK-MED ONCE IV ; Start 07/19/17 at 07:06; Stop 07/19/17 at 07:07; Status DC Nitroglycerin/ Dextrose 250 ml @ As Directed STK-MED ONCE IV ; Start 07/19/17 at 07:06; Stop 07/19/17 at 07:07; Status DC Fentanyl Citrate (Fentanyl 5ml Vial) 250 mcg STK-MED ONCE .ROUTE ; Start at 07:06; Stop 07/19/17 at 07:07; Status DC Epinephrine HCl (Adrenalin) 1 mg STK-MED ONCE .ROUTE ; Start 07/19/17 at 07:06; Stop 07/19/17 at 07:07; Status DC Rocuronium [place] (Zemuron) 100 mg STK-MED ONCE .ROUTE ; Start 07/19/17 at 07: 07; Stop 07/19/17 at 07:08; Status DC Heparin Sodium (Porcine) 30,000 unit STK-MED ONCE .ROUTE ; Start 07/19/17 at 07: 07; Stop 07/19/17 at 07:08; Status DC Ephedrine Sulfate 50 mg STK-MED ONCE IV ; Start 07/19/17 at 07:07; Stop at 07:08; Status DC Sufentanil Citrate (Sufenta) 100 mcg STK-MED ONCE .ROUTE ; Start 07/19/17 at 07: 07; Stop 07/19/17 at 07:08; Status DC Dexamethasone Sodium Phosphate (Decadron) 20 mg STK-MED ONCE .ROUTE ; Start at 07:07; Stop 07/19/17 at 07:08; Status DC Ondansetron HCl (Zofran) 4 mg STK-MED ONCE .ROUTE ; Start 07/19/17 at 07:07; Stop 07/19/17 at 07:08; Status DC Cellulose 1 each STK-MED ONCE .ROUTE Last administered on 07/19/17t 12:16; Start 07/19/17 at 07:09; Stop 07/19/17 at 07:10; Status DC Vancomycin HCl (Vanco) 10 gm STK-MED ONCE .ROUTE ; Start 07/19/17 at 07:09; Stop 07/19/17 at 07:10; Status DC Papaverine HCl 60 mg STK-MED ONCE .ROUTE Last administered on 07/19/17 08:36; Start 07/19/17 at 07:09; Stop 07/19/17 at 07:10; Status DC Aspirin (Aspirin) 300 mg STK-MED ONCE .ROUTE Last administered on 07/19/17 08: 36; Start 07/19/17 at 07:10; Stop 07/19/17 at 07:11; Status DC Sodium Chloride (Sodium Chloride) 50 ml STK-MED ONCE IJ Last administered on 08:36; Start 07/19/17 at 07:15; Stop 07/19/17 at 07:16; Status DC Isoflurane (Isoflurane) 90 ml STK-MED ONCE IH ; Start 07/19/17 at 07:26; Stop at 07:27; Status DC Cefazolin Sodium/ Dextrose 50 ml @ As Directed STK-MED ONCE IV ; Start 07/19/17 at 07:31; Stop 07/19/17 at 07:32; Status DC Cefazolin Sodium/ Dextrose 50 ml @ 100 mls/hr 1X ONCE IV Last administered on 07/19/17 08:23; Start 07/19/17 at 08:00; Stop 07/19/17 at 08:29; Status DC Sufentanil Citrate (Sufenta) 100 mcg STK-MED ONCE .ROUTE ; Start 07/19/17 at 08: 54; Stop 07/19/17 at 08:55; Status DC Rocuronium [place] (Zemuron) 100 mg STK-MED ONCE .ROUTE ; Start 07/19/17 at 10: 06; Stop 07/19/17 at 10:07; Status DC Midazolam HCl (Versed) 2 mg STK-MED ONCE .ROUTE ; Start 07/19/17 at 11:55; Stop 07/19/17 at 11:56; Status DC Protamine Sulfate 250 mg STK-MED ONCE IV ; Start 07/19/17 at 11:57; Stop at 11:58; Status DC Cefazolin Sodium/ Dextrose 50 ml @ 100 mls/hr 1X ONCE IV Last administered on 07/19/17 12:45; Start 07/19/17 at 12:15; Stop 07/19/17 at 12:44; Status DC Lidocaine HCl (Lidocaine Pf 2% Vial) 5 ml STK-MED ONCE .ROUTE ; Start 07/19/17 at 12:21; Stop 07/19/17 at 12:22; Status DC Amiodarone HCl 900 mg/Dextrose 518 ml @ 33 mls/hr 1X ONCE IV Last administered on 07/19/17 12:32; Start 07/19/17 at 12:30; Stop 07/20/17 at 04:11 ; Status DC Rocuronium [place] (Zemuron) 100 mg STK-MED ONCE .ROUTE ; Start 07/19/17 at 12: 49; Stop 07/19/17 at 12:50; Status DC Lidocaine HCl (Lidocaine Pf 2% Vial) 5 ml STK-MED ONCE .ROUTE ; Start 07/19/17 at 12:56; Stop 07/19/17 at 12:57; Status DC Mannitol (Mannitol) 12.5 g STK-MED ONCE .ROUTE ; Start 07/19/17 at 12:56; Stop 07/19/17 at 12:57; Status DC Calcium Chloride 1,000 mg STK-MED ONCE IV ; Start 07/19/17 at 12:56; Stop at 12:57; Status DC Albumin Human 100 ml @ As Directed STK-MED ONCE IV ; Start 07/19/17 at 12:56; Stop 07/19/17 at 12:57; Status DC Heparin Sodium (Porcine) 30,000 unit STK-MED ONCE .ROUTE ; Start 07/19/17 at 12: 56; Stop 07/19/17 at 12:57; Status DC Magnesium Sulfate 5 gm STK-MED ONCE .ROUTE ; Start 07/19/17 at 12:56; Stop 07/19 at 12:57; Status DC Sodium Chloride (Normal Saline Flush) 3 ml PRN Q12HR PRN IV AFTER MEDS AND BLOOD DRAWS; Start 07/19/17 at 14:00 Ringer's Solution 1,000 ml @ 30 mls/hr Q24H IV Last administered on 07/20/17 12:57; Start 07/19/17 at 13:50; Stop 07/22/17 at 12:24; Status DC Albumin Human 250 ml @ 60 mls/hr PRN Q4HRS PRN IV SEE I/O RECORD Last administered on 07/19/17 16:35; Start 07/19/17 at 14:00; Stop 07/20/17 at 19:51 ; Status DC Insulin Human Regular 150 unit/ Sodium Chloride 151.5 ml @ 0 mls/hr CONT PRN PRN IV SEE I/O RECORD Last administered on 07/19/17 15:14; Start 07/19/17 at 14 :00; Stop 07/20/17 at 19:51; Status DC Dextrose (Dextrose 50%-Water Syringe) 25 gm PRN Q15MIN PRN IV LOW BLOOD SUGAR; Start 07/19/17 at 14:00 Phenylephrine HCl 20 mg/Sodium Chloride 252 ml @ 0 mls/hr CONT PRN PRN IV HYPOTENSION; Start 07/19/17 at 14:00; Stop 07/20/17 at 19:51; Status DC Amiodarone HCl 900 mg/Dextrose 518 ml @ 33.33 mls/ hr CONT PRN IV SEE I/O RECORD; Start 07/19/17 at 14:00; Stop 07/20/17 at 08:10; Status DC Info 1 ea CONT PRN PRN MC SEE COMMENTS; Start 07/19/17 at 14:00; Stop 07/22/17 at 12:24; Status DC Magnesium Sulfate/ Dextrose 100 ml @ 100 mls/hr PRN DAILY PRN IV FOR MAG < 2.2 ; Start 07/19/17 at 14:00; Stop 07/22/17 at 12:24; Status DC Famotidine (Pepcid) 20 mg BID IVP Last administered on 07/21/17 08:07; Start 07/19/17 at 21:00; Stop 07/21/17 at 11:45; Status DC Ondansetron HCl (Zofran) 4 mg PRN Q4HRS PRN IV NAUSEA/VOMITING Last administered on 07/22/17 18:49; Start 07/19/17 at 14:00 Morphine Sulfate 2 mg PRN Q1HR PRN IV PAIN Last administered on 07/20/17 18:20 ; Start 07/19/17 at 14:00; Stop 07/20/17 at 19:51; Status DC Acetaminophen (Tylenol) 650 mg PRN Q4HRS PRN PO MILD PAIN / TEMP; Start at 14:00 Acetaminophen (Acetaminophen Supp) 650 mg PRN Q4HRS PRN [place] MILD PAIN / TEMP; Start 07/19/17 at 14:00; Stop 07/20/17 at 19:51; Status DC Meperidine HCl (Demerol) 12.5 mg PRN Q15MIN PRN IV SHIVERING; Start 07/19/17 at 14:00; Stop 07/20/17 at 13:50; Status DC Propofol 100 ml @ 0 mls/hr CONT PRN PRN IV POSTOP SEDATION UNTIL EXTUBATE; Start 07/19/17 at 14:00; Stop 07/20/17 at 13:11; Status DC Senna/Docusate Sodium (Senna Plus) 1 tab BID PO Last administered on 07/23/17 09:00; Start 07/19/17 at 21:00 Aspirin (Ecotrin) 325 mg DAILYWBKFT PO Last administered on 07/23/17 08:34; Start 07/20/17 at 08:00 Albuterol Sulfate (Ventolin Neb Soln) 2.5 mg PRN Q4HRS PRN NEB SHORTNESS OF BREATH; Start 07/19/17 at 14:00 Metoprolol Tartrate (Lopressor) 25 mg BID PO ; Start 07/20/17 at 09:00; Stop at 11:58; Status DC Clevidipine 100 ml @ 0 mls/hr CONT PRN IV PER PROTOCOL Last administered on 14:46; Start 07/19/17 at 14:00; Stop 07/20/17 at 19:51; Status DC Oxycodone/ Acetaminophen (Percocet 5/325) 1 tab PRN Q4HRS PRN PO MILD PAIN Last administered on 07/22/17 18:46; Start 07/19/17 at 14:00 Oxycodone/ Acetaminophen (Percocet 5/325) 2 tab PRN Q4HRS PRN PO MODERATE PAIN , SEVERE PAIN Last administered on 07/23/17 08:36; Start 07/19/17 at 14:00 Cefazolin Sodium/ Dextrose 50 ml @ 100 mls/hr Q8H IV Last administered on 07/21 04:52; Start 07/19/17 at 21:00; Stop 07/21/17 at 05:29; Status DC Sodium Bicarbonate 100 meq 1X ONCE IV Last administered on 07/19/17 15:49; Start 07/19/17 at 15:45; Stop 07/19/17 at 15:46; Status DC Sodium Bicarbonate 50 meq 1X ONCE IV Last administered on 07/19/17 17:15; Start 07/19/17 at 17:15; Stop 07/19/17 at 17:16; Status DC Potassium Chloride 50 ml @ 50 mls/hr 1X ONCE IV Last administered on 20:58; Start 07/19/17 at 21:00; Stop 07/19/17 at 21:59; Status DC Amiodarone HCl (Cordarone) 400 mg BID PO Last administered on 07/23/17 08:35; Start 07/20/17 at 09:00 Metoprolol Tartrate (Lopressor) 12.5 mg BID PO Last administered on 07/23/17 08 :37; Start 07/20/17 at 21:00 Zolpidem Tartrate (Ambien) 5 mg PRN QHS PRN PO INSOMNIA Last administered on 21:20; Start 07/20/17 at 20:00 Famotidine (Pepcid) 20 mg DAILY PO Last administered on 07/23/17 08:37; Start 07/21/17 at 12:00 Furosemide (Lasix) 20 mg DAILY IVP ; Start 07/22/17 at 09:00; Status Cancel Furosemide (Lasix) 20 mg 1X ONCE IVP Last administered on 07/22/17 14:06; Start 07/22/17 at 12:00; Stop 07/22/17 at 12:01; Status DC Bisacodyl (Dulcolax Supp) 10 mg PRN DAILY PRN [place] CONSTIPATION; Start 07/22/17 at 12:30 Metoclopramide HCl (Reglan) 10 mg PRN Q8HRS PRN IV NAUSEA/VOMITING Last administered on 07/22/17 14:07; Start 07/22/17 at 12:30 Polyethylene Glycol (miraLAX PACKET) 17 gm QHS PO Last administered on 20:40; Start 07/22/17 at 21:00 Bisacodyl (Dulcolax Tab) 10 mg DAILY PO Last administered on 07/23/17t 08:36; Start 07/23/17 at 09:00 Active Scripts Active Reported Synthroid (Levothyroxine Sodium) 125 Mcg Tablet 125 Mcg PO DAILYAC Vitals/I & O Vital Sign - Last 24 Hours 07/22/17 07/22/17 07/22/17 07/22/17 10:38 10:57 15:35 18:46 Temp 98.0 98.3 98.0 98.3 Pulse 90 92 Resp 18 20 B/P (MAP) 107/58 (74) 104/59 (74) Pulse Ox 96 99 93 93 O2 Delivery Room Air Room Air Nasal Cannula Room Air O2 Flow Rate 2.0 2.0 2.0 07/22/17 07/22/17 07/22/17 07/22/17 19:38 19:40 19:46 20:34 Temp 98.0 98.0 Pulse 89 89 Resp 20 20 B/P (MAP) 107/61 (76) 107/61 Pulse Ox 99 O2 Delivery Nasal Cannula Room Air Room Air O2 Flow Rate 2.0 07/22/17 07/22/17 07/23/17 07/23/17 20:35 23:00 03:50 07:36 Temp 98.1 98.3 97.9 98.1 98.3 97.9 Pulse 89 95 92 95 Resp 20 20 19 B/P (MAP) 107/61 102/63 (76) 94/57 (69) 109/58 (75) Pulse Ox 94 96 96 O2 Delivery Nasal Cannula Nasal Cannula Room Air O2 Flow Rate 1.0 2.0 07/23/17 07/23/17 07/23/17 08:35 08:36 08:37 Pulse 95 95 Resp 20 B/P (MAP) 109/58 109/58 Pulse Ox 96 O2 Delivery Room Air Intake and Output 07/23/17 07/23/17 07/24/17 15:00 23:00 07:00 Output Total 500 ml Balance -500 ml SCOTT MUNOZ MD Jul 23, 2017 09:24
[2017-07-23 10:32] VITALS: BP 105/67
--- NOTE | 2017-07-23 11:13 | PDOC ---
CARDIO Progress Notes Date and Time Date of Service 07/23/2017 Time of Evaluation 1000 Subjective Subjective: No Chest Pain, No shortness of breath, No Palpitations, Other ( incisional pain controlled; tolerating increased activity) Vitals Vitals Vital Signs Date Time Temp Pulse Resp B/P (MAP) Pulse Ox O2 Delivery O2 Flow Rate FiO2 07/23/17 10:32 97.9 88 18 105/67 (80) 96 Room Air 97.9 07/23/17 03:50 2.0 Weight Weight [ ] Input and Output Intake and Output Intake and Output 07/24/17 07:00 Output Total 500 ml Balance -500 ml Output Urine Total 500 ml Laboratory Labs Laboratory Tests Test 07/23/17 05:40 White Blood Count 8.3 x10^3/uL (4.0-11.0) Red Blood Count 2.96 x10^6/uL (3.50-5.40) Hemoglobin 9.7 g/dL (12.0-15.5) Hematocrit 28.6 % (36.0-47.0) Mean Corpuscular Volume 97 fL (79-100) Mean Corpuscular Hemoglobin 33 pg (25-35) Mean Corpuscular Hemoglobin Concent 34 g/dL (31-37) Red Cell Distribution Width 12.7 % (11.5-14.5) Platelet Count 192 x10^3/uL (140-400) Neutrophils (%) (Auto) 65 % (31-73) Lymphocytes (%) (Auto) 19 % (24-48) Monocytes (%) (Auto) 12 % (0-9) Eosinophils (%) (Auto) 3 % (0-3) Basophils (%) (Auto) 1 % (0-3) Neutrophils # (Auto) 5.4 x10^3uL (1.8-7.7) Lymphocytes # (Auto) 1.6 x10^3/uL (1.0-4.8) Monocytes # (Auto) 1.0 x10^3/uL (0.0-1.1) Eosinophils # (Auto) 0.3 x10^3/uL (0.0-0.7) Basophils # (Auto) 0.0 x10^3/uL (0.0-0.2) Sodium Level 139 mmol/L (136-145) Potassium Level 3.7 mmol/L (3.5-5.1) Chloride Level 99 mmol/L (98-107) Carbon Dioxide Level 36 mmol/L (21-32) Anion Gap 4 (6-14) Blood Urea Nitrogen 10 mg/dL (7-20) Creatinine 0.8 mg/dL (0.6-1.0) Estimated GFR (Cockcroft-Gault) 75.0 BUN/Creatinine Ratio 13 (6-20) Glucose Level 98 mg/dL (70-99) Calcium Level 8.8 mg/dL (8.5-10.1) Total Bilirubin 0.6 mg/dL (0.2-1.0) Aspartate Amino Transf (AST/SGOT) 22 U/L (15-37) Alanine Aminotransferase (ALT/SGPT) 40 U/L (14-59) Alkaline Phosphatase 43 U/L (46-116) Total Protein 6.1 g/dL (6.4-8.2) Albumin 2.7 g/dL (3.4-5.0) Albumin/Globulin Ratio 0.8 (1.0-1.7) Microbiology Micro Microbiology 07/14/17 Urine Culture - Final, Complete 07/14/17 Urine Culture Result 1 (RUDOLPH) - Final, Complete Physical Exam HEENT: Neck Supple W Full Motion Chest: Symmetric, Other (chest incision intact and well approximated) LUNGS: Other (faint basilar crackles) Heart: S1S2, RRR (SR consistently in the 90s) Abdomen: Soft N/T Extremities: No Calf Tenderness, Other (trace LE edema) Neurology: alert, oriented, follow commands Assessment Assessment 1. CAD: distal LM/Ramus via LHC, presented with UA. EF 50-55% 2. S/P POD#4 CABG x 2 (ORTA to LAD, SVG to Ramus) with lysis of pericardial adhesions. 3. HTN: controlled 4. HLP Recommendations 1. Continue with post CABG protocol. 2. Continue secondary prevention, consider increasing metoprolol 3. Continue to push IS. Supportive care. 4. Follow up in office in 4-5 weeks. LIBBY CAMARENA APRN Jul 23, 2017 11:12
--- NOTE | 2017-07-23 12:31 | PDOC ---
PROGRESS NOTES Chief Complaint Chief Complaint CAD ASSESSMENT AND PLAN: 1. CAD: distal LM disease extending to proximal ramus and LAD s/p LHC (07/15) ; s/p CABG x 2 (ORTA to LAD, SVG to Ramus) on 07/19. on amiodarone PO prophylactically . 2ary prevention meds. 2. HTN: well controlled on lopressor 25 bid 3. HLD: on statin 4. ARIAS 5. Hypothyroidism: on hormone repletion with therapeutic TSH 6. Tobaccoism: on nicotine patch 7. DM: borderline elevated BG with normal HgbA1c. diet only, meds not indicated 8. 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 no nerve impingement 9. Compression fx lower T spine: Dr Garcia consulted: MRI and NS consult recommended, but can wait until cardiac issues resolved 10. Anxiety d/o NOS 11. Dispo: home History of Present Illness History of Present Illness feels good, wants to go home. pain controlled Vitals Vitals Vital Signs Date Time Temp Pulse Resp B/P (MAP) Pulse Ox O2 Delivery O2 Flow Rate FiO2 07/23/17 12:19 95 Room Air 07/23/17 10:32 97.9 88 18 105/67 (80) 97.9 07/23/17 03:50 2.0 Physical Exam Physical Exam GENERAL: NAD, Alert HEENT: PERRL, OC/OP NECK: Supple, no JVD, no LN LUNGS: Clear HEART: S1S2, no gallop, no murmur ABD: Soft, NT, no organomegaly, no rebound EXT: No edema, no cyanosis DETECTOR CAR OPERATOR: Alert, oriented x 3, no focal neurologic deficit SKIN: No rash IV: ok General: Alert, Oriented X3, Cooperative, No acute distress Heart: Regular rate Lungs: Clear Abdomen: Normal bowel sounds, No tenderness Extremities: No clubbing, No edema Skin: No rashes Labs LABS Laboratory Tests Test 07/23/17 05:40 White Blood Count 8.3 x10^3/uL (4.0-11.0) Red Blood Count 2.96 x10^6/uL (3.50-5.40) Hemoglobin 9.7 g/dL (12.0-15.5) Hematocrit 28.6 % (36.0-47.0) Mean Corpuscular Volume 97 fL (79-100) Mean Corpuscular Hemoglobin 33 pg (25-35) Mean Corpuscular Hemoglobin Concent 34 g/dL (31-37) Red Cell Distribution Width 12.7 % (11.5-14.5) Platelet Count 192 x10^3/uL (140-400) Neutrophils (%) (Auto) 65 % (31-73) Lymphocytes (%) (Auto) 19 % (24-48) Monocytes (%) (Auto) 12 % (0-9) Eosinophils (%) (Auto) 3 % (0-3) Basophils (%) (Auto) 1 % (0-3) Neutrophils # (Auto) 5.4 x10^3uL (1.8-7.7) Lymphocytes # (Auto) 1.6 x10^3/uL (1.0-4.8) Monocytes # (Auto) 1.0 x10^3/uL (0.0-1.1) Eosinophils # (Auto) 0.3 x10^3/uL (0.0-0.7) Basophils # (Auto) 0.0 x10^3/uL (0.0-0.2) Sodium Level 139 mmol/L (136-145) Potassium Level 3.7 mmol/L (3.5-5.1) Chloride Level 99 mmol/L (98-107) Carbon Dioxide Level 36 mmol/L (21-32) Anion Gap 4 (6-14) Blood Urea Nitrogen 10 mg/dL (7-20) Creatinine 0.8 mg/dL (0.6-1.0) Estimated GFR (Cockcroft-Gault) 75.0 BUN/Creatinine Ratio 13 (6-20) Glucose Level 98 mg/dL (70-99) Calcium Level 8.8 mg/dL (8.5-10.1) Total Bilirubin 0.6 mg/dL (0.2-1.0) Aspartate Amino Transf (AST/SGOT) 22 U/L (15-37) Alanine Aminotransferase (ALT/SGPT) 40 U/L (14-59) Alkaline Phosphatase 43 U/L (46-116) Total Protein 6.1 g/dL (6.4-8.2) Albumin 2.7 g/dL (3.4-5.0) Albumin/Globulin Ratio 0.8 (1.0-1.7) LYNETTE SWANSON MD Jul 23, 2017 12:31
--- NOTE | 2017-07-23 13:36 | PDOC ---
Progress Note Subjective Subjective Doing very well. No pain. Normotensive and in SR. On RA sats >95%. Ambulating. No issues. 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, oriented x 3, no focal neurologic deficit SKIN: No rash IV: ok Labs Lab Laboratory Tests Test 07/23/17 05:40 White Blood Count 8.3 x10^3/uL (4.0-11.0) Red Blood Count 2.96 x10^6/uL (3.50-5.40) Hemoglobin 9.7 g/dL (12.0-15.5) Hematocrit 28.6 % (36.0-47.0) Mean Corpuscular Volume 97 fL (79-100) Mean Corpuscular Hemoglobin 33 pg (25-35) Mean Corpuscular Hemoglobin Concent 34 g/dL (31-37) Red Cell Distribution Width 12.7 % (11.5-14.5) Platelet Count 192 x10^3/uL (140-400) Neutrophils (%) (Auto) 65 % (31-73) Lymphocytes (%) (Auto) 19 % (24-48) Monocytes (%) (Auto) 12 % (0-9) Eosinophils (%) (Auto) 3 % (0-3) Basophils (%) (Auto) 1 % (0-3) Neutrophils # (Auto) 5.4 x10^3uL (1.8-7.7) Lymphocytes # (Auto) 1.6 x10^3/uL (1.0-4.8) Monocytes # (Auto) 1.0 x10^3/uL (0.0-1.1) Eosinophils # (Auto) 0.3 x10^3/uL (0.0-0.7) Basophils # (Auto) 0.0 x10^3/uL (0.0-0.2) Sodium Level 139 mmol/L (136-145) Potassium Level 3.7 mmol/L (3.5-5.1) Chloride Level 99 mmol/L (98-107) Carbon Dioxide Level 36 mmol/L (21-32) Anion Gap 4 (6-14) Blood Urea Nitrogen 10 mg/dL (7-20) Creatinine 0.8 mg/dL (0.6-1.0) Estimated GFR (Cockcroft-Gault) 75.0 BUN/Creatinine Ratio 13 (6-20) Glucose Level 98 mg/dL (70-99) Calcium Level 8.8 mg/dL (8.5-10.1) Total Bilirubin 0.6 mg/dL (0.2-1.0) Aspartate Amino Transf (AST/SGOT) 22 U/L (15-37) Alanine Aminotransferase (ALT/SGPT) 40 U/L (14-59) Alkaline Phosphatase 43 U/L (46-116) Total Protein 6.1 g/dL (6.4-8.2) Albumin 2.7 g/dL (3.4-5.0) Albumin/Globulin Ratio 0.8 (1.0-1.7) Objective Assessment POD#4, s/p CABG x 2 (ORTA to LAD, SVG to Ramus) Doing very well. No pain. Normotensive and in SR. On RA sats >95%. Ambulating. No issues. Looks euvolemic Plan Plan of Care OK to d/c home today ASA, statin Increase metoprolol to 25mg BIB Stop Amiodarone F/u in clinic in 2-3 weeks ESTELA URRUTIA MD Jul 23, 2017 13:36
[2017-07-23] MEDS ORDERED: ASPI325T11 PO (13:43)
[2017-07-23] MEDS ORDERED: ATOR40TA59 PO (13:43)
[2017-07-23] MEDS ORDERED: DOCU-109 PO (13:43)
[2017-07-23] MEDS ORDERED: METO25TA4 PO (13:43)
[2017-07-23] MEDS ORDERED: OXYC1TAB7 PO ×2 (13:43→14:04)
--- NOTE | 2017-07-23 14:42 | DS ---
DATE OF DISCHARGE: 07/23/2017 HISTORY OF PRESENT ILLNESS: The patient is a 51-year-old woman who presented to the Emergency Room with chest discomfort. She was admitted for a rule out ACS. She was found with NSTEMI and promptly evaluated in the analytical lab analyst on 07/15/2017. This actually showed a significant occlusion of 80% in the LAD, 70% LM and 40% in RCA. She was therefore evaluated by Cardiovascular Surgery and taken for CABG on 07/20/2017. The patient tolerated the surgery well and recovered faster than expected and without any other complications, was discharged to home on 07/23/2017. Other medical issues including hypertension was addressed with Lopressor. She was started on statin and aspirin for secondary prevention. Hypothyroidism was treated with continued hormone repletion. TSH was found therapeutic. She had borderline elevated blood glucoses but with a completely normal hemoglobin A1c, diet adjustments were recommended, no medications. Because of cervical spine strain/DJD, Dr. Garcia was consulted. No nerve impingement was noted in the C-spine, but a congenital fusion of C4 and C5 was seen. A compression fracture of the lower T-spine did not warrant any immediate issues. Pain was well controlled and the patient was advised to follow up with Neurosurgery if pain worsened. DISCHARGE DATE: 07/23/2017. DISCHARGE PHYSICAL EXAMINATION: VITAL SIGNS: Blood pressure of 105/67, heart rate of 88, respiratory rate at 18. She is afebrile. GENERAL: This is an overweight 51-year-old woman, alert and oriented, in no acute distress. LUNGS: Clear. HEART: Has regular rate and rhythm. ABDOMEN: Positive bowel sounds, soft, nontender. EXTREMITIES: Show no edema. Midline chest incision well healing. DISCHARGE DISPOSITION: To home. DISCHARGE CONDITION: Improved. DISCHARGE MEDICATIONS: Please refer to MAR. DISCHARGE INSTRUCTIONS: The patient will follow up with Dr. Bateman in 3 weeks. She will have x-rays done prior to the visit. LYNETTE SWANSON MD DR: UR/nts JOB#: [id number] / [id number] JIGNESH Quezada MD [facility] CENTERDorcas
[2017-07-23 14:51] VITALS: BP 106/61
[2017-07-23] MEDS ORDERED: METOPROLOL TART IMMED RELEASE 25 MG TABLET. PO SCH (21:00)
== END 2017-07-23 17:40 | disposition home or self-care (01) | DRG 236 ==
LOC: ER 10:31 → 6 SOUTH 12:17 → 2 SOUTH 15:19 → 1 WEST ICU 07-19 11:05 → 2 NORTH 07-21 14:29
PROVIDERS: ADMIT Internal Medicine; ATTEND Internal Medicine
PROC: 021009W Bypass Coronary Artery, One Artery from Aorta with Autologous Venous Tissue, Open Approach (ICD-10-PCS; principal; 2017-07-14)
PROC: 02100Z9 Bypass Coronary Artery, One Artery from Left Internal Mammary, Open Approach (ICD-10-PCS; 2017-07-14)
PROC: 06BQ4ZZ Excision of Left Saphenous Vein, Percutaneous Endoscopic Approach (ICD-10-PCS; 2017-07-14)
PROC: 03B10ZZ Excision of Left Internal Mammary Artery, Open Approach (ICD-10-PCS; 2017-07-14)
PROC: 5A1221Z Performance of Cardiac Output, Continuous (ICD-10-PCS; 2017-07-14)
PROC: 3E083GC Introduction of Other Therapeutic Substance into Heart, Percutaneous Approach (ICD-10-PCS; 2017-07-14)
DX: I21.4 Non-ST elevation (NSTEMI) myocardial infarction (principal); I31.0 Chronic adhesive pericarditis; E88.81 Metabolic syndrome and other insulin resistance; M48.54XA Collapsed vertebra, not elsewhere classified, thoracic region, initial encounter for fracture; J98.11 Atelectasis; N39.0 Urinary tract infection, site not specified; E03.9 Hypothyroidism, unspecified; I25.110 Atherosclerotic heart disease of native coronary artery with unstable angina pectoris; E78.5 Hyperlipidemia, unspecified; F17.210 Nicotine dependence, cigarettes, uncomplicated; F41.9 Anxiety disorder, unspecified; G89.29 Other chronic pain; I10 Essential (primary) hypertension; I25.2 Old myocardial infarction; K59.00 Constipation, unspecified; M19.90 Unspecified osteoarthritis, unspecified site; M47.22 Other spondylosis with radiculopathy, cervical region; S13.4XXA Sprain of ligaments of cervical spine, initial encounter; Z82.49 Family history of ischemic heart disease and other diseases of the circulatory system; Z88.5 Allergy status to narcotic agent; Z90.49 Acquired absence of other specified parts of digestive tract; Z98.1 Arthrodesis status; E04.9 Nontoxic goiter, unspecified; F32.9 Major depressive disorder, single episode, unspecified; Z90.89 Acquired absence of other organs
CPT/HCPCS: 36415; 36600; 37252; 70450; 70551; 71010; 71250; 72072; 72125; 72146; 72148; 72156; 80048; 80053; 80061; 80069; 81001; 82607; 82803; 82805; 82962; 83036; 83735; 84132; 84443; 84484; 85007; 85025; 85027; 85347; 85520; 85610; 85730; 86850; 86900; 86901; 86920; 87086; 87641; 93005; 93306; 93458; 93880; 93970; 94002; 94250; 94760; 96372; 99152; 99153; A9585; C1753; C1769; C1781; C1887; C1892; J0171; J0282; J0690; J1100; J1644; J1815; J2150; J2250; J2270; J2405; J2440; J2765; J3010; J3370; J3475; J3480; J3490; J7030; J7040; J7120; P9041; P9046; Q9967; S0028; 97110; 97116; 97530; 97535; 99285-25; C9248; J2001

== ENCOUNTER → 2017-08-13 | Outpatient (CLI) | payer BC ==
[2017-07-23 14:51] VITALS: BP 106/61
[~2017-08-13] MED LIST: ASPI325T11 PO; ATOR40TA59 PO; DOCU-109 PO; LEVO125T PO; METO25TA4 PO; OXYC1TAB7 PO
--- NOTE | 2017-08-13 12:39 | RAD ---
Indication follow-up. History of coronary artery disease. Frontal and lateral views of the chest were obtained. Comparison is made to a single view examination 07/22/2017. Postoperative changes are noted. Pulmonary vasculature is normal. Heart size is normal. There is no acute parenchymal infiltrate. There is no pleural fluid. There is unchanged wedging of a mid to lower thoracic vertebral body segment similar to a study 07/16/2017. IMPRESSION: No acute or focal process seen in the chest
== END | disposition home or self-care (01) ==
LOC: RAD 11:48
PROVIDERS: ATTEND Thoracic Surgery (Cardiothoracic Vascular Surgery)
DX: I25.10 Atherosclerotic heart disease of native coronary artery without angina pectoris (principal); Z95.1 Presence of aortocoronary bypass graft
CPT/HCPCS: 71020

== ENCOUNTER 2017-08-27 14:30 | Inpatient (IN) | payer BC ==
[~2017-08-27] VITALS: Ht 170.2 cm; Wt 83.9 kg
[2017-08-27 14:54] LABS: BASO # 0.1 x10^3/uL (0.0-0.2); BASO % 1 % (0-3); EOS % 5 % (0-3); HEMATOCRIT 38.9 % (36.0-47.0); LYMPH # 2.8 x10^3/uL (1.0-4.8); LYMPH % 38 % (24-48); MEAN CORPUSCULAR HEMOGLOBIN 31 pg (25-35); MEAN CORPUSCULAR HGB CONC 34 g/dL (31-37); MEAN CORPUSCULAR VOLUME 94 fL (79-100); MONO % 11 % (0-9); NEUT % 45 % (31-73); PLATELET COUNT 297 x10^3/uL (140-400); RED BLOOD COUNT 4.15 x10^6/uL (3.50-5.40); WHITE BLOOD COUNT 7.3 x10^3/uL (4.0-11.0)
--- NOTE | 2017-08-27 15:02 | EKG ---
[facility] [address] [place] [address] Test Date: 2017-08-27 Test Time: 14:42:28 Pat Name: JOHNIE BARRIGA Department: Room: Gender: F Can Slider: : 1965 Requested By: KRISTY GOMEZ Order Number: [id number] Reading MD: Bobo Padilla Measurements Intervals [place] Rate: 84 P: 62 NH: 166 QRS: 16 QRSD: 72 T: 60 QT: 404 QTc: 481 Interpretive Statements SINUS RHYTHM ATRIAL PREMATURE COMPLEX(ES) PROLONGED QT Electronically Signed On 08-28-2017 8:21:44 CDT by Bobo Padilla
--- NOTE | 2017-08-27 15:06 | RAD ---
Portable chest, 08/27/2017: History: Chest pain Comparison is made to a study from 08/13/2017. There has been a previous median sternotomy. The heart size and pulmonary vascularity are normal. No pulmonary infiltrates are seen. There is no evidence of pleural fluid. IMPRESSION: No acute cardiopulmonary abnormality is detected.
[2017-08-27] MEDS: ASPIRIN CHEWABLE 81 MG TABLET. PO ONE ×2 (15:15→15:24)
[2017-08-27] MEDS ORDERED: NITROGLYCERIN SUBLINGUAL 0.4 MG BOTTLE OF 25. SL PRN ×2 (15:15→16:00)
[2017-08-27] MEDS ORDERED: MORPHINE SULFATE 2 MG/ML DISP.SYRIN. IV PRN ×2 (15:15→16:00)
[2017-08-27 15:27] LABS: CALCIUM 9.4 mg/dL (8.5-10.1); CREATININE 0.8 mg/dL (0.6-1.0); POTASSIUM 4.3 mmol/L (3.5-5.1)
[2017-08-27 15:33] LABS: ALBUMIN 4.2 g/dL (3.4-5.0); DIRECT BILIRUBIN 0.1 mg/dL (0.0-0.2); TOTAL BILIRUBIN 0.4 mg/dL (0.2-1.0); TOTAL PROTEIN 7.1 g/dL (6.4-8.2)
[2017-08-27] MEDS ORDERED: HEPARIN for IV BOLUS 10,000 UNIT/10 ML VIAL. IV PRN (16:00)
[2017-08-27] MEDS ORDERED: ONDANSETRON PF 4 MG/2 ML VIAL. IV PRN (16:00)
[2017-08-27] MEDS ORDERED: HEPARIN 25,000UTS/500ML PREMIX 500 ML IV PRN (16:00)
--- NOTE | 2017-08-27 17:23 | PDOC2 ---
MEENU FOREMAN FILM COMPOSER 08/27/17 1723: CARDIAC CONSULT DATE OF CONSULT Date of Consult DATE: 08/27/17 TIME: 17:06 REASON FOR CONSULT Reason for Consult: Chest pain REFERRING PHYSICIAN Referring Physician: Dr. Huggins SOURCE Source: Chart review, Patient HISTORY OF PRESENT ILLNESS HISTORY OF PRESENT ILLNESS This is a 51 yo female, with a h/o CAD s/p recent CABG, who presented with complaints of neck pain and left arm numbness. Patient reports having similar symptoms prior to CABG in June. Went away following surgery. Has done some heavy lifting the last couple of days. Pain developed last night and persisted throughout the night and into the day today. Located in her left neck. Significantly worse with movement. Has numbness down her left arm . Denies any chest pain, palpitations, dizziness, diaphoresis, or nausea/vomiting. Has a history of cervical spine abnormalities and cervical strain and was recently evaluated by neuro surgery. Opted to treat medically. PAST MEDICAL HISTORY Past Medical History Cardiovascular: HTN, Other (leg varicosities), CAD s/p CABG Pulmonary: No pertinent hx CENTRAL NERVOUS SYSTEM: Other (cervical radiculopathy) GI: Hemorrhoids Heme/Onc: No pertinent hx Hepatobiliary: No pertinent hx, Other (ARIAS) Psych: Depression (controlled no meds) Musculoskeletal: Osteoarthritis, Other (degenerative disc disease; right trochanteric bursitis) Rheumatologic: No pertinent hx Infectious disease: No pertinent hx ENT: No pertinent hx Renal/: No pertinent hx Endocrine: Hypothyroidism, Other (goiter) Dermatology: No pertinent hx PAST SURGICAL HISTORY Past Surgical History CABG, Appendectomy, Other (cervical fusion; breast biopsy) FAMILY HISTORY Family History Coronary Artery Disease (mother and brother), Heart Disease (mother), Hypertension (father) SOCIAL HISTORY Social History Smoke: quit ALCOHOL: other occasional Drugs: None Lives: with Family CURRENT MEDICATIONS CURRENT MEDICATIONS Current Medications Medications (Trade) Dose Ordered Sig/Annelise Route PRN Reason Start Time Stop Time Status Last Admin Dose Admin Morphine Sulfate 2 mg PRN Q1HR PRN IV SEVERE PAIN 08/27/17 15:15 08/27/17 15:54 DC 08/27/17 15:25 ALLERGIES ALLERGIES: Coded Allergies: latex (Verified Allergy, Severe, Rash, 07/19/17) Sulfa (Sulfonamide Antibiotics) (Verified Allergy, Intermediate, Rash, ) codeine (Verified Adverse Reaction, Mild, Nausea and Vomiting, 07/22/17) ROS Review of System 14 point ROS conducted with pertinent positives noted above in HPI PHYSICAL EXAM PHYSICAL EXAM General: Alert, Oriented X3, Cooperative, No acute distress HEENT: Atraumatic, Mucous membr. moist/pink Lungs: Clear to auscultation, Normal air movement, well-healed sternal incision Heart: Regular rate (SR), Normal S1, Normal S2, Other (2/6 systolic murmur to MAYELA border) Abdomen: Soft, No tenderness, Other (no bruit) Neuro: Normal speech, Sensation intact Psych/Mental Status: Mental status NL, Mood NL MUSCULOSKELETAL: Osteoarthritic changes both hands VITALS VITALS Vital Signs Date Time Temp Pulse Resp B/P (MAP) Pulse Ox O2 Delivery O2 Flow Rate FiO2 08/27/17 16:30 80 16 123/79 (94) 98 Room Air 08/27/17 14:51 97.9 97.9 LABS Lab: Laboratory Tests Test 08/27/17 14:40 White Blood Count 7.3 x10^3/uL (4.0-11.0) Red Blood Count 4.15 x10^6/uL (3.50-5.40) Hemoglobin 13.0 g/dL (12.0-15.5) Hematocrit 38.9 % (36.0-47.0) Mean Corpuscular Volume 94 fL (79-100) Mean Corpuscular Hemoglobin 31 pg (25-35) Mean Corpuscular Hemoglobin Concent 34 g/dL (31-37) Red Cell Distribution Width 13.0 % (11.5-14.5) Platelet Count 297 x10^3/uL (140-400) Neutrophils (%) (Auto) 45 % (31-73) Lymphocytes (%) (Auto) 38 % (24-48) Monocytes (%) (Auto) 11 % (0-9) Eosinophils (%) (Auto) 5 % (0-3) Basophils (%) (Auto) 1 % (0-3) Neutrophils # (Auto) 3.3 x10^3uL (1.8-7.7) Lymphocytes # (Auto) 2.8 x10^3/uL (1.0-4.8) Monocytes # (Auto) 0.8 x10^3/uL (0.0-1.1) Eosinophils # (Auto) 0.4 x10^3/uL (0.0-0.7) Basophils # (Auto) 0.1 x10^3/uL (0.0-0.2) Sodium Level 139 mmol/L (136-145) Potassium Level 4.3 mmol/L (3.5-5.1) Chloride Level 103 mmol/L (98-107) Carbon Dioxide Level 29 mmol/L (21-32) Anion Gap 7 (6-14) Blood Urea Nitrogen 16 mg/dL (7-20) Creatinine 0.8 mg/dL (0.6-1.0) Estimated GFR (Cockcroft-Gault) 75.0 Glucose Level 101 mg/dL (70-99) Calcium Level 9.4 mg/dL (8.5-10.1) Total Bilirubin 0.4 mg/dL (0.2-1.0) Direct Bilirubin 0.1 mg/dL (0.0-0.2) Aspartate Amino Transf (AST/SGOT) 22 U/L (15-37) Alanine Aminotransferase (ALT/SGPT) 34 U/L (14-59) Alkaline Phosphatase 82 U/L (46-116) Troponin I Quantitative 0.335 ng/mL (0.000-0.055) LW-Whx-A-Type Natriuretic Peptide 376 pg/mL (0-124) Total Protein 7.1 g/dL (6.4-8.2) Albumin 4.2 g/dL (3.4-5.0) Lipase 130 U/L (73-393) ECHOCARDIOGRAM ECHOCARDIOGRAM <Conclusion> Left ventricle systolic function is normal. The Ejection Fraction is 50-55%. There is normal LV segmental wall motion. DATE: 07/14/17 1720 HEART CATH HEART CATH CORONARY ANGIOGRAPHY: LM is a large caliber vessel with a distal eccentric 70% stenosis extending into the LAD/Ramus LAD is a large caliber vessel with an ostial eccentric 80% stenosis. Ramus is a moderate caliber bifurcating vessel with a proximal 70% stenosis. LCx is a moderate caliber non-dominant vessel with normal angiographic appearance. OM1 is a moderate caliber vessel with normal angiographic appearance. RCA is a large caliber dominant vessel with mild diffuse luminal irregularities of up to 40%. RPDA and RPL are moderate caliber vessels with normal angiographic appearance. Conclusion 1. 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 2. Positive IVUS of the distal LM/Ramus. 3. Normal LV function. EF 70%. Recommendations CABG consultation. If patient deemed poor candidate for CABG then could consider complex bifurcation stenting of the LAD/Ramus and left main. DATE: 07/15/17 1052 ASSESSMENT/PLAN ASSESSMENT/PLAN 1. NSTEMI; mildly elevated a 0.3 2. CAD s/p recent CABG 3. Cervical radiculopathy/strain; doubt pain cardiac in origin 4. Hypertension 5. Hyperlipidemia Recommendations D/w primary painter tumbling barrel. Resume secondary prevention measures. No heparin necessary at this time Trend CE Consult neuro Supportive care Will monitor overnight Problems: JANAY WILSON MD 08/28/17 1643: CARDIAC CONSULT ALLERGIES ALLERGIES: Coded Allergies: latex (Verified Allergy, Severe, Rash, 07/19/17) Sulfa (Sulfonamide Antibiotics) (Verified Allergy, Intermediate, Rash, ) codeine (Verified Adverse Reaction, Mild, Nausea and Vomiting, 07/22/17) ASSESSMENT/PLAN ASSESSMENT/PLAN Late entry for 08/27/2017. Pt. seen and examined. 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 51 y.o s/p recent CABG Minimal troponin elevation. Non-cardiac chest pain. Etiology of trop elevation unclear. ?microvascular disease, pericarditis/myocarditis but no signs of such by history of exam. On exam normal heart tones. No effusion on echo. Will start asa and plavix. Continue supportive care for now. ok to dc from CV standpoint. Thanks for consultation. Close outpt f/u with repeat troponin. Consider outpt MRI Problems: MEENU FOREMAN APRN Aug 27, 2017 17:23 JANAY WILSON MD Aug 28, 2017 16:43
[2017-08-27] MEDS ORDERED: DOCUSATE SODIUM 100 MG CAPSULE. PO PRN (17:30)
[2017-08-27] MEDS ORDERED: oxyCODONE/APAP 5/325 1 TAB TABLET PO PRN ×2 (17:30→18:45)
[2017-08-27 17:37] VITALS: BP 148/81
[2017-08-27 17:53] LABS: CKMB MASS 0.5 ng/mL (0.0-3.6)
--- NOTE | 2017-08-27 18:03 | PHYS DOC ---
Past Medical History Past Medical History: Heart Disease, Hypothyroid Past Surgical History: Appendectomy, Coronary Bypass Surgery, Other Additional Past Surgical Histo: NECK SX Alcohol Use: Occasionally Drug Use: None Adult General Chief Complaint Chief Complaint: CHEST PAIN HPI HPI 51-year-old female presenting to the emergency department today with left arm numbness and neck pain. She reports this previously with similar to her heart attack. She last had a heart attack in June of this year and is currently status post a CABG in June. The pain is a sharp shooting pain that is nonradiating and without alleviating factors. She denies unilateral leg swelling hemoptysis personal or family history of blood clotting disorders. Review of systems was negative for fevers chills abdominal pain. All other review of systems is negative unless otherwise noted in history of present illness. ED course: 51-year-old female presenting to the emergency department today with left arm numbness and neck pain similar to previous heart attack. Triage vital signs afebrile with a normal heart rate. EKG obtained and reviewed by myself shows sinus rhythm with a regular rate. ST segments congruent. Chest x-ray obtained. Nonacute chest x-ray. Blood work otherwise obtained which shows normal CBC. Chemistry panel unremarkable. Troponin elevated at 0.335. I discussed the case with Martha the [facility] for Dr. Anderson. Patient had already taken aspirin this morning so this was not given. Heparin ordered bolus and drip. Patient admitted to the cardiovascular care unit for further evaluation workup and care. Review of Systems Review of Systems SEE ABOVE. Current Medications Current Medications Current Medications Medications (Trade) Dose Ordered Sig/Annelise Start Time Stop Time Status Last Admin Dose Admin Aspirin (Children'S Aspirin) 324 mg 1X ONCE 08/27/17 15:15 08/27/17 15:16 DC Morphine Sulfate 2 mg PRN Q1HR PRN 08/27/17 15:15 08/27/17 15:54 DC 08/27/17 15:25 2 MG Nitroglycerin (Nitrostat) 0.4 mg PRN Q5MIN PRN 08/27/17 15:15 08/27/17 15:55 DC Allergies Allergies Allergies Coded Allergies Type Severity Reaction Last Updated Verified latex Allergy Severe Rash 07/19/17 Yes Sulfa (Sulfonamide Antibiotics) Allergy Intermediate Rash 07/19/17 Yes codeine Adverse Reaction Mild Nausea and Vomiting 07/22/17 Yes Physical Exam Physical Exam SEE ABOVE Constitutional: Well developed, well nourished, no acute distress, non-toxic appearance. HENT: Normocephalic, atraumatic, bilateral external ears normal, oropharynx moist, no oral exudates, nose normal. [] Eyes: PERRLA, EOMI, conjunctiva normal, no discharge. Neck: Normal range of motion, no tenderness, supple, no stridor. [] Cardiovascular:Heart rate regular rhythm, no murmur Lungs & Thorax: Bilateral breath sounds clear to auscultation Abdomen: Bowel sounds normal, soft, no tenderness, no masses, no pulsatile masses. [] Skin: Warm, dry, no erythema, no rash. Back: No tenderness, no CVA tenderness. [] Extremities: No tenderness, no cyanosis, no clubbing, ROM intact, no edema. Neurologic: Alert and oriented X 3, normal motor function, normal sensory function, no focal deficits noted. [] Psychologic: Affect normal, judgement normal, mood normal. Current Patient Data Vital Signs Vital Signs Date Time Temp Pulse Resp B/P (MAP) Pulse Ox O2 Delivery O2 Flow Rate FiO2 08/27/17 14:51 97.9 87 16 139/87 (104) 98 Room Air 97.9 Lab Values Laboratory Tests Test 08/27/17 14:40 White Blood Count 7.3 x10^3/uL (4.0-11.0) Red Blood Count 4.15 x10^6/uL (3.50-5.40) Hemoglobin 13.0 g/dL (12.0-15.5) Hematocrit 38.9 % (36.0-47.0) Mean Corpuscular Volume 94 fL (79-100) Mean Corpuscular Hemoglobin 31 pg (25-35) Mean Corpuscular Hemoglobin Concent 34 g/dL (31-37) Red Cell Distribution Width 13.0 % (11.5-14.5) Platelet Count 297 x10^3/uL (140-400) Neutrophils (%) (Auto) 45 % (31-73) Lymphocytes (%) (Auto) 38 % (24-48) Monocytes (%) (Auto) 11 % (0-9) H Eosinophils (%) (Auto) 5 % (0-3) H Basophils (%) (Auto) 1 % (0-3) Neutrophils # (Auto) 3.3 x10^3uL (1.8-7.7) Lymphocytes # (Auto) 2.8 x10^3/uL (1.0-4.8) Monocytes # (Auto) 0.8 x10^3/uL (0.0-1.1) Eosinophils # (Auto) 0.4 x10^3/uL (0.0-0.7) Basophils # (Auto) 0.1 x10^3/uL (0.0-0.2) Sodium Level 139 mmol/L (136-145) Potassium Level 4.3 mmol/L (3.5-5.1) Chloride Level 103 mmol/L (98-107) Carbon Dioxide Level 29 mmol/L (21-32) Anion Gap 7 (6-14) Blood Urea Nitrogen 16 mg/dL (7-20) Creatinine 0.8 mg/dL (0.6-1.0) Estimated GFR (Cockcroft-Gault) 75.0 Glucose Level 101 mg/dL (70-99) H Calcium Level 9.4 mg/dL (8.5-10.1) Total Bilirubin 0.4 mg/dL (0.2-1.0) Direct Bilirubin 0.1 mg/dL (0.0-0.2) Aspartate Amino Transferase (AST) 22 U/L (15-37) Alanine Aminotransferase (ALT) 34 U/L (14-59) Alkaline Phosphatase 82 U/L (46-116) Creatine Kinase 43 U/L (26-192) Creatine Kinase MB (Mass) 0.5 ng/mL (0.0-3.6) Creatine Kinase MB Relative Index 1.2 % (0-4) Troponin I Quantitative 0.335 ng/mL (0.000-0.055) JI-Vis-N-Type Natriuretic Peptide 376 pg/mL (0-124) H Total Protein 7.1 g/dL (6.4-8.2) Albumin 4.2 g/dL (3.4-5.0) Lipase 130 U/L (73-393) Laboratory Tests 08/27/17 14:40 Laboratory Tests 08/27/17 14:40 EKG EKG [] Radiology/Procedures Radiology/Procedures [] Course & Med Decision Making Course & Med Decision Making Pertinent Labs and Imaging studies reviewed. (See chart for details) [] Dragon Disclaimer Dragon Disclaimer This electronic medical record was generated, in whole or in part, using a voice recognition dictation system. Departure Departure Impression: Primary Impression: Chest pain Additional Impressions: CAD (coronary artery disease), [place] coronary artery S/P CABG (coronary artery bypass graft) NSTEMI (non-ST elevated myocardial infarction) Disposition: 09 ADMITTED INPATIENT Admitting Physician: Other Condition: STABLE Referrals: JIGNESH MCKINNEY MD (PCP) Problem Qualifiers KRISTY GOMEZ MD Aug 27, 2017 18:03
[2017-08-27] MEDS ORDERED: methylPREDNISolone 4 MG TABLET. PO ONE (18:45)
--- NOTE | 2017-08-27 19:19 | HP ---
ADMIT DATE: 08/27/2017 CHIEF COMPLAINT: Neck pain, arm numbness. HISTORY OF PRESENT ILLNESS: The patient is a 51-year-old woman with recent CABG in June of this year who presented to the Emergency Room with neck pain as well as left arm numbness. These actually were her signs that brought her to the Emergency Room when she was diagnosed with [place] in June. She was therefore advised by her tobacco baler, Dr. Paredes, to come back in for further evaluation. She denies any ongoing chest pain, any shortness of breath, dizziness or other symptoms. She feels this may be related to lifting multiple objects that were too heavy for her including her grandchildren. She had a rough night with her pain, took some Aleve which did not help her. 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 FAMILY HISTORY: CAD in mother and brother, hypertension in father. SOCIAL HISTORY: , quit smoking. No other toxic habits. ALLERGIES: SULFA, CODEINE AND LATEX. HOME MEDICATIONS: MAR reconciled with home meds. REVIEW OF SYSTEMS: Positive as per HPI. Rest of organ system review is essentially negative. PHYSICAL EXAMINATION: VITAL SIGNS: From today show a blood pressure of 148/81, heart rate at 88, respiratory rate at 18. She is afebrile. GENERAL: This is an overweight 51-year-old woman, alert and oriented, in no acute distress. HEENT: Shows no scleral icterus. NECK: Supple. LUNGS: Clear. CARDIOVASCULAR: Heart has regular rate and rhythm. Mid sternal incision line is very well healed. ABDOMEN: Has positive bowel sounds, soft, nontender. EXTREMITIES: Show no edema. SKIN: Warm, soft and dry without any rash. LABORATORY DATA: CBC with a WBC of 7.3, hemoglobin 13.0, platelets of 297. Chemistries with a BUN and creatinine of 16 and 0.8. Normal electrolytes. Troponin at 0.335; of note, her baseline is somewhat elevated and in June was 0.17-0.19. IMAGING: Chest x-ray in the Emergency Room showed no acute cardiopulmonary abnormality. ASSESSMENT AND PLAN: The patient is a 51-year-old woman with recent coronary artery bypass grafting and now presenting with her equivalent of angina that is neck pain and numbness. Troponin is slightly elevated over her baseline. We will obtain serial enzymes and ascertain that acute coronary syndrome is ruled out. My suspicion, however, is that this is her cervical disk disease with nerve impingement. She had been seen by Dr. Garcia as well as Dr. Ross. Her spinal disk disease was put on the back burner given her acute cardiac issues. It may be time to get this taken care of. For now, we will give her a Medrol Dosepak as this seemed to help in the past. Heat to her neck and pain medications as needed. Vital signs and labs are fairly at her baseline. We will continue her medications for hypertension, hyperlipidemia, hypothyroidism and borderline diabetes. Diet will be cardiac/diabetic. LYNETTE SWANSON MD DR: UR/nts JOB#: [id number] / [id number]
[2017-08-27 19:36] VITALS: BP 121/84
[2017-08-27] MEDS: PANTOPRAZOLE 40 MG TABLET.DR. PO SCH (20:53)
[2017-08-27] MEDS: METOPROLOL TART IMMED RELEASE 25 MG TABLET. PO SCH (20:54)
[2017-08-27] MEDS ORDERED: ATORVASTATIN CALCIUM 40 MG TABLET. PO SCH (21:00)
[2017-08-27 23:05] VITALS: BP 108/64
[2017-08-28 03:45] VITALS: BP 122/78
[2017-08-28 06:25] LABS: BASO % 1 % (0-3); EOS % 4 % (0-3); HEMATOCRIT 37.8 % (36.0-47.0); HEMOGLOBIN 12.3 g/dL (12.0-15.5); LYMPH # 2.6 x10^3/uL (1.0-4.8); LYMPH % 37 % (24-48); MEAN CORPUSCULAR HEMOGLOBIN 31 pg (25-35); MEAN CORPUSCULAR HGB CONC 33 g/dL (31-37); MEAN CORPUSCULAR VOLUME 96 fL (79-100); MONO % 9 % (0-9); NEUT % 48 % (31-73); PLATELET COUNT 276 x10^3/uL (140-400); RED BLOOD COUNT 3.95 x10^6/uL (3.50-5.40); RED CELL DISTRIBUTION WIDTH 13.2 % (11.5-14.5)
[2017-08-28] MEDS: PANTOPRAZOLE 40 MG TABLET.DR. PO SCH (06:28)
[2017-08-28 07:00] VITALS: BP 103/69
[2017-08-28 07:22] LABS: CALCIUM 9.4 mg/dL (8.5-10.1); CREATININE 0.9 mg/dL (0.6-1.0); GFR 65.5; POTASSIUM 3.5 mmol/L (3.5-5.1)
[2017-08-28] MEDS ORDERED: LEVOTHYROXINE 125 MCG TABLET PO SCH (07:30)
[2017-08-28] MEDS ORDERED: ASPIRIN ENTERIC COATED 325 MG TABLET.DR. PO SCH (08:00)
[2017-08-28] MEDS ORDERED: methylPREDNISolone 4 MG TABLET. PO SCH (09:00)
[2017-08-28] MEDS: METOPROLOL TART IMMED RELEASE 25 MG TABLET. PO SCH (09:12)
[2017-08-28] MEDS ORDERED: CLOPIDOGREL BISULFATE 75 MG TABLET PO SCH (09:45)
[2017-08-28 11:00] VITALS: BP 104/84
[2017-08-28 15:00] VITALS: BP 112/67
--- NOTE | 2017-08-28 16:29 | CARD ---
APPROVED REPORT EXAM: Limited Two-dimensional Echocardiogram. Other Information Quality : Technically LimitedHR: 82bpm INDICATION Elevated Troponin GREAT VESSELS Not assessed PERICARDIAL EFFUSION There is no evidence of significant pericardial effusion. Critical Notification Critical Value: No <Conclusion> Limited echo performed for EF only. EF > 65% Grossly normal wall motion on limited images.
[2017-08-28] MEDS ORDERED: CLOP75TA PO (18:58)
[2017-08-28] MEDS ORDERED: ASPI-630 PO (18:58)
--- NOTE | 2017-08-28 18:59 | PDOC3 ---
Discharge Summary [facility] Date of Admission: Aug 27, 2017 Discharge Date: Aug 28, 2017 Admitting Diagnosis 1. NSTEMI; mildly elevated a 0.3 2. CAD s/p recent CABG 3. Cervical radiculopathy/strain 4. Hypertension 5. Hyperlipidemia Problems: Final Diagnosis CONSULTS card neuro Brief Hospital Course Ms. Dorsey is a 51 old F, with h/o cervical pain with arm numbness, comes for chest pain, left arm numbness. echo normal. no card intervention neuro consulted, no intervention, recommend PT. dc home with asa 81mg and plavix. dc time 35min GENERAL: This is an overweight 51-year-old woman, alert and oriented, in no acute distress. HEENT: Shows no scleral icterus. NECK: Supple. LUNGS: Clear. CARDIOVASCULAR: Heart has regular rate and rhythm. Mid sternal incision line is very well healed. ABDOMEN: Has positive bowel sounds, soft, nontender. EXTREMITIES: Show no edema. SKIN: Warm, soft and dry without any rash. Problems: Disposition home CONDITION AT DISCHARGE: Improved Diet cardiac Scheduled Aspirin (Aspirin), 81 MG PO DAILYWBKFT Atorvastatin Calcium (Atorvastatin Calcium), 40 MG PO QHS Clopidogrel Bisulfate (Clopidogrel), 75 MG PO DAILYWBKFT Levothyroxine Sodium (Synthroid), 125 MCG PO DAILYAC, (Reported) Metoprolol Tartrate (Metoprolol Tartrate), 25 MG PO BID Scheduled PRN Docusate Sodium (Colace), 100 MG PO BID PRN for CONSTIPATION Oxycodone Hcl/Acetaminophen (Oxycodone-Acetaminophen 5-325), 1-2 TAB PO PRN Q4- 6HRS PRN for MODERATE PAIN, SEVERE PAIN Oxycodone Hcl/Acetaminophen (Oxycodone-Acetaminophen 5-325), 1 TAB PO PRN Q4HRS PRN for MILD PAIN Discontinued Medications Aspirin (Aspirin Ec), 325 MG PO DAILYWBKFT SAGAR GARCIA MD Aug 28, 2017 18:59
--- NOTE | 2017-08-29 07:33 | CONS ---
DATE OF CONSULTATION: 08/28/2017 REFERRING PHYSICIAN: Sonia Delacruz MD REASON FOR CONSULTATION: Left arm tingling. HISTORY OF PRESENT ILLNESS: The patient is a 51-year-old woman who presented to the Emergency Room with concern for myocardial infarction. Her history began on 07/14 when she was having pain of the neck, arms and tingling in her feet. She had lifting something heavy 3-4 months prior to that and had numbness immediately following, but was better the next day. Periodically, the numbness and tingling would come back on the left arm. Eventually, it was bothering her so that she went to the Emergency Room and she was found to be having a myocardial infarction. She underwent 2-vessel bypass surgery towards the end of June. She has been recovering very nicely. She is concerned because she has been intermittently experiencing tingling and numbness of the left hand and arm. She has had some occasional headaches and neck pain, but these symptoms are quite similar to what she experienced when she had her myocardial infarction. She reports that she has been evaluated by Cardiology and they do not feel there is a further ischemia as an issue. I have been asked to evaluate a neurologic cause for her symptoms. PAST MEDICAL HISTORY: 1. Coronary artery disease, status post coronary artery bypass surgery on 07/19/2017. 2. Hypertension. 3. Hyperlipidemia. 4. Nonalcoholic steatohepatitis. 5. Hypothyroidism. 6. Borderline diabetes. 7. Cervical sprain with degenerative joint disease with congenital fusion of C4 and C5. 8. Compression fracture, lower T-spine. ALLERGIES: SULFA, CODEINE AND LATEX. MEDICATIONS PRIOR ADMISSION: Aspirin 81 mg, atorvastatin 40 mg, clopidogrel 75 mg, Colace 100 mg twice per day, levothyroxine 125 mcg, metoprolol 25 mg twice per day and oxycodone 1-2 tablets every 4 hours as needed for pain. FAMILY HISTORY: Her mother and brother had coronary artery disease. Her father had hypertension. SOCIAL HISTORY: She is . 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 Her works for [employer]. She quit smoking. She does not drink alcohol. REVIEW OF SYSTEMS: She has had periodic headaches. She has had pain in the neck and shoulder. She has had tingling going down the left arm. This fluctuates in severity. She has not had trouble with swallowing. She has not had shortness of breath, cough or cold. There has been no chest or abdominal pain. She does not have any bone or joint pain other than the neck. She has not had any fever or rash. Denies any gastrointestinal or genitourinary complaints. She does not complain of easy bruising, bleeding or swelling. She denies any psychiatric concerns. Although she has tingling, she does not actually complain of numbness or lack of sensation. She has not noticed any focal weakness. She has had no trouble with balance or coordination. PHYSICAL EXAMINATION: VITAL SIGNS: The blood pressure was 112/67, pulse 88, respirations 18, temperature 98.3 degrees Celsius. Oximetry was 95% on room air. GENERAL: She was alert, awake and cooperative. Speech was fluent and clear. She had a good fund of recent and remote knowledge. Attention and concentration was intact. She appeared well groomed and well nourished. She was fully oriented. NEUROLOGIC: Examination of the cranial nerves revealed visual mayberry were full to confrontation. Extraocular movements were intact. The eyes were conjugate. Pursuit movements were smooth and saccadic eye movements were without dysmetria. Pupils were 3 mm and reactive. Funduscopic exam did not reveal papilledema, exudate or hemorrhage. Facial sensation was intact. The muscles of mastication and facial expression were powerful symmetrically. Hearing was intact to finger rub. The palate arches symmetrically and the tongue was midline with full range of motion. Sternocleidomastoid and trapezius were powerful. Muscle bulk and tone was normal. There was no arm drift or abnormal movement. There was no leg drift. The power was full and symmetric in the upper and lower extremities. Initially, her effort with the left leg was not as great but with coaching it seemed equal. Reflexes were 2/4 and symmetric in the upper extremities and at the knees, but were absent at the ankles. The toes were downgoing. Coordination testing with [id number], [id number], fine motor and rapid alternating movements was well performed. Sensory exam was intact to pain, light touch, proprioception, graphesthesia, cold thermal and vibration. There was no extinction to double simultaneous stimulation. Gait was of a normal base and was steady. She is able to heel, toe and tandem walk. The Romberg stance was negative. CARDIOVASCULAR: Auscultation of the carotid arteries did not reveal a bruit. Heart rhythm was regular without a murmur. Peripheral pulses were symmetric. MUSCULOSKELETAL: There was no edema or cyanosis of the extremities. Palpation of the neck revealed a great deal of tightness in the mid cervical paraspinals. Palpation provoked the tingling down the arm. The left trapezius was started in the right and palpation provoked tingling down the arm. There was also some tightness in the thoracic paraspinals with palpation in the left side provoking tingling down the arm. REVIEW OF LABORATORY DATA: The CBC revealed a normal white blood cell count, hemoglobin, hematocrit and platelet count. The electrolytes were normal. BUN and creatinine were normal. The glucose was low at 65. Calcium was normal. CPK was not elevated. Troponin was elevated to 0.342 and 0.321. Lipid profile revealed a total cholesterol of 155, triglycerides at 124, HDL was 52, LDL 78, VLDL 25. A chest x-ray revealed no acute cardiopulmonary disease. An echocardiogram revealed normal ejection fraction and grossly normal wall motion. There was no pericardial effusion. IMPRESSION: The patient is a 51-year-old woman who had recurrent neck pain, left shoulder and arm pain with tingling and was ultimately discovered to have coronary artery disease for which she underwent bypass surgery about 5 weeks ago. She has been having some recurrent tingling in the left hand and arm. She was quite concerned this represented recurrent coronary artery disease. It does not appear that this is necessarily the case. Neurologically, I do not see evidence for any spinal cord impingement as she does not have spasticity, weakness in an upper motor neuron pattern or pathologic reflexes. She does not have evidence of radiculopathy as all reflexes and strength testing of all muscle groups in the upper extremities as well as lower extremities was completely normal. I was able to reproduce the symptoms by palpation of muscle groups, so this represents trigger points and her tingling is from these trigger points. RECOMMENDATIONS: She would be greatly helped by working with physical therapy with emphasis on a progressive home exercise program to try to relieve the myofascial pain in the trigger points. At this point, I do not feel compelled that she needs cervical spine imaging. If symptoms persist, we could always consider this at a later date. Neurology could reevaluate as an outpatient if new symptoms arrived such as actual sensory loss or weakness. I appreciate being involved in her care. YEAL KAISER MD DR: ANGELA/pankaj JOB#: [id number] / [id number] KELSY Fernandez MD, URSULA MD SHI, FERILYN MD
[2017-08-29] MEDS ORDERED: ASPIRIN CHEWABLE 81 MG TABLET. PO SCH (08:00)
== END 2017-08-28 19:30 | disposition home or self-care (01) | DRG 282 ==
LOC: ER 14:30 → 2 SOUTH 15:22
PROVIDERS: ADMIT Internal Medicine Hematology & Oncology; ATTEND Internal Medicine Hematology & Oncology
DX: I21.4 Non-ST elevation (NSTEMI) myocardial infarction (principal); E11.9 Type 2 diabetes mellitus without complications; Z95.1 Presence of aortocoronary bypass graft; I10 Essential (primary) hypertension; E03.9 Hypothyroidism, unspecified; E66.3 Overweight; Z68.29 Body mass index [BMI] 29.0-29.9, adult; E78.5 Hyperlipidemia, unspecified; I25.119 Atherosclerotic heart disease of native coronary artery with unspecified angina pectoris; I25.2 Old myocardial infarction; M54.12 Radiculopathy, cervical region; Z82.49 Family history of ischemic heart disease and other diseases of the circulatory system; Z87.891 Personal history of nicotine dependence; Z90.49 Acquired absence of other specified parts of digestive tract; F32.9 Major depressive disorder, single episode, unspecified; M19.90 Unspecified osteoarthritis, unspecified site; Z91.040 Latex allergy status; Z88.5 Allergy status to narcotic agent; Z88.2 Allergy status to sulfonamides
CPT/HCPCS: 36415; 71010; 80048; 80061; 80076; 82553; 83690; 83880; 84484; 85025; 93005; 93308; 96374; 96376; J2270; J7509; 99285-25

== ENCOUNTER → 2017-09-23 | Outpatient (CLI) | payer BC, OTHER ==
[2017-08-28 15:00] VITALS: BP 112/67
[~2017-09-23] MED LIST changes: +ASPI-630 PO; +CLOP75TA PO
[2017-09-23 10:41] LABS: ALBUMIN 3.7 g/dL (3.4-5.0); DIRECT BILIRUBIN 0.1 mg/dL (0.0-0.2); TOTAL BILIRUBIN 0.4 mg/dL (0.2-1.0); TOTAL PROTEIN 7.1 g/dL (6.4-8.2)
[2017-09-23 10:44] LABS: CHOLESTEROL/HDL RATIO 2.8
== END | disposition home or self-care (01) ==
LOC: LAB 10:02
PROVIDERS: ATTEND Internal Medicine Cardiovascular Disease
DX: Z13.220 Encounter for screening for lipoid disorders (principal); Z51.81 Encounter for therapeutic drug level monitoring; E78.5 Hyperlipidemia, unspecified
CPT/HCPCS: 36415; 80061; 80076

== ENCOUNTER 2017-10-21 17:11 | Inpatient (IN) | payer OTHER, BC ==
[~2017-10-21] VITALS: Ht 170.2 cm; Wt 82.8 kg
[2017-10-21] MEDS ORDERED: ASPIRIN CHEWABLE 81 MG TABLET. PO ONE (17:30)
[2017-10-21] MEDS ORDERED: MORPHINE SULFATE 2 MG/ML DISP.SYRIN. IV PRN ×2 (17:30→18:15)
[2017-10-21 17:34] LABS: BASO # 0.1 x10^3/uL (0.0-0.2); BASO % 1 % (0-3); EOS % 1 % (0-3); HEMATOCRIT 42.4 % (36.0-47.0); HEMOGLOBIN 14.2 g/dL (12.0-15.5); LYMPH # 2.2 x10^3/uL (1.0-4.8); LYMPH % 24 % (24-48); MEAN CORPUSCULAR HEMOGLOBIN 31 pg (25-35); MEAN CORPUSCULAR HGB CONC 34 g/dL (31-37); MEAN CORPUSCULAR VOLUME 91 fL (79-100); MONO % 11 % (0-9); NEUT % 62 % (31-73); PLATELET COUNT 267 x10^3/uL (140-400); RED BLOOD COUNT 4.63 x10^6/uL (3.50-5.40); RED CELL DISTRIBUTION WIDTH 13.4 % (11.5-14.5)
[2017-10-21 17:44] LABS: PROTHROMBIN TIME PATIENT 12.2 SEC (11.7-14.0)
--- NOTE | 2017-10-21 17:46 | EKG ---
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
[2017-10-21 17:51] LABS: CALCIUM 9.3 mg/dL (8.5-10.1); CREATININE 0.9 mg/dL (0.6-1.0); GFR 65.2; POTASSIUM 3.7 mmol/L (3.5-5.1)
[2017-10-21 17:58] LABS: ALBUMIN 3.9 g/dL (3.4-5.0); DIRECT BILIRUBIN 0.2 mg/dL (0.0-0.2); TOTAL BILIRUBIN 0.5 mg/dL (0.2-1.0); TOTAL PROTEIN 7.3 g/dL (6.4-8.2)
--- NOTE | 2017-10-21 17:59 | PHYS DOC ---
Past Medical History Past Medical History: Heart Disease, Hypothyroid Past Surgical History: Appendectomy, Coronary Bypass Surgery, Other Additional Past Surgical Histo: NECK SX Alcohol Use: Occasionally Drug Use: None Adult General Chief Complaint Chief Complaint: CHEST PAIN HPI HPI 52-year-old female with a history of CABG recently in June presenting to the emergency department today with intermittent chest pain for the past 24 hours. She describes a pressure sensation that is mild to moderate intermittent and radiates down her right arm. She has had intermittent nausea but currently is not nauseous. She reports having an episode of diaphoresis and palpitations about 2 hours ago. She denies unilateral leg swelling hemoptysis or personal history of blood clotting disorders. She denies it migrating pain. She denies that radiates to the back. She denies it being a ripping or tearing sensation. Review of systems is negative for abdominal pain vomiting diarrhea fevers. All other review of systems is negative unless otherwise noted in history of present illness. ED course: 52-year-old female with history of coronary artery disease status post CABG in June presenting to the emergency department today with chest pain. Upon arrival the patient's pain was rated a 2 out of 10. Aspirin given. EKG obtained which shows sinus tachycardia. ST segments are congruent. Sparks is mildly leftward. Intervals show mildly prolonged QTC. Blood work obtained. Troponin came back positive. Normal kidney function. Patient's pain returned in the emergency department. Nitroglycerin given which improved the patient's symptoms. Angiogram obtained and negative for acute pulmonary embolism. The patient was then admitted to our hospital for serial troponins and cardiac consultation. I discussed the case with Dr. Helton who agrees with plan. Review of Systems Review of Systems SEE ABOVE. Current Medications Current Medications Current Medications Medications (Trade) Dose Ordered Sig/[facility] Start Time Stop Time Status Last Admin Dose Admin Aspirin (Children'S Aspirin) 324 mg 1X ONCE 10/21/17 17:30 10/21/17 17:31 DC 10/21/17 17:54 324 MG Enoxaparin Sodium (Lovenox Per Pharmacy Treatment Dosing) 1 each PRN DAILY PRN 10/21/17 18:15 Morphine Sulfate 2 mg PRN Q2HR PRN 10/21/17 18:15 10/21/17 19:10 DC Nitroglycerin (Nitrostat) 0.4 mg PRN Q5MIN PRN 10/21/17 17:30 10/21/17 18:47 0.4 MG Ondansetron HCl (Zofran) 4 mg PRN Q8HRS PRN 10/21/17 18:15 10/22/17 18:14 Sodium Chloride 1,000 ml @ 100 mls/hr Q10H 10/21/17 18:13 10/22/17 18:12 10/21/17 18:55 100 MLS/HR Allergies Allergies Allergies Coded Allergies Type Severity Reaction Last Updated Verified latex Allergy Severe Rash 07/19/17 Yes Sulfa (Sulfonamide Antibiotics) Allergy Intermediate Rash 07/19/17 Yes codeine Adverse Reaction Mild Nausea and Vomiting 07/22/17 Yes Physical Exam Physical Exam SEE ABOVE Constitutional: Well developed, well nourished, no acute distress, non-toxic appearance. [] HENT: Normocephalic, atraumatic, bilateral external ears normal, oropharynx moist, no oral exudates, nose normal. [] Eyes: PERRLA, EOMI, conjunctiva normal, no discharge. [] Neck: Normal range of motion, no tenderness, supple, no stridor. [] Cardiovascular:Heart rate regular rhythm, no murmur [] Lungs & Thorax: Bilateral breath sounds clear to auscultation . Surgical sternotomy scar present Abdomen: Bowel sounds normal, soft, no tenderness, no masses, no pulsatile masses. [] Skin: Warm, dry, no erythema, no rash. [] Back: No tenderness, no CVA tenderness. [] Extremities: No tenderness, no cyanosis, no clubbing, ROM intact, no edema. [] Neurologic: Alert and oriented X 3, normal motor function, normal sensory function, no focal deficits noted. [] Psychologic: Affect normal, judgement normal, mood normal. [] Current Patient Data Vital Signs Vital Signs Date Time Temp Pulse Resp B/P (MAP) Pulse Ox O2 Delivery O2 Flow Rate FiO2 10/21/17 18:15 96 28 123/75 (91) 97 10/21/17 17:45 Room Air 10/21/17 17:19 97.8 97.8 Lab Values Laboratory Tests Test 10/21/17 17:25 White Blood Count 9.0 x10^3/uL (4.0-11.0) Red Blood Count 4.63 x10^6/uL (3.50-5.40) Hemoglobin 14.2 g/dL (12.0-15.5) Hematocrit 42.4 % (36.0-47.0) Mean Corpuscular Volume 91 fL (79-100) Mean Corpuscular Hemoglobin 31 pg (25-35) Mean Corpuscular Hemoglobin Concent 34 g/dL (31-37) Red Cell Distribution Width 13.4 % (11.5-14.5) Platelet Count 267 x10^3/uL (140-400) Neutrophils (%) (Auto) 62 % (31-73) Lymphocytes (%) (Auto) 24 % (24-48) Monocytes (%) (Auto) 11 % (0-9) H Eosinophils (%) (Auto) 1 % (0-3) Basophils (%) (Auto) 1 % (0-3) Neutrophils # (Auto) 5.6 x10^3uL (1.8-7.7) Lymphocytes # (Auto) 2.2 x10^3/uL (1.0-4.8) Monocytes # (Auto) 1.0 x10^3/uL (0.0-1.1) Eosinophils # (Auto) 0.1 x10^3/uL (0.0-0.7) Basophils # (Auto) 0.1 x10^3/uL (0.0-0.2) Prothrombin Time 12.2 SEC (11.7-14.0) Prothrombin Time INR 1.0 (0.8-1.1) PTT 31 SEC (24-38) Sodium Level 142 mmol/L (136-145) Potassium Level 3.7 mmol/L (3.5-5.1) Chloride Level 105 mmol/L (98-107) Carbon Dioxide Level 29 mmol/L (21-32) Anion Gap 8 (6-14) Blood Urea Nitrogen 13 mg/dL (7-20) Creatinine 0.9 mg/dL (0.6-1.0) Estimated GFR (Cockcroft-Gault) 65.2 Glucose Level 99 mg/dL (70-99) Calcium Level 9.3 mg/dL (8.5-10.1) Total Bilirubin 0.5 mg/dL (0.2-1.0) Direct Bilirubin 0.2 mg/dL (0.0-0.2) Aspartate Amino Transferase (AST) 26 U/L (15-37) Alanine Aminotransferase (ALT) 49 U/L (14-59) Alkaline Phosphatase 68 U/L (46-116) Troponin I Quantitative 0.403 ng/mL (0.000-0.055) KQ-Doo-A-Type Natriuretic Peptide 458 pg/mL (0-124) H Total Protein 7.3 g/dL (6.4-8.2) Albumin 3.9 g/dL (3.4-5.0) Lipase 92 U/L (73-393) Laboratory Tests 10/21/17 17:25 Laboratory Tests 10/21/17 17:25 EKG EKG [] Radiology/Procedures Radiology/Procedures [] Course & Med Decision Making Course & Med Decision Making Pertinent Labs and Imaging studies reviewed. (See chart for details) [] Dragon Disclaimer Dragon Disclaimer This electronic medical record was generated, in whole or in part, using a voice recognition dictation system. Departure Departure Impression: Primary Impression: Chest pain Additional Impression: S/P CABG (coronary artery bypass graft) Disposition: 09 ADMITTED INPATIENT Admitting Physician: Gillian Rubi Condition: STABLE Referrals: JIGNESH MCKINNEY MD (PCP) Problem Qualifiers KRISTY GOMEZ MD Oct 21, 2017 17:59
[2017-10-21] MEDS: NITROGLYCERIN SUBLINGUAL 0.4 MG BOTTLE OF 25. SL PRN ×2 (18:06→18:47)
[2017-10-21] MEDS ORDERED: ONDANSETRON PF 4 MG/2 ML VIAL. IV PRN (18:15)
[2017-10-21] MEDS ORDERED: IOHEXOL 300 MG/ML 100ML VIAL. IV ONE (18:30)
[2017-10-21] MEDS ORDERED: DOCUSATE SODIUM 100 MG CAPSULE. PO PRN (18:30)
[2017-10-21] MEDS ORDERED: CONTRAST GIVEN MC PRN (18:30)
[2017-10-21] MEDS ORDERED: oxyCODONE/APAP 5/325 1 TAB TABLET PO PRN (18:30)
[2017-10-21] MEDS: IV NORMAL SALINE 1000ML BAG 1,000 ML IV SCH (18:55)
--- NOTE | 2017-10-21 19:05 | RAD ---
CTA Chest with contrast: Clinical History: chest pain, [id number] 75ml, no priors Shortness of breath. Axial helical images of the chest were obtained after the administration of 75 cc of IV Omni 300 and timed appropriately for a pulmonary arterial study. Conventional axial reconstruction was performed in addition to coronal, sagittal and bilateral oblique MIP (maximum intensity projection). This study was ordered to detect possible pulmonary embolism. There are no filling defects to suggest pulmonary embolism. The lungs and pleural margins are clear. There are numerous small borderline size mediastinal lymph nodes. The thoracic aorta appears normal. Impression: 1. No evidence of pulmonary embolism. 2. Mild mediastinal lymphadenopathy is of uncertain significance. PQRS Compliance Statement: One or more of the following individualized dose reduction techniques were utilized for this examination: 1. Automated exposure control 2. Adjustment of the mA and/or kV according to patient size 3. Use of iterative reconstruction technique Electronically signed by: Ganga Fabian III, MD (10/21/2017 7:02 PM) [facility]
[2017-10-21] MEDS ORDERED: MORPHINE SULFATE 4 MG/ML DISP.SYRIN. IV PRN (19:15)
--- NOTE | 2017-10-21 19:16 | PDOC1 ---
History and Physical Date of Admission Date of Admission DATE: 10/21/17 TIME: 19:10 Identification/Chief Complaint Chief Complaint chest pain, dyspnea Problems: Source Source: Chart review, Patient History of Present Illness History of Present Illness MS. Dorsey, is a 52-year-old female with a history of CABG < 4 mos ago. admit from ER for acute chest pain, She was at work today at [employer], and was sent over for weakness, chest pain , diaphoreses and shortness of breath. She felt like her "heart was going to pound out of her chest" She has had intermittent chest pain for the past 24 hours, with some last night before she went to bed Left sided pain with pressure, some pain to left arm. She has been compliant with meds, and has been doing cardiac rehab. Past Medical History Cardiovascular: CAD, HTN, Hyperlipidemia, Other Pulmonary: No pertinent hx CENTRAL NERVOUS SYSTEM: Other GI: Hemorrhoids Heme/Onc: No pertinent hx Hepatobiliary: No pertinent hx, Other Psych: Depression Musculoskeletal: Osteoarthritis, Other Rheumatologic: No pertinent hx Infectious disease: No pertinent hx Renal/: No pertinent hx Endocrine: Hypothyroidism, Other Past Surgical History Past Surgical History: Appendectomy, CABG, Other Family History Family History: Coronary Artery Disease, Heart Disease, Hypertension Social History Smoke: No ALCOHOL: none Drugs: None Current Medications Current Medications Current Medications Aspirin (Children'S Aspirin) 324 mg 1X ONCE PO Last administered on 17:54; Start 10/21/17 at 17:30; Stop 10/21/17 at 17:31; Status DC Nitroglycerin (Nitrostat) 0.4 mg PRN Q5MIN PRN SL CHEST PAIN Last administered on 10/21/17 18:47; Start 10/21/17 at 17:30 Morphine Sulfate 2 mg PRN Q1HR PRN IV SEVERE PAIN; Start 10/21/17 at 17:30 Enoxaparin Sodium (Lovenox Per Pharmacy Treatment Dosing) 1 each PRN DAILY PRN MC SEE COMMENTS; Start 10/21/17 at 18:15 Enoxaparin Sodium (Lovenox 80mg Syringe) 70 mg Q12HR SQ Last administered on 18:56; Start 10/21/17 at 18:30 Ondansetron HCl (Zofran) 4 mg PRN Q8HRS PRN IV NAUSEA/VOMITING; Start at 18:15; Stop 10/22/17 at 18:14 Morphine Sulfate 2 mg PRN Q2HR PRN IV PAIN; Start 10/21/17 at 18:15; Stop 10/22/17 at 18:14 Sodium Chloride 1,000 ml @ 100 mls/hr Q10H IV Last administered on 10/21/17 18:55; Start 10/21/17 at 18:13; Stop 10/22/17 at 18:12 Iohexol (Omnipaque 300 Mg/ml) 75 ml 1X ONCE IV Last administered on 18:35; Start 10/21/17 at 18:30; Stop 10/21/17 at 18:31; Status DC Info (Do NOT chart on this entry -- for MONITORING) 1 each PRN DAILY PRN MC SEE COMMENTS; Start 10/21/17 at 18:30; Stop 10/23/17 at 18:29 Aspirin (Children'S Aspirin) 81 mg DAILYWBKFT PO ; Start 10/22/17 at 08:00 Atorvastatin Calcium (Lipitor) 40 mg QHS PO ; Start 10/21/17 at 21:00 Clopidogrel Bisulfate (Plavix) 75 mg DAILYWBKFT PO ; Start 10/22/17 at 08:00 Docusate Sodium (Colace) 100 mg BID PRN PO CONSTIPATION; Start 10/21/17 at 18: 30 Levothyroxine Sodium (Synthroid) 125 mcg DAILYAC PO ; Start 10/22/17 at 07:30 Metoprolol Tartrate (Lopressor) 25 mg BID PO ; Start 10/21/17 at 21:00 Oxycodone/ Acetaminophen (Percocet 5/325) 1 tab PRN Q4HRS PRN PO MILD PAIN; Start 10/21/17 at 18:30 Active Scripts Active Clopidogrel (Clopidogrel Bisulfate) 75 Mg Tablet 75 Mg PO DAILYWBKFT 30 Days Aspirin 81 Mg Tab.chew 81 Mg PO DAILYWBKFT 30 Days Oxycodone-Acetaminophen 5-325 (Oxycodone Hcl/Acetaminophen) 1 Each Tablet 1 Tab PO PRN Q4HRS PRN Colace (Docusate Sodium) 100 Mg Capsule 100 Mg PO BID PRN 30 Days SIG: ONE TAB P.O. BID WHILE TAKING PRESCRIPTION PAIN MEDICATIONS; HOLD OR STOP IF LOOSE STOOLS OR DIARRHEA Oxycodone-Acetaminophen 5-325 (Oxycodone Hcl/Acetaminophen) 1 Each Tablet 1-2 Tab PO PRN Q4-6HRS PRN Atorvastatin Calcium 40 Mg Tablet 40 Mg PO QHS Metoprolol Tartrate 25 Mg Tablet 25 Mg PO BID Reported Synthroid (Levothyroxine Sodium) 125 Mcg Tablet 125 Mcg PO DAILYAC Allergies Allergies: Coded Allergies: latex (Verified Allergy, Severe, Rash, 07/19/17) Sulfa (Sulfonamide Antibiotics) (Verified Allergy, Intermediate, Rash, ) codeine (Verified Adverse Reaction, Mild, Nausea and Vomiting, 07/22/17) ROS General: YES: Fatigue, Malaise, No: Chills, Night Sweats, Appetite, Other PSYCHOLOGICAL ROS: No: Anxiety, Behavioral Disorder, Concentration difficultie , Decreased libido, Depression, Disorientation, Hallucinations, Hostility, Irritablity, Memory difficulties, Mood Swings, Obsessive thoughts, Sleep disturbances, Other Eyes: No Blurry vision, No Decreased vision, No Double vision, No Dry eyes, No Excessive tearing, No Eye Pain, No Itchy Eyes, No Loss of vision, No Photophobia , No Scotomata, No Uses contacts, No Uses glasses, No Other HEENT: No: Heacaches, Visual Changes, Hearing change, Nasal congestion, Nasal discharge, Oral lesions, Sinus pain, Sore Throat, Epistaxis, Sneezing, Snoring, Tinnitus, Vertigo, Vocal changes, Other Respiratory: No: Cough, Hemoptysis, Orthopnea, Pleuritic Pain, Shortness of breath, SOB with excertion, Sputum Changes, Stridor, Tachypnea, Wheezing, Other Cardiovascular: yes Chest Pain, No Palpitations, No Orthopnea, No Paroxysmal Noc. Dyspnea, No Edema, No Lt Headedness, No Other Gastrointestinal: No Nausea, No Vomiting, No Abdominal Pain, No Diarrhea, No Constipation, No Melena, No Hematochezia, No Other Genitourinary: No Dysuria, No Frequency, No Incontinence, No Hematuria, No Retention, No Discharge, No Urgency, No Pain, No Flank Pain, No Other, No , No , No , No , No , No , No Musculoskeletal: Yes Joint Pain (right hip, recent injection yester, ), No Gait Disturbance, No Joint Stiffness, No Joint Swelling, No Muscle Pain, No Muscular Weakness, No Pain In:, No Swelling In:, No Other Neurological: No Behavorial Changes, No Bowel/Bladder ControlChng, No Confusion , No Dizziness, No Gait Disturbance, No Headaches, No Impaired Coord/balance, No Memory Loss, No Numbness/Tingling, No Seizures, No Speech Problems, No Tremors, No Visual Changes, No Weakness, No Other Skin: No Dry Skin, No Eczema, No Hair Changes, No Lumps, No Mole Changes, No Mottling, No Nail Changes, No Pruritus, No Rash, No Skin Lesion Changes, No Other, No Acne Physical Exam General: Alert, Oriented X3, mild distress HEENT: Atraumatic, PERRLA, EOMI, Mucous membr. moist/pink Lungs: Clear to auscultation Heart: S1S2, RRR, no murmurs Abdomen: Normal bowel sounds, Soft Rectal Exam: deferred Extremities: No clubbing, No cyanosis, No edema, Normal pulses Skin: No rashes Neuro: Normal gait, Normal speech Psych/Mental Status: Mental status NL, Mood NL Vitals Vitals Vital Signs Date Time Temp Pulse Resp B/P (MAP) Pulse Ox O2 Delivery O2 Flow Rate FiO2 10/21/17 18:47 101 136/70 10/21/17 17:19 97.8 23 97 Room Air 97.8 Labs Labs Laboratory Tests Test 10/21/17 17:25 White Blood Count 9.0 x10^3/uL (4.0-11.0) Red Blood Count 4.63 x10^6/uL (3.50-5.40) Hemoglobin 14.2 g/dL (12.0-15.5) Hematocrit 42.4 % (36.0-47.0) Mean Corpuscular Volume 91 fL (79-100) Mean Corpuscular Hemoglobin 31 pg (25-35) Mean Corpuscular Hemoglobin Concent 34 g/dL (31-37) Red Cell Distribution Width 13.4 % (11.5-14.5) Platelet Count 267 x10^3/uL (140-400) Neutrophils (%) (Auto) 62 % (31-73) Lymphocytes (%) (Auto) 24 % (24-48) Monocytes (%) (Auto) 11 % (0-9) Eosinophils (%) (Auto) 1 % (0-3) Basophils (%) (Auto) 1 % (0-3) Neutrophils # (Auto) 5.6 x10^3uL (1.8-7.7) Lymphocytes # (Auto) 2.2 x10^3/uL (1.0-4.8) Monocytes # (Auto) 1.0 x10^3/uL (0.0-1.1) Eosinophils # (Auto) 0.1 x10^3/uL (0.0-0.7) Basophils # (Auto) 0.1 x10^3/uL (0.0-0.2) Prothrombin Time 12.2 SEC (11.7-14.0) Prothromb Time International Ratio 1.0 (0.8-1.1) Activated Partial Thromboplast Time 31 SEC (24-38) Sodium Level 142 mmol/L (136-145) Potassium Level 3.7 mmol/L (3.5-5.1) Chloride Level 105 mmol/L (98-107) Carbon Dioxide Level 29 mmol/L (21-32) Anion Gap 8 (6-14) Blood Urea Nitrogen 13 mg/dL (7-20) Creatinine 0.9 mg/dL (0.6-1.0) Estimated GFR (Cockcroft-Gault) 65.2 Glucose Level 99 mg/dL (70-99) Calcium Level 9.3 mg/dL (8.5-10.1) Total Bilirubin 0.5 mg/dL (0.2-1.0) Direct Bilirubin 0.2 mg/dL (0.0-0.2) Aspartate Amino Transf (AST/SGOT) 26 U/L (15-37) Alanine Aminotransferase (ALT/SGPT) 49 U/L (14-59) Alkaline Phosphatase 68 U/L (46-116) Troponin I Quantitative 0.403 ng/mL (0.000-0.055) RP-Ibn-Y-Type Natriuretic Peptide 458 pg/mL (0-124) Total Protein 7.3 g/dL (6.4-8.2) Albumin 3.9 g/dL (3.4-5.0) Lipase 92 U/L (73-393) Laboratory Tests Test 10/21/17 17:25 White Blood Count 9.0 x10^3/uL (4.0-11.0) Red Blood Count 4.63 x10^6/uL (3.50-5.40) Hemoglobin 14.2 g/dL (12.0-15.5) Hematocrit 42.4 % (36.0-47.0) Mean Corpuscular Volume 91 fL (79-100) Mean Corpuscular Hemoglobin 31 pg (25-35) Mean Corpuscular Hemoglobin Concent 34 g/dL (31-37) Red Cell Distribution Width 13.4 % (11.5-14.5) Platelet Count 267 x10^3/uL (140-400) Neutrophils (%) (Auto) 62 % (31-73) Lymphocytes (%) (Auto) 24 % (24-48) Monocytes (%) (Auto) 11 % (0-9) Eosinophils (%) (Auto) 1 % (0-3) Basophils (%) (Auto) 1 % (0-3) Neutrophils # (Auto) 5.6 x10^3uL (1.8-7.7) Lymphocytes # (Auto) 2.2 x10^3/uL (1.0-4.8) Monocytes # (Auto) 1.0 x10^3/uL (0.0-1.1) Eosinophils # (Auto) 0.1 x10^3/uL (0.0-0.7) Basophils # (Auto) 0.1 x10^3/uL (0.0-0.2) Prothrombin Time 12.2 SEC (11.7-14.0) Prothromb Time International Ratio 1.0 (0.8-1.1) Activated Partial Thromboplast Time 31 SEC (24-38) Sodium Level 142 mmol/L (136-145) Potassium Level 3.7 mmol/L (3.5-5.1) Chloride Level 105 mmol/L (98-107) Carbon Dioxide Level 29 mmol/L (21-32) Anion Gap 8 (6-14) Blood Urea Nitrogen 13 mg/dL (7-20) Creatinine 0.9 mg/dL (0.6-1.0) Estimated GFR (Cockcroft-Gault) 65.2 Glucose Level 99 mg/dL (70-99) Calcium Level 9.3 mg/dL (8.5-10.1) Total Bilirubin 0.5 mg/dL (0.2-1.0) Direct Bilirubin 0.2 mg/dL (0.0-0.2) Aspartate Amino Transf (AST/SGOT) 26 U/L (15-37) Alanine Aminotransferase (ALT/SGPT) 49 U/L (14-59) Alkaline Phosphatase 68 U/L (46-116) Troponin I Quantitative 0.403 ng/mL (0.000-0.055) KL-Aza-P-Type Natriuretic Peptide 458 pg/mL (0-124) Total Protein 7.3 g/dL (6.4-8.2) Albumin 3.9 g/dL (3.4-5.0) Lipase 92 U/L (73-393) VTE Prophylaxis Ordered VTE Prophylaxis Devices: Yes VTE Pharmacological Prophylaxi: No Assessment/Plan Assessment/Plan unstable angina, chest pain with pressure to arm. with History of CAD s/p CABG admit for repeat troponins, treatment dose lovenox given in the ER now. cont home meds, statin, b-jaqueline, plavix, consult CV CT angio chest to r/o PE, but resp rate 18, and Sa02 97% on RA, htn hyperlipids hypothyroid admit, pt seen in ER 17 BRINA SHAH MD Oct 21, 2017 19:16
[2017-10-21 20:30] VITALS: BP 119/72
[2017-10-21] MEDS ORDERED: METOPROLOL TART IMMED RELEASE 25 MG TABLET. PO SCH (21:00)
[2017-10-21] MEDS ORDERED: ATORVASTATIN CALCIUM 40 MG TABLET. PO SCH (21:00)
[2017-10-21 23:25] VITALS: BP 111/66
[2017-10-22 03:25] VITALS: BP 111/63
[2017-10-22] MEDS: IV NORMAL SALINE 1000ML BAG 1,000 ML IV SCH ×2 (04:13→14:13)
[2017-10-22 05:36] LABS: BASO % 1 % (0-3); EOS % 3 % (0-3); HEMATOCRIT 41.5 % (36.0-47.0); HEMOGLOBIN 13.3 g/dL (12.0-15.5); LYMPH # 1.9 x10^3/uL (1.0-4.8); LYMPH % 34 % (24-48); MEAN CORPUSCULAR HEMOGLOBIN 30 pg (25-35); MEAN CORPUSCULAR HGB CONC 32 g/dL (31-37); MEAN CORPUSCULAR VOLUME 93 fL (79-100); MONO % 11 % (0-9); NEUT % 52 % (31-73); PLATELET COUNT 233 x10^3/uL (140-400); RED BLOOD COUNT 4.44 x10^6/uL (3.50-5.40); RED CELL DISTRIBUTION WIDTH 13.3 % (11.5-14.5); WHITE BLOOD COUNT 5.8 x10^3/uL (4.0-11.0)
[2017-10-22 05:52] LABS: CALCIUM 8.9 mg/dL (8.5-10.1); CREATININE 0.8 mg/dL (0.6-1.0); GFR 74.7; POTASSIUM 3.8 mmol/L (3.5-5.1)
[2017-10-22 07:00] VITALS: BP 116/70
[2017-10-22] MEDS ORDERED: LEVOTHYROXINE 125 MCG TABLET PO SCH (07:30)
[2017-10-22] MEDS ORDERED: ASPIRIN CHEWABLE 81 MG TABLET. PO SCH (08:00)
[2017-10-22] MEDS ORDERED: CLOPIDOGREL BISULFATE 75 MG TABLET PO SCH (08:00)
--- NOTE | 2017-10-22 08:19 | RAD ---
Chest x-ray Indication: Nontraumatic chest pain for one day. Dizziness, sweating. History of open heart surgery June 2017 technique: Portable AP upright chest x-ray Comparison: Previous study from 08/27/2017 Findings: Median sternotomy. Heart is normal in size. Lungs are clear. No pneumothorax or pleural effusion. Visualized bony thorax is within normal limits. Impression: No acute cardiopulmonary process.
--- NOTE | 2017-10-22 09:23 | PDOC2 ---
LIBBY CAMARENA CROWN IRONER OPERATOR 10/22/17 0923: CARDIAC CONSULT DATE OF CONSULT Date of Consult DATE: 10/22/17 TIME: 09:10 REASON FOR CONSULT Reason for Consult: Positive troponin REFERRING PHYSICIAN Referring Physician: Joseluis SOURCE Source: Chart review, Patient HISTORY OF PRESENT ILLNESS HISTORY OF PRESENT ILLNESS intermittent CP 24 hours radiating to right arm nausea diaphjoreses and palpiations ASA sinus tach CTA neg tiw cardiac rehab doing well Yesterday at work. [place] flushed lishghtly lightheaded sharp chest reprdocvuible right hand tingling x3 NTG relieved each tab compliant PAST MEDICAL HISTORY Past Medical History Cardiovascular: HTN, Other (leg varicosities), CAD s/p CABG Pulmonary: No pertinent hx CENTRAL NERVOUS SYSTEM: Other (cervical radiculopathy) GI: Hemorrhoids Heme/Onc: No pertinent hx Hepatobiliary: No pertinent hx, Other (ARIAS) Psych: Depression (controlled no meds) Musculoskeletal: Osteoarthritis, Other (degenerative disc disease; right trochanteric bursitis) Rheumatologic: No pertinent hx Infectious disease: No pertinent hx ENT: No pertinent hx Renal/: No pertinent hx Endocrine: Hypothyroidism, Other (goiter) Dermatology: No pertinent hx PAST SURGICAL HISTORY Past Surgical History CABG 07/19/2017 x 2 (ORTA to LAD, SVG to Ramus) , Appendectomy, Other (cervical fusion; breast biopsy) FAMILY HISTORY Family History Coronary Artery Disease (mother and brother), Heart Disease (mother), Hypertension (father) SOCIAL HISTORY Social History Smoke: quit ALCOHOL: other occasional Drugs: None Lives: with Family CURRENT MEDICATIONS CURRENT MEDICATIONS Current Medications Medications (Trade) Dose Ordered Sig/Annelise Route PRN Reason Start Time Stop Time Status Last Admin Dose Admin Aspirin (Children'S Aspirin) 324 mg 1X ONCE PO 10/21/17 17:30 10/21/17 17:31 DC 10/21/17 17:54 Nitroglycerin (Nitrostat) 0.4 mg PRN Q5MIN PRN SL CHEST PAIN 10/21/17 17:30 10/21/17 18:47 Morphine Sulfate 2 mg PRN Q1HR PRN IV SEVERE PAIN 10/21/17 17:30 10/22/17 08:09 Enoxaparin Sodium (Lovenox 80mg Syringe) 70 mg Q12HR SQ 10/21/17 18:30 10/21/17 18:56 Sodium Chloride 1,000 ml @ 100 mls/hr Q10H IV 10/21/17 18:13 10/22/17 18:12 10/21/17 18:55 Iohexol (Omnipaque 300 Mg/ml) 75 ml 1X ONCE IV 10/21/17 18:30 10/21/17 18:31 DC 10/21/17 18:35 Atorvastatin Calcium (Lipitor) 40 mg QHS PO 10/21/17 21:00 10/21/17 20:37 Levothyroxine Sodium (Synthroid) 125 mcg DAILYAC PO 10/22/17 07:30 10/22/17 08:09 Metoprolol Tartrate (Lopressor) 25 mg BID PO 10/21/17 21:00 10/21/17 20:37 ALLERGIES ALLERGIES: Coded Allergies: latex (Verified Allergy, Severe, Rash, 07/19/17) Sulfa (Sulfonamide Antibiotics) (Verified Allergy, Intermediate, Rash, ) codeine (Verified Adverse Reaction, Mild, Nausea and Vomiting, 07/22/17) VITALS VITALS Vital Signs Date Time Temp Pulse Resp B/P (MAP) Pulse Ox O2 Delivery O2 Flow Rate FiO2 10/22/17 08:09 16 Room Air 10/22/17 07:00 97.9 83 116/70 (85) 95 97.9 LABS Lab: Laboratory Tests Test 10/21/17 17:25 10/22/17 00:23 10/22/17 04:05 White Blood Count 9.0 x10^3/uL (4.0-11.0) 5.8 x10^3/uL (4.0-11.0) Red Blood Count 4.63 x10^6/uL (3.50-5.40) 4.44 x10^6/uL (3.50-5.40) Hemoglobin 14.2 g/dL (12.0-15.5) 13.3 g/dL (12.0-15.5) Hematocrit 42.4 % (36.0-47.0) 41.5 % (36.0-47.0) Mean Corpuscular Volume 91 fL (79-100) 93 fL (79-100) Mean Corpuscular Hemoglobin 31 pg (25-35) 30 pg (25-35) Mean Corpuscular Hemoglobin Concent 34 g/dL (31-37) 32 g/dL (31-37) Red Cell Distribution Width 13.4 % (11.5-14.5) 13.3 % (11.5-14.5) Platelet Count 267 x10^3/uL (140-400) 233 x10^3/uL (140-400) Neutrophils (%) (Auto) 62 % (31-73) 52 % (31-73) Lymphocytes (%) (Auto) 24 % (24-48) 34 % (24-48) Monocytes (%) (Auto) 11 % (0-9) 11 % (0-9) Eosinophils (%) (Auto) 1 % (0-3) 3 % (0-3) Basophils (%) (Auto) 1 % (0-3) 1 % (0-3) Neutrophils # (Auto) 5.6 x10^3uL (1.8-7.7) 3.0 x10^3uL (1.8-7.7) Lymphocytes # (Auto) 2.2 x10^3/uL (1.0-4.8) 1.9 x10^3/uL (1.0-4.8) Monocytes # (Auto) 1.0 x10^3/uL (0.0-1.1) 0.6 x10^3/uL (0.0-1.1) Eosinophils # (Auto) 0.1 x10^3/uL (0.0-0.7) 0.2 x10^3/uL (0.0-0.7) Basophils # (Auto) 0.1 x10^3/uL (0.0-0.2) 0.0 x10^3/uL (0.0-0.2) Prothrombin Time 12.2 SEC (11.7-14.0) Prothromb Time International Ratio 1.0 (0.8-1.1) Activated Partial Thromboplast Time 31 SEC (24-38) Sodium Level 142 mmol/L (136-145) 144 mmol/L (136-145) Potassium Level 3.7 mmol/L (3.5-5.1) 3.8 mmol/L (3.5-5.1) Chloride Level 105 mmol/L (98-107) 109 mmol/L (98-107) Carbon Dioxide Level 29 mmol/L (21-32) 30 mmol/L (21-32) Anion Gap 8 (6-14) 5 (6-14) Blood Urea Nitrogen 13 mg/dL (7-20) 13 mg/dL (7-20) Creatinine 0.9 mg/dL (0.6-1.0) 0.8 mg/dL (0.6-1.0) Estimated GFR (Cockcroft-Gault) 65.2 74.7 Glucose Level 99 mg/dL (70-99) 97 mg/dL (70-99) Calcium Level 9.3 mg/dL (8.5-10.1) 8.9 mg/dL (8.5-10.1) Total Bilirubin 0.5 mg/dL (0.2-1.0) Direct Bilirubin 0.2 mg/dL (0.0-0.2) Aspartate Amino Transf (AST/SGOT) 26 U/L (15-37) Alanine Aminotransferase (ALT/SGPT) 49 U/L (14-59) Alkaline Phosphatase 68 U/L (46-116) Troponin I Quantitative 0.403 ng/mL (0.000-0.055) 0.418 ng/mL (0.000-0.055) 0.399 ng/mL (0.000-0.055) DF-Jlx-H-Type Natriuretic Peptide 458 pg/mL (0-124) Total Protein 7.3 g/dL (6.4-8.2) Albumin 3.9 g/dL (3.4-5.0) Lipase 92 U/L (73-393) ECHOCARDIOGRAM ECHOCARDIOGRAM <Conclusion> Limited echo performed for EF only. EF > 65% Grossly normal wall motion on limited images. DATE: 08/28/17 1628 HEART CATH HEART CATH Conclusion 1. 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 2. Positive IVUS of the distal LM/Ramus. 3. Normal LV function. EF 70%. Recommendations CABG consultation. If patient deemed poor candidate for CABG then could consider complex bifurcation stenting of the LAD/Ramus and left main. DATE: 07/15/17 1052 ASSESSMENT/PLAN ASSESSMENT/PLAN 1. NSTEMI: likely from microvascular dysfunction. Peaked trop at 0.41. EKG SR/ ST with no acute changes. CTA neg for PE 2. Chronic troponin elevation: recently noted in 08/2017 with trop at 0.3 suspecting microvascular dysfunction and coronary spasm 3. CAD s/p recent CABG 4. HTN: controlled 5. HLP Restarted smoking Recommendations 1. limited TTE. Repeat EKG. Further recommendation pending the latter 2. Continue with DAPT and secondary prevention measures. 3. Start on imdur, continue low dose toprol, continue secondary prevention smoking cessation Problems: TOI STEWART MD 10/22/17 1801: CARDIAC CONSULT ALLERGIES ALLERGIES: Coded Allergies: latex (Verified Allergy, Severe, Rash, 07/19/17) Sulfa (Sulfonamide Antibiotics) (Verified Allergy, Intermediate, Rash, ) codeine (Verified Adverse Reaction, Mild, Nausea and Vomiting, 07/22/17) ASSESSMENT/PLAN ASSESSMENT/PLAN Patient seen and examined. Agree with [employer] BENDER's assessment and plan. Doubt ACS based on presentation Lexiscan MPI did show any ischemia. OK for DC from cardiac standpoint. Thank you for your consultation Problems: LIBBY CAMARENA APRN Oct 22, 2017 09:23 TOI STEWART MD Oct 22, 2017 18:01
[2017-10-22] MEDS ORDERED: ISOSORBIDE MONONITRATE ER 30 MG TAB.ER.24H PO SCH (10:00)
--- NOTE | 2017-10-22 10:06 | EKG ---
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
[2017-10-22] MEDS ORDERED: REGADENOSON 0.4 MG/5 ML DISP.SYRIN. IV ONE (10:45)
--- NOTE | 2017-10-22 11:38 | CARD ---
APPROVED REPORT EXAM: Two-dimensional and M-mode echocardiogram with Doppler and color Doppler. Other Information Quality : Good INDICATION Chest Pain LIMITED ECHO FOR LV FUNCTION, POST CABG 2D DIMENSIONS IVSd1.2 (0.7-1.1cm)LVDd4.3 (3.9-5.9cm) PWd1.2 (0.7-1.1cm)LVDs2.9 (2.5-4.0cm) FS (%) 32.8 %SV50.9 ml LVEF(%)61.6 (>50%) LEFT VENTRICLE The left ventricle is normal size. There is mild concentric left ventricular hypertrophy. Left ventri gamaliel systolic function is normal. The Ejection Fraction is 55-60%. There is normal LV segmental wall m otion. RIGHT VENTRICLE The right ventricle is normal size. There is normal right ventricular wall thickness. The right ventr icular systolic function is normal. ATRIA The left atrium size is normal. The right atrium size is normal. The interatrial septum is intact wit h no evidence for an atrial septal defect or patent foramen ovale as noted on 2-D or Doppler imaging. GREAT VESSELS The aortic root is normal in size. PERICARDIAL EFFUSION There is no pleural effusion. There is no evidence of significant pericardial effusion. Critical Notification Critical Value: No <Conclusion> Left ventricle systolic function is normal. The Ejection Fraction is 55-60%.
--- NOTE | 2017-10-22 14:30 | RAD ---
APPROVED REPORT Test Type: Pharmacological Stress Nurse/Tech: Amna Lira R.N. Test Indications: c/p Cardiac History: CABG, smoker Medications: See Electronic Medical Record Medical History: See Electronic Medical Record Resting ECG: SR Resting Heart Rate: 70 bpm Resting Blood Pressure: 123/74mmHg Pretest Chest Pain: None Nurse/Tech Notes S1S2, lungs CTA Consent: The procedure was explained to the patient in lay terms. Informed consent was witnessed. Rusty eout was entered into [employer]. History and Stress Test performed by KANU Ward, SAMPSON (R) (N) Pharm. Details Pharmacologic stress testing was performed using 0.4mg per 5ml of regadenoson given intravenously ove r 7-10 seconds. Stress Symptoms dyspnea, nausea, chest pressure and rt arm pain. scale 8/10 down to 6/10 by the end of recovery perio d- no EKG changes though. notified Ruddy DURBIN of this info POST EXERCISE Reason for Termination: Infusion complete Max HR: 108 bpm Max Blood Pressure: 140/80mmHg Blood Pressure response to exercise: Normal blood pressure response during stress. Heart Rate response to exercise: wnl Chest Pain: Yes. see above note. Arrhythmia: No. ST Change: No. INTERPRETATION Stress EKG Conclusion: No evidence of stress induced EKG changes. Imaging Protocol IMAGE PROTOCOL: Rest Tc-99m/stress Tc-99m 1 day Rest: Stress: Viability: Radiopharm.Tc99m AncdpkrhmXh71w Sestamibi Dose11.3mCi 33mCi Duration 15min. 10min. Img Date 10/22/2017 10/22/2017 Inj-Img Pflg30etp. 60min. Rest Admin Site:IV - Left AntecubitalAdministrator:RT Martin (R)(N) Stress Admin Site: IV - Left AntecubitalAdministrator: KANU Ward, SAMPSON (R)(N) STRESS DATA End Diast. Vol.74.0mlAv. Heart Rate98.0bpm End Syst. Vol.16.0mlCO Index BSA0.0L/min Myocardial Tqju239.0gEject. Xmqtnqlo77.0% Stress Rates Pk. Fill Rate5.72EDV/secLVtime Pk. Fill 148.43msec Pk. Empty Rate5.30ESV/secLVtime Pk. Gchqw539.01msec 1/3 Pk. Fill1.19EDV/sec Stress Scores Regional WT0.00Summed WT0.00 Regional WM0.00Summed WM0.00 The rest and stress images show normal perfusion, normal contraction and thickening. LV Perf. Quant 17 Seg. SSS2.00 17 Seg. SRS0.00 17 Seg. SDS2.00 Stress Defect Extent (% LAD)0.00Rest Defect Extent (% LAD)0.00Rev. Defect Extent (% LAD)0.00 Stress Defect Extent (% LCX) 16.30Rest Defect Extent (% LCX)0.00Rev. Defect Extent (% LCX)15.00 Stress Defect Extent (% RCA)0.00Rest Defect Extent (% RCA)0.00Rev. Defect Extent (% RCA)0.00 Stress Defect Extent (% BRIAN)3.00Rest Defect Extent (% BRIAN)0.00Rev. Defect Extent (% BRIAN)2.80 Other Information Quality:Good Risk Assessment: Low Risk Conclusion 1. No evidence of EKG changes with stress testing. 2. Normal perfusion at stress/rest. 3. Low risk study. 4. EF > 60%.
[2017-10-22 15:01] VITALS: BP 115/68
[2017-10-22] MEDS ORDERED: ISOS30TA4 PO (15:20)
[2017-10-23] MEDS ORDERED: METOPROLOL SUCC 24HR ER 25 MG TAB.ER.24H. PO SCH (09:00)
== END 2017-10-22 17:10 | disposition home or self-care (01) | DRG 282 ==
LOC: ER 17:11 → 2 NORTH 18:18
PROVIDERS: ADMIT Internal Medicine; ATTEND Internal Medicine
DX: I21.4 Non-ST elevation (NSTEMI) myocardial infarction (principal); Z95.1 Presence of aortocoronary bypass graft; E03.9 Hypothyroidism, unspecified; I25.110 Atherosclerotic heart disease of native coronary artery with unstable angina pectoris; E78.5 Hyperlipidemia, unspecified; F17.200 Nicotine dependence, unspecified, uncomplicated; I10 Essential (primary) hypertension; Z82.49 Family history of ischemic heart disease and other diseases of the circulatory system; Z90.49 Acquired absence of other specified parts of digestive tract; E04.9 Nontoxic goiter, unspecified; F32.9 Major depressive disorder, single episode, unspecified; M19.90 Unspecified osteoarthritis, unspecified site; Z91.040 Latex allergy status; Z88.5 Allergy status to narcotic agent; Z88.2 Allergy status to sulfonamides
CPT/HCPCS: 36415; 71010; 71275; 78452; 80048; 80076; 83690; 83880; 84484; 85025; 85610; 85730; 93005; 93017; 93308; 96372; 96374; 96375; 96376; A9500; J1650; J2270; J2405; J2785; J7030; Q9967; 99285-25

== ENCOUNTER 2017-11-25 13:32 | Emergency (ER) | payer OTHER, BC | END 2017-11-25 14:50 | disposition home or self-care (01) | LOC: ER 13:32 | DX: S80.12XA Contusion of left lower leg, initial encounter (principal); E03.9 Hypothyroidism, unspecified; I25.2 Old myocardial infarction; Z88.2 Allergy status to sulfonamides; Z95.1 Presence of aortocoronary bypass graft; Z79.01 Long term (current) use of anticoagulants; Z88.5 Allergy status to narcotic agent; Z91.040 Latex allergy status; X58.XXXA Exposure to other specified factors, initial encounter; Y93.89 Activity, other specified; Y92.89 Other specified places as the place of occurrence of the external cause; Y99.8 Other external cause status | CPT/HCPCS: 99281 ==

== ENCOUNTER → 2018-02-08 | Outpatient (CLI) | payer OTHER, BC | END | disposition home or self-care (01) | LOC: MAMMO 12:16 | DX: Z12.31 Encounter for screening mammogram for malignant neoplasm of breast (principal) | CPT/HCPCS: 77063; 77067 ==

== ENCOUNTER → 2018-02-22 | Outpatient (CLI) | payer OTHER, BC ==
[2018-02-22 08:57] LABS: ADD MAN DIFF? NO
[2018-02-22 09:04] LABS: BASO # 0.1 x10^3/uL (0.0-0.2); BASO % 1 % (0-3); EOS # 0.1 x10^3/uL (0.0-0.7); EOS % 2 % (0-3); HEMATOCRIT 46.4 % (36.0-47.0); HEMOGLOBIN 15.4 g/dL (12.0-15.5); LYMPH # 1.9 x10^3/uL (1.0-4.8); LYMPH % 28 % (24-48); MEAN CORPUSCULAR HEMOGLOBIN 32 pg (25-35); MEAN CORPUSCULAR HGB CONC 33 g/dL (31-37); MEAN CORPUSCULAR VOLUME 97 fL (79-100); MONO # 0.7 x10^3/uL (0.0-1.1); MONO % 10 % (0-9); NEUT # 3.9 x10^3uL (1.8-7.7); NEUT % 59 % (31-73); PLATELET COUNT 270 x10^3/uL (140-400); RED CELL DISTRIBUTION WIDTH 13.2 % (11.5-14.5); WHITE BLOOD COUNT 6.6 x10^3/uL (4.0-11.0)
[2018-02-22 09:23] LABS: ALBUMIN 3.8 g/dL (3.4-5.0); ALK PHOS 86 U/L (46-116); ALT (SGPT) 42 U/L (14-59); ANION GAP 9 (6-14); AST (SGOT) 26 U/L (15-37); BLOOD UREA NITROGEN 10 mg/dL (7-20); BUN/CREATININE RATIO 11 (6-20); CALCIUM 9.3 mg/dL (8.5-10.1); CARBON DIOXIDE 30 mmol/L (21-32); CHLORIDE 103 mmol/L (98-107); CHOLESTEROL 178 mg/dL (0-200); CREATININE 0.9 mg/dL (0.6-1.0); GFR 65.2; GLUCOSE 95 mg/dL (70-99); HDLC 69 mg/dL (40-60); LDLC 92 mg/dL (0-100); NON-HDL CHOLESTEROL 109 mg/dL (0-129); POTASSIUM 4.2 mmol/L (3.5-5.1); SODIUM 142 mmol/L (136-145); TOTAL BILIRUBIN 0.6 mg/dL (0.2-1.0); TOTAL PROTEIN 7.5 g/dL (6.4-8.2); TRIGLYCERIDES 85 mg/dL (0-150); VLDLC 17 mg/dL (0-40)
[2018-02-22 09:24] LABS: CHOLESTEROL/HDL RATIO 2.6
[2018-02-22 09:33] LABS: FREE T4 1.36 ng/dL (0.76-1.46)
[2018-02-22 09:33] LABS: THYROID STIM HORMONE (TSH) 2.213 uIU/mL (0.358-3.74)
== END | disposition home or self-care (01) ==
LOC: LAB 08:37
DX: I25.10 Atherosclerotic heart disease of native coronary artery without angina pectoris (principal); E78.5 Hyperlipidemia, unspecified; E03.9 Hypothyroidism, unspecified; R73.09 Other abnormal glucose
CPT/HCPCS: 36415; 80053; 80061; 83036; 84439; 84443; 85025

== ENCOUNTER → 2018-06-14 | Outpatient (CLI) | payer OTHER, BC | END | disposition home or self-care (01) | LOC: ECHO 08:36 | DX: I25.10 Atherosclerotic heart disease of native coronary artery without angina pectoris (principal); I10 Essential (primary) hypertension; I21.4 Non-ST elevation (NSTEMI) myocardial infarction; E11.9 Type 2 diabetes mellitus without complications; E78.5 Hyperlipidemia, unspecified; E03.9 Hypothyroidism, unspecified; E66.9 Obesity, unspecified | CPT/HCPCS: 93306 ==

== ENCOUNTER → 2018-06-20 | Outpatient (CLI) | payer OTHER, BC ==
[2018-06-20 12:31] LABS: ALBUMIN 3.6 g/dL (3.4-5.0); ALBUMIN/GLOBULIN RATIO 1.1 (1.0-1.7); ALK PHOS 75 U/L (46-116); ALT (SGPT) 33 U/L (14-59); ANION GAP 7 (6-14); AST (SGOT) 20 U/L (15-37); BLOOD UREA NITROGEN 21 mg/dL (7-20); BUN/CREATININE RATIO 21 (6-20); CALCIUM 8.7 mg/dL (8.5-10.1); CARBON DIOXIDE 30 mmol/L (21-32); CHLORIDE 103 mmol/L (98-107); CHOLESTEROL 159 mg/dL (0-200); GFR 57.8; GLUCOSE 95 mg/dL (70-99); HDLC 58 mg/dL (40-60); LDLC 72 mg/dL (0-100); NON-HDL CHOLESTEROL 101 mg/dL (0-129); POTASSIUM 4.6 mmol/L (3.5-5.1); SODIUM 140 mmol/L (136-145); TOTAL BILIRUBIN 0.4 mg/dL (0.2-1.0); TOTAL PROTEIN 6.8 g/dL (6.4-8.2); TRIGLYCERIDES 147 mg/dL (0-150); VLDLC 29 mg/dL (0-40)
[2018-06-20 12:34] LABS: CHOLESTEROL/HDL RATIO 2.7
== END | disposition home or self-care (01) ==
LOC: LAB 11:55
DX: E78.5 Hyperlipidemia, unspecified (principal)
CPT/HCPCS: 36415; 80053; 80061

== ENCOUNTER 2018-07-11 06:18 | Emergency (ER) | payer OTHER, BC ==
[~2018-07-11] VITALS: Ht 170.2 cm; Wt 85.7 kg
[~2018-07-11 06:18] MED LIST changes: +ISOS30TA4 PO
[2018-07-11 06:27] VITALS: BP 161/101
--- NOTE | 2018-07-11 06:35 | PHYS DOC ---
Past Medical History Past Medical History: High Cholesterol, Heart Disease, Hypothyroid, [place] Past Surgical History: Appendectomy, Coronary Bypass Surgery, Other Additional Past Surgical Histo: NECK SX Alcohol Use: Occasionally Drug Use: None Adult General Chief Complaint Chief Complaint: ANKLE PROBLEM HPI HPI Patient is a 52 year old female who presents with left ankle injury. Patient states she fell one week earlier and sustained injury to the left ankle. Has had consistently worsening pain and swelling over the left lateral malleolus since that time. No additional injury. Review of Systems Review of Systems Constitutional: Denies fever or chills HENT: Denies nasal congestion or sore throat Respiratory: Denies cough or shortness of breath Cardiovascular: No additional information not addressed in HPI Musculoskeletal: Denies back pain Integument: Denies rash or skin lesions All other systems were reviewed and found to be within normal limits, except as documented in this note. Allergies Allergies Allergies Coded Allergies Type Severity Reaction Last Updated Verified latex Allergy Severe Rash 07/19/17 Yes Sulfa (Sulfonamide Antibiotics) Allergy Intermediate Rash 07/19/17 Yes codeine Adverse Reaction Mild Nausea and Vomiting 07/22/17 Yes Physical Exam Physical Exam Constitutional: Well developed, well nourished, no acute distress, non-toxic appearance HENT: Normocephalic, atraumatic Neck: Normal range of motion Cardiovascular:Heart rate regular rhythm Skin: Warm, dry, no erythema Back: No tenderness Extremities: Ecchymosis, pain, swelling over the left lateral malleolus. 2+ dp pulses left foot. brisk capillary refill Neurologic: Alert and oriented X 3 Current Patient Data Vital Signs Vital Signs Date Time Temp Pulse Resp B/P (MAP) Pulse Ox O2 Delivery O2 Flow Rate FiO2 07/11/18 06:27 97.0 113 18 161/101 (121) 96 Room Air 97.0 EKG EKG [] Radiology/Procedures Radiology/Procedures small bone fragment seen over lateral aspect of the foot but unclear donor site and appears old. No additional acute findings. Course & Med Decision Making Course & Med Decision Making Pertinent Labs and Imaging studies reviewed. (See chart for details) 06:25: Patient seen and examined. Xrays ordered. 07:25: X-ray results are reviewed. The patient is placed in an Aircast splint. Plan is for discharge home. She is given 2 days off work to keep her leg rested , iced, elevated. She is given some tramadol for severe pain. Patient will follow-up with Dr. Kim as needed or her primary care physician. Jason Disclaimer Jason Disclaimer This electronic medical record was generated, in whole or in part, using a voice recognition dictation system. Departure Departure Referrals: JIGNESH MCKINNEY MD (PCP) Scripts Tramadol Hcl (TRAMADOL HCL) 50 Mg Tablet 50 MG PO BID PRN for PAIN, #15 TAB Prov: ALMITA GALINDO DO 07/11/18 ALMITA GALINDO DO Jul 11, 2018 06:35
[2018-07-11] MEDS ORDERED: TRAM50TA PO (07:23)
--- NOTE | 2018-07-11 07:51 | RAD ---
Left ankle, 3 views, 07/11/2018: HISTORY: Pain and swelling No fracture or dislocation is identified. There is minimal degenerative change at the mid foot level. Mild diffuse soft tissue swelling is present. IMPRESSION: No acute bony abnormality is detected. Electronically signed by: Wild Lawrence MD (07/11/2018 7:47 AM) [facility]
== END 2018-07-11 07:42 | disposition home or self-care (01) ==
LOC: ER 06:18
DX: S99.912A Unspecified injury of left ankle, initial encounter (principal); E78.00 Pure hypercholesterolemia, unspecified; E03.9 Hypothyroidism, unspecified; I25.2 Old myocardial infarction; Z90.89 Acquired absence of other organs; Z88.5 Allergy status to narcotic agent; Z88.2 Allergy status to sulfonamides; Z91.040 Latex allergy status; W19.XXXA Unspecified fall, initial encounter; Y93.89 Activity, other specified; Y92.89 Other specified places as the place of occurrence of the external cause; Y99.8 Other external cause status
CPT/HCPCS: 73610; 99284

== ENCOUNTER 2018-09-01 08:46 | Emergency (ER) | payer BC, OTHER ==
[~2018-09-01] VITALS: Ht 172.7 cm; Wt 85.7 kg
[~2018-09-01 08:46] MED LIST changes: +TRAM50TA PO
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
[2018-09-01 09:11] VITALS: BP 148/84
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
[2018-09-01] MEDS ORDERED: TRAM50TA PO (10:37)
[2018-09-01] MEDS ORDERED: DICL50TA4 PO (10:37)
[2018-09-01] MEDS ORDERED: ORPH100T PO (10:37)
== END 2018-09-01 10:40 | disposition home or self-care (01) ==
LOC: ER 08:46
DX: S16.1XXA Strain of muscle, fascia and tendon at neck level, initial encounter (principal); E78.00 Pure hypercholesterolemia, unspecified; I11.0 Hypertensive heart disease with heart failure; I50.9 Heart failure, unspecified; E03.9 Hypothyroidism, unspecified; I25.2 Old myocardial infarction; Z90.89 Acquired absence of other organs; Z95.1 Presence of aortocoronary bypass graft; Z88.2 Allergy status to sulfonamides; Z88.5 Allergy status to narcotic agent; Z91.040 Latex allergy status; V43.92XA Unspecified car occupant injured in collision with other type car in traffic accident, initial encounter; Y93.89 Activity, other specified; Y92.410 Unspecified street and highway as the place of occurrence of the external cause; Y99.8 Other external cause status
CPT/HCPCS: 72040; 99284

== ENCOUNTER 2018-10-03 10:00 | Emergency (ER) | payer OTHER, BC ==
[~2018-10-03] VITALS: Ht 170.2 cm; Wt 86.2 kg
[~2018-10-03 10:00] MED LIST changes: +DICL50TA4 PO; +ORPH100T PO
[2018-10-03 10:40] VITALS: BP 140/80
[2018-10-03] MEDS ORDERED: traMADol 50 MG TABLET PO ONE (11:00)
--- NOTE | 2018-10-03 11:50 | RAD ---
Indication:LT ANKLE PAIN X 1 MONTH, NO KNOWN INJURY TECHNIQUE: 3 views of the left ankle COMPARISON:None FINDINGS/ impression: No acute fracture or dislocation. Ankle mortise is intact. No ankle swelling. Well-corticated bony fragment is seen posterior to the base of the fifth metatarsal most likely an old avulsion fracture. Indication:LT ANKLE PAIN X 1 MONTH, NO KNOWN INJURY TECHNIQUE: 3 views of the left foot COMPARISON:None FINDINGS/impression: No acute fracture or dislocation. Well-corticated bony fragment posterior to the medial navicular bone most likely os navicularis. No evidence of arthritis. No soft tissue abnormality. Electronically signed by: Mik Boles DO (10/03/2018 11:47 AM) [id number]
--- NOTE | 2018-10-03 11:56 | PHYS DOC ---
Past Medical History Past Medical History: High Cholesterol Past Surgical History: Coronary Bypass Surgery Additional Past Surgical Histo: NECK SX Alcohol Use: Occasionally Drug Use: None Adult General Chief Complaint Chief Complaint: FOOT INJURY PAIN HPI HPI Patient is a 52 year old female who presents today complaining of chronic 2 out of 10 throbbing intermittent left lateral foot and ankle pain that has been going on for month. Patient states se follows up with Dr. Kim orthopedic doctor, patient states she had an appointment this morning but was counseled because of an emergency of the doctors side. Patient denies any known injury. Patient states the orthopedic doctor's office requested her to come to the ED and get x-rays. Review of Systems Review of Systems Constitutional: Denies fever or chills [] : Denies dysuria or hematuria [] Musculoskeletal: Reports left lateral ankle and foot pain. Integument: Denies rash or skin lesions [] Neurologic: Denies headache, focal weakness or sensory changes [] All other systems were reviewed and found to be within normal limits, except as documented in this note. Current Medications Current Medications Current Medications Medications (Trade) Dose Ordered Sig/Annelise Start Time Stop Time Status Last Admin Dose Admin Tramadol HCl (Ultram) 50 mg 1X ONCE 10/03/18 11:00 10/03/18 11:01 DC 10/03/18 11:04 50 MG Allergies Allergies Allergies Coded Allergies Type Severity Reaction Last Updated Verified latex Allergy Severe Rash 07/19/17 Yes Sulfa (Sulfonamide Antibiotics) Allergy Intermediate Rash 07/19/17 Yes codeine Adverse Reaction Mild Nausea and Vomiting 07/22/17 Yes Physical Exam Physical Exam Constitutional: Well developed, well nourished, no acute distress, non-toxic appearance. [] Skin: Warm, dry, no erythema, no rash. [] Back: No tenderness, no CVA tenderness. [] Extremities: Left foot and left ankle with no obvious deformity. No tenderness on exam. Full range of motion to the left foot and ankle. +2 left radial pulse. Cap refill less than 2 seconds left toes. Neurologic: Alert and oriented X 3, normal motor function, normal sensory function, no focal deficits noted. [] Psychologic: Affect normal, judgement normal, mood normal. [] Current Patient Data Vital Signs Vital Signs Date Time Temp Pulse Resp B/P (MAP) Pulse Ox O2 Delivery O2 Flow Rate FiO2 10/03/18 11:04 16 99 Room Air 10/03/18 10:40 98.2 92 140/80 (100) 98.2 EKG EKG [] Radiology/Procedures Radiology/Procedures []PROCEDURE: ANKLE LEFT 3V Indication:LT ANKLE PAIN X 1 MONTH, NO KNOWN INJURY TECHNIQUE: 3 views of the left ankle COMPARISON:None FINDINGS/ impression: No acute fracture or dislocation. Ankle mortise is intact. No ankle swelling. Well-corticated bony fragment is seen posterior to the base of the fifth metatarsal most likely an old avulsion fracture. Indication:LT ANKLE PAIN X 1 MONTH, NO KNOWN INJURY TECHNIQUE: 3 views of the left foot COMPARISON:None FINDINGS/impression: No acute fracture or dislocation. Well-corticated bony fragment posterior to the medial navicular bone most likely os navicularis. No evidence of arthritis. No soft tissue abnormality. Electronically signed by: Mik Boles DO (10/03/2018 11:47 AM) [id number] DICTATED and SIGNED BY: MIK BOLES DO DATE: 10/03/18 1143 Course & Med Decision Making Course & Med Decision Making Pertinent Labs and Imaging studies reviewed. (See chart for details) This is a 52-year-old female patient presenting to the ED today with what sounds as chronic left foot and ankle pain. No known injury. Follows up with orthopedic doctor who sent her to the ED for x-rays. X-rays of the left foot and ankle are negative for any acute findings. Patient was given prescription for tramadol and instructed to continue following up with orthopedic doctor. Dragon Disclaimer Dragon Disclaimer This electronic medical record was generated, in whole or in part, using a voice recognition dictation system. Departure Departure Impression: Primary Impression: Left ankle pain Additional Impression: Left foot pain Disposition: HOME, SELF-CARE Condition: STABLE Referrals: JIGNESH MCKINNEY MD (PCP) JOSE KIM MD follow up in 1-2 weeks Patient Instructions: Ankle Pain Additional Instructions: You were evaluated in the emergency room with chronic pain to the left foot and ankle. Your x-rays were negative for any acute findings. Continue following up with orthopedic doctor. Ice elevate the extremity. Take the prescribed medications as needed for pain. Scripts Tramadol Hcl (TRAMADOL HCL) 50 Mg Tablet 50 MG PO Q6HRS PRN for PAIN, #30 TAB Prov: BALBINA KIDD APRN 10/03/18 Problem Qualifiers Primary Impression: Left ankle pain Chronicity: chronic Qualified Codes: M25.572 - Pain in left ankle and joints of left foot; G89.29 - Other chronic pain BALBINA KIDD APRN Oct 03, 2018 11:56
[2018-10-03] MEDS ORDERED: TRAM50TA PO (12:02)
== END 2018-10-03 12:14 | disposition home or self-care (01) ==
LOC: ER 10:00
DX: M25.572 Pain in left ankle and joints of left foot (principal); G89.29 Other chronic pain; E78.00 Pure hypercholesterolemia, unspecified; Z95.1 Presence of aortocoronary bypass graft; Z88.2 Allergy status to sulfonamides; Z88.5 Allergy status to narcotic agent; Z91.040 Latex allergy status
CPT/HCPCS: 73610; 73630; 99284

== ENCOUNTER → 2018-11-16 | Outpatient (CLI) | payer OTHER, BC ==
--- NOTE | 2018-11-16 16:21 | KCIC ---
LUMBAR SPINE MIN 4V History: Lumbar back pain, left radiculopathy, fell 3 weeks ago which exacerbated existing chronic low back pain.. Comparison: None are available Multilevel moderate lumbar spondylosis with loss of disc height and marginal spurs. Mild left convexity lumbar scoliosis. No significant vertebral subluxation. Vertebral body height maintained. No evidence of overt bone destruction. No evidence of spondylolysis. Mild aortic vascular calcification. IMPRESSION: Degenerative lumbar spondylosis. Electronically signed by: Jt Juan MD (11/16/2018 4:18 PM) [facility]
--- NOTE | 2018-11-16 16:33 | KCIC ---
EXAMINATION: Magnetic resonance imaging (MRI) of the lumbar spine without contrast 11/16/2018 12:00 AM HISTORY: Low back pain. Fall 3 weeks ago. Chronic low back pain. TECHNIQUE: Multiplanar multi-weighted MRI of the lumbar spine was performed without intravenous contrast using the standard lumbar spine protocol. Contrast information: None administered. COMPARISON: MRI lumbar spine July 16, 2017 FINDINGS: There is minimal retrolisthesis of L5 on S1. Vertebral body heights are maintained. Modic type II endplate degenerative changes are identified at all levels of the lumbar spine. There is no acute fracture. Mild Modic type I endplate degenerative changes are identified at L2-L3. Vertebral body heights are maintained. Conus medullaris terminates at L1-L2. Distal spinal cord signal intensity is normal in all sequences. There is moderate to advanced anterior marginal osteophytosis throughout the lumbar spine. Abdominal aorta is normal in caliber. No suspicious retroperitoneal abnormality is identified. T12-L1: Disc is normal in configuration. There is mild facet arthropathy. No neuroforaminal or spinal canal stenosis. L1-L2: There is mild disc bulge. No significant facet arthropathy. No neuroforaminal or spinal canal stenosis. L2-L3: There is mild circumferential disc bulge asymmetric to the left. There is mild facet arthropathy. There is mild bilateral neuroforaminal stenosis. Mild spinal canal stenosis. L3-L4: There is a mild circumferential disc bulge asymmetric to the left. There is moderate facet arthropathy with ligamentum flavum infolding. There is moderate bilateral neuroforaminal stenosis. Mild spinal canal stenosis. L4-L5: There is a moderate circumferential disc bulge asymmetric to the left. There is a left far lateral disc protrusion. Is moderate facet arthropathy ligamentum flavum infolding. There is moderate right and severe left neuroforaminal stenosis. Mild narrowing of the left lateral recess. Mild spinal canal stenosis. L5-S1: There is a circumferential disc bulge asymmetric to the left. There is a left far lateral disc protrusion. Is moderate facet arthropathy. There is moderate left neuroforaminal stenosis. Mild narrowing of the left lateral recess. IMPRESSION: Moderate degenerative changes of the lumbar spine, as described in detail above. No acute fracture. Minimal retrolisthesis of L5 on S1. IMPRESSION: Mild degenerative changes of the lumbar spine as described in detail above. Electronically signed by: Debora Mccann MD (11/16/2018 4:29 PM) [email or web address]
== END | disposition home or self-care (01) ==
LOC: KCIC 15:05
PROVIDERS: ATTEND Family Medicine
DX: M47.896 Other spondylosis, lumbar region (principal); M41.86 Other forms of scoliosis, lumbar region; I70.0 Atherosclerosis of aorta; M43.17 Spondylolisthesis, lumbosacral region; M48.061 Spinal stenosis, lumbar region without neurogenic claudication; M51.27 Other intervertebral disc displacement, lumbosacral region; M12.88 Other specific arthropathies, not elsewhere classified, other specified site
CPT/HCPCS: 72110; 72148

== ENCOUNTER → 2018-12-14 | Outpatient (CLI) | payer OTHER, BC ==
--- NOTE | 2018-12-15 09:06 | KCIC ---
MRI Cervical Spine Without Contrast History: Cervical radiculopathy, previous fusion and fracture, chronic neck pain, pain in the left arm with numbness Technique: Multiplanar, multi sequential noncontrast MR imaging was performed of the cervical spine. Comparison: July 15, 2017 Findings: There is again 0.7 cm transverse by 0.5 cm AP by 0.9 cm cc focus of more defined T2 and STIR hyperintense signal of the central and right cord centered at the inferior aspect C5. Previously this was not associated with any enhancement. There is again interbody fusion C4-C5. Vertebral body stature and AP alignment are unchanged. There is again mild degenerative disc disease C5-6 and C6-7. There is no significant marrow edema. There is again degenerative endplate change C5-6 and C6-7. C2-C3: Neural foramina and spinal canal are adequate. C3-C4: Spinal canal and neural foramina are adequate. There is again left facet hypertrophic change. There is negligible disc osteophyte complex eccentric to right lateral recess, very minimal right uncovertebral degenerative change. C4-C5: Neural foramina and spinal canal are adequate. C5-C6: There is again disc osteophyte complex, now superimposed very shallow protrusion greatest centrally and in the right lateral recess. Central canal is minimally narrowed to about 9 to 10 mm also with mild right lateral recess stenosis. There is uncovertebral degenerative change greater on the right. There is facet degenerative change bilaterally. There is moderate neural foramina compromise bilaterally. C6-C7: There is disc osteophyte complex and bulge. Central canal is narrowed to about 7 to 8 mm as seen previously. There is facet degenerative change bilaterally. There is uncovertebral degenerative change greater on the right. There is at least moderate narrowing of the right neural foramen. There is mild to moderate narrowing of the left neural foramen. C7-T1: Neural foramina and spinal canal are adequate. There is mild uncovertebral degenerative change. Impression: 1. There is again spinal stenosis about 7 to 8 mm at C6-7, to lesser degree at C5-6. There is again degenerative disc disease and spondylosis at C5-6 and C6-7. Facet and uncovertebral degenerative change contributes to moderate neural foramina compromise bilaterally at C5-6 and C6-7. There is again interbody fusion C4-5. 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 Electronically signed by: Indio Casillas MD (12/15/2018 9:01 AM) [email or web address]
== END | disposition home or self-care (01) ==
LOC: KCIC MRI 15:47
PROVIDERS: ATTEND Neurological Surgery
DX: M50.322 Other cervical disc degeneration at C5-C6 level (principal); M47.892 Other spondylosis, cervical region; M48.02 Spinal stenosis, cervical region; M25.78 Osteophyte, vertebrae; M43.22 Fusion of spine, cervical region
CPT/HCPCS: 72141

== ENCOUNTER → 2019-01-03 | Outpatient (CLI) | payer OTHER, BC ==
[~2019-01-03] MED LIST changes: +LYSI500T24 PO
--- NOTE | 2019-01-03 11:31 | PAIN ---
DATE OF SERVICE: CHIEF COMPLAINT: Low back and left lower extremity pain. HISTORY OF PRESENT ILLNESS: This is a 53-year-old female who presents with history of pain in the low back, left leg for about 2 months, not a result of any specific injury or action that she is aware of, but she slipped down a couple of stairs and landed hard on her left foot causing some pain in the low back and since that time, it has been noticeable and then became much more severe over the past 6 weeks or so in the low back region, posterior gluteus, posterolateral thigh, lateral anterior thigh, medial thigh, medial lower leg into the foot on the left side with walking and standing. The patient reports it is a sharp, stabbing pain. It is throbbing with some numbness, radiating pain as described, worse with activity, intermittent in intensity, but always present. The patient reports that it is worse with weightbearing, walking, even prolonged sitting can increase the pain greater than about 15-20 minutes. The patient reports no loss of motor function, but significant fatigability to left leg compared to the right, which has no radiating pain. The patient did have an MRI scan of the lumbar spine showing moderate degenerative changes at L4-L5 and L5-S1, specifically with disk bulge is asymmetric to the left and far left lateral disk protrusion, L4-L5 and a lateral left disk protrusion at L5-S1 as well with some foraminal stenosis at each of these levels on the left side. The patient reports a disability rate from 0-10, 10 being the worst, is a 7 with family and home responsibilities, social activity, sexual behavior, 8 with occupation, 5 with recreation, 6 with self-care and 5 with life support activities. The patient reports no loss of motor function again, but significant fatigability. PAST MEDICAL HISTORY: Significant for hypothyroidism, chronic cough, cigarette smoking for the past 30 years, half a pack a day, coronary artery bypass with cardiovascular disease, arthritis. PREVIOUS SURGERY: Include coronary artery bypass in 2016, 1989 cervical fusion, 2004 appendectomy. CURRENT MEDICATIONS: Include Plavix, daily baby aspirin, isosorbide, atorvastatin, metoprolol, lysine and levothyroxine. ALLERGIES: THE PATIENT IS ALLERGIC TO LATEX, SULFA AND CODEINE. SOCIAL HISTORY: The patient does drink alcohol about twice daily, smokes a half pack of cigarettes, has for 30 years. Does not use any illegal, illicit or recreational drugs. She is , lives with her spouse. 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 FAMILY HISTORY: Significant for cancer, heart disease and diabetes. REVIEW OF SYSTEMS: Positive for those items mentioned in history of present illness. All systems reviewed and otherwise negative. It is complete, full and well documented on the patient's chart. PHYSICAL EXAMINATION: VITAL SIGNS: The patient's blood pressure is 114/78, pulse 91, respirations 16, temperature is 98.3 degrees Fahrenheit. Height is 67 inches, weight is 194 pounds. GENERAL: The patient is awake, alert, oriented, appropriate, very pleasant demeanor. HEENT: Head shows normocephalic, atraumatic. Extraocular movements are intact and symmetrical. Oral cavity, mucous membranes are moist and pink. Dentition is intact. NECK: Shows anterior throat supple without palpable lymphadenopathy noted. Swallow reflex is symmetrical. CHEST: Shows normal on inspection. Breath sounds clear to auscultation bilaterally. HEART: Shows S1, S2 clear. No murmurs auscultated. ABDOMEN: Soft, nontender, nondistended. No palpable organomegaly is noted. No rebound or guarding demonstrated. BACK: Shows spine grossly in the midline, normal-appearing cervical lordotic curvature, thoracic kyphotic curvature and lumbar lordotic curvature. Lumbar paraspinous musculature shows symmetrical on inspection, on palpation shows some moderate tenderness diffusely in the low and mid lumbar distribution, but symmetrical without evidence of atrophy or hypertrophy. No tenderness over the spinous processes, sacrum or sacroiliac regions. The patient has good rotational motion of lumbar spine, both laterally greater than 10 degrees right and left as well as extension greater than 10 degrees, forward flexion 45 degrees without significant pain reported. EXTREMITIES: Lower extremities show deep tendon reflexes 2+ in the patellar, 1+ tendo-calcaneus tendons are equal. Motor exam is strong with 5/5 dorsiflexion, extension, quadriceps and hamstring flexion and symmetrical. Peripheral pulses are 1+ posterior tibia. No peripheral edema is noted. Lower extremities are warm and dry to touch, equal in color and appearance. Straight leg raise is noted to be positive on the left about 40 degrees leg raise with decreased pain with knee flexion, right side is negative. Gaenslen's and Shiraz's maneuvers are negative bilaterally as well. The patient is able to stand, stand on her toes without significant difficulty. Normal appearing gait, does not appear to favor the right or left lower extremity significantly for short distance in the office, not using assistive devices to ambulate. SKIN: Shows warm and dry, good turgor. No edema. No sores, rashes or bruising. IMPRESSION: 1. This is a 53-year-old female with approximate 2-month history of increasing pain, low back, left lower extremity in radicular fashion. 2. MRI scan of lumbar spine as noted. 3. Hypothyroidism. 4. Cigarette smoking. 5. Arthritis. PLAN: Options were discussed with the patient including conservative medical management, physical therapy, interventional techniques. She would like to pursue interventional techniques; however, she is on Plavix. We will wait until this has been held as it has been approved already by her primary physician who prescribes this, but she has only been off of it for 5 days. We will wait until 7 days, have her return for lumbar epidural steroid injection at that time. The patient understands and agrees, would like to proceed. We will have her return in approximately 2 days to plan on lumbar epidural steroid injection at that time. LAMITA LUIS MD DR: GABI/pankaj JOB#: [id number] / [id number] JIGNESH Quezada MD
== END | disposition home or self-care (01) ==
LOC: PNCL 07:46
PROVIDERS: ATTEND Anesthesiology
DX: M54.5 Low back pain (principal); M79.662 Pain in left lower leg; E03.9 Hypothyroidism, unspecified; F17.210 Nicotine dependence, cigarettes, uncomplicated; M19.90 Unspecified osteoarthritis, unspecified site; Z95.1 Presence of aortocoronary bypass graft; Z82.49 Family history of ischemic heart disease and other diseases of the circulatory system; Z83.3 Family history of diabetes mellitus; Z88.5 Allergy status to narcotic agent; Z91.040 Latex allergy status; Z88.2 Allergy status to sulfonamides
CPT/HCPCS: G0463

== ENCOUNTER → 2019-01-05 | Outpatient (CLI) | payer OTHER, BC ==
[~2019-01-05] MED LIST changes: +CRESTOR40 MG PO; +CYCL10TA2 PO; +IOHEXOL 180 MG/ML 10 ML VIAL. ONE; +LEVO137T3 PO; +METO-239 PO; +PANT40TA77 PO; +POLY17PO28 PO; +[UNRECOGNIZED DRUG - CODE] PO; +methylPREDNISolone ACETATE 40 MG/ML VIAL. ONE; +methylPREDNISolone ACETATE 80 MG/ML VIAL. ONE
--- NOTE | 2019-01-05 14:47 | PAIN ---
DATE OF SERVICE: 01/05/2019 DIAGNOSES: Lumbar radiculopathy with lumbar degenerative disk disease, lumbar spinal stenosis. HISTORY OF PRESENT ILLNESS: The patient is a 53-year-old female who returns in followup status post evaluation and return for a lumbar epidural steroid injection. States she has been off her Plavix now for 7 days. Still has pain in the low back, into the left lower extremity, mostly in posterior gluteus, posterolateral thigh, lateral anterior thigh, medial thigh, medial lower leg. The patient reports it is aching, sharp at times, shooting, tingling with stabbing and more constant in the left lower extremity. The patient reports it is a 10/10 at its worst, 7-10 on average, 4 at its least and is a 7 today. The patient reports it still wakes her from sleep at night over the past few days, but not every night. The patient reports no new motor or sensory deficits. No bowel or bladder incontinence. PHYSICAL EXAMINATION: VITAL SIGNS: The patient's blood pressure 152/85, pulse 84, respirations 18, temperature 98.4 degrees Fahrenheit. GENERAL: The patient is awake, alert, oriented, appropriate, very pleasant demeanor. HEENT: Head shows normocephalic, atraumatic. Extraocular movements are intact and symmetrical. Oral cavity: Mucous membranes are moist and pink. Dentition is intact. NECK: Shows anterior throat supple without palpable lymphadenopathy noted. Swallow reflex symmetrical. CHEST: Shows normal on inspection. Breath sounds are clear to auscultation bilaterally. HEART: Shows S1, S2 clear. No murmurs auscultated. ABDOMEN: Soft, nontender, nondistended. BACK: Show spine grossly in midline, normal appearing thoracic kyphosis, cervical lordotic curvature and lumbar lordotic curvature. Lumbar paraspinal muscle shows symmetrical on inspection. With palpation, shows some moderate tenderness diffusely bilaterally but only diffusely without radiation. The patient has good rotational motion of the lumbar spine, both lateral as well as in extension, flexion. EXTREMITIES: Lower extremities show deep tendon reflexes of 2+ in the patellar and 1+ tendo calcaneus tendon. Motor exam is strong with 5/5 dorsiflexion and extension. Peripheral pulses are 1+ posterior tibial, no peripheral edema is noted. Options were discussed with the patient. The patient's old chart was reviewed as her current medication regimen updated and current review of systems updated today as well and we will proceed with a lumbar epidural steroid injection under fluoroscopic guidance. Risks were again discussed including but not limited to bleeding, infection, possibility of epidural hematoma, subsequent neurologic compromise, dural puncture, headaches, spinal cord and/or nerve damage, side-effects of steroid medication, poor results regarding pain control. The patient understands and wished to proceed. The patient will return to the clinic in approximately 2 weeks in followup. Counseled as to return appointment, activity level and side effects to be aware of. DIAGNOSES: Lumbar radiculopathy with lumbar degenerative disk disease, lumbar spinal stenosis. PROCEDURE: Lumbar epidural steroid injection, translaminar approach at the L4-L5 level using C-arm fluoroscopic guidance under sterile prep and drape using local anesthetic. MEDICATIONS INJECTED: A total of 120 mg of Depo-Medrol plus 10 mL of preservative-free normal saline, 2 mL of Isovue for contrast. CONDITION AT DISCHARGE: Stable. The patient tolerated the procedure well and had no complications. ALMITA LUIS MD DR: GABI/pankaj JOB#: [id number] / [id number]
== END | disposition home or self-care (01) ==
LOC: PNCL 08:51
PROVIDERS: ATTEND Anesthesiology
DX: M51.16 Intervertebral disc disorders with radiculopathy, lumbar region (principal); M48.061 Spinal stenosis, lumbar region without neurogenic claudication; Z88.2 Allergy status to sulfonamides; Z88.5 Allergy status to narcotic agent; Z91.040 Latex allergy status
CPT/HCPCS: 62323; J1030; J1040; Q9965

== ENCOUNTER → 2019-01-19 | Outpatient (CLI) | payer OTHER, BC ==
[~2019-01-19] MED LIST changes: -CRESTOR40 MG PO; -IOHEXOL 180 MG/ML 10 ML VIAL. ONE; -LEVO137T3 PO; -METO-239 PO; -PANT40TA77 PO; -POLY17PO28 PO; -[UNRECOGNIZED DRUG - CODE] PO; -methylPREDNISolone ACETATE 40 MG/ML VIAL. ONE; -methylPREDNISolone ACETATE 80 MG/ML VIAL. ONE
--- NOTE | 2019-01-19 22:14 | PAIN ---
DATE OF SERVICE: 01/19/2019 DIAGNOSES: 1. Lumbar radiculopathy with lumbar degenerative disk disease, lumbar spinal stenosis. 2. Cervical radiculopathy with cervical degenerative disk disease and cervical spinal stenosis. HISTORY OF PRESENT ILLNESS: The patient is a 53-year-old female who returns for followup status post lumbar epidural steroid injection x 1. The patient reports about 100% improvement for the first 2 weeks after the injection. Pain is returning some in the low back, but doing much better without as much radiation in the left lower extremity. The patient reports her chief complaint, however, is neck and bilateral upper extremity pain, slightly more on the right than the left as well. The patient reports radiation into the left hand, however, with numbness and tingling, described as aching, sharp, dull, tingling, stabbing, becoming more constant and more severe. Her back is doing better. Her neck and shoulders are becoming much more noticeable. The patient did see her neurosurgeon recently. MRI scan was performed showing spinal stenosis, 7-8 mm at C6-C7, lesser degree at C5-C6 with degenerative disk disease and spondylosis at C5-C6 and C6-C7 with neural foraminal compromised bilaterally at C5-C6, C6-C7 with interbody fusion at C4-C5 with stable focus of the cord at C5. The patient reports it is getting worse with time, with activity, using her left upper extremity, most significantly with repetitive motions. The patient reports no loss of motor function, but significant fatigability with the left upper extremity with repetitive motions and holding on to items. The patient reports no other deficits at this time. PHYSICAL EXAMINATION: VITAL SIGNS: The patient's blood pressure is 132/91, pulse 88, respirations 20, temperature 98.0 degrees Fahrenheit, weight is 190 pounds. The patient describes the pain as 9 on a scale of 10 at its worst, 7 on average, 3 at its least and is 7 today. GENERAL: The patient is awake, alert, oriented, appropriate, very pleasant demeanor. HEENT: Head is normocephalic, atraumatic. Extraocular movements are intact and symmetrical. Oral cavity: Mucous membranes moist and pink. Dentition is intact. NECK: Shows anterior throat supple without palpable lymphadenopathy noted. Swallow reflex symmetrical. CHEST: Shows normal with inspection. Breath sounds clear to auscultation bilaterally. HEART: Shows S1, S2 clear. No murmurs auscultated. ABDOMEN: Soft, nontender, nondistended. No palpable organomegaly is noted. No rebound or guarding demonstrated. BACK: Shows spine grossly in the midline. Normal-appearing thoracic kyphosis and lumbar lordotic curvature. Cervical paraspinous muscle shows symmetrical on inspection and palpation shows some moderate tenderness diffusely in the inferior aspect of the cervical paraspinous muscles, but only diffusely without radiation. The patient has good rotational motion of cervical spine, both laterally as well as in extension and flexion without significant pain reported. EXTREMITIES: Upper extremities show deep tendon reflexes 2+ in the biceps and triceps tendons. Motor exam is strong with shed boss strength rated at 4/5 on the left and 5/5 on the right. Peripheral pulses are 2+ radial distribution. No peripheral edema is noted bilaterally. The patient's lower extremities show deep tendon reflexes at 2+ in the patellar, 1+ tendo-calcaneus tendons. Motor exam is strong with 5/5 dorsiflexion, extension and equal and symmetrical. Peripheral pulses are 2+ radial, 1+ posterior tibial. No peripheral edema is noted bilaterally in upper or lower extremities. ASSESSMENT AND PLAN: Options were discussed with the patient. The patient's old chart was reviewed as was her current medication regimen updated. Current review of systems updated today as well. We will have the patient hold her Plavix as she has done previously and since she did obtain clearance from her primary physician to do this for 7 days, we will have her return for a cervical epidural steroid injection as the back is doing much better with the radicular pain in her left lower extremity, now more in the right upper extremity, again with recent neurosurgical evaluation and recent MRI scan as noted. The patient will hold her Plavix as indicated with return in approximately 1 week and plan on cervical epidural steroid injection at that time. ALMITA LUIS MD DR: GABI/pankaj JOB#: [id number] / [id number]
== END | disposition home or self-care (01) ==
LOC: PNCL 08:59
PROVIDERS: ATTEND Anesthesiology
DX: M51.16 Intervertebral disc disorders with radiculopathy, lumbar region (principal); M48.061 Spinal stenosis, lumbar region without neurogenic claudication; M50.10 Cervical disc disorder with radiculopathy, unspecified cervical region; M48.02 Spinal stenosis, cervical region
CPT/HCPCS: G0463

== ENCOUNTER → 2019-01-27 | Outpatient (CLI) | payer OTHER, BC ==
[~2019-01-27] MED LIST changes: +IOHEXOL 180 MG/ML 10 ML VIAL. ONE; +methylPREDNISolone ACETATE 40 MG/ML VIAL. ONE; +methylPREDNISolone ACETATE 80 MG/ML VIAL. ONE
--- NOTE | 2019-01-27 17:27 | PAIN ---
DATE OF SERVICE: 01/27/2019 DIAGNOSES: 1. Lumbar radiculopathy with lumbar degenerative disk disease and lumbar spinal stenosis. 2. Cervical radiculopathy with cervical degenerative disk disease, cervical spinal stenosis and post-cervical laminectomy syndrome. HISTORY OF PRESENT ILLNESS: The patient is a 53-year-old female who returns for followup status post lumbar epidural steroid injection x 1 with near 100% improvement in her low back and lower extremity pain. The patient reports her chief complaint today is the base of the neck and left upper extremity pain with radiation into the posterior shoulder, arm into the hand on the left side anteriorly and posteriorly. The patient reports her back is doing much better. She is increasing her activity with walking, doing household activities, working activities, sleeping better at night, but her neck and left shoulder and arm is her main complaint The patient reports it is worse with activity, repetitive motions, lifting items reaching over her head. The patient describes the pain as aching, sharp, dull in the neck, tingling and stabbing in the left arm, radiating and becoming more constant. The patient reports it is 8 on a scale of 10 at its worst, 5 on average, 3 at its least and is a 5 today. The patient reports no new motor or sensory deficits, no new bowel or bladder incontinence or other complaints. PHYSICAL EXAMINATION: VITAL SIGNS: The patient's blood pressure 128/96, pulse 91, respirations 18, temperature is 98.1 degrees Fahrenheit, weight is 194 pounds, height is 5 feet 7 inches. GENERAL: The patient is awake, alert, oriented, appropriate, very pleasant demeanor. HEENT: Shows normocephalic, atraumatic. Extraocular muscles are intact and symmetrical. Oral cavity: Mucous membranes moist and pink. Dentition is intact. NECK: Shows anterior throat supple without palpable lymphadenopathy noted. Swallow reflex is symmetrical. CHEST: Shows normal on inspection. Breath sounds are clear to auscultation bilaterally. HEART: Shows S1, S2 clear. No murmurs auscultated. ABDOMEN: Soft, nontender, nondistended. No palpable organomegaly is noted. No rebound or guarding demonstrated. BACK: Shows spine grossly in the midline, normal-appearing cervical lordotic curvature, thoracic kyphotic curvature, mild flattening of lumbar lordotic curvature. Cervical paraspinous musculature shows symmetrical on inspection, with palpation shows some mild tenderness but only diffusely in the middle and lower distribution of paraspinous muscles in the cervical distribution, more on the left, but also tender into the superior medial trapezius on the left side but not the right. The patient has full rotational motion of cervical spine, both laterally greater than 45 degrees closer to 90 degrees right and left without difficulty as well as full extension, full forward flexion without pain reported. EXTREMITIES: The patient's upper extremities show deep tendon reflexes at 2+ in the biceps and triceps tendons. Motor exam is 5/5 with right light bulb tester strength and 4/5 with left light bulb tester strength. Peripheral pulses are 2+ radial distribution. No peripheral edema is noted. Options were discussed with the patient. The patient's old chart was reviewed as her current medication regimen and updated. Current review of systems is updated today as well. We will proceed with a cervical epidural steroid injection today with fluoroscopic guidance. Risks were again discussed including, but not limited to bleeding, infection, possibility of epidural hematoma and subsequent neurological compromise, dural puncture, headaches, spinal cord and/or nerve damage, side effects of steroid medication and poor results regarding pain control. The patient understands and wished to proceed. The patient will return to clinic in approximately 2 weeks for followup, was counseled on return appointment, activity level and side effects to be aware of. DIAGNOSES: Cervical radiculopathy with cervical degenerative disk disease and cervical spinal stenosis and post-cervical laminectomy syndrome. PROCEDURE: Cervical epidural steroid injection, translaminar approach C6-C7 level using C-arm fluoroscopic guidance under sterile prep and drape using local anesthetic. MEDICATION INJECTED: A total of 120 mg Depo-Medrol plus 5 mL of preservative-free normal saline and 2 mL of Isovue for contrast. CONDITION AT DISCHARGE: Stable. The patient tolerated procedure well, had no complications. ALMITA LUIS MD DR: GABI/pankaj JOB#: [id number] / [id number]
== END | disposition home or self-care (01) ==
LOC: PNCL 07:41
PROVIDERS: ATTEND Anesthesiology
DX: M50.123 Cervical disc disorder at C6-C7 level with radiculopathy (principal); M48.02 Spinal stenosis, cervical region; M96.1 Postlaminectomy syndrome, not elsewhere classified; M51.16 Intervertebral disc disorders with radiculopathy, lumbar region; M48.061 Spinal stenosis, lumbar region without neurogenic claudication; Z88.2 Allergy status to sulfonamides; Z88.5 Allergy status to narcotic agent; Z91.040 Latex allergy status
CPT/HCPCS: 62321; J1030; J1040; Q9965

== ENCOUNTER 2019-02-13 09:16 | Emergency (ER) | payer OTHER, BC ==
[~2019-02-13] VITALS: Ht 170.2 cm; Wt 86.2 kg
[~2019-02-13 09:16] MED LIST changes: -CYCL10TA2 PO; -IOHEXOL 180 MG/ML 10 ML VIAL. ONE; -methylPREDNISolone ACETATE 40 MG/ML VIAL. ONE; -methylPREDNISolone ACETATE 80 MG/ML VIAL. ONE
--- NOTE | 2019-02-13 09:42 | PHYS DOC ---
Past Medical History Past Medical History: High Cholesterol Past Surgical History: Coronary Bypass Surgery Additional Past Surgical Histo: NECK SX Alcohol Use: Occasionally Drug Use: None Adult General Chief Complaint Chief Complaint: LOWER EXT PAIN HPI HPI 53-year-old female presents secondary to severe left lower leg cramps. She states this happens when she sleeping at night. She denies any chest pain or shortness of breath. She states this is been going on for several days. She denies any sneezing on exertion. She has never had a history of blood clots in the past and she does not currently take any blood thinners. She has had some chronic neck and back pain in the past had cortisone injections. Patient states she is symptom free now however if she stays in the bed for long she will develop a charley horse in her left calf. She states she's been eating drinking voiding and stooling normally. There's been no change in her diet. She is not taking any new medicines or supplements.[] Review of Systems Review of Systems Constitutional: Denies fever or chills [] Eyes: Denies change in visual acuity, redness, or eye pain [] HENT: Denies nasal congestion or sore throat [] Respiratory: Denies cough or shortness of breath [] Cardiovascular: No additional information not addressed in HPI [] GI: Denies abdominal pain, nausea, vomiting, bloody stools or diarrhea [] : Denies dysuria or hematuria [] Musculoskeletal: Chronic back pain chronic neck pain[] Integument: Denies rash or skin lesions [] Neurologic: Denies headache, focal weakness or sensory changes [] Endocrine: Denies polyuria or polydipsia [] All other systems were reviewed and found to be within normal limits, except as documented in this note. Allergies Allergies Allergies Coded Allergies Type Severity Reaction Last Updated Verified latex Allergy Severe Rash 07/19/17 Yes Sulfa (Sulfonamide Antibiotics) Allergy Intermediate Rash 07/19/17 Yes codeine Adverse Reaction Mild Nausea and Vomiting 07/22/17 Yes Physical Exam Physical Exam Constitutional: Well developed, well nourished, no acute distress, non-toxic appearance. [] HENT: Normocephalic, atraumatic, bilateral external ears normal, oropharynx moist, no oral exudates, nose normal. [] Eyes: PERRLA, EOMI, conjunctiva normal, no discharge. [] Neck: Normal range of motion, no tenderness, supple, no stridor. [] Cardiovascular:Heart rate regular rhythm, no murmur [] Lungs & Thorax: Bilateral breath sounds clear to auscultation [] Abdomen: Bowel sounds normal, soft, no tenderness, no masses, no pulsatile masses. [] Skin: Warm, dry, no erythema, no rash. [] Back: No tenderness, no CVA tenderness. [] Extremities: Both calves are equal there is no swelling and negative Homans sign bilaterally[] Neurologic: Alert and oriented X 3, normal motor function, normal sensory function, no focal deficits noted. [] Psychologic: Anxious[] Current Patient Data Vital Signs Vital Signs Date Time Temp Pulse Resp B/P (MAP) Pulse Ox O2 Delivery O2 Flow Rate FiO2 02/13/19 10:46 89 16 128/75 (92) 96 Room Air 02/13/19 09:37 98.2 98.2 EKG EKG [] Radiology/Procedures Radiology/Procedures [] Impressions: PROCEDURE: VENOUS LOWER EXTREMITY LEFT Left lower extremity venous ultrasound, 02/13/2019 : History: Left calf pain Duplex evaluation including grayscale, color flow and spectral Doppler analysis was performed. The femoral and popliteal veins show no filling defects to suggest DVT. The visualized calf veins are unremarkable. IMPRESSION: There is no sonographic evidence of deep vein thrombosis in the left lower extremity Course & Med Decision Making Course & Med Decision Making Pertinent Labs and Imaging studies reviewed. (See chart for details) [ED course: Evaluation reveals a 53-year-old female with some muscle cramps in her left calf. She does not have a blood clot. I'll provide her with some muscle relaxers to take at night to see if this helps. I think she is safe for discharge home.] Dragon Disclaimer Dragon Disclaimer This electronic medical record was generated, in whole or in part, using a voice recognition dictation system. Departure Departure Impression: Primary Impression: Muscle cramp, nocturnal Disposition: HOME, SELF-CARE Condition: GOOD Referrals: JIGNESH MCKINNEY MD (PCP) Patient Instructions: Muscle Cramps Additional Instructions: Follow-through primary care physician this week for recheck. Scripts Cyclobenzaprine Hcl (CYCLOBENZAPRINE HCL) 10 Mg Tablet 1 TAB PO QHS, #30 TAB Prov: BRIANDA SILVA DO 02/13/19 BRIANDA SILVA DO Feb 13, 2019 09:42
--- NOTE | 2019-02-13 10:39 | RAD ---
Left lower extremity venous ultrasound, 02/13/2019 : History: Left calf pain Duplex evaluation including grayscale, color flow and spectral Doppler analysis was performed. The femoral and popliteal veins show no filling defects to suggest DVT. The visualized calf veins are unremarkable. IMPRESSION: There is no sonographic evidence of deep vein thrombosis in the left lower extremity Electronically signed by: Wild Lawrence MD (02/13/2019 10:36 AM) [facility]
[2019-02-13 10:46] VITALS: BP 128/75
[2019-02-13] MEDS ORDERED: CYCL10TA2 PO (11:16)
== END 2019-02-13 11:18 | disposition home or self-care (01) ==
LOC: ER 09:16
DX: G47.62 Sleep related leg cramps (principal); E78.00 Pure hypercholesterolemia, unspecified; G89.29 Other chronic pain; M54.9 Dorsalgia, unspecified; M54.2 Cervicalgia; Z95.1 Presence of aortocoronary bypass graft; Z88.2 Allergy status to sulfonamides; Z88.5 Allergy status to narcotic agent; Z91.040 Latex allergy status
CPT/HCPCS: 93971; 99284-25

== ENCOUNTER → 2019-02-21 | Outpatient (CLI) | payer OTHER, BC ==
[2019-02-13 10:46] VITALS: BP 128/75
[~2019-02-21] MED LIST changes: +CYCL10TA2 PO
--- NOTE | 2019-02-21 12:02 | KCIC ---
Bilateral digital screening mammograms with 3-D tomosynthesis: Reason for examination: Routine screening. Comparison is made to previous studies dated back to 01/07/2015. Bilateral mammograms in CC and oblique projections were obtained with 2-D imaging and 3-D tomosynthesis imaging on a Siemens Inspiration unit and reviewed on the workstation. Interpretation was made with the benefit of CAD. The skin and nipples show no abnormalities. No abnormal axillary lymph nodes are seen. The breast parenchyma shows scattered fatty and fibroglandular density. (Breast density: Category B.) There continues to be a nodular density at the 10:00 B position of the right breast which is stable. There are no new dominant masses, suspicious calcifications or architectural distortion. Biopsy clip remains present on the right. Impression: No evidence of malignancy. Recommend routine screening. BI-RAD Category 2: Benign. "Our facility is accredited by the [employer] Mammography Program." This patient's information has been entered into a reminder system for the patient to be notified with the results of her examination and a target date for the next mammogram. Electronically signed by: Renetta Willson MD (02/21/2019 10:50 AM) [id number]
== END | disposition home or self-care (01) ==
LOC: KCIC MAMMO 09:05
PROVIDERS: ATTEND Family Medicine
DX: Z12.31 Encounter for screening mammogram for malignant neoplasm of breast (principal)
CPT/HCPCS: 77063; 77067

== ENCOUNTER → 2019-02-28 | Outpatient (CLI) | payer OTHER, BC ==
[2019-02-13 10:46] VITALS: BP 128/75
--- NOTE | 2019-02-28 15:57 | KCIC ---
Left lower extremity arterial duplex ultrasound 02/28/2019 INDICATION: Left leg pain COMPARISON STUDY: None TECHNIQUE: Ultrasound evaluation of the major arteries of the left lower extremity was performed including color Doppler imaging spectral analysis. FINDINGS: Mild diffuse atherosclerotic vascular disease present. Normal waveforms and velocities are seen in the left common femoral artery. Partially visualized profunda artery appears grossly patent. Normal waveforms and velocities are seen throughout the superficial femoral artery. Normal waveforms and velocities are seen in the left popliteal artery. Anterior tibial, dorsalis pedis, posterior tibial arteries demonstrate grossly normal flow. IMPRESSION: Diffuse atherosclerotic vascular disease without sonographic evidence of hemodynamically significant stenosis Electronically signed by: Henry Almeida MD (02/28/2019 3:54 PM) [facility]
== END | disposition home or self-care (01) ==
LOC: KCIC US 14:48
PROVIDERS: ATTEND Family Medicine
DX: I70.292 Other atherosclerosis of native arteries of extremities, left leg (principal)
CPT/HCPCS: 93926

== ENCOUNTER → 2019-03-02 | Outpatient (CLI) | payer OTHER, BC ==
[2019-02-13 10:46] VITALS: BP 128/75
[2019-03-02 07:39] LABS: BASO % 1 % (0-3); EOS # 0.1 x10^3/uL (0.0-0.7); EOS % 2 % (0-3); HEMATOCRIT 43.1 % (36.0-47.0); HEMOGLOBIN 14.4 g/dL (12.0-15.5); LYMPH # 1.9 x10^3/uL (1.0-4.8); LYMPH % 29 % (24-48); MEAN CORPUSCULAR HEMOGLOBIN 32 pg (25-35); MEAN CORPUSCULAR HGB CONC 34 g/dL (31-37); MEAN CORPUSCULAR VOLUME 96 fL (79-100); MONO # 0.7 x10^3/uL (0.0-1.1); MONO % 11 % (0-9); NEUT # 3.7 x10^3uL (1.8-7.7); NEUT % 58 % (31-73); PLATELET COUNT 287 x10^3/uL (140-400); RED BLOOD COUNT 4.49 x10^6/uL (3.50-5.40); RED CELL DISTRIBUTION WIDTH 13.6 % (11.5-14.5); WHITE BLOOD COUNT 6.4 x10^3/uL (4.0-11.0)
[2019-03-02 08:06] LABS: ALBUMIN 3.6 g/dL (3.4-5.0); CALCIUM 8.8 mg/dL (8.5-10.1); CREATININE 0.9 mg/dL (0.6-1.0); TOTAL BILIRUBIN 0.5 mg/dL (0.2-1.0); TOTAL PROTEIN 7.1 g/dL (6.4-8.2)
[2019-03-02 08:14] LABS: CHOLESTEROL/HDL RATIO 2.9
[2019-03-02 08:16] LABS: FREE T4 1.07 ng/dL (0.76-1.46); THYROID STIM HORMONE (TSH) 3.12 uIU/mL (0.358-3.74)
== END | disposition home or self-care (01) ==
LOC: LAB 07:20
PROVIDERS: ATTEND Family Medicine
DX: I11.0 Hypertensive heart disease with heart failure (principal); I50.9 Heart failure, unspecified; E78.5 Hyperlipidemia, unspecified; E03.9 Hypothyroidism, unspecified; M79.605 Pain in left leg
CPT/HCPCS: 36415; 80053; 80061; 82550; 84439; 84443; 85025

== ENCOUNTER → 2019-03-20 | Outpatient (CLI) | payer OTHER, BC ==
--- NOTE | 2019-03-20 13:04 | RAD ---
MR#: [id number] Date of Study: 03/20/2019 Ordering Physician: TEMO REYES, Referring Physician: CRISTINA SALMERON Tech: KANU Ward ARRT (R) (N) APPROVED REPORT Test Type: Exercise Stress Nurse/Tech: Amna Lira R.N. Test Indications: DA SILVA,CAD, fatigue Cardiac History: htn,CABG,smoker Medications: See Electronic Medical Record Medical History: See Electronic Medical Record Resting ECG: SR Resting Heart Rate: 82 bpm Resting Blood Pressure: 137/76mmHg Pretest Chest Pain: No chest pain Nurse/Tech Notes S1S2, lungs CTA Consent: The procedure was explained to the patient in lay terms. Informed consent was witnessed. Rusty eout was entered into [employer]. History and Stress Test performed by KANU Ward ARRT (R) (N) Stress Symptoms SOB, slight chest 'ache' scale 3/10 about 3 minutes into exercise. this lasted till middle of recover y period, slight dizziness. POST EXERCISE Reason for Termination: Infusion complete Target HR: Yes Max HR: 141 bpm 85% of Maximum Predicted HR: 165 bpm Exercise duration: 6 min:sec, 2 Stage Exercise capacity: 7METs Max Blood Pressure: 161/81mmHg Blood Pressure response to exercise: Normal blood pressure response during stress. Heart Rate response to exercise: wnl Arrhythmia: No. ST Change: No. INTERPRETATION Stress EKG Conclusion: The resting EKG showed a sinus rhythm with minimal nonspecific ST segment sunshine ges. The stress EKG showed no significant changes from baseline. No EKG evidence of stressed induced ischemia. Imaging Protocol IMAGE PROTOCOL: Rest Tc-99m/stress Tc-99m 1 day Rest: Stress: Viability: Radiopharm.Tc99m KckptrbvnSn24x Sestamibi Moug60hBa 33mCi Img Date 03/20/2019 03/20/2019 Inj-Img Cmfh13nfi. 60min. Rest Admin Site:IV - Left HandAdministrator:KANU Ward ARRT (Marjorie)(N) Stress Admin Site: IV - Left HandAdministrator: Thuan Hassan, RT (R)(N) STRESS DATA End Diast. Vol.66.0mlLVEDV index BSA33.0ml End Syst. Vol.17.0mlLVESV index BSA9.0ml Myocardial Zrcb593.0gEject. Lokwahvp97.0% Stress Scores Regional WT1.00Summed WT9.00 Regional WM0.00Summed WM0.00 LV Perfusion The stress scans showed no significant defects. The rest scans showed no significant defects. Nuclear imaging showed no reversible ischemia or infarct. Wall Motion Left ventricular systolic function was normal with no wall motion abnormalities and an ejection fract ion of greater than 70%. LV Perf. Quant 17 Seg. SSS0.00 17 Seg. SRS0.00 17 Seg. SDS0.00 Stress Defect Extent (% LAD)0.00Rest Defect Extent (% LAD)0.00Rev. Defect Extent (% LAD)0.00 Stress Defect Extent (% LCX) 0.00Rest Defect Extent (% LCX)0.00Rev. Defect Extent (% LCX)0.00 Stress Defect Extent (% RCA)0.00Rest Defect Extent (% RCA)0.00Rev. Defect Extent (% RCA)0.00 Stress Defect Extent (% BRIAN)0.00Rest Defect Extent (% BRIAN)0.00Rev. Defect Extent (% BRIAN)0.00 Conclusion 1. Fair exercise tolerance with the patient walking for 6 minutes on a Martín protocol. 2. No EKG evidence of ischemia or arrhythmias. 3. Nuclear imaging shows no reversible ischemia or infarct. 4. Normal left ventricular systolic function with an ejection fraction of greater than 70%. 5. Low risk treadmill nuclear stress test. Signed by : Temo Reyes MD Electronically Approved : 03/20/2019 13:04:14
== END | disposition home or self-care (01) ==
LOC: NM 08:57
PROVIDERS: ATTEND Internal Medicine Cardiovascular Disease
DX: R06.09 Other forms of dyspnea (principal); I10 Essential (primary) hypertension; Z87.891 Personal history of nicotine dependence; Z95.1 Presence of aortocoronary bypass graft
CPT/HCPCS: 78452; 93017; 96376; A9500

== ENCOUNTER → 2019-03-31 | Outpatient (CLI) | payer OTHER, BC ==
[~2019-03-31] MED LIST changes: +IOHEXOL 180 MG/ML 10 ML VIAL. ONE; +methylPREDNISolone ACETATE 40 MG/ML VIAL. ONE; +methylPREDNISolone ACETATE 80 MG/ML VIAL. ONE
--- NOTE | 2019-04-01 02:42 | PAIN ---
DATE OF SERVICE: 03/31/2019 DIAGNOSES: 1. Lumbar radiculopathy with lumbar degenerative disk disease with lumbar spinal stenosis. 2. Cervical radiculopathy with cervical degenerative disk disease with cervical spinal stenosis, and post-cervical laminectomy syndrome. HISTORY OF PRESENT ILLNESS: The patient is a 53-year-old female who returns for followup status post lumbar epidural steroid injection x 1 and cervical epidural steroid injection x 1. The patient had about 80% improvement after cervical injection. Her low back was doing much better for several weeks after the first injection in December, but is returning now with pain in the low back and into the left lower extremity as it was previously. The patient reports it is across the low back and the posterior gluteus, posterior lateral thigh, lateral anterior thigh, medial thigh on the left and into the left ankle and foot. The patient reports it is 10 on scale of 10 at its worst, 9 on average, 5 at its least over the past week and is 9 today. The patient reports it is aching, tingling, stabbing, becoming more constant, more severe, worse with walking and standing. Originally, she was doing much better in her neck, is still feeling much better with the neck and shoulders. She is able to work duties, do household activities, increase her distance walking, now the pain is returning in the low back and left leg. The patient reports no new motor or sensory deficits, no new bowel or bladder incontinence or other complaints. PHYSICAL EXAMINATION: VITAL SIGNS: The patient's blood pressure is 137/98, pulse 87, respirations 16, temperature 97.7 degrees Fahrenheit, height is 5 feet 7 inches, weight is 200 pounds. GENERAL: The patient is awake, alert, oriented, appropriate, very pleasant demeanor. HEENT: Head is normocephalic, atraumatic. Extraocular movements intact and symmetrical. Oral cavity: Mucous membranes are moist and pink. Dentition is intact. NECK: Shows anterior throat supple without palpable lymphadenopathy noted. Swallow reflex symmetrical. CHEST: Shows normal on inspection. Breath sounds clear to auscultation bilaterally. HEART: Shows S1, S2 clear. No murmurs auscultated. ABDOMEN: Soft, nontender, nondistended. No palpable organomegaly is noted. No rebound or guarding demonstrated. BACK: Shows spine grossly in the midline. Cervical paraspinous muscle shows symmetrical on inspection, with palpation shows some very mild tenderness in the inferior aspect of the cervical paraspinous muscles bilaterally, but without radiation. The patient has good rotational motion of cervical spine, both laterally as well as extension and flexion without difficulty. The patient's low back shows lumbar paraspinous musculature is symmetrical on inspection, with palpation shows some moderate tenderness diffusely in the middle and lower distribution, slightly more on the left than the right, but this is symmetrical without evidence of atrophy, hypertrophy, no trigger points, no radiation of pain. The patient has good rotational motion both cervical spine and lumbar spine without significant increase in pain. EXTREMITIES: The patient's lower extremities show deep tendon reflexes 2+ at the patellar and 1+ in the tendo-calcaneus tendon. Motor exam is strong with 5/5 dorsiflexion and extension on the right and 4/5 on the left. Peripheral pulses are 1+ posterior tibial. No peripheral edema is noted bilaterally. Options were discussed with the patient. The patient's old chart was reviewed as was her current medication regimen updated. Current review of systems updated today as well. We will proceed with a third in total in this series of lumbar epidural steroid injection today with fluoroscopic guidance. Risks were again discussed including, but not limited to bleeding, infection, possibility of epidural hematoma and subsequent neurological compromise, dural puncture, headaches, spinal cord and/or nerve damage, side effects of steroid medication and poor results regarding pain control. The patient understands and wished to proceed. The patient will return to the clinic in approximately 2 weeks for followup, was counseled as to return appointment, activity level and side effects to be aware of. DIAGNOSIS: Lumbar radiculopathy with lumbar degenerative disk disease, lumbar spinal stenosis. PROCEDURE: Lumbar epidural steroid injection, translaminar approach, L4-L5 level using C-arm fluoroscopic guidance under sterile prep and drape using local anesthetic. MEDICATION INJECTED: A total of 120 mg Depo-Medrol plus 10 mL of preservative-free normal saline, 2 mL of Isovue for contrast. CONDITION ON DISCHARGE: Stable. The patient tolerated the procedure well, had no complications. ALMITA LUIS MD DR: GABI/pankaj JOB#: [id number] / [id number]
== END | disposition home or self-care (01) ==
LOC: PNCL 08:35
PROVIDERS: ATTEND Anesthesiology
DX: M51.16 Intervertebral disc disorders with radiculopathy, lumbar region (principal); M48.061 Spinal stenosis, lumbar region without neurogenic claudication; M48.02 Spinal stenosis, cervical region; M50.10 Cervical disc disorder with radiculopathy, unspecified cervical region; M96.1 Postlaminectomy syndrome, not elsewhere classified; Z88.2 Allergy status to sulfonamides; Z88.5 Allergy status to narcotic agent; Z91.040 Latex allergy status
CPT/HCPCS: 62323; J1030; J1040; Q9965

== ENCOUNTER → 2019-06-21 | Outpatient (CLI) | payer OTHER, BC ==
[~2019-06-21] MED LIST changes: -IOHEXOL 180 MG/ML 10 ML VIAL. ONE; -methylPREDNISolone ACETATE 40 MG/ML VIAL. ONE; -methylPREDNISolone ACETATE 80 MG/ML VIAL. ONE
[2019-06-21 14:10] LABS: FREE T4 0.92 ng/dL (0.76-1.46); THYROID STIM HORMONE (TSH) 5.985 uIU/mL (0.358-3.74)
== END | disposition home or self-care (01) ==
LOC: LAB 13:25
PROVIDERS: ATTEND Family Medicine
DX: E03.9 Hypothyroidism, unspecified (principal)
CPT/HCPCS: 36415; 84439; 84443; 84480

== ENCOUNTER → 2019-07-04 | Outpatient (CLI) | payer OTHER, BC ==
[2019-06-29 15:00] VITALS: BP 110/76
[~2019-07-04] MED LIST changes: +CRESTOR40 MG PO; +LEVO137T3 PO; +METO-239 PO; +PANT40TA77 PO; +POLY17PO28 PO; +[UNRECOGNIZED DRUG - CODE] PO
--- NOTE | 2019-07-04 17:17 | RAD ---
Examination: Ultrasound thyroid HISTORY: History of hypothyroidism COMPARISON: None available FINDINGS: The right lobe of thyroid measures 5.6 x 2.0 x 1.7 cm. The left lobe of the thyroid measures 5.2 x 1.5 x1.3 cm. There is a solid-appearing 5 mm nodule identified in the medial right lobe of thyroid gland. The isthmus measures 3.5 mm in AP dimension. The echogenicity of the thyroid gland appears heterogenous. IMPRESSION: 1. Heterogeneous appearing thyroid gland could be secondary to thyroiditis or hypothyroidism. 2. Small subcentimeter nodule identified in the right lobe of thyroid gland measuring 5 mm. ACR TI-RADS 2. Electronically signed by: Tin Durand MD (07/04/2019 5:14 PM) [facility]
== END | disposition home or self-care (01) ==
LOC: US 15:27
PROVIDERS: ATTEND Family Medicine
DX: E04.1 Nontoxic single thyroid nodule (principal); E03.9 Hypothyroidism, unspecified
CPT/HCPCS: 76536

== ENCOUNTER → 2019-07-14 | Day surgery (SDC) | payer OTHER, BC ==
[~2019-07-14] MED LIST changes: +HYDROmorphone 2 MG/ML VIAL IV PRN; +IV RINGERS,LACTATED 1000ML 1,000 ML IV SCH; +LIDOCAINE 2% PF 5 ML VIAL. ONE; +LIPA1CAP8 PO; +MORPHINE SULFATE 2 MG/ML VIAL. IV PRN; +ONDANSETRON PF 4 MG/2 ML VIAL. IV PRN; +PROCHLORPERAZINE 10 MG/2 ML VIAL. IV PRN; +PROPOFOL 40 ML IV ONE; +fentaNYL PF VIAL 100 MCG/2 ML VIAL IV PRN
[2019-07-14 08:50] VITALS: BP 120/70
--- NOTE | 2019-07-17 18:11 | PATHOLOGY ---
[facility] Accession Number: [id number] . 01 Material submitted: . PART A: colon - RIGHT COLON. Modifiers: right PART B: colon - LEFT COLON. Modifiers: left PART C: colon - TRANSVERSE COLON. Modifiers: transverse . 01 Clinical history: . HX ulcerative colitis, polyps, dysphagia, screen . 02 Diagnosis: A. Right colon biopsies: - Segments of colonic mucosa identified - negative for active chronic colitis or dysplasia. . B. Left colon biopsies: - Segments of colonic mucosa identified - negative for active chronic colitis or dysplasia. . C, Transverse colon biopsies: - Segments of colonic mucosa identified - negative for active chronic colitis or dysplasia. (JPM:[facility] 07/17/2019) [facility] [[email or web address]07/17/2019 . 02 Comment: Sections of the right colon, transverse colon, and left colon biopsies appear similar and reveal segments of colonic mucosa. The mucosal biopsies appear relatively normal. There is no evidence of an active chronic colitis. There is no crypt architectural distortion, crypt abscesses, or basal chronic inflammatory cell infiltrate. There is no dysplasia or evidence of malignancy. ([facility]PM:[facility] 07/17/2019) . 02 Electronically signed: . Leno Ulloa MD, Pathologist NPI- [id number] . 01 Gross description: . A. Received in formalin labeled "Amrita Dorsey, right colon," are multiple segments of ramires soft tissue measuring 2.0 x 0.5 x 0.1 cm in aggregate dimensions. The specimen is filtered and entirely submitted in cassette A1. . B. Received in formalin labeled "Amrita Dorsey, left colon," are multiple segments of ramires soft tissue measuring 1.1 x 0.6 x 0.1 cm in aggregate dimensions. The specimen is filtered and entirely submitted in cassette B1. . C. Received in formalin labeled "Amrita Dorsey, transverse colon," are 5 segments of ramires soft tissue measuring 1.7 x 0.8 x 0.3 cm in aggregate dimensions and ranging from 0.4 to 0.7 cm in maximum dimension. The specimen is submitted entirely in cassette C1. ([facility]; 07/14/2019) TOB/TOB . 02 Pathologist provided ICD-10: Z12.11, R13.10, Z87.19 . 02 CPT . 783762, 888450, 445537 Specimen Comment: A courtesy copy of this report has been sent to Specimen Comment: [phone], . Specimen Comment: Report sent to / DR MCKINNEY Performed at: 01 [facility] [address] [place] [address] [address], [place] [id number] MD Florin Cantu MD Phone: [phone] Performed at: 02 [facility] [address] [place], [place] [id number] MD Leno Ulloa MD Phone: [phone]
== END ==
LOC: SURG 06:32
PROVIDERS: ATTEND Internal Medicine Gastroenterology
DX: K29.50 Unspecified chronic gastritis without bleeding (principal); K22.2 Esophageal obstruction; K64.0 First degree hemorrhoids; K63.89 Other specified diseases of intestine; F17.210 Nicotine dependence, cigarettes, uncomplicated; K21.9 Gastro-esophageal reflux disease without esophagitis; K51.90 Ulcerative colitis, unspecified, without complications; E03.9 Hypothyroidism, unspecified; I25.2 Old myocardial infarction; F15.90 Other stimulant use, unspecified, uncomplicated; Z79.82 Long term (current) use of aspirin; Z72.89 Other problems related to lifestyle; Z98.890 Other specified postprocedural states; Z91.040 Latex allergy status; Z98.51 Tubal ligation status; Z95.1 Presence of aortocoronary bypass graft
CPT/HCPCS: 43235; 43450; 45380; 88305; J2001; J2704

== ENCOUNTER → 2019-08-09 | Outpatient (CLI) | payer OTHER, BC ==
[2019-08-05 15:00] VITALS: BP 117/72
[~2019-08-09] MED LIST changes: -HYDROmorphone 2 MG/ML VIAL IV PRN; -IV RINGERS,LACTATED 1000ML 1,000 ML IV SCH; -LIDOCAINE 2% PF 5 ML VIAL. ONE; -MORPHINE SULFATE 2 MG/ML VIAL. IV PRN; -ONDANSETRON PF 4 MG/2 ML VIAL. IV PRN; -PROCHLORPERAZINE 10 MG/2 ML VIAL. IV PRN; -PROPOFOL 40 ML IV ONE; +SINCALIDE 1.72 MCG in IV NORMAL SALINE 50ML 30 ML IV ONE; -fentaNYL PF VIAL 100 MCG/2 ML VIAL IV PRN
--- NOTE | 2019-08-09 13:10 | RAD ---
Exam performed: Nuclear medicine hepatobiliary scan. History: Dysphagia, abdominal pain Comparison: None available Following intravenous administration of 5.5 mCi of Choletec tagged with Tc, sequential gamma camera images of the right upper quadrant of the abdomen were obtained. There is prompt accumulation of radionuclide in the liver which appears to be unremarkable Prompt accumulation in the central intrahepatic biliary radicals, gallbladder, common bile duct and small bowel is noted. Patient was also infused with 1.7mcg of CCK and gallbladder ejection fraction was calculated which measures 97% Impression: 1. No evidence of cystic duct obstruction. 2. Normal gallbladder ejection fraction. Electronically signed by: Tin Durand MD (08/09/2019 1:06 PM) [place] [id number]
== END | disposition home or self-care (01) ==
LOC: NM 07:43
PROVIDERS: ATTEND Internal Medicine Gastroenterology
DX: R47.02 Dysphasia (principal)
CPT/HCPCS: 78227; A9537; J2805

== ENCOUNTER → 2019-11-13 | Outpatient (CLI) | payer OTHER, BC ==
[2019-08-05 15:00] VITALS: BP 117/72
[~2019-11-13] MED LIST changes: +IOHEXOL 180 MG/ML 10 ML VIAL. ONE; -SINCALIDE 1.72 MCG in IV NORMAL SALINE 50ML 30 ML IV ONE; +methylPREDNISolone ACETATE 40 MG/ML VIAL. ONE; +methylPREDNISolone ACETATE 80 MG/ML VIAL. ONE
--- NOTE | 2019-11-13 23:15 | PAIN ---
DATE OF SERVICE: 11/13/2019 PROGRESS NOTE FOR PAIN CLINIC DIAGNOSES: 1. Lumbar radiculopathy with lumbar degenerative disk disease, lumbar spinal stenosis. 2. Cervical radiculopathy with cervical degenerative disk disease and cervical spinal stenosis, post-cervical laminectomy syndrome. HISTORY OF PRESENT ILLNESS: The patient is a 54-year-old female, who returns for followup status post lumbar epidural steroid injections, most recently 03/31/2019. The patient did very well with about 90% improvement for about 3 months. The patient reports the pain has been returning now over the past few weeks in the low back and into the right more than the left lower extremity. The patient reports that 10 on a scale of 10 at its worst over the past week, 10 on average, 6 at its least and is a 10 today. The patient reports it is worse with walking, standing and working. She is required to be on her feet. 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 The patient reports initially she was doing much better with work activities, household activities, walking greater distances, but now the pain is returning fairly significantly more on the right, but across both sides of the low back into the lower extremities, lateral, posterior and anterior thighs, anterior medial thigh, medial lower leg and into the left foot as well. The patient reports it is sharp, shooting, stabbing, radiating, becoming more constant, more severe, unbearable at times when she is on her feet more than about 6-8 hours. The patient reports no new motor or sensory deficits, no new bowel or bladder incontinence or other complaints. PHYSICAL EXAMINATION: VITAL SIGNS: The patient's blood pressure is 124/73, pulse is 83, respirations 16, temperature 97.8 degrees Fahrenheit, height is 5 feet 7 inches, weight is 201 pounds. GENERAL: The patient is awake, alert, oriented, appropriate, very pleasant demeanor. HEENT: Head shows normocephalic, atraumatic. Extraocular movements are intact and symmetrical. Oral cavity, mucous membranes moist and pink. Dentition is intact. NECK: Shows anterior throat supple without palpable lymphadenopathy noted. Swallow reflex is symmetrical. CHEST: Shows normal on inspection. Breath sounds clear to auscultation bilaterally. HEART: Shows S1, S2 clear. No murmurs auscultated. ABDOMEN: Soft, nontender, nondistended. No palpable organomegaly is noted. No rebound or guarding demonstrated. BACK: Shows spine grossly in the midline. Normal appearing thoracic kyphosis and minor flattening of lumbar lordotic curvature. Lumbar paraspinous muscle shows symmetrical on inspection with some moderate palpation and tenderness in the low lumbar distribution only. The patient has good rotational motion of lumbar spine, both laterally as well as extension and flexion without significant difficulty. EXTREMITIES: The patient's lower extremities show deep tendon reflexes at 2+ in the patellar, 1+ tendo-calcaneus tendons. Motor exam is rated at 5/5 on the right, 4/5 on the left. Quadriceps and hamstring flexions 5/5 equal and symmetrical bilaterally. The patient's lower extremities show no peripheral edema. Posterior tibial pulses are 1+ bilaterally. Options were discussed with the patient. The patient's old chart was reviewed as her current medication regimen updated. Current review of systems updated today as well. We will proceed with a lumbar epidural steroid injection first in this series with fluoroscopic guidance. Risks were again discussed including, but not limited to bleeding, infection, possibility of epidural hematoma, subsequent neurological compromise, dural puncture, headaches, spinal cord and/or nerve damage, side effects of steroid medication and poor results regarding pain control. The patient understands and wished to proceed. The patient will return to clinic in approximately 2 weeks for followup. She was counseled on return appointment, activity level and side effects to be aware of. DIAGNOSIS: Lumbar radiculopathy with lumbar degenerative disk disease and lumbar spinal stenosis. PROCEDURE: Lumbar epidural steroid injection, translaminar approach L4-L5 level using C-arm fluoroscopic guidance under sterile prep and drape using local anesthetic. MEDICATION INJECTED: A total of 120 mg of Depo-Medrol plus 10 mL of preservative-free normal saline and 2 mL of contrast. CONDITION AT DISCHARGE: Stable. The patient tolerated procedure well, had no complications. ALMITA LUIS MD DR: GABI/pankaj JOB#: [id number] / [id number]
== END ==
LOC: PNCL 09:18
PROVIDERS: ATTEND Anesthesiology
DX: M51.16 Intervertebral disc disorders with radiculopathy, lumbar region (principal); M50.10 Cervical disc disorder with radiculopathy, unspecified cervical region; M48.02 Spinal stenosis, cervical region; M96.1 Postlaminectomy syndrome, not elsewhere classified; M48.061 Spinal stenosis, lumbar region without neurogenic claudication
CPT/HCPCS: 62323; J1030; J1040; Q9965

== ENCOUNTER 2020-01-03 08:06 | Inpatient (IN) | payer OTHER, BC ==
[~2020-01-03] VITALS: Ht 170.2 cm; Wt 88.6 kg
[~2020-01-03 08:06] MED LIST changes: -IOHEXOL 180 MG/ML 10 ML VIAL. ONE; -methylPREDNISolone ACETATE 40 MG/ML VIAL. ONE; -methylPREDNISolone ACETATE 80 MG/ML VIAL. ONE
[2020-01-03] MEDS ORDERED: IV NORMAL SALINE 1000ML BAG 1,000 ML IV SCH (08:34)
[2020-01-03] MEDS ORDERED: fentaNYL PF VIAL 100 MCG/2 ML VIAL IVP ONE (08:45)
[2020-01-03] MEDS ORDERED: ONDANSETRON PF 4 MG/2 ML VIAL. IVP ONE (08:45)
[2020-01-03] MEDS ORDERED: IPRATRPIUM/ALBUTEROL 0.5/2.5MG 3 ML NEBU. NEB ONE (08:45)
--- NOTE | 2020-01-03 08:58 | RAD ---
EXAM: CHEST 1 VIEW History: Shortness of breath, fever COMPARISON: 08/05/2019 TECHNIQUE: Single portable radiograph of the chest FINDINGS: The cardiac silhouette is unremarkable. The lungs are clear bilaterally. The costophrenic sulci are clear and well demarcated. IMPRESSION: No radiographic evidence of an acute cardiopulmonary process. Electronically signed by: Tin Durand MD (01/03/2020 8:55 AM) [facility] [place]
[2020-01-03 09:15] LABS: INFLUENZA A PATIENT NEGATIVE (NEGATIVE); INFLUENZA B PATIENT NEGATIVE (NEGATIVE)
[2020-01-03] MEDS ORDERED: ACETAMINOPHEN 500 MG TABLET PO ONE (09:15)
[2020-01-03 09:34] LABS: BILIRUBIN,URINE SMALL (NEG); CLARITY,URINE CLEAR; COLOR,URINE YELLOW; NITRITE,URINE NEGATIVE (NEG); PH,URINE 5.5; PROTEIN,URINE >=300 mg/dL (NEG-TRACE); UROBILINOGEN,URINE 0.2 mg/dL (0.2 mg/dL)
[2020-01-03 09:46] LABS: SQUAMOUS EPITHELIAL CELL,UR MANY /LPF
[2020-01-03 09:47] LABS: BACTERIA,URINE MODERATE /HPF (0-FEW)
[2020-01-03 10:22] LABS: BASO # 0.1 x10^3/uL (0.0-0.2); BASO % 1 % (0-3); EOS % 0 % (0-3); HEMATOCRIT 44.3 % (36.0-47.0); HEMOGLOBIN 14.9 g/dL (12.0-15.5); LYMPH % 10 % (24-48); MEAN CORPUSCULAR HEMOGLOBIN 31 pg (25-35); MEAN CORPUSCULAR HGB CONC 34 g/dL (31-37); MEAN CORPUSCULAR VOLUME 93 fL (79-100); MONO # 1.3 x10^3/uL (0.0-1.1); MONO % 12 % (0-9); NEUT # 8.3 x10^3/uL (1.8-7.7); NEUT % 77 % (31-73); PLATELET COUNT 204 x10^3/uL (140-400); RED BLOOD COUNT 4.77 x10^6/uL (3.50-5.40); RED CELL DISTRIBUTION WIDTH 13.3 % (11.5-14.5); WHITE BLOOD COUNT 10.7 x10^3/uL (4.0-11.0)
[2020-01-03 10:27] LABS: BASE EXCESS ABG 1 mmol/L (-3-3); HCO3 ABG 27 mmol/L (21-28); PCO2 ABG 47 mmHg (35-46); SAT O2 ABG 83 % (92-99)
[2020-01-03 10:28] LABS: CREATININE 0.8 mg/dL (0.6-1.0); GFR 74.2; POTASSIUM 4.1 mmol/L (3.5-5.1)
[2020-01-03 10:30] LABS: FIO2 ABG 21; PO2 ABG 46 mmHg (75-108)
[2020-01-03 10:31] LABS: PROTHROMBIN TIME PATIENT 12.6 SEC (11.7-14.0)
--- NOTE | 2020-01-03 10:33 | PHYS DOC ---
Past Medical History Past Medical History: CAD, High Cholesterol, Hypertension, Hypothyroid, DE Additional Past Medical Histor: pancreatitis Past Surgical History: Appendectomy, Coronary Bypass Surgery Additional Past Surgical Histo: NECK SX Smoking Status: Current Every Day Smoker Alcohol Use: Occasionally Drug Use: None Adult General Chief Complaint Chief Complaint: SHORTNESS OF BREATH HPI HPI Patient is a 54 year old with history of hypertension, dyslipidemia, coronary artery disease status post CABG, hypothyroidism, pancreatitis who presents with complaint of shortness of breath and cough. Patient states she had URI symptoms last week for couple days that improved spontaneously but for the last 3 days has had intermittent episodes of exertional shortness of breath and nonproductive cough. Patient states she had nasal congestion and one episode of vomiting last night. Patient complaining of a headache and rated her pain 10 over 10 without focal neuro deficit and blurred vision. Patient complaining of fever of 102 this morning. She denies chest pain, diarrhea, urinary symptoms, history of PE and DVT. She had O2 sats of 88% at arrival to ER with temperature of 100.2. Review of Systems Review of Systems Constitutional: Reports fever Eyes: Denies change in visual acuity, redness, or eye pain [] HENT: Denies sore throat, reports nasal congestion [] Respiratory: Reports cough and shortness of breath Cardiovascular: No additional information not addressed in HPI [] GI: Denies abdominal pain, nausea, bloody stools or diarrhea [] : Denies dysuria or hematuria [] Musculoskeletal: Denies back pain or joint pain [] Integument: Denies rash or skin lesions [] Neurologic: Denies headache, focal weakness or sensory changes [] Endocrine: Denies polyuria or polydipsia [] All other systems were reviewed and found to be within normal limits, except as documented in this note. Current Medications Current Medications Current Medications Medications (Trade) Dose Ordered Sig/Annelise Start Time Stop Time Status Last Admin Dose Admin Acetaminophen (Tylenol) 1,000 mg 1X ONCE 01/03/20 09:15 01/03/20 09:16 DC 01/03/20 09:31 1,000 MG Albuterol/ Ipratropium (Duoneb) 3 ml 1X ONCE 01/03/20 08:45 01/03/20 08:46 DC 01/03/20 08:58 3 ML Fentanyl Citrate (Fentanyl 2ml Vial) 50 mcg 1X ONCE 01/03/20 08:45 01/03/20 08:46 DC 01/03/20 10:00 50 MCG Ondansetron HCl (Zofran) 4 mg 1X ONCE 01/03/20 08:45 01/03/20 08:46 DC 01/03/20 10:00 4 MG Sodium Chloride 1,000 ml @ 1,000 mls/hr Q1H 01/03/20 08:34 01/03/20 09:33 DC 01/03/20 10:01 1,000 MLS/HR Allergies Allergies Allergies Coded Allergies Type Severity Reaction Last Updated Verified latex Allergy Severe Rash 07/14/19 Yes Sulfa (Sulfonamide Antibiotics) Allergy Intermediate Rash 07/14/19 Yes nitrile Allergy Intermediate 01/03/20 Yes codeine Adverse Reaction Mild Nausea and Vomiting 07/14/19 Yes Physical Exam Physical Exam Constitutional: Well developed, well nourished, moderate distress, non-toxic appearance. [] HENT: Normocephalic, atraumatic, bilateral external ears normal, oropharynx dry, pharyngeal erythema, no oral exudates, nose normal. [] Eyes: PERRLA, EOMI, conjunctiva normal, no discharge. [] Neck: Normal range of motion, no tenderness, supple, no stridor. [] Cardiovascular: Tachycardia no respiratory distress, no murmur [] Lungs & Thorax: No respiratory distress, bilateral breath sounds clear to auscultation [] Abdomen: Bowel sounds normal, soft, no tenderness, no masses, no pulsatile masses. [] Skin: Warm, dry, no erythema, no rash. [] Back: No tenderness, no CVA tenderness. [] Extremities: No tenderness, no cyanosis, no clubbing, ROM intact, no edema. [] Neurologic: Alert and oriented X 3, normal motor function, normal sensory function, no focal deficits noted. [] Psychologic: Affect normal, judgement normal, mood normal. [] Current Patient Data Vital Signs Vital Signs Date Time Temp Pulse Resp B/P (MAP) Pulse Ox O2 Delivery O2 Flow Rate FiO2 01/03/20 10:24 116 18 99/57 (71) 93 Nasal Cannula 3.0 01/03/20 08:35 100.2 100.2 Lab Values Laboratory Tests Test 01/03/20 08:38 01/03/20 10:00 01/03/20 10:09 01/03/20 10:20 Urine Collection Type Void Urine Color Yellow Urine Clarity Clear Urine pH 5.5 Urine Specific Dewey 1.025 Urine Protein >=300 mg/dL (NEG-TRACE) Urine Glucose (UA) Negative mg/dL (NEG) Urine Ketones (Stick) 15 mg/dL (NEG) Urine Blood Small (NEG) Urine Nitrite Negative (NEG) Urine Bilirubin Small (NEG) Urine Urobilinogen Dipstick 0.2 mg/dL (0.2 mg/dL) Urine Leukocyte Esterase Negative (NEG) Urine RBC 3-5 /HPF (0-2) Urine WBC 5-10 /HPF (0-4) Urine Squamous Epithelial Cells Many /LPF Urine Bacteria Moderate /HPF (0-FEW) Urine Mucus Mod /LPF Influenza Type A Antigen Negative (NEGATIVE) Influenza Type B Antigen Negative (NEGATIVE) Sodium Level 136 mmol/L (136-145) Potassium Level 4.1 mmol/L (3.5-5.1) Chloride Level 98 mmol/L (98-107) Carbon Dioxide Level 28 mmol/L (21-32) Anion Gap 10 (6-14) Blood Urea Nitrogen 11 mg/dL (7-20) Creatinine 0.8 mg/dL (0.6-1.0) Estimated GFR (Cockcroft-Gault) 74.2 BUN/Creatinine Ratio 14 (6-20) Glucose Level 106 mg/dL (70-99) H Lactic Acid Level 1.2 mmol/L (0.4-2.0) Calcium Level 9.0 mg/dL (8.5-10.1) Total Bilirubin 0.4 mg/dL (0.2-1.0) Aspartate Amino Transferase (AST) 28 U/L (15-37) Alanine Aminotransferase (ALT) 31 U/L (14-59) Alkaline Phosphatase 62 U/L (46-116) Creatine Kinase 46 U/L (26-192) Troponin I Quantitative 0.478 ng/mL (0.000-0.055) OL-Hpz-G-Type Natriuretic Peptide 2888 pg/mL (0-124) H Total Protein 6.5 g/dL (6.4-8.2) Albumin 3.2 g/dL (3.4-5.0) L Albumin/Globulin Ratio 1.0 (1.0-1.7) White Blood Count 10.7 x10^3/uL (4.0-11.0) Red Blood Count 4.77 x10^6/uL (3.50-5.40) Hemoglobin 14.9 g/dL (12.0-15.5) Hematocrit 44.3 % (36.0-47.0) Mean Corpuscular Volume 93 fL (79-100) Mean Corpuscular Hemoglobin 31 pg (25-35) Mean Corpuscular Hemoglobin Concent 34 g/dL (31-37) Red Cell Distribution Width 13.3 % (11.5-14.5) Platelet Count 204 x10^3/uL (140-400) Neutrophils (%) (Auto) 77 % (31-73) H Lymphocytes (%) (Auto) 10 % (24-48) L Monocytes (%) (Auto) 12 % (0-9) H Eosinophils (%) (Auto) 0 % (0-3) Basophils (%) (Auto) 1 % (0-3) Neutrophils # (Auto) 8.3 x10^3/uL (1.8-7.7) H Lymphocytes # (Auto) 1.0 x10^3/uL (1.0-4.8) Monocytes # (Auto) 1.3 x10^3/uL (0.0-1.1) H Eosinophils # (Auto) 0.0 x10^3/uL (0.0-0.7) Basophils # (Auto) 0.1 x10^3/uL (0.0-0.2) Prothrombin Time 12.6 SEC (11.7-14.0) Prothrombin Time INR 1.0 (0.8-1.1) D-Dimer (Krista) 1.41 ug/mlFEU (0.00-0.50) H O2 Saturation 83 % (92-99) L Arterial Blood pH 7.37 (7.35-7.45) Arterial Blood pCO2 at Patient Temp 47 mmHg (35-46) H Arterial Blood pO2 at Patient Temp 46 mmHg (75-108) *L Arterial Blood HCO3 27 mmol/L (21-28) Arterial Blood Base Excess 1 mmol/L (-3-3) FiO2 21 Laboratory Tests 01/03/20 10:09 Laboratory Tests 01/03/20 10:00 EKG EKG EKG interpreted by me. EKG at 0 822 showed atachycardia at rate of 112, PVCs, l eft ramos axis, T-wave abnormality in anteroseptal leads, poor R-wave progress in anteroseptal leads, no acute ST and T-wave elevation. Radiology/Procedures Radiology/Procedures [facility] [address] [place] [address] IMAGING REPORT Signed PATIENT: JOHNIE BARRIGA DACCOUNT: [id number] : 1965 LOCATION: ER AGE: 54 SEX: F EXAM STATUS: REG ER ORD. PHYSICIAN: ADIN NEWBERRY MD REASON: shortness of breath and fever PROCEDURE: PORTABLE CHEST 1V EXAM: CHEST 1 VIEW History: Shortness of breath, fever COMPARISON: 08/05/2019 TECHNIQUE: Single portable radiograph of the chest FINDINGS: The cardiac silhouette is unremarkable. The lungs are clear bilaterally. The costophrenic sulci are clear and well demarcated. IMPRESSION: No radiographic evidence of an acute cardiopulmonary process. Electronically signed by: Tin Durand MD (01/03/2020 8:55 AM) [facility] [place]CTATED and SIGNED BY: TIN DURAND MD DATE: 01/03/20 0855 Course & Med Decision Making Course & Med Decision Making Pertinent Labs and Imaging studies reviewed. (See chart for details) Patient requiring admission for further evaluation and treatment. Discussed with Dr. Rubi who is in agreement with admission. Discussed findings and plan with patient and family, who acknowledge understanding and agreement. Dragon Disclaimer Dragon Disclaimer This electronic medical record was generated, in whole or in part, using a voice recognition dictation system. Departure Departure Impression: Primary Impression: Pulmonary embolism Additional Impressions: Dyspnea Hypoxia Elevated troponin CHF (congestive heart failure) SIRS (systemic inflammatory response syndrome) UTI (urinary tract infection) Disposition: ADMITTED INPATIENT (admitted at [id number] white male evaluated also) Admitting Physician: CARY (Dr. Rubi accepted admission at 1128) Condition: GUARDED Referrals: JIGNESH MCKINNEY MD (PCP) Critical Care Time Critical care time was 50 minutes exclusive of procedures. Problem Qualifiers Primary Impression: Pulmonary embolism Pulmonary embolism type: unspecified Chronicity: acute Acute cor pulmonale presence: unspecified Qualified Codes: I26.99 - Other pulmonary embolism without acute cor pulmonale Additional Impressions: Dyspnea Dyspnea type: unspecified Qualified Codes: R06.00 - Dyspnea, unspecified CHF (congestive heart failure) Heart failure type: unspecified Heart failure chronicity: unspecified Qualified Codes: I50.9 - Heart failure, unspecified UTI (urinary tract infection) Urinary tract infection type: site unspecified Hematuria presence: with hematuria Qualified Codes: N39.0 - Urinary tract infection, site not specified; R31.9 - Hematuria, unspecified ADIN NEWBERRY MD Jan 03, 2020 10:33
[2020-01-03 10:34] LABS: ALBUMIN 3.2 g/dL (3.4-5.0); TOTAL BILIRUBIN 0.4 mg/dL (0.2-1.0); TOTAL PROTEIN 6.5 g/dL (6.4-8.2)
[2020-01-03] MEDS ORDERED: IOHEXOL 350 MG/ML 100 ML VIAL. IV ONE (11:15)
[2020-01-03] MEDS ORDERED: IOHEXOL 350 MG/ML 100 ML VIAL. ONE (11:16)
[2020-01-03] MEDS ORDERED: CONTRAST GIVEN. MC PRN (11:30)
[2020-01-03] MEDS ORDERED: cefTRIAXone IV Push 1 GM VIAL. IVP ONE (11:45)
--- NOTE | 2020-01-03 12:09 | RAD ---
Examination: CT ANGIOGRAPHY CHEST History: Hypoxia, shortness of breath Comparison/Correlation: None Findings: Axial images of chest were obtained following IV contrast and a pulmonary arteriography protocol. Sagittal and coronal reformatted images were provided. Axial images of the chest were obtained following IV contrast according to pulmonary arteriography protocol. Sagittal and coronal reformatted images were provided. Maximum intensity projection images were provided. Third order right lower lobe pulmonary arterial thromboembolic disease is present. This is seen on axial images 98 through 105 of series 3. Nonenlarged superior mediastinal lymph nodes are similar to the prior exam. Small hiatal hernia. No infiltrate or pleural effusion. Thoracic aortic morphology is unremarkable. Fatty infiltration of the liver suspected. Compression deformity of a lower thoracic spine vertebral body is unchanged. Impression: Right lower lobe pulmonary arterial thromboembolic disease of indeterminate age Small hiatal hernia. On 01/03/2020 at 12:05 PM, results were reported to Dr. Beach of the emergency Department. PQRS Compliance Statement: One or more of the following individualized dose reduction techniques were utilized for this examination: 1. Automated exposure control 2. Adjustment of the mA and/or kV according to patient size 3. Use of iterative reconstruction technique Electronically signed by: Shashi Martinez MD (01/03/2020 12:06 PM) [id number]
[2020-01-03] MEDS ORDERED: BENZONATATE 100 MG CAPSULE. PO ONE (12:45)
--- NOTE | 2020-01-03 13:26 | EKG ---
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
--- NOTE | 2020-01-03 16:53 | PDOC1 ---
History and Physical Date of Admission Date of Admission DATE: 01/03/20 TIME: 16:47 Identification/Chief Complaint Chief Complaint hypoxia Source Source: Chart review, Patient History of Present Illness History of Present Illness Hari is a 54 year old admit with acute hypoxia. Seen in ER 20. She has new complaint of shortness of breath and cough, started last night, was much better this AM . Patient states she had URI symptoms last week for couple days that improved spontaneously but for the last 3 days has had intermittent episodes of exertional shortness of breath and nonproductive cough. Patient states she had nasal congestion and one episode of vomiting last night. headache pain, better, dyspnea better with oxygen fever of 102 this morning. She denies chest pain, diarrhea, urinary symptoms, history of PE and DVT. 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 [employer], Past Medical History Past Medical History with history of hypertension, dyslipidemia, coronary artery disease status post CABG, hypothyroidism, pancreatitis Cardiovascular: CAD, HTN, Hyperlipidemia, Other Pulmonary: No pertinent hx CENTRAL NERVOUS SYSTEM: Other GI: Hemorrhoids Heme/Onc: No pertinent hx Hepatobiliary: No pertinent hx, Other Psych: Depression Musculoskeletal: Osteoarthritis, Other Rheumatologic: No pertinent hx Infectious disease: No pertinent hx Renal/: No pertinent hx Endocrine: Hypothyroidism, Other Past Surgical History Past Surgical History: Appendectomy, CABG, Other Family History Family History: Coronary Artery Disease, Heart Disease, Hypertension Social History Smoke: Quit ALCOHOL: none Drugs: None Current Problem List Problem List Problems Medical Problems: (1) CHF (congestive heart failure) Status: Acute (2) Dyspnea Status: Acute (3) Elevated troponin Status: Acute (4) Hypoxia Status: Acute (5) SIRS (systemic inflammatory response syndrome) Status: Acute (6) UTI (urinary tract infection) Status: Acute Current Medications Current Medications Current Medications Sodium Chloride 1,000 ml @ 1,000 mls/hr Q1H IV Last administered on 01/03/20at 10:01; Start 01/03/20 at 08:34; Stop 01/03/20 at 09:33; Status DC Albuterol/ Ipratropium (Duoneb) 3 ml 1X ONCE NEB Last administered on 01/03/20at 08:58; Start 01/03/20 at 08:45; Stop 01/03/20 at 08:46; Status DC Fentanyl Citrate (Fentanyl 2ml Vial) 50 mcg 1X ONCE IVP Last administered on 01/03/20at 10:00; Start 01/03/20 at 08:45; Stop 01/03/20 at 08:46; Status DC Ondansetron HCl (Zofran) 4 mg 1X ONCE IVP Last administered on 01/03/20at 10:00; Start 01/03/20 at 08:45; Stop 01/03/20 at 08:46; Status DC Acetaminophen (Tylenol) 1,000 mg 1X ONCE PO Last administered on 01/03/20at 09:31; Start 01/03/20 at 09:15; Stop 01/03/20 at 09:16; Status DC Iohexol (Omnipaque 350 Mg/ml) 100 ml 1X ONCE IV Last administered on 01/03/20at 11:38; Start 01/03/20 at 11:15; Stop 01/03/20 at 11:16; Status DC Info (CONTRAST GIVEN -- Rx MONITORING) 1 each PRN DAILY PRN MC SEE COMMENTS; Start 01/03/20 at 11:30; Stop 01/05/20 at 11:29 Iohexol (Omnipaque 350 Mg/ml) 100 ml STK-MED ONCE .ROUTE ; Start 01/03/20 at 11:16; Stop 01/03/20 at 11:16; Status DC Ceftriaxone Sodium (Rocephin) 1 gm 1X ONCE IVP Last administered on 01/03/20at 13:55; Start 01/03/20 at 11:45; Stop 01/03/20 at 11:48; Status DC Enoxaparin Sodium (Lovenox 100mg Syringe) 90 mg 1X ONCE SQ Last administered on 01/03/20at 13:49; Start 01/03/20 at 12:15; Stop 01/03/20 at 12:16; Status DC Benzonatate (Tessalon Perle) 100 mg 1X ONCE PO Last administered on 01/03/20at 13:48; Start 01/03/20 at 12:45; Stop 01/03/20 at 12:46; Status DC Enoxaparin Sodium (Lovenox Per Pharmacy Treatment Dosing) 1 each PRN DAILY PRN MC SEE COMMENTS; Start 01/03/20 at 16:00 Enoxaparin Sodium (Lovenox 100mg Syringe) 90 mg Q12HR SQ ; Start 01/03/20 at 21:00 Active Scripts Active Pantoprazole Sodium (Pantoprazole Sodium) 40 Mg Tablet.dr 40 Mg PO DAILYAC 30 Days Polyethylene Glycol 3350 17 Gm Powd.pack 17 Gm PO DAILY 14 Days Isosorbide Mononitrate Er (Isosorbide Mononitrate) 30 Mg Tab.er.24h 30 Mg PO DAILY Aspirin 81 Mg Tab.chew 81 Mg PO DAILYWBKFT 30 Days Reported Yinka Landrum 36,000 Units Capsule (Lipase/Protease/Amylase) 1 Each Capsule.dr 1 Each PO DAILY [place] Heartburn+Gas (Calcium Carbonate/Simethicone) 1 Each Tab.chew 1 Each PO PRN PRN Levothyroxine Sodium 137 Mcg Tablet 1 Tab PO DAILY Metoprolol Succinate ( Xl ) (Metoprolol Succinate) 25 Mg Tab.er.24h 1 Tab PO DAILY L-Lysine (Lysine Hcl) 500 Mg Tablet 1,000 Mg PO DAILY Allergies Allergies: Coded Allergies: latex (Verified Allergy, Severe, Rash, 07/14/19) Sulfa (Sulfonamide Antibiotics) (Verified Allergy, Intermediate, Rash, 07/14/19) nitrile (Verified Allergy, Intermediate, 01/03/20) glove codeine (Verified Adverse Reaction, Mild, Nausea and Vomiting, 07/14/19) ROS General: YES: Fatigue; No: Night Sweats, Malaise, Appetite, Other PSYCHOLOGICAL ROS: No: Anxiety, Behavioral Disorder, Concentration difficultie, Decreased libido, Depression, Disorientation, Hallucinations, Hostility, Irritablity, Memory difficulties, Mood Swings, Obsessive thoughts, Physical abuse, Sexual abuse, Suicidal ideation, Other Eyes: No Blurry vision, No Decreased vision, No Double vision, No Dry eyes, No Excessive tearing, No Eye Pain, No Itchy Eyes, No Loss of vision, No Photophobia, No Scotomata, No Uses contacts, No Uses glasses, No Other HEENT: No: Heacaches, Visual Changes, Hearing change, Nasal congestion, Nasal discharge, Oral lesions, Sinus pain, Sore Throat, Epistaxis, Sneezing, Snoring, Tinnitus, Vertigo, Vocal changes, Other Respiratory: YES: Cough, Shortness of breath, SOB with excertion; No: Orthopnea, Pleuritic Pain, Sputum Changes, Stridor, Tachypnea, Wheezing, Other Cardiovascular: yes Chest Pain; No Palpitations, No Orthopnea, No Paroxysmal Noc. Dyspnea, No Edema, No Lt Headedness, No Other Gastrointestinal: No Nausea, No Vomiting, No Abdominal Pain, No Diarrhea, No Constipation, No Melena, No Hematochezia, No Other Genitourinary: No Dysuria, No Frequency, No Incontinence, No Hematuria, No Retention, No Discharge, No Urgency, No Pain, No Flank Pain, No Other, No , No , No , No , No , No , No Musculoskeletal: No Gait Disturbance, No Joint Pain, No Joint Stiffness, No Joint Swelling, No Muscle Pain, No Muscular Weakness, No Pain In:, No Swelling In:, No Other Neurological: No Behavorial Changes, No Bowel/Bladder ControlChng, No Confusion, No Dizziness, No Gait Disturbance, No Headaches, No Impaired Coord/balance, No Memory Loss, No Numbness/Tingling, No Seizures, No Speech Problems, No Tremors, No Visual Changes, No Weakness, No Other Skin: Yes Dry Skin; No Eczema, No Hair Changes, No Lumps, No Mole Changes, No Mottling, No Nail Changes, No Pruritus, No Rash, No Skin Lesion Changes, No Other, No Acne Physical Exam General: Alert, Oriented X3, Cooperative, mild distress HEENT: PERRLA, EOMI Lungs: Clear to auscultation Heart: S1S2, RRR, no murmurs Abdomen: Normal bowel sounds, Soft Rectal Exam: not examined Extremities: No cyanosis, No edema, Normal pulses Skin: No rashes, No breakdown, No significant lesion Neuro: Normal speech, Normal tone, Cranial nerves 3-12 NL Psych/Mental Status: Mental status NL, Mood NL Vitals Vitals Vital Signs Date Time Temp Pulse Resp B/P (MAP) Pulse Ox O2 Delivery O2 Flow Rate FiO2 01/03/20 15:57 97 18 152/69 (96) 93 Nasal Cannula 3.0 01/03/20 11:50 98.3 98.3 Labs Labs Laboratory Tests Test 01/03/20 08:38 01/03/20 10:00 01/03/20 10:09 01/03/20 10:20 Urine Collection Type Void Urine Color Yellow Urine Clarity Clear Urine pH 5.5 Urine Specific Castaner 1.025 Urine Protein >=300 mg/dL (NEG-TRACE) Urine Glucose (UA) Negative mg/dL (NEG) Urine Ketones (Stick) 15 mg/dL (NEG) Urine Blood Small (NEG) Urine Nitrite Negative (NEG) Urine Bilirubin Small (NEG) Urine Urobilinogen Dipstick 0.2 mg/dL (0.2 mg/dL) Urine Leukocyte Esterase Negative (NEG) Urine RBC 3-5 /HPF (0-2) Urine WBC 5-10 /HPF (0-4) Urine Squamous Epithelial Cells Many /LPF Urine Bacteria Moderate /HPF (0-FEW) Urine Mucus Mod /LPF Influenza Type A Antigen Negative (NEGATIVE) Influenza Type B Antigen Negative (NEGATIVE) Sodium Level 136 mmol/L (136-145) Potassium Level 4.1 mmol/L (3.5-5.1) Chloride Level 98 mmol/L (98-107) Carbon Dioxide Level 28 mmol/L (21-32) Anion Gap 10 (6-14) Blood Urea Nitrogen 11 mg/dL (7-20) Creatinine 0.8 mg/dL (0.6-1.0) Estimated GFR (Cockcroft-Gault) 74.2 BUN/Creatinine Ratio 14 (6-20) Glucose Level 106 mg/dL (70-99) Lactic Acid Level 1.2 mmol/L (0.4-2.0) Calcium Level 9.0 mg/dL (8.5-10.1) Total Bilirubin 0.4 mg/dL (0.2-1.0) Aspartate Amino Transf (AST/SGOT) 28 U/L (15-37) Alanine Aminotransferase (ALT/SGPT) 31 U/L (14-59) Alkaline Phosphatase 62 U/L (46-116) Creatine Kinase 46 U/L (26-192) Troponin I Quantitative 0.478 ng/mL (0.000-0.055) EU-Ctp-U-Type Natriuretic Peptide 2888 pg/mL (0-124) Total Protein 6.5 g/dL (6.4-8.2) Albumin 3.2 g/dL (3.4-5.0) Albumin/Globulin Ratio 1.0 (1.0-1.7) White Blood Count 10.7 x10^3/uL (4.0-11.0) Red Blood Count 4.77 x10^6/uL (3.50-5.40) Hemoglobin 14.9 g/dL (12.0-15.5) Hematocrit 44.3 % (36.0-47.0) Mean Corpuscular Volume 93 fL (79-100) Mean Corpuscular Hemoglobin 31 pg (25-35) Mean Corpuscular Hemoglobin Concent 34 g/dL (31-37) Red Cell Distribution Width 13.3 % (11.5-14.5) Platelet Count 204 x10^3/uL (140-400) Neutrophils (%) (Auto) 77 % (31-73) Lymphocytes (%) (Auto) 10 % (24-48) Monocytes (%) (Auto) 12 % (0-9) Eosinophils (%) (Auto) 0 % (0-3) Basophils (%) (Auto) 1 % (0-3) Neutrophils # (Auto) 8.3 x10^3/uL (1.8-7.7) Lymphocytes # (Auto) 1.0 x10^3/uL (1.0-4.8) Monocytes # (Auto) 1.3 x10^3/uL (0.0-1.1) Eosinophils # (Auto) 0.0 x10^3/uL (0.0-0.7) Basophils # (Auto) 0.1 x10^3/uL (0.0-0.2) Prothrombin Time 12.6 SEC (11.7-14.0) Prothromb Time International Ratio 1.0 (0.8-1.1) D-Dimer (Krista) 1.41 ug/mlFEU (0.00-0.50) O2 Saturation 83 % (92-99) Arterial Blood pH 7.37 (7.35-7.45) Arterial Blood pCO2 at Patient Temp 47 mmHg (35-46) Arterial Blood pO2 at Patient Temp 46 mmHg (75-108) Arterial Blood HCO3 27 mmol/L (21-28) Arterial Blood Base Excess 1 mmol/L (-3-3) FiO2 21 Test 01/03/20 14:30 Troponin I Quantitative 0.399 ng/mL (0.000-0.055) Laboratory Tests Test 01/03/20 08:38 01/03/20 10:00 01/03/20 10:09 01/03/20 10:20 Urine Collection Type Void Urine Color Yellow Urine Clarity Clear Urine pH 5.5 Urine Specific Castaner 1.025 Urine Protein >=300 mg/dL (NEG-TRACE) Urine Glucose (UA) Negative mg/dL (NEG) Urine Ketones (Stick) 15 mg/dL (NEG) Urine Blood Small (NEG) Urine Nitrite Negative (NEG) Urine Bilirubin Small (NEG) Urine Urobilinogen Dipstick 0.2 mg/dL (0.2 mg/dL) Urine Leukocyte Esterase Negative (NEG) Urine RBC 3-5 /HPF (0-2) Urine WBC 5-10 /HPF (0-4) Urine Squamous Epithelial Cells Many /LPF Urine Bacteria Moderate /HPF (0-FEW) Urine Mucus Mod /LPF Influenza Type A Antigen Negative (NEGATIVE) Influenza Type B Antigen Negative (NEGATIVE) Sodium Level 136 mmol/L (136-145) Potassium Level 4.1 mmol/L (3.5-5.1) Chloride Level 98 mmol/L (98-107) Carbon Dioxide Level 28 mmol/L (21-32) Anion Gap 10 (6-14) Blood Urea Nitrogen 11 mg/dL (7-20) Creatinine 0.8 mg/dL (0.6-1.0) Estimated GFR (Cockcroft-Gault) 74.2 BUN/Creatinine Ratio 14 (6-20) Glucose Level 106 mg/dL (70-99) Lactic Acid Level 1.2 mmol/L (0.4-2.0) Calcium Level 9.0 mg/dL (8.5-10.1) Total Bilirubin 0.4 mg/dL (0.2-1.0) Aspartate Amino Transf (AST/SGOT) 28 U/L (15-37) Alanine Aminotransferase (ALT/SGPT) 31 U/L (14-59) Alkaline Phosphatase 62 U/L (46-116) Creatine Kinase 46 U/L (26-192) Troponin I Quantitative 0.478 ng/mL (0.000-0.055) PR-Kfs-Q-Type Natriuretic Peptide 2888 pg/mL (0-124) Total Protein 6.5 g/dL (6.4-8.2) Albumin 3.2 g/dL (3.4-5.0) Albumin/Globulin Ratio 1.0 (1.0-1.7) White Blood Count 10.7 x10^3/uL (4.0-11.0) Red Blood Count 4.77 x10^6/uL (3.50-5.40) Hemoglobin 14.9 g/dL (12.0-15.5) Hematocrit 44.3 % (36.0-47.0) Mean Corpuscular Volume 93 fL (79-100) Mean Corpuscular Hemoglobin 31 pg (25-35) Mean Corpuscular Hemoglobin Concent 34 g/dL (31-37) Red Cell Distribution Width 13.3 % (11.5-14.5) Platelet Count 204 x10^3/uL (140-400) Neutrophils (%) (Auto) 77 % (31-73) Lymphocytes (%) (Auto) 10 % (24-48) Monocytes (%) (Auto) 12 % (0-9) Eosinophils (%) (Auto) 0 % (0-3) Basophils (%) (Auto) 1 % (0-3) Neutrophils # (Auto) 8.3 x10^3/uL (1.8-7.7) Lymphocytes # (Auto) 1.0 x10^3/uL (1.0-4.8) Monocytes # (Auto) 1.3 x10^3/uL (0.0-1.1) Eosinophils # (Auto) 0.0 x10^3/uL (0.0-0.7) Basophils # (Auto) 0.1 x10^3/uL (0.0-0.2) Prothrombin Time 12.6 SEC (11.7-14.0) Prothromb Time International Ratio 1.0 (0.8-1.1) D-Dimer (Krista) 1.41 ug/mlFEU (0.00-0.50) O2 Saturation 83 % (92-99) Arterial Blood pH 7.37 (7.35-7.45) Arterial Blood pCO2 at Patient Temp 47 mmHg (35-46) Arterial Blood pO2 at Patient Temp 46 mmHg (75-108) Arterial Blood HCO3 27 mmol/L (21-28) Arterial Blood Base Excess 1 mmol/L (-3-3) FiO2 21 Test 2// 14:30 Troponin I Quantitative 0.399 ng/mL (0.000-0.055) VTE Prophylaxis Ordered VTE Prophylaxis Devices: No VTE Pharmacological Prophylaxi: Yes Assessment/Plan Assessment/Plan acute hypoxic respiratory failure PE, acute RL lobe CHF, acute on chronic systolic CAD, s/p CABG 3 years ago tobacco use disorder, stopped a week ago, obese, BMI 31 BRINA SHAH MD Jan 03, 2020 16:53
[2020-01-03] MEDS ORDERED: SIMETHICONE PO PRN (17:00)
[2020-01-03] MEDS ORDERED: CALCIUM CARBONATE PO PRN (17:00)
[2020-01-03 19:50] VITALS: BP 132/69
--- NOTE | 2020-01-03 21:11 | NUR ---
Patient with complaints of constant headache 08/01 & constant. Wants something for pain, Per patient ED gave her fentanyl, she would like more fentanyl. Patient request Ambien for sleep. Srini Gautam and cough medicine. RN paged correctional manager [phone]. Dr Dey correctional manager per answering service
[2020-01-03] MEDS: ZOLPIDEM 5 MG TABLET. PO PRN (22:20)
[2020-01-03] MEDS: HYDROcodone/APAP 7.5/325MG 1 TAB TABLET PO PRN (22:20)
[2020-01-03] MEDS: guaiFENesin/CODEINE 100mg/10mg 5 ML LIQUID PO PRN (22:20)
[2020-01-03] MEDS: BENZONATATE 100 MG CAPSULE. PO SCH (22:25)
[2020-01-03 23:20] VITALS: BP 146/65
[2020-01-04 02:56] VITALS: BP 136/76
[2020-01-04] MEDS: LEVOTHYROXINE 137 MCG TABLET PO SCH (06:28)
[2020-01-04 07:00] VITALS: BP 149/73
[2020-01-04] MEDS: ISOSORBIDE MONONITRATE ER 30 MG TAB.ER.24H PO SCH (07:54)
[2020-01-04] MEDS: BENZONATATE 100 MG CAPSULE. PO SCH ×3 (07:55→21:37)
[2020-01-04] MEDS: METOPROLOL SUCC 24HR ER 25 MG TAB.ER.24H. PO SCH (07:55)
[2020-01-04] MEDS: PANTOPRAZOLE 40 MG TABLET.DR. PO SCH (07:55)
[2020-01-04] MEDS: HYDROcodone/APAP 7.5/325MG 1 TAB TABLET PO PRN ×2 (07:56→21:39)
[2020-01-04] MEDS: ASPIRIN CHEWABLE 81 MG TABLET. PO SCH (07:56)
[2020-01-04] MEDS: guaiFENesin/CODEINE 100mg/10mg 5 ML LIQUID PO PRN ×2 (07:56→21:39)
[2020-01-04] MEDS: POLYETHYLENE GLYCOL 3350 17 GM PACKET. PO SCH (07:57)
[2020-01-04] MEDS ORDERED: LIPASE/PROTEAS/AMYLAS 10/32/42 CAPSULE.DR. PO SCH (08:00)
[2020-01-04] MEDS ORDERED: LYSINE HCL 1000 MG PO SCH (09:00)
--- NOTE | 2020-01-04 09:12 | PDOC ---
PROGRESS NOTES Chief Complaint Chief Complaint acute hypoxic respiratory failure PE, acute RL lobe CHF, acute on chronic systolic CAD, s/p CABG 3 years ago tobacco use disorder, stopped a week ago, obese, BMI 31 History of Present Illness History of Present Illness her oxygen fell off when asleep this AM. she had SA02 82% with her NC out of her nose NC replaced and Sa02 better to 93% will echo today, PULM and CV to follow, cont lovenox for PE, small PE may not explain entire hypoxia picture Vitals Vitals Vital Signs Date Time Temp Pulse Resp B/P (MAP) Pulse Ox O2 Delivery O2 Flow Rate FiO2 01/04/20 07:56 20 95 Nasal Cannula 3.0 01/04/20 07:55 103 149/73 01/04/20 07:00 98.5 98.5 Physical Exam General: Alert, Oriented X3, Cooperative, No acute distress Heart: Regular rate Lungs: Clear Abdomen: Normal bowel sounds, Soft Extremities: No cyanosis, No edema, Normal pulses Skin: No rashes, No breakdown, No significant lesion Labs LABS Laboratory Tests Test 01/03/20 10:00 01/03/20 10:09 01/03/20 10:20 01/03/20 14:30 Sodium Level 136 mmol/L (136-145) Potassium Level 4.1 mmol/L (3.5-5.1) Chloride Level 98 mmol/L (98-107) Carbon Dioxide Level 28 mmol/L (21-32) Anion Gap 10 (6-14) Blood Urea Nitrogen 11 mg/dL (7-20) Creatinine 0.8 mg/dL (0.6-1.0) Estimated GFR (Cockcroft-Gault) 74.2 BUN/Creatinine Ratio 14 (6-20) Glucose Level 106 mg/dL (70-99) Lactic Acid Level 1.2 mmol/L (0.4-2.0) Calcium Level 9.0 mg/dL (8.5-10.1) Total Bilirubin 0.4 mg/dL (0.2-1.0) Aspartate Amino Transf (AST/SGOT) 28 U/L (15-37) Alanine Aminotransferase (ALT/SGPT) 31 U/L (14-59) Alkaline Phosphatase 62 U/L (46-116) Creatine Kinase 46 U/L (26-192) Troponin I Quantitative 0.478 ng/mL (0.000-0.055) 0.399 ng/mL (0.000-0.055) XN-Kwq-L-Type Natriuretic Peptide 2888 pg/mL (0-124) Total Protein 6.5 g/dL (6.4-8.2) Albumin 3.2 g/dL (3.4-5.0) Albumin/Globulin Ratio 1.0 (1.0-1.7) White Blood Count 10.7 x10^3/uL (4.0-11.0) Red Blood Count 4.77 x10^6/uL (3.50-5.40) Hemoglobin 14.9 g/dL (12.0-15.5) Hematocrit 44.3 % (36.0-47.0) Mean Corpuscular Volume 93 fL (79-100) Mean Corpuscular Hemoglobin 31 pg (25-35) Mean Corpuscular Hemoglobin Concent 34 g/dL (31-37) Red Cell Distribution Width 13.3 % (11.5-14.5) Platelet Count 204 x10^3/uL (140-400) Neutrophils (%) (Auto) 77 % (31-73) Lymphocytes (%) (Auto) 10 % (24-48) Monocytes (%) (Auto) 12 % (0-9) Eosinophils (%) (Auto) 0 % (0-3) Basophils (%) (Auto) 1 % (0-3) Neutrophils # (Auto) 8.3 x10^3/uL (1.8-7.7) Lymphocytes # (Auto) 1.0 x10^3/uL (1.0-4.8) Monocytes # (Auto) 1.3 x10^3/uL (0.0-1.1) Eosinophils # (Auto) 0.0 x10^3/uL (0.0-0.7) Basophils # (Auto) 0.1 x10^3/uL (0.0-0.2) Prothrombin Time 12.6 SEC (11.7-14.0) Prothromb Time International Ratio 1.0 (0.8-1.1) D-Dimer (Krista) 1.41 ug/mlFEU (0.00-0.50) O2 Saturation 83 % (92-99) Arterial Blood pH 7.37 (7.35-7.45) Arterial Blood pCO2 at Patient Temp 47 mmHg (35-46) Arterial Blood pO2 at Patient Temp 46 mmHg (75-108) Arterial Blood HCO3 27 mmol/L (21-28) Arterial Blood Base Excess 1 mmol/L (-3-3) FiO2 21 Test 01/03/20 17:40 Troponin I Quantitative 0.397 ng/mL (0.000-0.055) Assessment and Plan Assessmemt and Plan Problems Medical Problems: (1) CHF (congestive heart failure) Status: Acute (2) Dyspnea Status: Acute (3) Elevated troponin Status: Acute (4) Hypoxia Status: Acute (5) Pulmonary embolism Status: Acute (6) SIRS (systemic inflammatory response syndrome) Status: Acute (7) UTI (urinary tract infection) Status: Acute Comment Review of Relevant I have reviewed the following items vin (where applicable) has been applied. Labs Laboratory Tests Test 01/03/20 08:38 01/03/20 10:00 01/03/20 10:09 01/03/20 10:20 Urine Collection Type Void Urine Color Yellow Urine Clarity Clear Urine pH 5.5 Urine Specific [place] 1.025 Urine Protein >=300 mg/dL (NEG-TRACE) Urine Glucose (UA) Negative mg/dL (NEG) Urine Ketones (Stick) 15 mg/dL (NEG) Urine Blood Small (NEG) Urine Nitrite Negative (NEG) Urine Bilirubin Small (NEG) Urine Urobilinogen Dipstick 0.2 mg/dL (0.2 mg/dL) Urine Leukocyte Esterase Negative (NEG) Urine RBC 3-5 /HPF (0-2) Urine WBC 5-10 /HPF (0-4) Urine Squamous Epithelial Cells Many /LPF Urine Bacteria Moderate /HPF (0-FEW) Urine Mucus Mod /LPF Influenza Type A Antigen Negative (NEGATIVE) Influenza Type B Antigen Negative (NEGATIVE) Sodium Level 136 mmol/L (136-145) Potassium Level 4.1 mmol/L (3.5-5.1) Chloride Level 98 mmol/L (98-107) Carbon Dioxide Level 28 mmol/L (21-32) Anion Gap 10 (6-14) Blood Urea Nitrogen 11 mg/dL (7-20) Creatinine 0.8 mg/dL (0.6-1.0) Estimated GFR (Cockcroft-Gault) 74.2 BUN/Creatinine Ratio 14 (6-20) Glucose Level 106 mg/dL (70-99) Lactic Acid Level 1.2 mmol/L (0.4-2.0) Calcium Level 9.0 mg/dL (8.5-10.1) Total Bilirubin 0.4 mg/dL (0.2-1.0) Aspartate Amino Transf (AST/SGOT) 28 U/L (15-37) Alanine Aminotransferase (ALT/SGPT) 31 U/L (14-59) Alkaline Phosphatase 62 U/L (46-116) Creatine Kinase 46 U/L (26-192) Troponin I Quantitative 0.478 ng/mL (0.000-0.055) QL-Dsr-B-Type Natriuretic Peptide 2888 pg/mL (0-124) Total Protein 6.5 g/dL (6.4-8.2) Albumin 3.2 g/dL (3.4-5.0) Albumin/Globulin Ratio 1.0 (1.0-1.7) White Blood Count 10.7 x10^3/uL (4.0-11.0) Red Blood Count 4.77 x10^6/uL (3.50-5.40) Hemoglobin 14.9 g/dL (12.0-15.5) Hematocrit 44.3 % (36.0-47.0) Mean Corpuscular Volume 93 fL (79-100) Mean Corpuscular Hemoglobin 31 pg (25-35) Mean Corpuscular Hemoglobin Concent 34 g/dL (31-37) Red Cell Distribution Width 13.3 % (11.5-14.5) Platelet Count 204 x10^3/uL (140-400) Neutrophils (%) (Auto) 77 % (31-73) Lymphocytes (%) (Auto) 10 % (24-48) Monocytes (%) (Auto) 12 % (0-9) Eosinophils (%) (Auto) 0 % (0-3) Basophils (%) (Auto) 1 % (0-3) Neutrophils # (Auto) 8.3 x10^3/uL (1.8-7.7) Lymphocytes # (Auto) 1.0 x10^3/uL (1.0-4.8) Monocytes # (Auto) 1.3 x10^3/uL (0.0-1.1) Eosinophils # (Auto) 0.0 x10^3/uL (0.0-0.7) Basophils # (Auto) 0.1 x10^3/uL (0.0-0.2) Prothrombin Time 12.6 SEC (11.7-14.0) Prothromb Time International Ratio 1.0 (0.8-1.1) D-Dimer (Krista) 1.41 ug/mlFEU (0.00-0.50) O2 Saturation 83 % (92-99) Arterial Blood pH 7.37 (7.35-7.45) Arterial Blood pCO2 at Patient Temp 47 mmHg (35-46) Arterial Blood pO2 at Patient Temp 46 mmHg (75-108) Arterial Blood HCO3 27 mmol/L (21-28) Arterial Blood Base Excess 1 mmol/L (-3-3) FiO2 21 Test 01/03/20 14:30 01/03/20 17:40 Troponin I Quantitative 0.399 ng/mL (0.000-0.055) 0.397 ng/mL (0.000-0.055) Laboratory Tests Test 01/03/20 10:00 01/03/20 10:09 01/03/20 10:20 01/03/20 14:30 Sodium Level 136 mmol/L (136-145) Potassium Level 4.1 mmol/L (3.5-5.1) Chloride Level 98 mmol/L (98-107) Carbon Dioxide Level 28 mmol/L (21-32) Anion Gap 10 (6-14) Blood Urea Nitrogen 11 mg/dL (7-20) Creatinine 0.8 mg/dL (0.6-1.0) Estimated GFR (Cockcroft-Gault) 74.2 BUN/Creatinine Ratio 14 (6-20) Glucose Level 106 mg/dL (70-99) Lactic Acid Level 1.2 mmol/L (0.4-2.0) Calcium Level 9.0 mg/dL (8.5-10.1) Total Bilirubin 0.4 mg/dL (0.2-1.0) Aspartate Amino Transf (AST/SGOT) 28 U/L (15-37) Alanine Aminotransferase (ALT/SGPT) 31 U/L (14-59) Alkaline Phosphatase 62 U/L (46-116) Creatine Kinase 46 U/L (26-192) Troponin I Quantitative 0.478 ng/mL (0.000-0.055) 0.399 ng/mL (0.000-0.055) KN-Zob-N-Type Natriuretic Peptide 2888 pg/mL (0-124) Total Protein 6.5 g/dL (6.4-8.2) Albumin 3.2 g/dL (3.4-5.0) Albumin/Globulin Ratio 1.0 (1.0-1.7) White Blood Count 10.7 x10^3/uL (4.0-11.0) Red Blood Count 4.77 x10^6/uL (3.50-5.40) Hemoglobin 14.9 g/dL (12.0-15.5) Hematocrit 44.3 % (36.0-47.0) Mean Corpuscular Volume 93 fL (79-100) Mean Corpuscular Hemoglobin 31 pg (25-35) Mean Corpuscular Hemoglobin Concent 34 g/dL (31-37) Red Cell Distribution Width 13.3 % (11.5-14.5) Platelet Count 204 x10^3/uL (140-400) Neutrophils (%) (Auto) 77 % (31-73) Lymphocytes (%) (Auto) 10 % (24-48) Monocytes (%) (Auto) 12 % (0-9) Eosinophils (%) (Auto) 0 % (0-3) Basophils (%) (Auto) 1 % (0-3) Neutrophils # (Auto) 8.3 x10^3/uL (1.8-7.7) Lymphocytes # (Auto) 1.0 x10^3/uL (1.0-4.8) Monocytes # (Auto) 1.3 x10^3/uL (0.0-1.1) Eosinophils # (Auto) 0.0 x10^3/uL (0.0-0.7) Basophils # (Auto) 0.1 x10^3/uL (0.0-0.2) Prothrombin Time 12.6 SEC (11.7-14.0) Prothromb Time International Ratio 1.0 (0.8-1.1) D-Dimer (Krista) 1.41 ug/mlFEU (0.00-0.50) O2 Saturation 83 % (92-99) Arterial Blood pH 7.37 (7.35-7.45) Arterial Blood pCO2 at Patient Temp 47 mmHg (35-46) Arterial Blood pO2 at Patient Temp 46 mmHg (75-108) Arterial Blood HCO3 27 mmol/L (21-28) Arterial Blood Base Excess 1 mmol/L (-3-3) FiO2 21 Test 01/03/20 17:40 Troponin I Quantitative 0.397 ng/mL (0.000-0.055) Medications Current Medications Sodium Chloride 1,000 ml @ 1,000 mls/hr Q1H IV Last administered on 01/03/20at 10:01; Start 01/03/20 at 08:34; Stop 01/03/20 at 09:33; Status DC Albuterol/ Ipratropium (Duoneb) 3 ml 1X ONCE NEB Last administered on 01/03/20at 08:58; Start 01/03/20 at 08:45; Stop 01/03/20 at 08:46; Status DC Fentanyl Citrate (Fentanyl 2ml Vial) 50 mcg 1X ONCE IVP Last administered on 01/03/20at 10:00; Start 01/03/20 at 08:45; Stop 01/03/20 at 08:46; Status DC Ondansetron HCl (Zofran) 4 mg 1X ONCE IVP Last administered on 01/03/20at 10:00; Start 01/03/20 at 08:45; Stop 01/03/20 at 08:46; Status DC Acetaminophen (Tylenol) 1,000 mg 1X ONCE PO Last administered on 01/03/20at 09:31; Start 01/03/20 at 09:15; Stop 01/03/20 at 09:16; Status DC Iohexol (Omnipaque 350 Mg/ml) 100 ml 1X ONCE IV Last administered on 01/03/20at 11:38; Start 01/03/20 at 11:15; Stop 01/03/20 at 11:16; Status DC Info (CONTRAST GIVEN -- Rx MONITORING) 1 each PRN DAILY PRN MC SEE COMMENTS; Start 01/03/20 at 11:30; Stop 01/05/20 at 11:29 Iohexol (Omnipaque 350 Mg/ml) 100 ml STK-MED ONCE .ROUTE ; Start 01/03/20 at 11:16; Stop 01/03/20 at 11:16; Status DC Ceftriaxone Sodium (Rocephin) 1 gm 1X ONCE IVP Last administered on 01/03/20at 13:55; Start 01/03/20 at 11:45; Stop 01/03/20 at 11:48; Status DC Enoxaparin Sodium (Lovenox 100mg Syringe) 90 mg 1X ONCE SQ Last administered on 01/03/20at 13:49; Start 01/03/20 at 12:15; Stop 01/03/20 at 12:16; Status DC Benzonatate (Tessalon Perle) 100 mg 1X ONCE PO Last administered on 01/03/20at 13:48; Start 01/03/20 at 12:45; Stop 01/03/20 at 12:46; Status DC Enoxaparin Sodium (Lovenox Per Pharmacy Treatment Dosing) 1 each PRN DAILY PRN MC SEE COMMENTS; Start 01/03/20 at 16:00 Enoxaparin Sodium (Lovenox 100mg Syringe) 90 mg Q12HR SQ Last administered on 01/04/20at 07:57; Start 01/03/20 at 21:00 Aspirin (Children'S Aspirin) 81 mg DAILYWBKFT PO Last administered on 01/04/20at 07:56; Start 01/04/20 at 08:00 Isosorbide Mononitrate (Imdur) 30 mg DAILY PO Last administered on 01/04/20at 07:54; Start 01/04/20 at 09:00 Levothyroxine Sodium (Synthroid) 137 mcg DAILY06 PO Last administered on 01/04/20at 06:28; Start 01/04/20 at 06:00 Metoprolol Succinate (Toprol Xl) 25 mg DAILY PO Last administered on 01/04/20at 07:55; Start 01/04/20 at 09:00 Pantoprazole Sodium (Protonix) 40 mg DAILYAC PO Last administered on 01/04/20at 07:55; Start 01/04/20 at 07:30 Polyethylene Glycol (miraLAX PACKET) 17 gm DAILY PO ; Start 01/04/20 at 09:00 Non-Formulary Medication (Calcium Carbonate/ Simethicone ([place] Heartburn+Gas)) 1 each PRN PRN PO GAS / BLOATING; Start 01/03/20 at 17:00; Status UNV Amylase/Lipase/ Protease (Zenpep 10,000) 1 cap TIDWMEALS PO ; Start 01/04/20 at 08:00 Non-Formulary Medication (Lysine Hcl (L-Lysine)) 1,000 mg DAILY PO ; Start 01/04/20 at 09:00; Status UNV Zolpidem Tartrate (Ambien) 5 mg PRN QHS PRN PO INSOMNIA, MAY REPEAT IN 1HR Last administered on 01/03/20at 22:20; Start 01/03/20 at 21:45 Benzonatate (Tessalon Perle) 100 mg [id number] PO Last administered on 01/04/20at 07:55; Start 01/03/20 at 22:00 Guaifenesin/ Codeine Phosphate (Robitussin Ac) 5 ml PRN Q4HRS PRN PO COUGH 1ST CHOICE Last administered on 01/04/20at 07:56; Start 01/03/20 at 21:45 Acetaminophen/ Hydrocodone Bitart (Lortab 7.5/325) 1 tab PRN Q4HRS PRN PO MODERATE PAIN 4-6 Last administered on 01/04/20at 07:56; Start 01/03/20 at 21:45 Active Scripts Active Pantoprazole Sodium (Pantoprazole Sodium) 40 Mg Tablet.dr 40 Mg PO DAILYAC 30 Days Polyethylene Glycol 3350 17 Gm Powd.pack 17 Gm PO DAILY 14 Days Isosorbide Mononitrate Er (Isosorbide Mononitrate) 30 Mg Tab.er.24h 30 Mg PO DAILY Aspirin 81 Mg Tab.chew 81 Mg PO DAILYWBKFT 30 Days Reported Crekisha Landrum 36,000 Units Capsule (Lipase/Protease/Amylase) 1 Each Capsule.dr 1 Each PO DAILY [place] Heartburn+Gas (Calcium Carbonate/Simethicone) 1 Each Tab.chew 1 Each PO PRN PRN Levothyroxine Sodium 137 Mcg Tablet 1 Tab PO DAILY Metoprolol Succinate ( Xl ) (Metoprolol Succinate) 25 Mg Tab.er.24h 1 Tab PO DAILY L-Lysine (Lysine Hcl) 500 Mg Tablet 1,000 Mg PO DAILY Vitals/I & O Vital Sign - Last 24 Hours 01/03/20 01/03/20 01/03/20 01/03/20 09:24 10:24 11:06 11:50 Temp 98.3 98.3 Pulse 116 116 103 Resp 18 18 18 B/P (MAP) 114/57 (76) 99/57 (71) 100/56 (71) Pulse Ox 93 93 O2 Delivery Nasal Cannula Nasal Cannula Nasal Cannula O2 Flow Rate 3.0 3.0 3.0 01/03/20 01/03/20 01/03/20 01/03/20 13:47 15:57 16:57 18:24 Pulse 90 97 97 95 Resp 18 18 16 16 B/P (MAP) 95/55 (68) 152/69 (96) 152/69 (96) 106/53 (70) Pulse Ox 93 93 97 96 O2 Delivery Nasal Cannula Nasal Cannula Nasal Cannula Nasal Cannula O2 Flow Rate 3.0 3.0 3.0 3.0 01/03/20 01/03/20 01/03/20 01/03/20 19:50 19:50 22:20 23:20 Temp 98.9 98.9 98.3 98.9 98.9 98.3 Pulse 103 103 103 Resp 18 18 18 20 B/P (MAP) 132/69 (90) 132/69 (90) 146/65 (92) Pulse Ox 96 96 96 96 O2 Delivery Nasal Cannula Nasal Cannula O2 Flow Rate 3.0 3.0 3.0 3.0 01/03/20 01/04/20 01/04/20 01/04/20 23:21 02:56 07:00 07:54 Temp 98.9 98.5 98.9 98.5 Pulse 106 103 103 Resp 18 18 20 B/P (MAP) 136/76 (96) 149/73 (98) 149/73 Pulse Ox 96 100 95 O2 Delivery Nasal Cannula Nasal Cannula O2 Flow Rate 3.0 3.0 3.0 01/04/20 01/04/20 07:55 07:56 Pulse 103 Resp 20 B/P (MAP) 149/73 Pulse Ox 95 O2 Delivery Nasal Cannula O2 Flow Rate 3.0 Intake and Output 01/03/20 01/03/20 01/04/20 15:00 23:00 07:00 Intake Total 200 ml 1000 ml Output Total 1 ml 752 ml Balance 199 ml 248 ml BRINA SHAH MD Jan 04, 2020 09:12
--- NOTE | 2020-01-04 10:46 | CARD ---
MR#: [id number] Date of Study: 01/04/2020 Ordering Physician: BRINA SHAH, Referring Physician: BRINA SHAH, Tech: Jann Pearl RDCS APPROVED REPORT EXAM: Two-dimensional and M-mode echocardiogram with Doppler and color Doppler. Other Information Quality : AverageHR: 88bpm Rhythm : NSR INDICATION Hypoxia, elevated troponin RISK FACTORS Hypertension Hyperlipidemia Smoking CAD 2D DIMENSIONS RVDd3.1 (2.9-3.5cm)Left Atrium(2D)3.1 (1.6-4.0cm) IVSd1.6 (0.7-1.1cm)Aortic Root(2D)3.0 (2.0-3.7cm) LVDd3.8 (3.9-5.9cm)LVOT Diameter2.1 (1.8-2.4cm) PWd1.5 (0.7-1.1cm)LVDs2.5 (2.5-4.0cm) FS (%) 34.7 %SV40.8 ml LVEF(%)64.6 (>50%) Aortic Valve AoV Peak Nixon.138.3cm/Parveen Peak GR.7.7mmHg LVOT Peak Nixon.127.1cm/sAVA (VMAX)3.24cm2 Mitral Valve MV E Thckrsbh46.8cm/sMV DECEL [id number] MV A Etdbxzre36.4cm/sE/A Ratio1.5 MV A [id number] Pulmonary Valve PV Peak Uegxbgcf823.2cm/s Tricuspid Valve RAP [id number] LEFT VENTRICLE The left ventricle is normal size. There is moderate left ventricular hypertrophy. The left ventricul ar systolic function is normal and the ejection fraction is within normal range. The Ejection Fractio n is 60-65%. There is normal LV segmental wall motion. The left ventricular diastolic function and fi lling is normal for age. There is no ventricular septal defect visualized. RIGHT VENTRICLE The right ventricle is normal size. The right ventricular systolic function is normal. ATRIA The left atrium size is normal. The right atrium size is normal. The interatrial septum is intact wit h no evidence for an atrial septal defect or patent foramen ovale as noted on 2-D or Doppler imaging. AORTIC VALVE The aortic valve is normal in structure and function. Doppler and Color Flow revealed no significant aortic regurgitation. There is no significant aortic valvular stenosis. MITRAL VALVE The mitral valve is normal in structure and function. There is no evidence of mitral valve prolapse. There is no mitral valve stenosis. Doppler and Color Flow revealed no mitral valve regurgitation note d. TRICUSPID VALVE The tricuspid valve is normal in structure and function. Doppler and Color Flow revealed no tricuspid valve regurgitation noted. Unable to assess PA pressure. There is no tricuspid valve stenosis. PULMONIC VALVE Doppler and Color Flow revealed no pulmonic valvular regurgitation. There is no pulmonic valvular maged nosis. GREAT VESSELS The aortic root is normal in size. The ascending aorta is normal in size. The IVC is normal in size a nd collapses >50% with inspiration. PERICARDIAL EFFUSION There is no pleural effusion. There is no evidence of significant pericardial effusion. Critical Notification Critical Value: No <Conclusion> The left ventricular systolic function is normal and the ejection fraction is within normal range. Th e Ejection Fraction is 60-65%. There is normal LV segmental wall motion. There is moderate left ventricular hypertrophy. Signed by : Bobo Padilla, Electronically Approved : 01/04/2020 10:46:38
[2020-01-04 11:00] VITALS: BP 105/53
--- NOTE | 2020-01-04 12:02 | PDOC2 ---
CARDIAC CONSULT DATE OF CONSULT Date of Consult DATE: 01/04/20 TIME: 11:51 REASON FOR CONSULT Reason for Consult: CHF, elevated trop REFERRING PHYSICIAN Referring Physician: Baylee SOURCE Source: Chart review, Patient HISTORY OF PRESENT ILLNESS HISTORY OF PRESENT ILLNESS This is a pleasant 54 yo female admitted for complains of shortness of breath. Reports that in the last 3 days she has been having SOA. Also noted with nasal congestion and mild productive cough. No palpitations, chest pain, or frequent dizziness. She did have fever of 102 at home. She is mainly sedentary and re ports that she does not drinks good amount of fluids. No recent falls, injury, surgery. No hx of bleeding and clotting disorders. Further imaging revealed PE. No orthopnea, PND. She does complains of bilateral leg pain but no swelling. PAST MEDICAL HISTORY Past Medical History Cardiovascular: CAD, HTN, Hyperlipidemia, Other Pulmonary: No pertinent hx CENTRAL NERVOUS SYSTEM: Other GI: Hemorrhoids Heme/Onc: No pertinent hx Hepatobiliary: No pertinent hx, Other Psych: Depression Musculoskeletal: Osteoarthritis, Other Rheumatologic: No pertinent hx Infectious disease: No pertinent hx Renal/: No pertinent hx Endocrine: Hypothyroidism, Other PAST SURGICAL HISTORY Past Surgical History Appendectomy, CABG x 2 (ORTA to LAD, SVG to Ramus) FAMILY HISTORY Family History: Coronary Artery Disease, Hypertension SOCIAL HISTORY Smoke: No ALCOHOL: none Drugs: None Lives: with Family CURRENT MEDICATIONS CURRENT MEDICATIONS Current Medications Medications (Trade) Dose Ordered Sig/Annelise Route PRN Reason Start Time Stop Time Status Last Admin Dose Admin Enoxaparin Sodium (Lovenox 100mg Syringe) 90 mg 1X ONCE SQ 01/03/20 12:15 01/03/20 12:16 DC 01/03/20 13:49 Benzonatate (Tessalon Perle) 100 mg 1X ONCE PO 01/03/20 12:45 01/03/20 12:46 DC 01/03/20 13:48 Enoxaparin Sodium (Lovenox 100mg Syringe) 90 mg Q12HR SQ 01/03/20 21:00 01/04/20 07:57 Aspirin (Children'S Aspirin) 81 mg DAILYWBKFT PO 01/04/20 08:00 01/04/20 07:56 Isosorbide Mononitrate (Imdur) 30 mg DAILY PO 01/04/20 09:00 01/04/20 07:54 Levothyroxine Sodium (Synthroid) 137 mcg DAILY06 PO 01/04/20 06:00 01/04/20 06:28 Metoprolol Succinate (Toprol Xl) 25 mg DAILY PO 01/04/20 09:00 01/04/20 07:55 Pantoprazole Sodium (Protonix) 40 mg DAILYAC PO 01/04/20 07:30 01/04/20 07:55 Zolpidem Tartrate (Ambien) 5 mg PRN QHS PRN PO INSOMNIA, MAY REPEAT IN 1HR 01/03/20 21:45 01/03/20 22:20 Benzonatate (Tessalon Perle) 100 mg [id number] PO 01/03/20 22:00 01/04/20 07:55 Guaifenesin/ Codeine Phosphate (Robitussin Ac) 5 ml PRN Q4HRS PRN PO COUGH 1ST CHOICE 01/03/20 21:45 01/04/20 07:56 Acetaminophen/ Hydrocodone Bitart (Lortab 7.5/325) 1 tab PRN Q4HRS PRN PO MODERATE PAIN 4-6 01/03/20 21:45 01/04/20 07:56 ALLERGIES ALLERGIES: Coded Allergies: latex (Verified Allergy, Severe, Rash, 07/14/19) Sulfa (Sulfonamide Antibiotics) (Verified Allergy, Intermediate, Rash, 07/14/19) nitrile (Verified Allergy, Intermediate, 01/03/20) glove codeine (Verified Adverse Reaction, Mild, Nausea and Vomiting, 07/14/19) ROS Review of System 14 point ROS evaluated with pertinent positives noted per HPI PHYSICAL EXAM General: Alert, Oriented X3, Cooperative, No acute distress HEENT: Atraumatic, Mucous membr. moist/pink Lungs: Clear to auscultation, Normal air movement Heart: Regular rate (SR), Normal S1, Normal S2 Abdomen: Soft, No tenderness Extremities: No cyanosis, No edema Skin: No breakdown, No significant lesion Neuro: Normal speech, Sensation intact Psych/Mental Status: Mental status NL, Mood NL MUSCULOSKELETAL: No joint tenderness, Osteoarthritic changes both hands VITALS/I&O VITALS/I&O: Vital Signs Date Time Temp Pulse Resp B/P (MAP) Pulse Ox O2 Delivery O2 Flow Rate FiO2 01/04/20 09:00 18 98 Nasal Cannula 3.0 01/04/20 07:55 103 149/73 01/04/20 07:00 98.5 98.5 I & O 01/03/20 01/03/20 01/04/20 15:00 23:00 07:00 Intake Total 200 ml 1000 ml Output Total 1 ml 752 ml Balance 199 ml 248 ml LABS Lab: Laboratory Tests Test 01/03/20 14:30 01/03/20 17:40 Troponin I Quantitative 0.399 ng/mL (0.000-0.055) 0.397 ng/mL (0.000-0.055) ECHOCARDIOGRAM ECHOCARDIOGRAM <Conclusion> The left ventricular systolic function is normal and the ejection fraction is within normal range. The Ejection Fraction is 60-65%. There is normal LV segmental wall motion. There is moderate left ventricular hypertrophy. DATE: 01/04/20 1005 HEART CATH HEART CATH Conclusion 1. 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 2. Positive IVUS of the distal LM/Ramus. 3. Normal LV function. EF 70%. Recommendations CABG consultation. If patient deemed poor candidate for CABG then could consider complex bifurcation stenting of the LAD/Ramus and left main. DATE: 07/15/17 1052 ASSESSMENT/PLAN ASSESSMENT/PLAN 1. RLL PE 2. NSTEMI: peaked at 0.4, due to PE, demand mediated. EF and WM nml 3. Reported fever: 102 at home, afebirle as inpt. 4. URI/bronchitis: viral 5. CAD: past CABG, clinically stable 6. HTN: controlled 7. Obesity 8. HLP Recommendations 1. Sedentary poor hydration, discuss lifestyle modification 2. LE Venous doppler today with noted leg pain 3. Continue secondary prevention 4. OAC per pulmonary LIBBY CAMARENA APRN Jan 04, 2020 12:01
--- NOTE | 2020-01-04 13:45 | NUR ---
SS following for discharge planning. SS reviewed pt chart. Pt is from home and is currently requiring oxygen. SS will continue to follow for discharge planning.
--- NOTE | 2020-01-04 14:41 | RAD ---
LEFT LEG VENOUS DOPPLER STUDY: Clinical indications: Left leg swelling and pain. Pulmonary embolism. Findings: Duplex sonography (including dos santos scale evaluation and color flow and waveform spectral analysis) of the proximal aspect of the greater saphenous vein and the proximal aspect of the profunda femoral vein and the entire length of the common femoral and superficial femoral and popliteal veins and the tibioperoneal trunk and the proximal aspect of the posterior tibial and peroneal veins of the left leg was performed. Normal compressibility, augmentation of color Doppler flow after calf compression, and respiratory variation of Doppler flow is seen. Thus, there are no sonographic findings of deep venous thrombosis within these veins. Impression: There are no sonographic findings of deep venous thrombosis within the veins discussed above of the left lower extremity. RIGHT LEG VENOUS DOPPLER STUDY: Clinical indications: Right leg swelling and pain. Pulmonary embolism. Findings: Duplex sonography (including dos santos scale evaluation and color flow and waveform spectral analysis) of the proximal aspect of the greater saphenous vein and proximal aspect of the profunda femoral vein and the entire length of the common femoral and superficial femoral and popliteal veins and the tibioperoneal trunk and the proximal aspect of the posterior tibial and peroneal veins of the right leg was performed. Normal compressibility, augmentation of color Doppler flow after calf compression, and respiratory variation of Doppler flow is seen. Thus, there are no sonographic findings of deep venous thrombosis within these veins. Impression: There are no sonographic findings of deep venous thrombosis within the veins discussed above of the right lower extremity. Electronically signed by: Mitchell Grijalva MD (01/04/2020 2:38 PM) [facility]
[2020-01-04 15:00] VITALS: BP 102/56
[2020-01-04 19:12] VITALS: BP 110/55
--- NOTE | 2020-01-04 19:18 | PDOC ---
PULMONARY PROGRESS NOTES Vitals Vital Signs Date Time Temp Pulse Resp B/P (MAP) Pulse Ox O2 Delivery O2 Flow Rate FiO2 01/04/20 15:00 98.0 83 18 102/56 (71) 94 Nasal Cannula 1.0 98.0 Lungs: Clear Cardiovascular: S1, S2 Labs Laboratory Tests Test 01/03/20 08:38 01/03/20 10:00 01/03/20 10:09 01/03/20 10:20 Urine Collection Type Void Urine Color Yellow Urine Clarity Clear Urine pH 5.5 Urine Specific [place] 1.025 Urine Protein >=300 mg/dL (NEG-TRACE) Urine Glucose (UA) Negative mg/dL (NEG) Urine Ketones (Stick) 15 mg/dL (NEG) Urine Blood Small (NEG) Urine Nitrite Negative (NEG) Urine Bilirubin Small (NEG) Urine Urobilinogen Dipstick 0.2 mg/dL (0.2 mg/dL) Urine Leukocyte Esterase Negative (NEG) Urine RBC 3-5 /HPF (0-2) Urine WBC 5-10 /HPF (0-4) Urine Squamous Epithelial Cells Many /LPF Urine Bacteria Moderate /HPF (0-FEW) Urine Mucus Mod /LPF Influenza Type A Antigen Negative (NEGATIVE) Influenza Type B Antigen Negative (NEGATIVE) Sodium Level 136 mmol/L (136-145) Potassium Level 4.1 mmol/L (3.5-5.1) Chloride Level 98 mmol/L (98-107) Carbon Dioxide Level 28 mmol/L (21-32) Anion Gap 10 (6-14) Blood Urea Nitrogen 11 mg/dL (7-20) Creatinine 0.8 mg/dL (0.6-1.0) Estimated GFR (Cockcroft-Gault) 74.2 BUN/Creatinine Ratio 14 (6-20) Glucose Level 106 mg/dL (70-99) Lactic Acid Level 1.2 mmol/L (0.4-2.0) Calcium Level 9.0 mg/dL (8.5-10.1) Total Bilirubin 0.4 mg/dL (0.2-1.0) Aspartate Amino Transf (AST/SGOT) 28 U/L (15-37) Alanine Aminotransferase (ALT/SGPT) 31 U/L (14-59) Alkaline Phosphatase 62 U/L (46-116) Creatine Kinase 46 U/L (26-192) Troponin I Quantitative 0.478 ng/mL (0.000-0.055) VL-Jfc-K-Type Natriuretic Peptide 2888 pg/mL (0-124) Total Protein 6.5 g/dL (6.4-8.2) Albumin 3.2 g/dL (3.4-5.0) Albumin/Globulin Ratio 1.0 (1.0-1.7) White Blood Count 10.7 x10^3/uL (4.0-11.0) Red Blood Count 4.77 x10^6/uL (3.50-5.40) Hemoglobin 14.9 g/dL (12.0-15.5) Hematocrit 44.3 % (36.0-47.0) Mean Corpuscular Volume 93 fL (79-100) Mean Corpuscular Hemoglobin 31 pg (25-35) Mean Corpuscular Hemoglobin Concent 34 g/dL (31-37) Red Cell Distribution Width 13.3 % (11.5-14.5) Platelet Count 204 x10^3/uL (140-400) Neutrophils (%) (Auto) 77 % (31-73) Lymphocytes (%) (Auto) 10 % (24-48) Monocytes (%) (Auto) 12 % (0-9) Eosinophils (%) (Auto) 0 % (0-3) Basophils (%) (Auto) 1 % (0-3) Neutrophils # (Auto) 8.3 x10^3/uL (1.8-7.7) Lymphocytes # (Auto) 1.0 x10^3/uL (1.0-4.8) Monocytes # (Auto) 1.3 x10^3/uL (0.0-1.1) Eosinophils # (Auto) 0.0 x10^3/uL (0.0-0.7) Basophils # (Auto) 0.1 x10^3/uL (0.0-0.2) Prothrombin Time 12.6 SEC (11.7-14.0) Prothromb Time International Ratio 1.0 (0.8-1.1) D-Dimer (Krista) 1.41 ug/mlFEU (0.00-0.50) O2 Saturation 83 % (92-99) Arterial Blood pH 7.37 (7.35-7.45) Arterial Blood pCO2 at Patient Temp 47 mmHg (35-46) Arterial Blood pO2 at Patient Temp 46 mmHg (75-108) Arterial Blood HCO3 27 mmol/L (21-28) Arterial Blood Base Excess 1 mmol/L (-3-3) FiO2 21 Test 01/03/20 14:30 01/03/20 17:40 Troponin I Quantitative 0.399 ng/mL (0.000-0.055) 0.397 ng/mL (0.000-0.055) Medications Active Scripts Medications Dose Route/Sig Max Daily Dose Days Date Category Creon 36,000 Units Capsule (Lipase/Protease/Amylase) 1 Each Capsule.dr 1 Each PO DAILY 07/14/19 Reported Pantoprazole Sodium (Pantoprazole Sodium) 40 Mg Tablet.dr 40 Mg PO DAILYAC 30 06/29/19 Rx Polyethylene Glycol 3350 17 Gm Powd.pack 17 Gm PO DAILY 14 06/29/19 Rx [place] Heartburn+Gas (Calcium Carbonate/Simethicone) 1 Each Tab.chew 1 Each PO PRN PRN 06/27/19 Reported Levothyroxine Sodium 137 Mcg Tablet 1 Tab PO DAILY 06/27/19 Reported Metoprolol Succinate ( Xl ) (Metoprolol Succinate) 25 Mg Tab.er.24h 1 Tab PO DAILY 06/27/19 Reported L-Lysine (Lysine Hcl) 500 Mg Tablet 1,000 Mg PO DAILY 01/03/19 Reported Isosorbide Mononitrate Er (Isosorbide Mononitrate) 30 Mg Tab.er.24h 30 Mg PO DAILY 10/22/17 Rx Aspirin 81 Mg Tab.chew 81 Mg PO DAILYWBKFT 30 08/28/17 Rx Impression . ACUTE RESP FAILURE AECOPD PE SEE ORDERS VERONIQUE SELF MD Jan 04, 2020 19:18
--- NOTE | 2020-01-04 20:27 | CONS ---
DATE OF CONSULTATION: 01/04/2020 ATTENDING PHYSICIAN: Gillian Rubi MD REASON FOR CONSULTATION: The patient seen in pulmonary consultation at the request of Dr. Rubi for abnormal CT chest, increasing shortness of air. HISTORY OF PRESENT ILLNESS: The patient is a 54-year-old with complaints of being short of breath for the last 3 days associated with fever at home of 102. She also had some upper respiratory congestion, cough, mostly nonproductive. She quit tobacco many years ago. She does not have any metered dose inhalers at home. She states that she was wheezing. She presented and underwent evaluation. She had a lab test done. D-dimer was positive. Arterial blood gas revealed a pH of 7.37, PaCO2 of 47, PaO2 of 46. White count was normal. Hemoglobin and hematocrit were noted. Serology for influenza was negative. The patient underwent a CT angiogram. There was a small right lower lobe pulmonary arterial thrombus. There were no significant pleural effusions or infiltrates. She had venous Dopplers of the lower extremities, which were likewise negative. The patient denies any prior history of DVT or pulmonary embolism. No recent travel. No recent trauma to the lower extremities. PAST MEDICAL HISTORY: Otherwise remarkable for COPD; tobacco dependence, in remission; hypertension; dyslipidemia; coronary artery disease, status post coronary artery bypass grafting; hypothyroidism; pancreatitis; hyperlipidemia. PAST SURGICAL HISTORY: Status post appendectomy, coronary artery bypass grafting. FAMILY HISTORY: Coronary artery disease, hypertension. SOCIAL HISTORY: She quit tobacco some years ago. REVIEW OF SYSTEMS: CONSTITUTIONAL: Fever. EYES: No change in visual acuity. HEENT: No nasal congestion or sore throat. PULMONARY: As indicated above. CARDIOVASCULAR: No chest pain. No pressure. GASTROINTESTINAL: No nausea, vomiting, diarrhea. GENITOURINARY: No dysuria or frequency. MUSCULOSKELETAL: No localized muscle aches or joint pains. SKIN: No new skin rashes. NEUROLOGIC: No headaches, diplopia or blurred vision. Labs and CT chest as indicated above. PHYSICAL EXAMINATION: VITAL SIGNS: Stable. O2 saturation greater than 92%, currently on 1 liter. HEENT: Eyes, the sclerae were nonicteric. NECK: Jugular venous distention was not elevated. No lymphadenopathy. CHEST: Full expansion. LUNGS: Wheeze, expiratory rhonchi, prolonged expiratory phase. CARDIOVASCULAR: Regular rate and rhythm with S1, S2, no S3. ABDOMEN: Soft, nontender, nondistended. EXTREMITIES: No clubbing, cyanosis or pitting edema. NEUROLOGICAL: The patient was awake, alert, following commands. A detailed neuro exam was not performed. IMPRESSION: 1. Acute hypoxemic respiratory failure. 2. Right lower lobe pulmonary emboli. 3. Acute exacerbation of chronic obstructive pulmonary disease. 4. Coronary artery disease, status post coronary artery bypass grafting. 5. Suspect pulmonary hypertension. 6. Tobacco dependence, in remission. 7. Obesity. PLAN: 1. Recommend anticoagulation for 3 months. 2. Steroids. 3. Doxycycline. 4. Follow Cardiology input. I do appreciate the privilege in sharing in the patient's care. VERONIQUE SELF MD DR: ANN/pankaj JOB#: [id number] / [id number]
[2020-01-04] MEDS: DOXYCYCLINE HYCLATE 100 MG TABLET PO SCH (21:38)
[2020-01-04] MEDS: methylPREDNISolone SOD SUCC PF 40 MG/ML VIAL. IV SCH (21:38)
[2020-01-04] MEDS: ZOLPIDEM 5 MG TABLET. PO PRN (21:39)
[2020-01-04 23:15] VITALS: BP 120/66
[2020-01-05 03:12] VITALS: BP 127/79
[2020-01-05] MEDS: LEVOTHYROXINE 137 MCG TABLET PO SCH (06:31)
[2020-01-05 07:00] VITALS: BP 112/57
[2020-01-05] MEDS: methylPREDNISolone SOD SUCC PF 40 MG/ML VIAL. IV SCH (10:27)
[2020-01-05] MEDS: ISOSORBIDE MONONITRATE ER 30 MG TAB.ER.24H PO SCH (10:29)
[2020-01-05] MEDS: PANTOPRAZOLE 40 MG TABLET.DR. PO SCH (10:29)
[2020-01-05] MEDS: DOXYCYCLINE HYCLATE 100 MG TABLET PO SCH (10:30)
[2020-01-05] MEDS: ASPIRIN CHEWABLE 81 MG TABLET. PO SCH (10:30)
[2020-01-05] MEDS: METOPROLOL SUCC 24HR ER 25 MG TAB.ER.24H. PO SCH (10:31)
[2020-01-05] MEDS: BENZONATATE 100 MG CAPSULE. PO SCH ×2 (10:32→14:37)
[2020-01-05] MEDS: POLYETHYLENE GLYCOL 3350 17 GM PACKET. PO SCH (10:32)
[2020-01-05] MEDS: guaiFENesin/CODEINE 100mg/10mg 5 ML LIQUID PO PRN (10:46)
[2020-01-05 11:00] VITALS: BP 122/71
--- NOTE | 2020-01-05 13:49 | PDOC ---
PULMONARY PROGRESS NOTES Subjective PT FEELS BETTER LESS SOA WANTS TO GO HOME Vitals Vital Signs Date Time Temp Pulse Resp B/P (MAP) Pulse Ox O2 Delivery O2 Flow Rate FiO2 01/05/20 10:31 89 113/56 01/05/20 08:00 Room Air 01/05/20 07:00 97.8 20 92 1.0 97.8 ROS: No Nausea, No Chest Pain, No Abdominal Pain, No Increase Cough Lungs: Crackles Cardiovascular: S1, S2 Abdomen: Soft Neuro Exam: Alert Extremities: No Edema Skin: Warm Labs Laboratory Tests Test 01/03/20 14:30 01/03/20 17:40 Troponin I Quantitative 0.399 ng/mL (0.000-0.055) 0.397 ng/mL (0.000-0.055) Medications Active Scripts Medications Dose Route/Sig Max Daily Dose Days Date Category Creon 36,000 Units Capsule (Lipase/Protease/Amylase) 1 Each Capsule.dr 1 Each PO DAILY 07/14/19 Reported Pantoprazole Sodium (Pantoprazole Sodium) 40 Mg Tablet.dr 40 Mg PO DAILYAC 30 06/29/19 Rx Polyethylene Glycol 3350 17 Gm Powd.pack 17 Gm PO DAILY 14 06/29/19 Rx [place] Heartburn+Gas (Calcium Carbonate/Simethicone) 1 Each Tab.chew 1 Each PO PRN PRN 06/27/19 Reported Levothyroxine Sodium 137 Mcg Tablet 1 Tab PO DAILY 06/27/19 Reported Metoprolol Succinate ( Xl ) (Metoprolol Succinate) 25 Mg Tab.er.24h 1 Tab PO DAILY 06/27/19 Reported L-Lysine (Lysine Hcl) 500 Mg Tablet 1,000 Mg PO DAILY 01/03/19 Reported Isosorbide Mononitrate Er (Isosorbide Mononitrate) 30 Mg Tab.er.24h 30 Mg PO DAILY 10/22/17 Rx Aspirin 81 Mg Tab.chew 81 Mg PO DAILYWBKFT 30 08/28/17 Rx Impression . IMPRESSION: 1. Acute hypoxemic respiratory failure. 2. Right lower lobe pulmonary emboli. 3. Acute exacerbation of chronic obstructive pulmonary disease. 4. Coronary artery disease, status post coronary artery bypass grafting. 5. Suspect pulmonary hypertension. 6. Tobacco dependence, in remission. 7. Obesity. Plan . I THINK THIS RLL EMBOLI IS OLD WOULD TREAT FOR 3 MONTHS WITH ERICA HAND TO DC FOLLOW UP WITH ME IN 6 WEEKS HOME ON STEROIDS AND ANTIBX D/W TEAM AND PATIENT 01/04 1. Recommend anticoagulation for 3 months. 2. Steroids. 3. Doxycycline. 4. Follow Cardiology input. VERONIQUE SELF MD Jan 05, 2020 13:49
[2020-01-05] MEDS ORDERED: DOXY100T PO (14:49)
[2020-01-05] MEDS ORDERED: PRED-220 PO (14:49)
[2020-01-05] MEDS ORDERED: guaiFENesin/CODEINE 100mg/10mg PO (14:49)
[2020-01-05] MEDS ORDERED: APIX5TAB PO (14:49)
[2020-01-05] MEDS ORDERED: IPRA4AER IH (14:54)
--- NOTE | 2020-01-05 14:58 | PDOC3 ---
Discharge Summary Visit Information Date of Admission: Jan 03, 2020 Date of Discharge: Jan 05, 2020 Final Diagnosis acute hypoxic respiratory failure PE, subacute, poss chronic, RL lobe COPD with acute exacerbation CHF, acute on chronic systolic CAD, s/p CABG 3 years ago tobacco use disorder, stopped a week ago, obese, BMI 31 Problems Medical Problems: (1) CHF (congestive heart failure) Status: Acute (2) Dyspnea Status: Acute (3) Elevated troponin Status: Acute (4) Hypoxia Status: Acute (5) Pulmonary embolism Status: Acute (6) SIRS (systemic inflammatory response syndrome) Status: Acute (7) UTI (urinary tract infection) Status: Acute Brief Hospital Course Allergies Allergies Coded Allergies Type Severity Reaction Last Updated Verified latex Allergy Severe Rash 07/14/19 Yes Sulfa (Sulfonamide Antibiotics) Allergy Intermediate Rash 07/14/19 Yes nitrile Allergy Intermediate 01/03/20 Yes codeine Adverse Reaction Mild Nausea and Vomiting 07/14/19 Yes Vital Signs Vital Signs Date Time Temp Pulse Resp B/P (MAP) Pulse Ox O2 Delivery O2 Flow Rate FiO2 01/05/20 11:00 98.0 89 20 122/71 (88) 89 Room Air 98.0 01/05/20 07:00 1.0 Lab Results Laboratory Tests Test 01/03/20 17:40 Troponin I Quantitative 0.397 ng/mL (0.000-0.055) Brief Hospital Course Ms. Dorsey is a 54 old with acute cough adn dyspnea and short of breath waekness and hypoxia problems listed above, better with lovenox, steroids, nebs, abx str better, f/u Dr. Briggs, Discharge Information Condition at Discharge: Improved Follow Up: Weeks Disposition/Orders: D/C to Home Scheduled Apixaban (Eliquis) 5 Mg Tablet, 5 MG PO BID for PE, #60 Ref 2 Prescribed by: BRINA SHAH on 01/05/20 1449 Aspirin (Aspirin) 81 Mg Tab.chew, 81 MG PO DAILYWBKFT for 30 Days, #30 Prescribed by: SAGAR GARCIA MD on 08/28/17 3438 Last Action: Reviewed on 01/03/202015 by JAMAL PEÑALOZA RN Doxycycline Hyclate (Doxycycline Hyclate) 100 Mg Tablet, 100 MG PO BID for COPD exacerbation, #14 Prescribed by: BRINA SHAH on 01/05/20 1449 Ipratropium/Albuterol Sulfate (Combivent Respimat Inhal) 4 Gm Aer.w.adap, 1 INH IH QID for COPD, #1 Prescribed by: BRINA SHAH on 01/05/20 1454 Isosorbide Mononitrate (Isosorbide Mononitrate Er) 30 Mg Tab.er.24h, 30 MG PO DAILY, #30 Prescribed by: LYNETTE SWANSON MD on 10/22/17 1520 Last Action: Reviewed on 01/03/202015 by JAMAL PEÑALOZA RN Levothyroxine Sodium (Levothyroxine Sodium) 137 Mcg Tablet, 1 TAB PO DAILY for hypothyroid, #30 Ref 5 (Reported) Entered as Reported by: ZUHAIR WOOD on 06/27/19 1547 Last Action: Reviewed on 01/03/202015 by JAMAL PEÑALOZA RN Lipase/Protease/Amylase (Creon Dr 36,000 Units Capsule) 1 Each Capsule.dr, 1 EACH PO DAILY for digestive, (Reported) Entered as Reported by: RUBEN WASHINGTON on 07/14/19 0647 Last Action: Converted on 01/03/20 1648 by BRINA SHAH Lysine Hcl (L-Lysine) 500 Mg Tablet, 1,000 MG PO DAILY for supplement, (Reported) Entered as Reported by: ROGER HAYES on 01/03/19 0817 Last Action: Reviewed on 01/03/202015 by JAMAL PEÑALOZA RN Metoprolol Succinate (Metoprolol Succinate ( Xl )) 25 Mg Tab.er.24h, 1 TAB PO DAILY for HTN, #30 Ref 5 (Reported) Entered as Reported by: ZUHAIR WOOD on 06/27/19 1208 Last Action: Reviewed on 01/03/202015 by JAMAL PEÑALOZA RN Pantoprazole Sodium (Pantoprazole Sodium ) 40 Mg Tablet.dr, 40 MG PO DAILYAC for stomach acid for 30 Days, #30 Prescribed by: MARY YOUNGBLOOD MD on 06/29/191749 Last Action: Reviewed on 01/03/202109 by JAMAL PEÑALOZA RN Polyethylene Glycol 3350 (Polyethylene Glycol 3350) 17 Gm Powd.pack, 17 GM PO DAILY for prevent constipation for 14 Days, #14 Prescribed by: MARY YOUNGBLOOD MD on 06/29/191749 Last Action: Reviewed on 01/03/202015 by JAMAL PEÑALOZA, RN Prednisone (Prednisone ) 10 Mg Tablet, 10 MG PO UD for COPD exacerbation, #30 Ref 0 Take 5 tablets by mouth daily for 2 days, then take 4 tablets by mouth daily for 2 days, then take 3 tablets by mouth daily for 2 days, then take 2 tablets by mouth daily for 2 days, then take 1 tablets by mouth daily for 2 days, then stop. Prescribed by: BRINA SHAH on 01/05/20 5172 Scheduled PRN Calcium Carbonate/Simethicone ([place] Heartburn+Gas) 1 Each Tab.chew, 1 EACH PO PRN PRN for GAS / BLOATING, (Reported) Entered as Reported by: ZUHAIR WOOD on 06/27/19 1547 Last Action: Reviewed on 01/03/202015 by JAMAL PEÑALOZA RN [guaiFENesin/CODEINE 100mg/10mg] 5 ML LIQUID, 5 ML PO PRN Q4HRS PRN for COUGH, #60 Prescribed by: BRINA SHAH on 01/05/20 1442 Patient Instructions Patient Instructions off work one more week time .>30 min 6 min walk before discharge BRINA SHAH MD Jan 05, 2020 14:58
--- NOTE | 2020-01-05 16:50 | NUR ---
Discharge Note: JOHNIE BARRIGA Discharge instructions and discharge home medications reviewed with Patient and a copy given. All questions have been answered and understanding verbalized.
[2020-01-05] MEDS ORDERED: LACTOBACILLUS RHAMNOSUS GG 1 CAPSULE. PO SCH (21:00)
== END 2020-01-05 17:00 | disposition home or self-care (01) | DRG 175 ==
LOC: ER 08:06 → ED HOLD 10:58 → 2 SOUTH 19:57
PROVIDERS: ADMIT Internal Medicine; ATTEND Internal Medicine
DX: I26.99 Other pulmonary embolism without acute cor pulmonale (principal); J96.01 Acute respiratory failure with hypoxia; I50.23 Acute on chronic systolic (congestive) heart failure; I21.4 Non-ST elevation (NSTEMI) myocardial infarction; J44.1 Chronic obstructive pulmonary disease with (acute) exacerbation; N39.0 Urinary tract infection, site not specified; F32.9 Major depressive disorder, single episode, unspecified; M19.90 Unspecified osteoarthritis, unspecified site; E03.9 Hypothyroidism, unspecified; E78.00 Pure hypercholesterolemia, unspecified; F17.201 Nicotine dependence, unspecified, in remission; E78.5 Hyperlipidemia, unspecified; I25.10 Atherosclerotic heart disease of native coronary artery without angina pectoris; I11.0 Hypertensive heart disease with heart failure; E66.9 Obesity, unspecified; Z68.31 Body mass index [BMI] 31.0-31.9, adult; Z88.5 Allergy status to narcotic agent; Z88.2 Allergy status to sulfonamides; Z88.8 Allergy status to other drugs, medicaments and biological substances; Z91.040 Latex allergy status; Z95.1 Presence of aortocoronary bypass graft; Z90.49 Acquired absence of other specified parts of digestive tract; Z82.49 Family history of ischemic heart disease and other diseases of the circulatory system
CPT/HCPCS: 36415; 36600; 71045; 71275; 80053; 81001; 82550; 82805; 83605; 83880; 84484; 85025; 85379; 85610; 87040; 87086; 87804; 93005; 93306; 93970; 94618; 94640; 96372; 96374; 99291; J0696; J1650; J2405; J2920; J3010; J7030; J7620; Q9967; G0378

== ENCOUNTER → 2020-05-13 | Outpatient (CLI) | payer OTHER, BC ==
[~2020-05-13] MED LIST changes: +APIX5TAB PO; +DOXY100T PO; +IPRA4AER IH; +PRED-220 PO; +guaiFENesin/CODEINE 100mg/10mg PO
[2020-05-13 08:01] LABS: BASO % 1 % (0-3); EOS # 0.2 x10^3/uL (0.0-0.7); EOS % 4 % (0-3); HEMATOCRIT 53.2 % (36.0-47.0); HEMOGLOBIN 18.1 g/dL (12.0-15.5); LYMPH # 1.4 x10^3/uL (1.0-4.8); LYMPH % 28 % (24-48); MEAN CORPUSCULAR HEMOGLOBIN 32 pg (25-35); MEAN CORPUSCULAR HGB CONC 34 g/dL (31-37); MEAN CORPUSCULAR VOLUME 95 fL (79-100); MONO # 0.5 x10^3/uL (0.0-1.1); MONO % 10 % (0-9); NEUT # 2.9 x10^3/uL (1.8-7.7); NEUT % 57 % (31-73); PLATELET COUNT 217 x10^3/uL (140-400); RED BLOOD COUNT 5.61 x10^6/uL (3.50-5.40); RED CELL DISTRIBUTION WIDTH 12.8 % (11.5-14.5)
[2020-05-13 08:18] LABS: ALBUMIN 3.5 g/dL (3.4-5.0); CREATININE 0.9 mg/dL (0.6-1.0); GFR 64.8; POTASSIUM 4.3 mmol/L (3.5-5.1); TOTAL BILIRUBIN 0.4 mg/dL (0.2-1.0)
[2020-05-13 08:22] LABS: CHOLESTEROL/HDL RATIO 5.4
[2020-05-13 08:26] LABS: FREE T4 1.49 ng/dL (0.76-1.46); THYROID STIM HORMONE (TSH) 1.949 uIU/mL (0.358-3.74)
== END | disposition home or self-care (01) ==
LOC: LAB 07:31
PROVIDERS: ATTEND Family Medicine
DX: E03.9 Hypothyroidism, unspecified (principal); E78.5 Hyperlipidemia, unspecified; I10 Essential (primary) hypertension
CPT/HCPCS: 36415; 80053; 80061; 84439; 84443; 85025

== ENCOUNTER → 2020-05-15 | Outpatient (CLI) | payer OTHER, BC ==
--- NOTE | 2020-05-15 09:48 | RAD ---
DATE: 05/15/2020 8:00 AM EXAM: MAMMO DILMA DEL ANGEL, BREAST LEFT HISTORY: Patient is due for screening but complains of lateral left breast pain. COMPARISON: 02/21/2019, 02/08/2018, 02/05/2017 and 12/06/2015 TECHNIQUE: Bilateral CC and MLO views of the breasts were performed. Bilateral breast tomosynthesis was performed in CC and MLO projections. This study was interpreted with the benefit of Computerized Aided Detection (CAD). Targeted ultrasound of the lateral left breast in the patient's reported area of discomfort was also performed. FINDINGS: Breast Density: SCATTERED The breast parenchyma shows scattered fibroglandular densities. Breast parenchyma level B No suspicious masses, microcalcifications or architectural distortion is present to suggest malignancy in either breast. The visualized axillae are unremarkable. Targeted ultrasound of the left breast revealed mild sonographically benign duct ectasia most conspicuously at the 3:00 position 1 cm from the nipple with no sonographically suspicious findings or findings to explain patient's left lateral breast pain. IMPRESSION: No evidence of malignancy in either breast. BI-RADS CATEGORY: 2 BENIGN FINDING(S) RECOMMENDED FOLLOW-UP: 12M 12 MONTH FOLLOW-UP Annual screening mammography is recommended, unless clinically indicated sooner based on symptoms or change in physical exam. Recommend clinical management of breast discomfort, including of biopsy of any clinically suspicious findings if present in the opinion of the patient's referring provider. Discussed with patient. PQRS compliance statement: Patient information was entered into a reminder system with a target due date 05/16/2021 for the next mammogram. Mammography is a sensitive method for finding small breast cancers, but it does not detect them all and is not a substitute for careful clinical examination. A negative mammogram does not negate a clinically suspicious finding and should not result in delay in biopsying a clinically suspicious abnormality. "Our facility is accredited by the [employer] Mammography Program."
== END | disposition home or self-care (01) ==
LOC: MAMMO 07:45
PROVIDERS: ATTEND Family Medicine
DX: N60.42 Mammary duct ectasia of left breast (principal)
CPT/HCPCS: 76641; 77066; G0279; 77062

== ENCOUNTER → 2020-05-20 | Outpatient (CLI) | payer OTHER, BC ==
--- NOTE | 2020-05-20 11:55 | KCIC ---
EXAM: Dual energy x-ray absorptiometry (DEXA). HISTORY: Postmenopausal female presents for osteoporosis screening. COMPARISON: None. TECHNIQUE: Dual energy x-ray absorptiometry of the lumbar spine and left hip was performed. Calculation of bone mineral density based on standard deviations above or below the expected young adult normal value (T-score) was completed. FINDINGS: The average bone mineral density in the 1st through 4th lumbar vertebrae is 1.343 g/cmxcm, corresponding with a T-score of 2.7. The average total bone mineral density in the left hip is 1.039 g/cmxcm, corresponding with a T-score of 0.8. IMPRESSION: Normal bone mineral density. Note: Definitions established by the World Health Organization: 1. Normal: T-score is -1.0 or above. 2. Osteopenia: T-score is between -1.0 and -2.5 . 3. Osteoporosis: T-score is -2.5 or below. Electronically signed by: Casandra Melara MD (05/20/2020 11:53 AM) [id number]
== END ==
LOC: KCIC DEXA 11:15
PROVIDERS: ATTEND Nurse Practitioner Family
DX: Z13.820 Encounter for screening for osteoporosis (principal); N95.8 Other specified menopausal and perimenopausal disorders; E07.9 Disorder of thyroid, unspecified
CPT/HCPCS: 77080

== ENCOUNTER → 2020-12-13 | Outpatient (CLI) | payer OTHER ==
[~2020-12-13] MED LIST changes: +IOHEXOL 180 MG/ML 10 ML VIAL. ONE; -ISOS30TA4 PO; +ISOS30TA68 PO; -POLY17PO28 PO; +POLY17PO52 PO; +methylPREDNISolone ACETATE 40 MG/ML VIAL. ONE; +methylPREDNISolone ACETATE 80 MG/ML VIAL. ONE
--- NOTE | 2020-12-13 08:42 | PDOC ---
Progress Note - Pain Clinic Date of Service: DOS: DATE: 12/13/20 TIME: 08:37 Diagnosis: Dx: Lumbar radiculopathy with lumbar degenerative disease lumbar spinal stenosis Cervical radiculopathy cervical degenerative disease cervical spinal stenosis and post cervical laminectomy syndrome. History or Present Illness: HPI: 55-year-old female returns follow-up status post lumbar epidural steroid injecti ons and cervical epidural 2 injections last seen November 13, 2019 patient very well after lumbar epidural steroid injection with near 90% improvement for almost a year. Patient reports that the first 3 months it was almost completely gone and after that it was only about 80 to 90% improved but now it is beginning to get much worse she started physical therapy yesterday pain in the low back left lower extremity posterior gluteus posterior lateral thigh lateral anterior thigh anterior medial thigh on the left side mostly in the low back on the left patient reports no new motor or sensory deficits rates her pain is a 10 on scale 10 is worse over the past week 5-8 on average in the 2-4 at its least and is a 5 today patient reports aching sharp and dull alternating tingling burning stabbing can be constant unbearable at times on and off in intensity. Patient reports no bowel or bladder incontinence no new deficits. Patient reports significant fatigability left lower extremity right with walking standing changi ng positions better with sitting or laying down but is beginning to awaken her from sleep again about once at night. Physical Exam: VS: Blood pressure is 133/89 pulse 85 respirations 16 temperature 98.2 F height is 5 foot 7 inches weight is 187 pounds PE: PHYSICAL EXAMINATION: GENERAL: The patient is awake, alert, oriented, appropriate, very pleasant demeanor HEENT: Shows normocephalic, atraumatic. Extraocular movements are intact and symmetrical. Oral cavity: Mucous membranes moist and pink. Dentition is intact. NECK: Shows anterior throat supple without palpable lymphadenopathy noted. Swallow reflex symmetrical. CHEST: Shows normal on inspection. Breath sounds are clear bilaterally, no rales rhonchi wheezes auscultated. HEART: Shows S1, S2 clear. No murmurs auscultated. ABDOMEN: Soft, nontender, nondistended, obese. No palpable organomegaly is noted. BACK: Shows spine grossly in the midline. Normal-appearing cervical lordotic curvature. There is slightly increased thoracic kyphosis, some minor flattening of the lumbar lordotic curvature. Lumbar paraspinous muscles show symmetrical on inspection, on palpation shows some moderate tenderness diffusely throughout the upper, middle and lower distribution of the paraspinous muscles, but without specific trigger points, without radiation of pain. The patient has good rot ational motion of the lumbar spine, both laterally as well as extension and flexion without significant difficulty. No tenderness over the spinous processes, sacrum or sacroiliac regions. EXTREMITIES: Lower extremities show deep tendon reflexes 2+ in the patellar and tendo calcaneus tendons. Motor exam is 5 on a scale of 5 with right dorsiflexion, extension, quadriceps and hamstring flexion and 4/5 on the left. Peripheral pulses are 1+ posterior tibial. No peripheral edema is noted bilaterally. Lower extremities are warm and dry to touch, equal in color and appearance. SKIN: Shows warm and dry, good turgor. No edema. No sores, rashes or bruising throughout. Procedure: Procedure: Options were discussed with the patient. Patient will chart reviews her current medication regimen updated current review of systems updated today as well. We will proceed with a lumbar epidural steroid injection today with fluoroscopic guidance as the first in the series. Risks were discussed including but not limited to: Bleeding, infection, possibility of epidural hematoma and subsequent neurological compromise, dural puncture, headaches, spinal cord and/or nerve damage, side effects of steroid medication, and poor results regarding pain c ontrol. Patient understands and wished to proceed. Patient return to clinic in approximate 2 weeks for follow-up, was counseled as to return appointment to level, and side effects to be aware of. Medication Injected: Med Injected: Procedure is lumbar epidural steroid injection under local anesthetic using sterile prep and drape at the L4-5 level using C-arm fluoroscopic guidance in both AP and lateral views medications injected is 120 mg Depo-Medrol + 10 mL preservative-free normal saline and 2 mL contrast- condition at discharge is stable patient tolerated procedure well had no complications. Condition at Discharge: Condition at Discharge: Condition at discharge stable, patient tolerated the procedure well and had no complications. ALMITA LUIS MD Dec 13, 2020 08:42
--- NOTE | 2020-12-13 08:43 | PDOC4 ---
PROCEDURE Procedure Patient was consented for lumbar epidural steroid injection. Risks were dis cussed including but not limited to: Bleeding, infection, possibility of epidural hematoma and subsequent neurological compromise, dural puncture, headaches, spinal cord and/or nerve damage, side effects of steroid medication, and poor results regarding pain control. Patient understands and wished to proceed. Procedure is lumbar epidural steroid injection under local anesthetic using sterile prep and drape at the L4-5 level using C-arm fluoroscopic guidance in both AP and lateral views medications injected is 120 mg Depo-Medrol + 10 mL preservative-free normal saline and 2 mL contrast- condition at discharge is stable patient tolerated procedure well had no complications. ALMITA LUIS MD Dec 13, 2020 08:43
== END | disposition home or self-care (01) ==
LOC: PNCL 07:58
PROVIDERS: ATTEND Anesthesiology
DX: M51.16 Intervertebral disc disorders with radiculopathy, lumbar region (principal); M50.10 Cervical disc disorder with radiculopathy, unspecified cervical region; M48.061 Spinal stenosis, lumbar region without neurogenic claudication; M48.02 Spinal stenosis, cervical region; M96.1 Postlaminectomy syndrome, not elsewhere classified; I11.0 Hypertensive heart disease with heart failure; I50.9 Heart failure, unspecified; E78.00 Pure hypercholesterolemia, unspecified; K21.9 Gastro-esophageal reflux disease without esophagitis; I25.10 Atherosclerotic heart disease of native coronary artery without angina pectoris; G47.30 Sleep apnea, unspecified; E03.9 Hypothyroidism, unspecified; Z87.440 Personal history of urinary (tract) infections; Z98.51 Tubal ligation status; Z98.890 Other specified postprocedural states; Z87.891 Personal history of nicotine dependence; Z79.82 Long term (current) use of aspirin; Z79.899 Other long term (current) drug therapy; Z72.89 Other problems related to lifestyle; Z82.49 Family history of ischemic heart disease and other diseases of the circulatory system; Z88.2 Allergy status to sulfonamides; Z88.5 Allergy status to narcotic agent; Z91.040 Latex allergy status; Z88.8 Allergy status to other drugs, medicaments and biological substances
CPT/HCPCS: 62323; J1030; J1040; Q9965

== ENCOUNTER → 2021-02-11 | Outpatient (CLI) | payer OTHER ==
[~2021-02-11] MED LIST changes: -IOHEXOL 180 MG/ML 10 ML VIAL. ONE; -methylPREDNISolone ACETATE 40 MG/ML VIAL. ONE; -methylPREDNISolone ACETATE 80 MG/ML VIAL. ONE
[2021-02-11 08:35] LABS: BASO % 1 % (0-3); EOS # 0.2 x10^3/uL (0.0-0.7); EOS % 2 % (0-3); HEMATOCRIT 46.9 % (36.0-47.0); HEMOGLOBIN 15.8 g/dL (12.0-15.5); LYMPH # 1.7 x10^3/uL (1.0-4.8); LYMPH % 28 % (24-48); MEAN CORPUSCULAR HEMOGLOBIN 33 pg (25-35); MEAN CORPUSCULAR HGB CONC 34 g/dL (31-37); MEAN CORPUSCULAR VOLUME 97 fL (79-100); MONO # 0.6 x10^3/uL (0.0-1.1); MONO % 10 % (0-9); NEUT # 3.7 x10^3/uL (1.8-7.7); NEUT % 59 % (31-73); PLATELET COUNT 259 x10^3/uL (140-400); RED BLOOD COUNT 4.83 x10^6/uL (3.50-5.40); RED CELL DISTRIBUTION WIDTH 13.7 % (11.5-14.5); WHITE BLOOD COUNT 6.2 x10^3/uL (4.0-11.0)
[2021-02-11 08:52] LABS: ALBUMIN 3.6 g/dL (3.4-5.0); ALBUMIN/GLOBULIN RATIO 1.1 (1.0-1.7); CALCIUM 9.4 mg/dL (8.5-10.1); CREATININE 0.9 mg/dL (0.6-1.0); GFR 64.5; TOTAL BILIRUBIN 0.6 mg/dL (0.2-1.0)
[2021-02-11 08:54] LABS: CHOLESTEROL/HDL RATIO 4.8
[2021-02-11 09:00] LABS: FREE T4 1.42 ng/dL (0.76-1.46); THYROID STIM HORMONE (TSH) 1.117 uIU/mL (0.358-3.74)
[2021-02-11 23:15] LABS: HEMOGLOBIN A1C 5.2 % (4.8-5.6)
== END ==
LOC: LAB 07:50
PROVIDERS: ATTEND Family Medicine
DX: E78.5 Hyperlipidemia, unspecified (principal); I10 Essential (primary) hypertension; R73.09 Other abnormal glucose; E03.9 Hypothyroidism, unspecified
CPT/HCPCS: 36415; 80053; 80061; 83036; 83721; 84439; 84443; 85025

== ENCOUNTER 2021-06-12 06:35 | Inpatient (IN) | payer OTHER ==
[~2021-06-12] VITALS: Ht 170.2 cm; Wt 78.7 kg
--- NOTE | 2021-06-12 07:40 | PHYS DOC ---
Past Medical History Past Medical History: CAD, High Cholesterol, Hypertension, Hypothyroid, [place] Additional Past Medical Histor: pancreatitis Past Surgical History: Appendectomy, Coronary Bypass Surgery Additional Past Surgical Histo: NECK SX Smoking Status: Former Smoker Alcohol Use: Occasionally Drug Use: None General Adult EDM: Chief Complaint: neck pain HPI: HPI: This is a pleasant 55-year-old female who presents after falling forward when she tripped on a step on Wednesday. She fell forward and since then has been h aving thoracic and cervical spine pain. She describes the pain is sharp shooting nonradiating moderate to severe and worse when she moves. She denies any numbness weakness or tingling. She also previously has had heart issues which precipitated by neck pain similarly. She denies any chest pain or shortness of breath at this time. She denies nausea vomiting or diaphoresis. She has a history of bypass. She did not hit her head. She had some minor bruises to her knees and an injured finger but those are feeling much better and currently she does not have any symptoms in those areas. She is able to ambulate without any difficulty. Review of systems negative for abdominal pain vomiting diaphoresis fevers chills. She denies headache. She denies head injury or loss of conscious. She is not on any blood thinners. All other review of systems negative. Heart Score: C/O Chest Pain: No Risk Factors: Risk Factors: DM, Current or recent (<one month) smoker, HTN, HLP, family history of CAD, obesity. Risk Scores: Score 0 - 3: 2.5% MACE over next 6 weeks - Discharge Home Score 4 - 6: 20.3% MACE over next 6 weeks - Admit for Clinical Observation Score 7 - 10: 72.7% MACE over next 6 weeks - Early Invasive Strategies Allergies: Allergies: Allergies Coded Allergies Type Severity Reaction Last Updated Verified latex Allergy Severe Rash 07/14/19 Yes Sulfa (Sulfonamide Antibiotics) Allergy Intermediate Rash 07/14/19 Yes nitrile Allergy Intermediate 01/03/20 Yes codeine Adverse Reaction Mild Nausea and Vomiting 07/14/19 Yes Uncoded Allergies Type Severity Reaction Last Updated Verified NARCOTICS Allergy Intermediate VOMITS 06/12/21 Physical Exam: PE: Constitutional: Well developed, well nourished, no acute distress, non-toxic appearance. [] HENT: Normocephalic, atraumatic, bilateral external ears normal, oropharynx moist, no oral exudates, nose normal. [] The cervical neck is tender to palpation midline without step-offs. No abrasions lacerations or ecchymosis to the back. Thoracic spine is tender palpation midline without any step-offs. Lumbar spine is nontender without step-offs. Eyes: PERRLA, EOMI, conjunctiva normal, no discharge. [] Neck: Normal range of motion, no tenderness, supple, no stridor. [] Cardiovascular:Heart rate regular rhythm, no murmur [] Lungs & Thorax: Bilateral breath sounds clear to auscultation [] Abdomen: Bowel sounds normal, soft, no tenderness, no masses, no pulsatile masses. [] Skin: Warm, dry, no erythema, no rash. [] Back: No tenderness, no CVA tenderness. [] Extremities: No tenderness, no cyanosis, no clubbing, ROM intact, no edema. [] Neurologic: Mental status: Awake oriented and alert x3 Cranial nerves: Extraocular movements intact, eyebrows yanely bilaterally, smile symmetric, uvula elevation nl, shoulder shrug intact bilaterally, tongue protrusion normal Clear speech. Sensation: equal and normal in all extremities Strength: 5/5 in upper and lower extremities bilaterally Psychologic: Affect normal, judgement normal, mood normal. [] Current Patient Data: Vital Signs: Vital Signs Date Time Temp Pulse Resp B/P (MAP) Pulse Ox O2 Delivery O2 Flow Rate FiO2 06/12/21 07:17 98.4 84 20 158/91 (88) 97 Room Air 98.4 EKG: EKG: [] EKG shows sinus rhythm with regular rate. ST segments nonspecific repolarization abnormalities. QRS within normal limits. Not suggestive of acute ischemia. Radiology/Procedures: Radiology/Procedures: [] Course & Med Decision Making: Course & Med Decision Making Pertinent Labs and Imaging studies reviewed. (See chart for details) [] This is a pleasant 55-year-old female who presents emergency department today with neck pain. She had had a mechanical fall however she was also worried about her heart because she had similar symptoms before that seem to have been originated from her heart. On arrival she is afebrile with normal heart rate. Blood pressure elevated at 158/91. Satting well on room air. Labs were obtained which showed normal CBC. Chemistry panel showed a mild hyperkalemia of 5.3 with a troponin of 0.29 and a proBNP of 991. Her chest x-ray showed some mild interstitial opacities likely related to cardiogenic pulmonary edema. CT of the cervical and thoracic spine shows no acute findings. There is an old T9 compression fracture which is unchanged from 2017. Given the patient's positive troponin and clinical symptoms suggestive of an acute CHF exacerbation we will admit the patient. I spoke with Dr. Mari who accepts patient for admission. We will give the patient oral aspirin here in the emergency department and admit the patient to telemetry. Dragon Disclaimer: Dragon Disclaimer: This electronic medical record was generated, in whole or in part, using a voice recognition dictation system. Departure Departure Impression: Primary Impression: CHF (congestive heart failure) Additional Impressions: Coronary artery disease Neck pain Elevated troponin Disposition: ADMITTED INPATIENT Admitting Physician: CARY Condition: STABLE Referrals: JIGNESH MCKINNEY MD (PCP) KRISTY GOMEZ MD Jun 12, 2021 07:40
[2021-06-12 07:59] LABS: BASO % 1 % (0-3); EOS # 0.2 x10^3/uL (0.0-0.7); EOS % 2 % (0-3); HEMATOCRIT 43.4 % (36.0-47.0); HEMOGLOBIN 14.7 g/dL (12.0-15.5); LYMPH # 1.5 x10^3/uL (1.0-4.8); LYMPH % 22 % (24-48); MEAN CORPUSCULAR HEMOGLOBIN 33 pg (25-35); MEAN CORPUSCULAR HGB CONC 34 g/dL (31-37); MEAN CORPUSCULAR VOLUME 97 fL (79-100); MONO # 0.6 x10^3/uL (0.0-1.1); MONO % 9 % (0-9); NEUT # 4.6 x10^3/uL (1.8-7.7); NEUT % 66 % (31-73); PLATELET COUNT 266 x10^3/uL (140-400); WHITE BLOOD COUNT 6.9 x10^3/uL (4.0-11.0)
[2021-06-12 08:11] LABS: CALCIUM 9.2 mg/dL (8.5-10.1); CREATININE 0.8 mg/dL (0.6-1.0); GFR 73.9; POTASSIUM 5.3 mmol/L (3.5-5.1)
--- NOTE | 2021-06-12 08:11 | RAD ---
INDICATION: Reason: chest pain / Spl. Instructions: / History: COMPARISON: January 03, 2020 FINDINGS: Single view of chest obtained. Mild interstitial opacities bilaterally. Poststernotomy changes. Degenerative changes spine IMPRESSION: * Mild interstitial opacities bilaterally which could be from mild edema or interstitial infiltrate. Electronically signed by: Rashaad Vee MD (06/12/2021 8:09 AM) [id number]
[2021-06-12 08:16] LABS: ALBUMIN 3.8 g/dL (3.4-5.0); DIRECT BILIRUBIN 0.2 mg/dL (0.0-0.2); TOTAL BILIRUBIN 0.7 mg/dL (0.2-1.0); TOTAL PROTEIN 7.2 g/dL (6.4-8.2)
[2021-06-12] MEDS ORDERED: ASPIRIN CHEWABLE 81 MG TABLET. PO ONE (08:45)
--- NOTE | 2021-06-12 09:05 | PDOC1 ---
History and Physical Date of Admission Date of Admission DATE: 06/12/21 TIME: 09:04 Identification/Chief Complaint Chief Complaint Neck pain Source Source: Patient History of Present Illness History of Present Illness Ms Dorsey is a 55yo F w/ PMHx remote PE, COPD, HLD, HTN, and CAD s/p CABG - CABG x 2 (ORTA to LAD, SVG to Ramus) 07/19/2017 who presents to ED c/o back and neck pain. She thinks her pain began after an injury 6 days ago where she tripped on a step at a dance and landed on her knees and hands. She has been concerned because of associated chest pain she describes as tightness and notes new left sided neck pain and left arm tingling that didn't start after her fall, but began two days ago. She describes the pain as sharp shooting nonradiating moderate to severe and worse when she moves. She has associated shortness of breath and fatigue. She denies nausea vomiting or diaphoresis. She has a history of bypass. She did not hit her head. She had some minor bruises to her knees and an injured finger but those are feeling much better and currently she does not have any symptoms in those areas. She is able to ambulate without any difficulty. She denies headache. She denies head injury or loss of conscious. She is not on any blood thinners. No recent travel or sick contacts. She had a cardiac stress test 03/20/2019 which was low risk and an echocardiogram 01/04/2020 which showed moderate LVH with preserved ejection fraction and normal wall motion. Chest radiograph revealed bilateral interstitial opacities. 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 EKG with TWI in I, V4, V5, otherwise NSR rate of 77bpm Labs with trop 0.29, K 5.3 Admitted for further care Past Medical History Cardiovascular: CAD, HTN, Hyperlipidemia, Other Pulmonary: No pertinent hx CENTRAL NERVOUS SYSTEM: Other GI: Hemorrhoids Heme/Onc: No pertinent hx Hepatobiliary: No pertinent hx, Other Psych: Depression Musculoskeletal: Osteoarthritis, Other Rheumatologic: No pertinent hx Infectious disease: No pertinent hx Renal/: No pertinent hx Endocrine: Hypothyroidism, Other Past Surgical History Past Surgical History: Appendectomy, CABG, Other Family History Family History: Coronary Artery Disease, Hypertension Social History Smoke: 1 pack per day ALCOHOL: none Drugs: None Current Medications Current Medications Current Medications Aspirin (Aspirin Chewable) 324 mg 1X ONCE PO ; Start 06/12/21 at 08:45; Stop 06/12/21 at 08:46; Status DC Active Scripts Active Isosorbide Mononitrate Er (Isosorbide Mononitrate) 30 Mg Tab.er.24h 30 Mg PO DAILY Aspirin 81 Mg Tab.chew 81 Mg PO DAILYWBKFT 30 Days Reported Levothyroxine Sodium 137 Mcg Tablet 1 Tab PO DAILY Metoprolol Succinate ( Xl ) (Metoprolol Succinate) 25 Mg Tab.er.24h 1 Tab PO DAILY L-Lysine (Lysine Hcl) 500 Mg Tablet 1,000 Mg PO DAILY Allergies Allergies: Coded Allergies: latex (Verified Allergy, Severe, Rash, 07/14/19) Sulfa (Sulfonamide Antibiotics) (Verified Allergy, Intermediate, Rash, 07/14/19) nitrile (Verified Allergy, Intermediate, 01/03/20) glove codeine (Verified Adverse Reaction, Mild, Nausea and Vomiting, 07/14/19) Uncoded Allergies: NARCOTICS (Allergy, Intermediate, VOMITS, 06/12/21) ROS General: YES: Fatigue, Malaise; No: Chills, Night Sweats, Appetite, Other PSYCHOLOGICAL ROS: YES: Anxiety; No: Behavioral Disorder, Concentration difficultie, Decreased libido, Depression, Disorientation, Hallucinations, Hostility, Irritablity, Memory difficulties, Mood Swings, Obsessive thoughts, Physical abuse, Sexual abuse, Sleep disturbances, Suicidal ideation, Other Eyes: No Blurry vision, No Decreased vision, No Double vision, No Dry eyes, No Excessive tearing, No Eye Pain, No Itchy Eyes, No Loss of vision, No Photo phobia, No Scotomata, No Uses contacts, No Uses glasses, No Other HEENT: No: Heacaches, Visual Changes, Hearing change, Nasal congestion, Nasal discharge, Oral lesions, Sinus pain, Sore Throat, Epistaxis, Sneezing, Snoring, Tinnitus, Vertigo, Vocal changes, Other ALLERGY AND IMMUNOLOGY: No: Hives, Insect Bite Sensitivity, Itchy/Watery Eyes, Nasal Congestion, Post Nasal Drip, Seasonal Allergies, Other Hematological and Lymphatic: No: Bleeding Problems, Blood Clots, Blood Transfusions, Brusing, Night Sweats, Pallor, Swollen Lymph Nodes, Other ENDOCRINE: No: Breast Changes, Galactorrhea, Hair Pattern Changes, Hot Flashes, Malaise/lethargy, Mood Swings, Palpitations, Polydipsia/polyuria, Skin Changes, Temperature Intolerance, Unexpected Weight Changes, Other Breast: No New/Changing Breast Lumps, No Nipple changes, No Nipple discharge, No Other Respiratory: YES: Shortness of breath; No: Cough, Hemoptysis, Orthopnea, Pleuritic Pain, SOB with excertion, Sputum Changes, Stridor, Tachypnea, Wheezing, Other Cardiovascular: yes Chest Pain; No Palpitations, No Orthopnea, No Paroxysmal Noc. Dyspnea, No Edema, No Lt Headedness, No Other Gastrointestinal: No Nausea, No Vomiting, No Abdominal Pain, No Diarrhea, No Constipation, No Melena, No Hematochezia, No Other Genitourinary: No Dysuria, No Frequency, No Incontinence, No Hematuria, No Retention, No Discharge, No Urgency, No Pain, No Flank Pain, No Other, No , No , No , No , No , No , No Musculoskeletal: Yes Joint Pain, Yes Muscle Pain; No Gait Disturbance, No Joint Stiffness, No Joint Swelling, No Muscular Weakness, No Pain In:, No Swelling In:, No Other Neurological: No Behavorial Changes, No Bowel/Bladder ControlChng, No Confusion, No Dizziness, No Gait Disturbance, No Headaches, No Impaired Coord/balance, No Memory Loss, No Numbness/Tingling, No Seizures, No Speech Problems, No Tremors, No Visual Changes, No Weakness, No Other Skin: No Dry Skin, No Eczema, No Hair Changes, No Lumps, No Mole Changes, No Mottling, No Nail Changes, No Pruritus, No Rash, No Skin Lesion Changes, No Other, No Acne Physical Exam General: Alert, Oriented X3, Cooperative, mild distress HEENT: Atraumatic, PERRLA, EOMI, Mucous membr. moist/pink Lungs: Other (bibasilar crackles) Heart: S1S2, RRR, no thrills, no rubs, no gallops, no murmurs Abdomen: Normal bowel sounds, Soft, No tenderness, No hepatosplenomegaly, No masses Rectal Exam: not examined Extremities: No clubbing, No cyanosis, No edema, Normal pulses, No tenderness/swelling Skin: No rashes, No breakdown, No significant lesion Neuro: Normal gait, Normal speech, Strength at 5/5 X4 ext, Normal tone, Sensation intact, Cranial nerves 3-12 NL, Reflexes 2+ Psych/Mental Status: Mental status NL, Mood NL Vitals Vitals Vital Signs Date Time Temp Pulse Resp B/P (MAP) Pulse Ox O2 Delivery O2 Flow Rate FiO2 06/12/21 07:17 98.4 84 20 158/91 (88) 97 Room Air 98.4 Labs Labs Laboratory Tests Test 06/12/21 07:40 White Blood Count 6.9 x10^3/uL (4.0-11.0) Red Blood Count 4.50 x10^6/uL (3.50-5.40) Hemoglobin 14.7 g/dL (12.0-15.5) Hematocrit 43.4 % (36.0-47.0) Mean Corpuscular Volume 97 fL (79-100) Mean Corpuscular Hemoglobin 33 pg (25-35) Mean Corpuscular Hemoglobin Concent 34 g/dL (31-37) Red Cell Distribution Width 13.0 % (11.5-14.5) Platelet Count 266 x10^3/uL (140-400) Neutrophils (%) (Auto) 66 % (31-73) Lymphocytes (%) (Auto) 22 % (24-48) Monocytes (%) (Auto) 9 % (0-9) Eosinophils (%) (Auto) 2 % (0-3) Basophils (%) (Auto) 1 % (0-3) Neutrophils # (Auto) 4.6 x10^3/uL (1.8-7.7) Lymphocytes # (Auto) 1.5 x10^3/uL (1.0-4.8) Monocytes # (Auto) 0.6 x10^3/uL (0.0-1.1) Eosinophils # (Auto) 0.2 x10^3/uL (0.0-0.7) Basophils # (Auto) 0.0 x10^3/uL (0.0-0.2) Sodium Level 139 mmol/L (136-145) Potassium Level 5.3 mmol/L (3.5-5.1) Chloride Level 103 mmol/L (98-107) Carbon Dioxide Level 31 mmol/L (21-32) Anion Gap 5 (6-14) Blood Urea Nitrogen 18 mg/dL (7-20) Creatinine 0.8 mg/dL (0.6-1.0) Estimated GFR (Cockcroft-Gault) 73.9 Glucose Level 85 mg/dL (70-99) Calcium Level 9.2 mg/dL (8.5-10.1) Total Bilirubin 0.7 mg/dL (0.2-1.0) Direct Bilirubin 0.2 mg/dL (0.0-0.2) Aspartate Amino Transf (AST/SGOT) 23 U/L (15-37) Alanine Aminotransferase (ALT/SGPT) 33 U/L (14-59) Alkaline Phosphatase 75 U/L (46-116) Troponin I Quantitative 0.290 ng/mL (0.000-0.055) Total Protein 7.2 g/dL (6.4-8.2) Albumin 3.8 g/dL (3.4-5.0) Lipase 69 U/L (73-393) Laboratory Tests Test 06/12/21 07:40 White Blood Count 6.9 x10^3/uL (4.0-11.0) Red Blood Count 4.50 x10^6/uL (3.50-5.40) Hemoglobin 14.7 g/dL (12.0-15.5) Hematocrit 43.4 % (36.0-47.0) Mean Corpuscular Volume 97 fL (79-100) Mean Corpuscular Hemoglobin 33 pg (25-35) Mean Corpuscular Hemoglobin Concent 34 g/dL (31-37) Red Cell Distribution Width 13.0 % (11.5-14.5) Platelet Count 266 x10^3/uL (140-400) Neutrophils (%) (Auto) 66 % (31-73) Lymphocytes (%) (Auto) 22 % (24-48) Monocytes (%) (Auto) 9 % (0-9) Eosinophils (%) (Auto) 2 % (0-3) Basophils (%) (Auto) 1 % (0-3) Neutrophils # (Auto) 4.6 x10^3/uL (1.8-7.7) Lymphocytes # (Auto) 1.5 x10^3/uL (1.0-4.8) Monocytes # (Auto) 0.6 x10^3/uL (0.0-1.1) Eosinophils # (Auto) 0.2 x10^3/uL (0.0-0.7) Basophils # (Auto) 0.0 x10^3/uL (0.0-0.2) Sodium Level 139 mmol/L (136-145) Potassium Level 5.3 mmol/L (3.5-5.1) Chloride Level 103 mmol/L (98-107) Carbon Dioxide Level 31 mmol/L (21-32) Anion Gap 5 (6-14) Blood Urea Nitrogen 18 mg/dL (7-20) Creatinine 0.8 mg/dL (0.6-1.0) Estimated GFR (Cockcroft-Gault) 73.9 Glucose Level 85 mg/dL (70-99) Calcium Level 9.2 mg/dL (8.5-10.1) Total Bilirubin 0.7 mg/dL (0.2-1.0) Direct Bilirubin 0.2 mg/dL (0.0-0.2) Aspartate Amino Transf (AST/SGOT) 23 U/L (15-37) Alanine Aminotransferase (ALT/SGPT) 33 U/L (14-59) Alkaline Phosphatase 75 U/L (46-116) Troponin I Quantitative 0.290 ng/mL (0.000-0.055) Total Protein 7.2 g/dL (6.4-8.2) Albumin 3.8 g/dL (3.4-5.0) Lipase 69 U/L (73-393) Images Images Chest radiograph: Single view of chest obtained. Mild interstitial opacities bilaterally. Poststernotomy changes. Degenerative changes spine IMPRESSION: * Mild interstitial opacities bilaterally which could be from mild edema or interstitial infiltrate. CT cervical and thoracic spine: Cervical spine: No acute fracture. Alignment is normal. 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 Mild disc space narrowing throughout the cervical spine, greatest at C5-C6 through C7-T1 where there are prominent anterior osteophytes. There is uncovertebral joint proliferation and disc osteophyte complexes at C5- C6 and C6-C7 resulting in mild canal narrowing and moderate to severe foraminal narrowing. Moderate facet arthrosis on the left at C3-C4. Prevertebral soft tissue is normal. Thoracic spine: No acute fracture. There is an unchanged chronic compression fracture of T9 with anterior wedging and approximately 40 percent vertebral body height loss anteriorly. There is unchanged kyphosis centered at T9. Mild rightward curvature of the thoracic spine. There is severe disc space narrowing at T8-T9 and moderate at T9-T10. Mild disc space narrowing and remaining levels with tiny anterior osteophytes. No bony canal or foraminal narrowing. Coronary artery calcifications are noted. Visualized portion of the posterior chest and upper abdomen is unremarkable. IMPRESSION: 1. No acute osseous abnormality of the cervical or thoracic spine. 2. Old T9 compression fracture is unchanged from 2017. 3. 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 4. Degenerative disc disease, greatest at C5-C6 and C6-C7. VTE Prophylaxis Ordered VTE Prophylaxis Devices: Yes VTE Pharmacological Prophylaxi: Yes Assessment/Plan Assessment/Plan A/P: Acute on chronic diastolic CHF - clinically, will give lasix IV, check BNP. Consult cardiology. ASA given, admit to telemetry Chest pain - similar to her prior cardiac pain. likely this is muscle strain CAD s/p CABG - CABG x 2 (ORTA to LAD, SVG to Ramus) 07/19/2017. Follow with Dr. Paredes, compliant with meds Elevated troponin - similar to past levels when she had bypass EKG abnormalities - with Tflattening likely hyperkalemia related Hyperkalemia - IV lasix. 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
[2021-06-12] MEDS ORDERED: MORPHINE SULFATE 2 MG/ML INJ. IV PRN (09:15)
--- NOTE | 2021-06-12 09:17 | RAD ---
EXAM: CT cervical and thoracic spine without contrast INDICATION: Fall with cervical and thoracic tenderness COMPARISON: CT chest CT 11/10/2020 and thoracic spine radiograph 07/14/2017. Report from MRI cervical spine 12/14/2018 (images not available). TECHNIQUE: Axial CT imaging through cervical spine and thoracic without intravenous contrast. Sagitta l and coronal reformats were obtained. One or more of the following individualized dose reduction techniques were utilized for this examinat ion: 1. Automated exposure control 2. Adjustment of the mA and/or kV according to patient size 3. Use of iterative reconstruction technique. FINDINGS: Cervical spine: No acute fracture. Alignment is normal. 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 Mild dis c space narrowing throughout the cervical spine, greatest at C5-C6 through C7-T1 where there are prom inent anterior osteophytes. There is uncovertebral joint proliferation and disc osteophyte complexes at C5-C6 and C6-C7 resulting in mild canal narrowing and moderate to severe foraminal narrowing. Mode rate facet arthrosis on the left at C3-C4. Prevertebral soft tissue is normal. Thoracic spine: No acute fracture. There is an unchanged chronic compression fracture of T9 with ante rior wedging and approximately 40 percent vertebral body height loss anteriorly. There is unchanged k yphosis centered at T9. Mild rightward curvature of the thoracic spine. There is severe disc space na rrowing at T8-T9 and moderate at T9-T10. Mild disc space narrowing and remaining levels with tiny ant erior osteophytes. No bony canal or foraminal narrowing. Coronary artery calcifications are noted. Vi sualized portion of the posterior chest and upper abdomen is unremarkable. IMPRESSION: 1. No acute osseous abnormality of the cervical or thoracic spine. 2. Old T9 compression fracture is unchanged from 2017. 3. 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 4. Degenerative disc disease, greatest at C5-C6 and C6-C7. Electronically signed by: Claire Romero MD (06/12/2021 9:15 AM) [id number]
[2021-06-12] MEDS ORDERED: FUROSEMIDE 40 MG/4 ML VIAL. IVP ONE (10:45)
[2021-06-12 14:15] VITALS: BP 141/86
[2021-06-12] MEDS ORDERED: ACETAMINOPHEN 325 MG TABLET. PO PRN (14:30)
[2021-06-12] MEDS ORDERED: ALBUTEROL SULFATE 2.5 MG/3 ML NEBU. NEB PRN (14:30)
[2021-06-12] MEDS ORDERED: ONDANSETRON PF 4 MG/2 ML VIAL. IVP PRN (14:30)
[2021-06-12] MEDS ORDERED: ATOR40TA59 PO (14:56)
--- NOTE | 2021-06-12 14:56 | PDOC2 ---
LIBBY CAMARENA LOKIE DRIVER 06/12/21 1456: CARDIAC CONSULT DATE OF CONSULT Date of Consult DATE: 06/12/21 TIME: 14:21 REASON FOR CONSULT Reason for Consult: Elevated troponin REFERRING PHYSICIAN Referring Physician: Joseluis SOURCE Source: Chart review, Patient HISTORY OF PRESENT ILLNESS HISTORY OF PRESENT ILLNESS This is a pleasant 55 yo female admitted for back pain. Apparently she tripped on a step last Wednesday during a dance and landed on her knees and hands. No SOA. She has been having chest pain even before that and described as sharp. She did not start having neck discomfort that is associated with left arm tingling until after her fall. There was no lost of consciousness. Denies any nausea or vomiting and no fever or chills, intractable coughing. She thought that her chest pain is probably from heartburn but denies heartburn sensation and takes protonix regularly. Her chest discomfort is reproducible with palpation and her neck discomfort which is in her posterior neck with palpation. No issues with ROM to neck and left arm. With her fall there was no associated dizziness or lightheadedness. She also has known chronic troponin elevation. No DA SILVA and no exertional chest pain. Her chest discomfort is intermittent sometimes lasting about 5-10 minutes. PAST MEDICAL HISTORY Past Medical History Cardiovascular: CAD, HTN, Hyperlipidemia, NSTEMI Pulmonary: PE, COPD CENTRAL NERVOUS SYSTEM: No pertinent history GI: Hemorrhoids Heme/Onc: No pertinent hx Hepatobiliary: Chronic pancreatitis Psych: Depression Musculoskeletal: Osteoarthritis, T9 compression fracture Rheumatologic: No pertinent hx Infectious disease: No pertinent hx Renal/: No pertinent hx Endocrine: Hypothyroidism PAST SURGICAL HISTORY Past Surgical History Appendectomy, CABG FAMILY HISTORY Family History: Coronary Artery Disease, Hypertension SOCIAL HISTORY Smoke: <1 pack per day ALCOHOL: none Drugs: None Lives: with Family CURRENT MEDICATIONS CURRENT MEDICATIONS Current Medications Medications (Trade) Dose Ordered Sig/Annelise Route PRN Reason Start Time Stop Time Status Last Admin Dose Admin Aspirin (Aspirin Chewable) 324 mg 1X ONCE PO 06/12/21 08:45 06/12/21 08:46 DC 06/12/21 09:22 Morphine Sulfate (Morphine Sulfate) 2 mg PRN Q1HR PRN IV pain 06/12/21 09:15 06/12/21 09:22 Furosemide (Lasix) 40 mg 1X ONCE IVP 06/12/21 10:45 06/12/21 10:46 DC 06/12/21 10:58 ALLERGIES ALLERGIES: Coded Allergies: latex (Verified Allergy, Severe, Rash, 07/14/19) Sulfa (Sulfonamide Antibiotics) (Verified Allergy, Intermediate, Rash, 07/14/19) nitrile (Verified Allergy, Intermediate, 01/03/20) glove codeine (Verified Adverse Reaction, Mild, Nausea and Vomiting, 07/14/19) Uncoded Allergies: NARCOTICS (Allergy, Intermediate, VOMITS, 06/12/21) ROS Review of System 14 point ROS evaluated with pertinent positives noted per HPI PHYSICAL EXAM General: Alert, Oriented X3, Cooperative, No acute distress HEENT: Atraumatic, Mucous membr. moist/pink Lungs: Clear to auscultation, Normal air movement Heart: Regular rate (SR), Normal S1, Normal S2, No murmurs Abdomen: Soft, No tenderness Extremities: No cyanosis, No edema Skin: No breakdown, No significant lesion Neuro: Normal speech, Sensation intact Psych/Mental Status: Mental status NL, Mood NL MUSCULOSKELETAL: Osteoarthritic changes both hands VITALS/I&O VITALS/I&O: Vital Signs Date Time Temp Pulse Resp B/P (MAP) Pulse Ox O2 Delivery O2 Flow Rate FiO2 06/12/21 12:30 78 135/83 (100) 97 Room Air 06/12/21 07:17 98.4 20 98.4 LABS Lab: Laboratory Tests Test 06/12/21 07:03 06/12/21 07:40 YE-Taj-S-Type Natriuretic Peptide 991 pg/mL (0-124) H White Blood Count 6.9 x10^3/uL (4.0-11.0) Red Blood Count 4.50 x10^6/uL (3.50-5.40) Hemoglobin 14.7 g/dL (12.0-15.5) Hematocrit 43.4 % (36.0-47.0) Mean Corpuscular Volume 97 fL (79-100) Mean Corpuscular Hemoglobin 33 pg (25-35) Mean Corpuscular Hemoglobin Concent 34 g/dL (31-37) Red Cell Distribution Width 13.0 % (11.5-14.5) Platelet Count 266 x10^3/uL (140-400) Neutrophils (%) (Auto) 66 % (31-73) Lymphocytes (%) (Auto) 22 % (24-48) L Monocytes (%) (Auto) 9 % (0-9) Eosinophils (%) (Auto) 2 % (0-3) Basophils (%) (Auto) 1 % (0-3) Neutrophils # (Auto) 4.6 x10^3/uL (1.8-7.7) Lymphocytes # (Auto) 1.5 x10^3/uL (1.0-4.8) Monocytes # (Auto) 0.6 x10^3/uL (0.0-1.1) Eosinophils # (Auto) 0.2 x10^3/uL (0.0-0.7) Basophils # (Auto) 0.0 x10^3/uL (0.0-0.2) Sodium Level 139 mmol/L (136-145) Potassium Level 5.3 mmol/L (3.5-5.1) H Chloride Level 103 mmol/L (98-107) Carbon Dioxide Level 31 mmol/L (21-32) Anion Gap 5 (6-14) L Blood Urea Nitrogen 18 mg/dL (7-20) Creatinine 0.8 mg/dL (0.6-1.0) Estimated GFR (Cockcroft-Gault) 73.9 Glucose Level 85 mg/dL (70-99) Calcium Level 9.2 mg/dL (8.5-10.1) Total Bilirubin 0.7 mg/dL (0.2-1.0) Direct Bilirubin 0.2 mg/dL (0.0-0.2) Aspartate Amino Transferase (AST) 23 U/L (15-37) Alanine Aminotransferase (ALT) 33 U/L (14-59) Alkaline Phosphatase 75 U/L (46-116) Troponin I Quantitative 0.290 ng/mL (0.000-0.055) Total Protein 7.2 g/dL (6.4-8.2) Albumin 3.8 g/dL (3.4-5.0) Lipase 69 U/L (73-393) L Laboratory Tests 06/12/21 07:40 Laboratory Tests 06/12/21 07:40 ECHOCARDIOGRAM ECHOCARDIOGRAM <Conclusion> The left ventricular systolic function is normal and the ejection fraction is within normal range. The Ejection Fraction is 60-65%. There is normal LV segmental wall motion. There is moderate left ventricular hypertrophy. DATE: 01/04/20 1005 STRESS TEST STRESS TEST Conclusion 1. Fair exercise tolerance with the patient walking for 6 minutes on a Martín protocol. 2. No EKG evidence of ischemia or arrhythmias. 3. Nuclear imaging shows no reversible ischemia or infarct. 4. Normal left ventricular systolic function with an ejection fraction of greater than 70%. 5. Low risk treadmill nuclear stress test. DATE: 03/20/19 1304 HEART CATH HEART CATH Conclusion 1. 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 2. Positive IVUS of the distal LM/Ramus. 3. Normal LV function. EF 70%. Recommendations CABG consultation. If patient deemed poor candidate for CABG then could consider complex bifurcation stenting of the LAD/Ramus and left main. DATE: 07/15/17 1052 ASSESSMENT/PLAN ASSESSMENT/PLAN 1. Atypical chest pain: suspect MS with possible neck strain. Notable for fused C4-5 vertebrae 2. Nontraumatic mechanical fall: CK is nml 3. Chronic Elevated troponin: by comparison with her initial trop at 0.29 she is within range of her past levels. No acute EKG changes 4. HTN: controlled 5. Mild hyperkalemia: better after lasix 6. HLP 7. Hx of PE 8. COPD with continued tobaccoism 9. Mild acute on chronic diastolic CHF: lasix received Recommendations Trend trop, TTE, FLP Secondary prevention measures Smoking cessation Will consider for outpt treadmill MPI. TEMO TREVIÑO MD 06/12/21 9034: CARDIAC CONSULT ASSESSMENT/PLAN ASSESSMENT/PLAN Patient seen and evaluated. I agree with our nurse practitioners assessment and plan. Chest pain: No acute EKG changes. Minimally elevated troponin with a history of mild chronic elevation of troponin. Continue present medical treatment. Echo pending. Possible outpatient MPI. Nontraumatic mechanical fall: CK is nml HTN: controlled Mild hyperkalemia: Continue medications. Monitor lab. Better after lasix HLP Hx of PE COPD with continued tobaccoism Mild acute on chronic diastolic CHF: Improved post Lasix. LIBBY CAMARENA APRN Jun 12, 2021 14:56 TEMO TREVIÑO MD Jun 12, 2021 17:46
[2021-06-12] MEDS: METOPROLOL SUCC 24HR ER 25 MG TAB.ER.24H. PO SCH (15:00)
[2021-06-12] MEDS: ISOSORBIDE MONONITRATE ER 30 MG TAB.ER.24H PO SCH (15:00)
[2021-06-12 15:42] LABS: CALCIUM 9.6 mg/dL (8.5-10.1); CREATININE 0.9 mg/dL (0.6-1.0); GFR 64.5; POTASSIUM 4.1 mmol/L (3.5-5.1)
[2021-06-12] MEDS ORDERED: ENOXAPARIN 40 MG/0.4 ML SYRINGE. SQ SCH (18:00)
[2021-06-12 19:45] VITALS: BP 109/55
[2021-06-12] MEDS ORDERED: PSYLLIUM HUSK (SUGAR FREE) 1 PKT PACKET PO SCH (21:00)
[2021-06-12 23:48] VITALS: BP 107/66
[2021-06-13 03:08] VITALS: BP 108/62
[2021-06-13 07:00] VITALS: BP 113/65
[2021-06-13] MEDS ORDERED: LEVOTHYROXINE 137 MCG TABLET PO SCH (07:00)
[2021-06-13] MEDS ORDERED: ASPIRIN CHEWABLE 81 MG TABLET. PO SCH (08:00)
[2021-06-13 08:07] LABS: BASO % 1 % (0-3); EOS # 0.2 x10^3/uL (0.0-0.7); EOS % 4 % (0-3); HEMATOCRIT 43.4 % (36.0-47.0); HEMOGLOBIN 14.8 g/dL (12.0-15.5); LYMPH # 1.4 x10^3/uL (1.0-4.8); LYMPH % 30 % (24-48); MEAN CORPUSCULAR HEMOGLOBIN 33 pg (25-35); MEAN CORPUSCULAR HGB CONC 34 g/dL (31-37); MEAN CORPUSCULAR VOLUME 96 fL (79-100); MONO # 0.5 x10^3/uL (0.0-1.1); MONO % 11 % (0-9); NEUT # 2.6 x10^3/uL (1.8-7.7); NEUT % 55 % (31-73); PLATELET COUNT 237 x10^3/uL (140-400); RED BLOOD COUNT 4.52 x10^6/uL (3.50-5.40); RED CELL DISTRIBUTION WIDTH 12.7 % (11.5-14.5); WHITE BLOOD COUNT 4.8 x10^3/uL (4.0-11.0)
[2021-06-13 08:17] LABS: CALCIUM 9.2 mg/dL (8.5-10.1); CREATININE 0.8 mg/dL (0.6-1.0); GFR 73.9; POTASSIUM 4.1 mmol/L (3.5-5.1)
[2021-06-13 08:18] LABS: MAGNESIUM 2.2 mg/dL (1.8-2.4)
[2021-06-13 08:26] LABS: CHOLESTEROL/HDL RATIO 2.4
[2021-06-13 08:54] VITALS: BP 113/65
[2021-06-13] MEDS: METOPROLOL SUCC 24HR ER 25 MG TAB.ER.24H. PO SCH (08:54)
[2021-06-13] MEDS: ISOSORBIDE MONONITRATE ER 30 MG TAB.ER.24H PO SCH (08:54)
[2021-06-13] MEDS ORDERED: LYSINE HCL 1000 MG PO SCH (09:00)
--- NOTE | 2021-06-13 10:28 | PDOC ---
CARDIO Progress Notes Date and Time Date of Service 06/13/2021 Time of Evaluation 1010 Subjective Subjective: No Chest Pain, No shortness of breath, No Palpitations Vitals Vitals Vital Signs Date Time Temp Pulse Resp B/P (MAP) Pulse Ox O2 Delivery O2 Flow Rate FiO2 06/13/21 08:54 77 113/65 06/13/21 08:00 Room Air 06/13/21 07:00 97.4 18 97 97.4 Weight Weight [ ] Input and Output Intake and Output Intake and Output 06/13/21 07:00 Intake Total 1100 ml Balance 1100 ml Intake Oral 1100 ml # Voids 3 Laboratory Labs Laboratory Tests Test 06/12/21 15:25 06/12/21 20:20 06/13/21 07:30 Sodium Level 140 mmol/L (136-145) 140 mmol/L (136-145) Potassium Level 4.1 mmol/L (3.5-5.1) 4.1 mmol/L (3.5-5.1) Chloride Level 98 mmol/L (98-107) 102 mmol/L (98-107) Carbon Dioxide Level 35 mmol/L (21-32) 31 mmol/L (21-32) Anion Gap 7 (6-14) 7 (6-14) Blood Urea Nitrogen 14 mg/dL (7-20) 12 mg/dL (7-20) Creatinine 0.9 mg/dL (0.6-1.0) 0.8 mg/dL (0.6-1.0) Estimated GFR (Cockcroft-Gault) 64.5 73.9 Glucose Level 91 mg/dL (70-99) 101 mg/dL (70-99) Calcium Level 9.6 mg/dL (8.5-10.1) 9.2 mg/dL (8.5-10.1) Troponin I Quantitative 0.257 ng/mL (0.000-0.055) 0.248 ng/mL (0.000-0.055) White Blood Count 4.8 x10^3/uL (4.0-11.0) Red Blood Count 4.52 x10^6/uL (3.50-5.40) Hemoglobin 14.8 g/dL (12.0-15.5) Hematocrit 43.4 % (36.0-47.0) Mean Corpuscular Volume 96 fL (79-100) Mean Corpuscular Hemoglobin 33 pg (25-35) Mean Corpuscular Hemoglobin Concent 34 g/dL (31-37) Red Cell Distribution Width 12.7 % (11.5-14.5) Platelet Count 237 x10^3/uL (140-400) Neutrophils (%) (Auto) 55 % (31-73) Lymphocytes (%) (Auto) 30 % (24-48) Monocytes (%) (Auto) 11 % (0-9) Eosinophils (%) (Auto) 4 % (0-3) Basophils (%) (Auto) 1 % (0-3) Neutrophils # (Auto) 2.6 x10^3/uL (1.8-7.7) Lymphocytes # (Auto) 1.4 x10^3/uL (1.0-4.8) Monocytes # (Auto) 0.5 x10^3/uL (0.0-1.1) Eosinophils # (Auto) 0.2 x10^3/uL (0.0-0.7) Basophils # (Auto) 0.0 x10^3/uL (0.0-0.2) Magnesium Level 2.2 mg/dL (1.8-2.4) Triglycerides Level 118 mg/dL (0-150) Cholesterol Level 172 mg/dL (0-200) LDL Cholesterol, Calculated 77 mg/dL (0-100) VLDL Cholesterol, Calculated 24 mg/dL (0-40) Non-HDL Cholesterol Calculated 101 mg/dL (0-129) HDL Cholesterol 71 mg/dL (40-60) Cholesterol/HDL Ratio 2.4 Physical Exam HEENT: Neck Supple W Full Motion Chest: Symmetric LUNGS: Clear to Auscultation Heart: S1S2, RRR (SR) Abdomen: Soft N/T Extremities: No Edema, No Calf Tenderness Neurology: alert, oriented, follow commands Assessment Assessment 1. Atypical chest pain: suspect MSK with possible neck strain. Notable for fused C4-5 vertebrae 2. Nontraumatic mechanical fall: CK is nml 3. Chronic Elevated troponin: by comparison with her initial trop at 0.29 she is within range of her past levels. No acute EKG changes 4. HTN: controlled 5. Mild hyperkalemia: better after lasix. Resolved 6. HLP 7. Hx of PE 8. COPD with continued tobaccoism 9. Mild acute on chronic diastolic CHF: lasix received. compensated Recommendations Secondary prevention measures. Diet modification Smoking cessation Will consider for outpt treadmill MPI. May DC today per cardiac perspective Justicifation of Admission Dx: Justifications for Admission: Justification of Admission Dx: Yes LIBBY CAMARENA DOPE MAINTENANCE WORKER Jun 13, 2021 10:28
--- NOTE | 2021-06-13 10:47 | PDOC ---
[facility] PROGRESS NOTE Date of Service DOS: DATE: 06/13/21 TIME: 10:35 Chief Complaint Chief Complaint Acute on chronic diastolic CHF - clinically, will give lasix IV, check BNP. Consult cardiology. ASA given, admit to telemetry Chest pain - similar to her prior cardiac pain. likely this is muscle strain CAD s/p CABG - CABG x 2 (ORTA to LAD, SVG to Ramus) 07/19/2017. Follow with Dr. Paredes, compliant with meds Elevated troponin - similar to past levels when she had bypass EKG abnormalities - with Tflattening likely hyperkalemia related Hyperkalemia - IV lasix. Will monitor HTN - controlled on metrolol, imdur HLD - statin Hx of PE - off [facility] OAC COPD - prn nebulizers Tobacco use disorder - thinking of quitting FEN - Cardiac diet PPX - lovenox FULL CODE Dispo - admit to [facility] History of Present Illness History of Present Illness Ms Dorsey is a 55yo F w/ PMHx remote PE, COPD, HLD, HTN, and CAD s/p CABG - CABG x 2 (ORTA to LAD, SVG to Ramus) 07/19/2017 who presents to ED c/o back and neck pain. She thinks her pain began after an injury 6 days ago where she tripped on a step at a dance and landed on her knees and hands. She has been concerned because of associated chest pain she describes as tightness and notes new left sided neck pain and left arm tingling that didn't start after her fall, but began two days ago. She describes the pain as sharp shooting nonradiating moderate to severe and worse when she moves. She has associated shortness of breath and fatigue. She denies nausea vomiting or diaphoresis. She has a history of bypass. She did not hit her head. She had some minor bruises to her knees and an injured finger but those are feeling much better and currently she does not have any symptoms in those areas. She is able to ambulate without any difficulty. She denies headache. She denies head injury or loss of conscious. She is not on any blood thinners. No recent travel or sick contacts. She had a cardiac stress test 03/20/2019 which was low risk and an echocardiogram 01/04/2020 which showed moderate LVH with preserved ejection fraction and normal wall motion. Chest radiograph revealed bilateral interstitial opacities. 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 EKG with TWI in I, V4, V5, otherwise NSR rate of 77bpm Labs with trop 0.29, K 5.3 06/13/2021: Patient seen resting in bed comfortably. She states her chest pain is resolved. Discussed etiology of her elevated troponins and elevated potassiu m. Recommend follow-up with her PCP within 1 week, if only by video conference. Discussed with cardiology, treadmill nuclear study will be set up as outpatient. Cautioned patient about long-term use of PPI and osteoporosis. Greater than 30 minutes spent managing the discharge this patient. Vitals/I&O Vitals/I&O: Vital Signs Date Time Temp Pulse Resp B/P (MAP) Pulse Ox O2 Delivery O2 Flow Rate FiO2 06/13/21 08:54 77 113/65 06/13/21 08:00 Room Air 06/13/21 07:00 97.4 18 97 97.4 I & O 06/12/21 06/12/21 06/13/21 15:00 23:00 07:00 Intake Total 600 ml 500 ml Balance 600 ml 500 ml Physical Exam General: Alert, Oriented X3, Cooperative, No acute distress Heart: Regular rate (SR), Normal S1, Normal S2, No murmurs Lungs: Crackles Abdomen: Normal bowel sounds, Soft, No tenderness, No hepatosplenomegaly, No masses Extremities: No clubbing, No cyanosis, No edema, Normal pulses, No tenderness/swelling Skin: No rashes, No breakdown, No significant lesion Labs Labs: Laboratory Tests Test 06/12/21 15:25 06/12/21 20:20 06/13/21 07:30 Sodium Level 140 mmol/L (136-145) 140 mmol/L (136-145) Potassium Level 4.1 mmol/L (3.5-5.1) 4.1 mmol/L (3.5-5.1) Chloride Level 98 mmol/L (98-107) 102 mmol/L (98-107) Carbon Dioxide Level 35 mmol/L (21-32) 31 mmol/L (21-32) Anion Gap 7 (6-14) 7 (6-14) Blood Urea Nitrogen 14 mg/dL (7-20) 12 mg/dL (7-20) Creatinine 0.9 mg/dL (0.6-1.0) 0.8 mg/dL (0.6-1.0) Estimated GFR (Cockcroft-Gault) 64.5 73.9 Glucose Level 91 mg/dL (70-99) 101 mg/dL (70-99) Calcium Level 9.6 mg/dL (8.5-10.1) 9.2 mg/dL (8.5-10.1) Troponin I Quantitative 0.257 ng/mL (0.000-0.055) 0.248 ng/mL (0.000-0.055) White Blood Count 4.8 x10^3/uL (4.0-11.0) Red Blood Count 4.52 x10^6/uL (3.50-5.40) Hemoglobin 14.8 g/dL (12.0-15.5) Hematocrit 43.4 % (36.0-47.0) Mean Corpuscular Volume 96 fL (79-100) Mean Corpuscular Hemoglobin 33 pg (25-35) Mean Corpuscular Hemoglobin Concent 34 g/dL (31-37) Red Cell Distribution Width 12.7 % (11.5-14.5) Platelet Count 237 x10^3/uL (140-400) Neutrophils (%) (Auto) 55 % (31-73) Lymphocytes (%) (Auto) 30 % (24-48) Monocytes (%) (Auto) 11 % (0-9) Eosinophils (%) (Auto) 4 % (0-3) Basophils (%) (Auto) 1 % (0-3) Neutrophils # (Auto) 2.6 x10^3/uL (1.8-7.7) Lymphocytes # (Auto) 1.4 x10^3/uL (1.0-4.8) Monocytes # (Auto) 0.5 x10^3/uL (0.0-1.1) Eosinophils # (Auto) 0.2 x10^3/uL (0.0-0.7) Basophils # (Auto) 0.0 x10^3/uL (0.0-0.2) Magnesium Level 2.2 mg/dL (1.8-2.4) Triglycerides Level 118 mg/dL (0-150) Cholesterol Level 172 mg/dL (0-200) LDL Cholesterol, Calculated 77 mg/dL (0-100) VLDL Cholesterol, Calculated 24 mg/dL (0-40) Non-HDL Cholesterol Calculated 101 mg/dL (0-129) HDL Cholesterol 71 mg/dL (40-60) Cholesterol/HDL Ratio 2.4 Assessment and Plan Assessmemt and Plan Problems Medical Problems: (1) CHF (congestive heart failure) Status: Acute (2) Coronary artery disease Status: Acute (3) Elevated troponin Status: Acute (4) Neck pain Status: Acute Comment Review of Relevant I have reviewed the following items vin (where applicable) has been applied. Medications: Current Medications Medications (Trade) Dose Ordered Sig/Annelise Route PRN Reason Start Time Stop Time Status Last Admin Dose Admin Furosemide (Lasix) 40 mg 1X ONCE IVP 06/12/21 10:45 06/12/21 10:46 DC 06/12/21 10:58 Psyllium Hydrophilic Mucilloid (Metamucil Fiber Packet) 1 pkt QHS PO 06/12/21 21:00 06/12/21 21:00 Aspirin (Aspirin Chewable) 81 mg [id number] PO 06/13/21 08:00 06/13/21 08:54 Isosorbide Mononitrate (Imdur) 30 mg DAILY PO 06/12/21 15:00 06/13/21 08:54 Levothyroxine Sodium (Synthroid) 137 mcg DAILY06 PO 06/13/21 07:00 06/13/21 06:11 Metoprolol Succinate (Toprol Xl) 25 mg DAILY PO 06/12/21 15:00 06/13/21 08:54 Enoxaparin Sodium (Lovenox 40mg Syringe) 40 mg Q24H SQ 06/12/21 18:00 06/12/21 17:58 Justifications for Admission Other Justification SONY CLINE MD Jun 13, 2021 10:46
--- NOTE | 2021-06-13 10:51 | PDOC3 ---
Discharge Summary Visit Information Date of Admission: Jun 12, 2021 Date of Discharge: Jun 13, 2021 Final Diagnosis Problems Medical Problems: (1) CHF (congestive heart failure) Status: Acute (2) Coronary artery disease Status: Acute (3) Elevated troponin Status: Acute (4) Neck pain Status: Acute Brief Hospital Course Allergies Allergies Coded Allergies Type Severity Reaction Last Updated Verified latex Allergy Severe Rash 07/14/19 Yes Sulfa (Sulfonamide Antibiotics) Allergy Intermediate Rash 07/14/19 Yes nitrile Allergy Intermediate 01/03/20 Yes codeine Adverse Reaction Mild Nausea and Vomiting 07/14/19 Yes Vital Signs Vital Signs Date Time Temp Pulse Resp B/P (MAP) Pulse Ox O2 Delivery O2 Flow Rate FiO2 06/13/21 08:54 77 113/65 06/13/21 08:00 Room Air 06/13/21 07:00 97.4 18 97 97.4 Lab Results Laboratory Tests Test 06/12/21 07:03 06/12/21 07:40 06/12/21 15:25 06/12/21 20:20 OV-Lzn-X-Type Natriuretic Peptide 991 pg/mL (0-124) White Blood Count 6.9 x10^3/uL (4.0-11.0) Red Blood Count 4.50 x10^6/uL (3.50-5.40) Hemoglobin 14.7 g/dL (12.0-15.5) Hematocrit 43.4 % (36.0-47.0) Mean Corpuscular Volume 97 fL (79-100) Mean Corpuscular Hemoglobin 33 pg (25-35) Mean Corpuscular Hemoglobin Concent 34 g/dL (31-37) Red Cell Distribution Width 13.0 % (11.5-14.5) Platelet Count 266 x10^3/uL (140-400) Neutrophils (%) (Auto) 66 % (31-73) Lymphocytes (%) (Auto) 22 % (24-48) Monocytes (%) (Auto) 9 % (0-9) Eosinophils (%) (Auto) 2 % (0-3) Basophils (%) (Auto) 1 % (0-3) Neutrophils # (Auto) 4.6 x10^3/uL (1.8-7.7) Lymphocytes # (Auto) 1.5 x10^3/uL (1.0-4.8) Monocytes # (Auto) 0.6 x10^3/uL (0.0-1.1) Eosinophils # (Auto) 0.2 x10^3/uL (0.0-0.7) Basophils # (Auto) 0.0 x10^3/uL (0.0-0.2) Sodium Level 139 mmol/L (136-145) 140 mmol/L (136-145) Potassium Level 5.3 mmol/L (3.5-5.1) 4.1 mmol/L (3.5-5.1) Chloride Level 103 mmol/L (98-107) 98 mmol/L (98-107) Carbon Dioxide Level 31 mmol/L (21-32) 35 mmol/L (21-32) Anion Gap 5 (6-14) 7 (6-14) Blood Urea Nitrogen 18 mg/dL (7-20) 14 mg/dL (7-20) Creatinine 0.8 mg/dL (0.6-1.0) 0.9 mg/dL (0.6-1.0) Estimated GFR (Cockcroft-Gault) 73.9 64.5 Glucose Level 85 mg/dL (70-99) 91 mg/dL (70-99) Calcium Level 9.2 mg/dL (8.5-10.1) 9.6 mg/dL (8.5-10.1) Total Bilirubin 0.7 mg/dL (0.2-1.0) Direct Bilirubin 0.2 mg/dL (0.0-0.2) Aspartate Amino Transf (AST/SGOT) 23 U/L (15-37) Alanine Aminotransferase (ALT/SGPT) 33 U/L (14-59) Alkaline Phosphatase 75 U/L (46-116) Creatine Kinase 49 U/L (26-192) Troponin I Quantitative 0.290 ng/mL (0.000-0.055) 0.257 ng/mL (0.000-0.055) 0.248 ng/mL (0.000-0.055) Total Protein 7.2 g/dL (6.4-8.2) Albumin 3.8 g/dL (3.4-5.0) Lipase 69 U/L (73-393) Test 06/13/21 07:30 White Blood Count 4.8 x10^3/uL (4.0-11.0) Red Blood Count 4.52 x10^6/uL (3.50-5.40) Hemoglobin 14.8 g/dL (12.0-15.5) Hematocrit 43.4 % (36.0-47.0) Mean Corpuscular Volume 96 fL (79-100) Mean Corpuscular Hemoglobin 33 pg (25-35) Mean Corpuscular Hemoglobin Concent 34 g/dL (31-37) Red Cell Distribution Width 12.7 % (11.5-14.5) Platelet Count 237 x10^3/uL (140-400) Neutrophils (%) (Auto) 55 % (31-73) Lymphocytes (%) (Auto) 30 % (24-48) Monocytes (%) (Auto) 11 % (0-9) Eosinophils (%) (Auto) 4 % (0-3) Basophils (%) (Auto) 1 % (0-3) Neutrophils # (Auto) 2.6 x10^3/uL (1.8-7.7) Lymphocytes # (Auto) 1.4 x10^3/uL (1.0-4.8) Monocytes # (Auto) 0.5 x10^3/uL (0.0-1.1) Eosinophils # (Auto) 0.2 x10^3/uL (0.0-0.7) Basophils # (Auto) 0.0 x10^3/uL (0.0-0.2) Sodium Level 140 mmol/L (136-145) Potassium Level 4.1 mmol/L (3.5-5.1) Chloride Level 102 mmol/L (98-107) Carbon Dioxide Level 31 mmol/L (21-32) Anion Gap 7 (6-14) Blood Urea Nitrogen 12 mg/dL (7-20) Creatinine 0.8 mg/dL (0.6-1.0) Estimated GFR (Cockcroft-Gault) 73.9 Glucose Level 101 mg/dL (70-99) Calcium Level 9.2 mg/dL (8.5-10.1) Magnesium Level 2.2 mg/dL (1.8-2.4) Triglycerides Level 118 mg/dL (0-150) Cholesterol Level 172 mg/dL (0-200) LDL Cholesterol, Calculated 77 mg/dL (0-100) VLDL Cholesterol, Calculated 24 mg/dL (0-40) Non-HDL Cholesterol Calculated 101 mg/dL (0-129) HDL Cholesterol 71 mg/dL (40-60) Cholesterol/HDL Ratio 2.4 Laboratory Tests Test 06/12/21 15:25 06/12/21 20:20 06/13/21 07:30 Sodium Level 140 mmol/L (136-145) 140 mmol/L (136-145) Potassium Level 4.1 mmol/L (3.5-5.1) 4.1 mmol/L (3.5-5.1) Chloride Level 98 mmol/L (98-107) 102 mmol/L (98-107) Carbon Dioxide Level 35 mmol/L (21-32) 31 mmol/L (21-32) Anion Gap 7 (6-14) 7 (6-14) Blood Urea Nitrogen 14 mg/dL (7-20) 12 mg/dL (7-20) Creatinine 0.9 mg/dL (0.6-1.0) 0.8 mg/dL (0.6-1.0) Estimated GFR (Cockcroft-Gault) 64.5 73.9 Glucose Level 91 mg/dL (70-99) 101 mg/dL (70-99) Calcium Level 9.6 mg/dL (8.5-10.1) 9.2 mg/dL (8.5-10.1) Troponin I Quantitative 0.257 ng/mL (0.000-0.055) 0.248 ng/mL (0.000-0.055) White Blood Count 4.8 x10^3/uL (4.0-11.0) Red Blood Count 4.52 x10^6/uL (3.50-5.40) Hemoglobin 14.8 g/dL (12.0-15.5) Hematocrit 43.4 % (36.0-47.0) Mean Corpuscular Volume 96 fL (79-100) Mean Corpuscular Hemoglobin 33 pg (25-35) Mean Corpuscular Hemoglobin Concent 34 g/dL (31-37) Red Cell Distribution Width 12.7 % (11.5-14.5) Platelet Count 237 x10^3/uL (140-400) Neutrophils (%) (Auto) 55 % (31-73) Lymphocytes (%) (Auto) 30 % (24-48) Monocytes (%) (Auto) 11 % (0-9) Eosinophils (%) (Auto) 4 % (0-3) Basophils (%) (Auto) 1 % (0-3) Neutrophils # (Auto) 2.6 x10^3/uL (1.8-7.7) Lymphocytes # (Auto) 1.4 x10^3/uL (1.0-4.8) Monocytes # (Auto) 0.5 x10^3/uL (0.0-1.1) Eosinophils # (Auto) 0.2 x10^3/uL (0.0-0.7) Basophils # (Auto) 0.0 x10^3/uL (0.0-0.2) Magnesium Level 2.2 mg/dL (1.8-2.4) Triglycerides Level 118 mg/dL (0-150) Cholesterol Level 172 mg/dL (0-200) LDL Cholesterol, Calculated 77 mg/dL (0-100) VLDL Cholesterol, Calculated 24 mg/dL (0-40) Non-HDL Cholesterol Calculated 101 mg/dL (0-129) HDL Cholesterol 71 mg/dL (40-60) Cholesterol/HDL Ratio 2.4 Brief Hospital Course Ms Dorsey is a 55yo F w/ PMHx remote PE, COPD, HLD, HTN, and CAD s/p CABG - CABG x 2 (ORTA to LAD, SVG to Ramus) 07/19/2017 who presents to ED c/o back and neck pain. She thinks her pain began after an injury 6 days ago where she tripped on a step at a dance and landed on her knees and hands. She has been concerned because of associated chest pain she describes as tightness and notes new left sided neck pain and left arm tingling that didn't start after her fall, but began two days ago. She describes the pain as sharp shooting nonradiating moderate to severe and worse when she moves. She has associated shortness of breath and fatigue. She denies nausea vomiting or diaphoresis. She has a history of bypass. She did not hit her head. She had some minor bruises to her knees and an injured finger but those are feeling much better and currently she does not have any symptoms in those areas. She is able to ambulate without any difficulty. She denies headache. She denies head injury or loss of conscious. She is not on any blood thinners. No recent travel or sick contacts. She had a cardiac stress test 03/20/2019 which was low risk and an echocardiogram 01/04/2020 which showed moderate LVH with preserved ejection fraction and normal wall motion. Chest radiograph revealed bilateral interstitial opacities. 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 EKG with TWI in I, V4, V5, otherwise NSR rate of 77bpm Labs with trop 0.29, K 5.3 06/13/2021: Patient seen resting in bed comfortably. She states her chest pain is resolved. Discussed etiology of her elevated troponins and elevated potas sium. Recommend follow-up with her PCP within 1 week, if only by video conference. Discussed with cardiology, treadmill nuclear study will be set up as outpatient. Cautioned patient about long-term use of PPI and osteoporosis. Greater than 30 minutes spent managing the discharge this patient. Discharge Information Condition at Discharge: Improved Follow Up: Weeks Disposition/Orders: D/C to Home Scheduled Aspirin (Aspirin) 81 Mg Tab.chew, 81 MG PO DAILYWBKFT for 30 Days, #30 Prescribed by: SAGAR GARCIA MD on 08/28/17 1858 Last Action: Continued on 06/12/211435 by JULIA JARAMILLO MD Atorvastatin Calcium (Atorvastatin Calcium) 40 Mg Tablet, 1 TAB PO DAILY for , #30 Ref 5 (Reported) Entered as Reported by: JADE TOVAR RN on 06/12/21 145 Last Action: New Order on 06/12/211455 by JADE TOVAR RN Isosorbide Mononitrate (Isosorbide Mononitrate Er) 30 Mg Tab.er.24h, 30 MG PO DAILY, #30 Prescribed by: LYNETTE SWANSON MD on 10/22/17 1520 Last Action: Continued on 06/12/211435 by JULIA JARAMILLO MD Levothyroxine Sodium (Levothyroxine Sodium) 137 Mcg Tablet, 1 TAB PO DAILY for hypothyroid, #30 Ref 5 (Reported) Entered as Reported by: ZUHAIR WOOD on 06/27/19 1547 Last Action: Continued on 06/12/21 1436 by JULIA JARAMILLO MD Lysine Hcl (L-Lysine) 500 Mg Tablet, 1,000 MG PO DAILY for supplement, (Reported) Entered as Reported by: ROGER HAYES on 01/03/19 0817 Last Action: Converted on 06/12/21 143 by JULIA JARAMILLO MD Metoprolol Succinate (Metoprolol Succinate ( Xl )) 25 Mg Tab.er.24h, 1 TAB PO DAILY for HTN, #30 Ref 5 (Reported) Entered as Reported by: ZUHAIR WOOD on 06/27/19 1208 Last Action: Continued on 06/12/21 143 by JULIA JARAMILLO MD Justicifation of Admission Dx: Justifications for Admission: Justification of Admission Dx: Yes SONY CLINE MD Jun 13, 2021 10:51
--- NOTE | 2021-06-13 11:19 | CARD ---
MR#: [id number] Date of Study: 06/12/2021 Ordering Physician: LIBBY CAMARENA, Referring Physician: LIBBY CAMARENA Tech: Ganga Santos [facility] APPROVED REPORT EXAM: Two-dimensional and M-mode echocardiogram with Doppler and color Doppler. Other Information Quality : AverageHR: 72bpm Rhythm : NSR INDICATION Chest Pain Congestive Heart Failure Elevated troponin RISK FACTORS Hypertension Hyperlipidemia 2D DIMENSIONS Left Atrium(2D)4.3 (1.6-4.0cm)IVSd1.3 (0.7-1.1cm) Aortic Root(2D)3.3 (2.0-3.7cm)LVDd4.1 (3.9-5.9cm) LVOT Diameter1.9 (1.8-2.4cm)PWd1.3 (0.7-1.1cm) LVDs1.9 (2.5-4.0cm)FS (%) 53.1 % SV61.9 ml Aortic Valve AoV Peak Nixon.106.0cm/sAoV VTI22.6cm AO Peak GR.4.5mmHgLVOT Peak Nixon.100.2cm/s AO Mean GR.3mmHgAVA (VMAX)2.78cm2 Mitral Valve MV E Lubmzhmm98.1cm/sMV E Peak Gr.3mmHg MV DECEL [id number] A Hmmhpkrq63.3cm/s MV E Mean Gr.1mmHgE/A Ratio1.1 Pulmonary Valve PV Peak Btmwgkzv44.5cm/s Tricuspid Valve TR P. Edvumkoa454iv/sTR Peak Gr.16mmHg Pulmonary Vein S1 Wjquxovm92.5cm/sD2 Izfzygxk50.5cm/s LEFT VENTRICLE The left ventricle is normal size. Proximal septal thickening is noted. The left ventricular systolic function is normal. LV ejection fraction is 55 to 60%. There is normal LV segmental wall motion. No left ventricle thrombus noted on this study. There is no ventricular septal defect visualized. There is no left ventricular aneurysm. There is no mass noted in the left ventricle. RIGHT VENTRICLE The right ventricle is normal size. There is normal right ventricular wall thickness. The right ventr icular systolic function is normal. ATRIA The left atrium is mildly dilated. The right atrium size is normal. The interatrial septum is intact with no evidence for an atrial septal defect or patent foramen ovale as noted on 2-D or Doppler imagi ng. AORTIC VALVE The aortic valve is normal in structure and function. Doppler and Color Flow revealed no significant aortic regurgitation. There is no significant aortic valvular stenosis. There is no aortic valvular v egetation. MITRAL VALVE The mitral valve is normal in structure and function. There is no evidence of mitral valve prolapse. There is no mitral valve stenosis. Doppler and Color-flow revealed trace mitral regurgitation. TRICUSPID VALVE The tricuspid valve is normal in structure and function. Doppler and Color Flow revealed trace tricus pid regurgitation. There is no tricuspid valve prolapse or vegetation. There is no tricuspid valve st enosis. PULMONIC VALVE The pulmonary valve is normal in structure and function. Doppler and Color Flow revealed no pulmonic valvular regurgitation. There is no pulmonic valvular stenosis. GREAT VESSELS The aortic root is normal in size. The ascending aorta is normal in size. The pulmonary artery is nor mal. The IVC is normal in size and collapses >50% with inspiration. PERICARDIAL EFFUSION There is no pleural effusion. There is no evidence of significant pericardial effusion. Critical Notification Critical Value: No <Conclusion> The left ventricle is normal size. The left ventricular systolic function is normal. LV ejection fraction is 55 to 60%. There is normal LV segmental wall motion. Proximal septal thickening is noted. Doppler and Color Flow revealed no significant aortic regurgitation. There is no significant aortic valvular stenosis. Doppler and Color-flow revealed trace mitral regurgitation. Doppler and Color Flow revealed trace tricuspid regurgitation. Signed by : Wally Reyes MD Electronically Approved : 06/13/2021 11:18:42
--- NOTE | 2021-06-13 12:34 | NUR ---
DISCHARGED PATIENT TO HOME. DISCHARGE INSTRUCTIONS GIVEN. PIV AND HEART MONITOR OFF. ESCORTED PATIENT OFF UNIT INTO A PRIVATE VEHICLE.
--- NOTE | 2021-06-13 13:56 | NUR ---
SS following for discharge planning. SS reviewed pt chart and discussed with pt RN. Pt is from home with spouse and is currently on room air. Cardiology consulted. Discharge order on the chart for home with self care.
== END 2021-06-13 12:03 | disposition home or self-care (01) | DRG 313 ==
LOC: ER 06:35 → INTOOBSV 09:44 → OBSVTOIN 09:44 → ED HOLD 09:44 → 2 NORTH 13:38 → UNDODISOB 06-13 12:03
PROVIDERS: ADMIT Internal Medicine; ATTEND Internal Medicine
DX: R07.89 Other chest pain (principal); I50.33 Acute on chronic diastolic (congestive) heart failure; M54.2 Cervicalgia; E03.9 Hypothyroidism, unspecified; E11.9 Type 2 diabetes mellitus without complications; E78.00 Pure hypercholesterolemia, unspecified; E78.5 Hyperlipidemia, unspecified; E87.5 Hyperkalemia; F17.210 Nicotine dependence, cigarettes, uncomplicated; I11.0 Hypertensive heart disease with heart failure; I25.10 Atherosclerotic heart disease of native coronary artery without angina pectoris; I25.2 Old myocardial infarction; J44.9 Chronic obstructive pulmonary disease, unspecified; M48.04 Spinal stenosis, thoracic region; M81.0 Age-related osteoporosis without current pathological fracture; Z82.49 Family history of ischemic heart disease and other diseases of the circulatory system; Z86.711 Personal history of pulmonary embolism; Z90.49 Acquired absence of other specified parts of digestive tract; Z95.1 Presence of aortocoronary bypass graft; M19.90 Unspecified osteoarthritis, unspecified site; F32.9 Major depressive disorder, single episode, unspecified; Z88.5 Allergy status to narcotic agent; Z88.2 Allergy status to sulfonamides; Z88.8 Allergy status to other drugs, medicaments and biological substances; Z91.040 Latex allergy status
CPT/HCPCS: 36415; 71045; 72125; 72128; 80048; 80061; 80076; 82550; 83690; 83735; 83880; 84484; 85025; 93005; 93306; 96374; G0378; G0379; J1650; J1940; J2270; 99285-25

== ENCOUNTER → 2021-08-22 | Outpatient (CLI) | payer OTHER ==
--- NOTE | 2021-08-22 13:11 | RAD ---
MR#: [id number] Date of Study: 08/22/2021 Ordering Physician: TEMO REYES, Referring Physician: CRISTINA SALMERON Tech: MARIANNA Rolle APPROVED REPORT Test Type: Exercise Stress Nurse/Tech: Bc Chacko RN Test Indications: CAD Cardiac History: HTN, CABG 2017, See EMR. Medications: ASA, See EMR. Medical History: Smoker=quit 2mths ago, See EMR. Resting ECG: SR Resting Heart Rate: 80 bpm Resting Blood Pressure: 146/85mmHg Pretest Chest Pain: No chest pain Nurse/Tech Notes Lungs CTA, Heart tones regular. Consent: The procedure was explained to the patient in lay terms. Informed consent was witnessed. Rusty eout was entered into [employer]. History and Stress Test performed by MARIANNA Rolle Stress Symptoms Dyspnea POST EXERCISE Reason for Termination: Reached target heart rate Target HR: Yes Max HR: 146 bpm 90% of Maximum Predicted HR: 163 bpm Exercise duration: 3:50 min:sec, 2 Stage Exercise capacity: 7.0METs Max Blood Pressure: 170/88mmHg Blood Pressure response to exercise: Normal blood pressure response during stress. Heart Rate response to exercise: WNL Chest Pain: No. Arrhythmia: No. ST Change: No. INTERPRETATION Stress EKG Conclusion: The resting EKG shows a sinus rhythm with minimal nonspecific ST segment whyte es. The stress EKG showed no significant changes from baseline. No EKG evidence of stress-induced ischemia. Imaging Protocol IMAGE PROTOCOL: Rest Tc-99m/stress Tc-99m 1 day Rest: Stress: Viability: Radiopharm.Tc99m OyvtzpsbrEo61z Sestamibi Udur58eOm 33mCi Duration 15min. 13min. Img Date 08/22/2021 08/22/2021 Inj-Img Xxvj21adh. 60min. Post-Injection Exercise: 1 minute Rest Admin Site:IV - Right AntecubitalAdministrator:MARIANNA Rolle Stress Admin Site: IV - Right AntecubitalAdministrator: MARIANNA Rolle STRESS DATA End Diast. Vol.79.0mlLVEDV index BSA40.0ml End Syst. Vol.20.0mlLVESV index BSA10.0ml Myocardial Liiv577.0gEject. Kzzaitce95.0% Stress Scores Regional WT0.00Summed WT4.00 Regional WM0.00Summed WM0.00 LV Perfusion The stress scans show no defects. The rest scans showed no defects. Nuclear imaging shows no reversible ischemia or infarct. Wall Motion Left ventricular systolic function is normal with an ejection fraction of greater than 70%. LV Perf. Quant 17 Seg. SSS0.00 17 Seg. SRS0.00 17 Seg. SDS0.00 Stress Defect Extent (% LAD)0.00Rest Defect Extent (% LAD)0.00Rev. Defect Extent (% LAD)0.00 Stress Defect Extent (% LCX) 0.00Rest Defect Extent (% LCX)0.00Rev. Defect Extent (% LCX)0.00 Stress Defect Extent (% RCA)0.00Rest Defect Extent (% RCA)0.00Rev. Defect Extent (% RCA)0.00 Stress Defect Extent (% BRIAN)0.00Rest Defect Extent (% BRIAN)0.00Rev. Defect Extent (% BRIAN)0.00 Conclusion 1. Limited exercise tolerance with the patient walking for 3 minutes and 50 seconds on a Martín protoc ol. 2. No reported chest pain with exertion. 3. No EKG evidence of stress-induced ischemia. 4. Nuclear imaging shows no reversible ischemia or infarct. 5. Normal left ventricular systolic function with an ejection fraction of greater than 70%. 6. Low risk Lexiscan nuclear stress test. Signed by : Temo Reyes MD Electronically Approved : 08/22/2021 13:11:07
== END ==
LOC: NM 07:47
PROVIDERS: ATTEND Internal Medicine Cardiovascular Disease
DX: I21.4 Non-ST elevation (NSTEMI) myocardial infarction (principal)
CPT/HCPCS: 78452; 93017; A9500

== ENCOUNTER → 2021-09-05 | Outpatient (CLI) | payer OTHER ==
--- NOTE | 2021-09-05 09:56 | KCIC ---
Bilateral digital screening mammograms with 3-D tomosynthesis: Reason for examination: Routine screening. Comparison is made to previous studies dated back to 02/05/2017. Bilateral mammograms in CC and oblique projections were obtained with 2-D imaging and 3-D tomosynthes is imaging on a Siemens Inspiration unit and reviewed on the workstation. Interpretation was made wit h the benefit of CAD. The skin and nipples show no abnormalities. No abnormal axillary lymph nodes are seen. The breast par enchyma shows scattered fatty and fibroglandular density. (Breast density: Category B.) There appear to be some new calcifications present posteriorly and centrally in the right breast on cc view. Some of these may be vascular however further evaluation with coned magnification views in CC and true lat eral projections is recommended. There continues be some nodular asymmetry to the parenchyma in the u pper outer quadrant of the right breast which is stable. There are no other dominant masses, suspicio us calcifications or architectural distortion. Benign calcifications are present. Impression: New calcifications suggested posterior centrally in the right breast on cc view. Some of these calcif ications may be vascular. Recommend further evaluation with coned compression magnification views in CC and true lateral projections. BI-RAD Category 0: Incomplete. Needs additional imaging evaluation. "Our facility is accredited by the [employer] Mammography [employer]." This patient's information has been entered into a reminder system for the patient to be notified wit h the results of her examination and a target date for the next mammogram. Electronically signed by: Renetta Willson MD (09/05/2021 9:53 AM) [email or web address]
== END ==
LOC: KCIC MAMMO 08:26
PROVIDERS: ATTEND Family Medicine
DX: Z12.31 Encounter for screening mammogram for malignant neoplasm of breast (principal); R92.1 Mammographic calcification found on diagnostic imaging of breast
CPT/HCPCS: 77063; 77067

== ENCOUNTER → 2021-10-01 | Outpatient (CLI) | payer OTHER ==
[~2021-10-01] MED LIST changes: +CYCL10TA19 PO; -CYCL10TA2 PO
--- NOTE | 2021-10-01 11:23 | KCIC ---
Right breast diagnostic digital mammograms: Reason for examination: Calcifications on screening mammogram. Comparison is made to mammographic exam dated 09/05/2021. Coned compression magnification views of the right breast were obtained in CC and true lateral projec tions. At the 12:00 position approximately 12:00 position 6.5 cm posterior to the nipple, there continue to be some calcifications. These appear to be linear and are seen along the moreira of vascular structures . These are probably vascular calcifications. Reevaluation however in 6 months is recommended to veri fy stability of these calcifications. IMPRESSION: Calcifications located at the 12:00 B position of the right breast which appear to be vascular. Recom mend follow-up in 6 months to verify stability. BI-RADS Category 3: Probably Benign. "Our facility is accredited by the [employer] Mammography Program." This patient's information has been entered into a reminder system for the patient to be notified wit h the results of her examination and a target date for the next mammogram. Electronically signed by: Renetta Willson MD (10/01/2021 11:21 AM) [email or web address]
== END ==
LOC: KCIC MAMMO 10:39
PROVIDERS: ATTEND Family Medicine
DX: R92.8 Other abnormal and inconclusive findings on diagnostic imaging of breast (principal)
CPT/HCPCS: 77065

== ENCOUNTER → 2022-02-27 | Outpatient (CLI) | payer OTHER ==
[2022-02-27 08:17] LABS: BASO # 0.1 x10^3/uL (0.0-0.2); BASO % 1 % (0-3); EOS # 0.2 x10^3/uL (0.0-0.7); EOS % 3 % (0-3); HEMATOCRIT 47.1 % (36.0-47.0); HEMOGLOBIN 15.7 g/dL (12.0-15.5); LYMPH # 1.6 x10^3/uL (1.0-4.8); LYMPH % 33 % (24-48); MEAN CORPUSCULAR HEMOGLOBIN 32 pg (25-35); MEAN CORPUSCULAR HGB CONC 33 g/dL (31-37); MEAN CORPUSCULAR VOLUME 96 fL (79-100); MONO # 0.5 x10^3/uL (0.0-1.1); MONO % 10 % (0-9); NEUT # 2.6 x10^3/uL (1.8-7.7); NEUT % 53 % (31-73); PLATELET COUNT 240 x10^3/uL (140-400); RED CELL DISTRIBUTION WIDTH 13.1 % (11.5-14.5); WHITE BLOOD COUNT 4.9 x10^3/uL (4.0-11.0)
[2022-02-27 08:29] LABS: ALBUMIN 3.6 g/dL (3.4-5.0); ALBUMIN/GLOBULIN RATIO 1.2 (1.0-1.7); CHOLESTEROL/HDL RATIO 4.9; CREATININE 0.9 mg/dL (0.6-1.0); GFR 64.3; POTASSIUM 4.8 mmol/L (3.5-5.1); TOTAL BILIRUBIN 0.5 mg/dL (0.2-1.0); TOTAL PROTEIN 6.7 g/dL (6.4-8.2)
[2022-02-28 00:12] LABS: HEMOGLOBIN A1C 5.4 % (4.8-5.6)
== END ==
LOC: LAB 07:39
PROVIDERS: ATTEND Nurse Practitioner
DX: I10 Essential (primary) hypertension (principal); E78.5 Hyperlipidemia, unspecified
CPT/HCPCS: 36415; 80053; 80061; 83036; 84443; 85025

== ENCOUNTER → 2022-03-25 | Outpatient (CLI) | payer OTHER ==
--- NOTE | 2022-03-25 11:03 | KCIC ---
Bilateral digital screening 2-D and 3-D (digital breast tomosynthesis) mammogram: Reason for examination: Routine screening. Comparison: Mammograms from 09/05/2021, 10/01/2021, 2420, 02/21/2019. FINDINGS: Breast density: Category B. There are scattered areas of fibroglandular density. The calcifications in the right upper outer quadrant do not appear significantly changed since the [place] September 2021 mammograms. Accounting for differences due to magnification, there does not appe ar to been a significant change February 2019 mammogram. Calcifications are punctate and are homogeneou s in size and density with the one calcification showing meniscus sign. No associated mass or archite ctural distortion is seen. IMPRESSION: No significant change probably benign calcifications right upper outer quadrant since 2019. These can be followed on routine annual screening mammograms. Assessment: BI-RADS 2. Benign finding. Recommendation: Routine screening mammograms. Results are given to the patient at time of exam. The patient will receive a letter with the results in the mail. Patient information will be entered into the mammography reminder system with a target r ecall date for the next mammogram. A reminder letter will be generated. Electronically signed by: Evelyne Jackson MD (03/25/2022 11:01 AM) [email or web address]
== END ==
LOC: KCIC MAMMO 07:53
PROVIDERS: ATTEND Family Medicine
DX: R92.1 Mammographic calcification found on diagnostic imaging of breast (principal)
CPT/HCPCS: 77065; G0279; 77061